=== PATIENT | male | born 1965 | race Caucasian/White ===

== ENCOUNTER 2023-01-10 14:03 | Outpatient (OUT) | payer OTHER, SELFPAY ==
[2023-01-10 15:38] LABS: Prostate Specific Antigen Dx <0.13 ng/mL (<=4.00)
[2023-01-11 04:07] LABS: Testosterone <3 ng/dL (264-916)
== END 2023-01-10 14:04 | disposition home or self-care (01) ==
LOC: LAB 14:11
PROVIDERS: PCP Family Medicine
DX: C61 Malignant neoplasm of prostate (principal)
CPT/HCPCS: 36415; 84153; 84403

== ENCOUNTER 2023-03-20 13:15 | Emergency (ER) | payer OTHER, SELFPAY ==
[2023-03-20 13:21] VITALS: BP 128/84; PULSE 87; RESP 16; TEMP 36.9; O2SAT 95; BMI 33.5
--- NOTE | 2023-03-20 13:31 | CT_ITS ---
[address] [address] Patient Name: ISAIAS LEMON MRN: [id number] date: 1965 Sex: M Assigned Patient Location: ER Current Patient Location: Accession/Order Number: [id number] Exam Date: 03/20/2023 14:10 Report Date: 03/20/2023 15:06 At the request of: MAURIZIO MALDONADO Procedure: CT soft tissue neck w con EXAM: CT soft tissue neck w con; [id number] REASON FOR EXAM: Difficulty swallowing TECHNIQUE: Helical CT images of the neck obtained after the administration of IV contrast. Coronal and sagittal reconstructions were generated at the scanner. Dose reduction technique used: Automated exposure control and/or adjustment of the mA and/or kV according to patient size and/or use of iterative reconstruction technique. COMPARISON: None. FINDINGS: Visualized intracranial contents: Within normal limits. Orbits: Within normal limits. Sinuses: Clear. Catal[employer] Manager space: Within normal limits. Buccal space: Within normal limits. Parotid space: No mass, stone, or acute inflammatory changes. Submandibular space: Within normal limits. Sublingual space: Within normal limits. Submental space: Within normal limits. Oral cavity: Within normal limits. Pharynx/Pharyngeal mucosal space: Distorted due to the left parapharyngeal fluid collection. There is mild mucosal thickening surrounding the parapharyngeal collection. Parapharyngeal space: Left-sided irregular peripherally enhancing fluid collection just cranial to the level of the vallecula measuring 1.5 x 1.3 x 2.4 cm for a volume of 2.4 mL (series 3 image 44 and series 6 image 34). There is adjacent mucosal thickening as well as thickening of the aryepiglottic fold. No evidence of extension into the adjacent carotid space. Retropharyngeal space: Trace retropharyngeal edema, likely reactive. Carotid space: Within normal limits. Perivertebral space: Within normal limits. Visceral space: -No thyroid nodules. Lymph nodes: Mild reactive adenopathy in the left neck. Superficial soft tissues of the neck: Within normal limits. Lung apices: Clear. Osseous: No acute osseous abnormality. No suspicious osseous lesion. CT/CT soft tissue neck w con IMPRESSION: 1. Left-sided parapharyngeal abscess with a volume of 2.4 mL. Mild adjacent pharyngeal mucosal thickening and mild edema within the adjacent retropharyngeal space, likely reactive. 2. Mild reactive adenopathy in the left neck. Electronically authenticated by: DILLON INIGUEZ Date: 03/20/2023 15:06
--- NOTE | 2023-03-20 13:34 | ED_ITS ---
HPI - General Adult General Chief complaint: Neck Pain/Injury Stated complaint: NECK PAIN Time Seen by Provider: 03/20/23 13:21 Source: patient Mode of arrival: walk-in Limitations: no limitations History of Present Illness HPI narrative: patient is a 58-year-old male who presents to the emergency department for a three day history of difficulty swallowing, throat pain and swollen lymph nodes. He denies any fevers, vomiting. He reports the sensation that his throat is swollen and it is difficult for him to breathe and swallow. He has had minimal nasal congestion, no significant upper respiratory symptoms or coughing. He denies any injury to the neck. No medications taken prior to arrival. He states he has had very little to eat and drink today because of the difficulty swallowing, but he has not had any food or fluids come back up after swallowing. Related Data Home Medications Medication Instructions Recorded Confirmed leuprolide acetate (6 month) 45 mg 45 mg IM 03/20/23 intramuscular syringe kit (Lupron Depot) lisinopril 10 mg tablet 10 mg PO DAILY 03/20/23 03/20/23 tamsulosin 0.4 mg capsule 0.4 mg PO Q24H 03/20/23 03/20/23 Allergies Allergy/AdvReac Type Severity Reaction Status Date / Time No Known Drug Allergies Allergy Verified 03/20/23 13:21 Review of Systems ROS Constitutional Denies: fever or chills Ears, nose, mouth, and throat Reports: throat pain, neck pain, throat swelling and difficulty swallowing Cardiovascular Denies: chest pain Respiratory Denies: shortness of breath or cough Gastrointestinal Denies: nausea or vomiting Musculoskeletal Reports: neck pain Integumentary/Breast Denies: rash Neurological Denies: headache Hematologic/Lymphatic Denies: easy bruising Exam Narrative Exam Narrative: Gen.: Awake, alert, in no distress, sitting comfortably Head: Normocephalic, atraumatic ENT: Moist mucous membranes, bilateral tympanic membranes clear. Clear speech with no trismus or drooling. Uvula is midline with pharyngeal erythema noted of the left pharynx, no tonsillar edema or exudate noted. Airway is widely open and patent. Patient is tolerating his secretions. poor dentition noted with multiple dental caries, gumline is swollen and the left mandible, no redness or swelling under the tongue. Palpable lymphadenopathy in the neck, submandibular Respiratory: No respiratory distress, lungs clear bilaterally; no wheezing or stridor Cardio: Regular rate and rhythm Extremities: Moves extremities equally, no injuries noted Psych: Normal mood and affect Neuro: No focal neuro deficit Skin: Warm, dry, intact Constitutional Vital Signs, click to edit/add: Last Vital Signs Temp 98.4 F 03/20/23 13:21 Pulse 76 03/20/23 18:12 Resp 16 03/20/23 18:12 BP 157/91 H 03/20/23 18:12 Pulse Ox 100 03/20/23 18:12 O2 Del Method Room Air 03/20/23 13:49 Course Vital Signs Vital signs: Vital Signs Temperature 98.4 F 03/20/23 13:21 Pulse Rate 87 03/20/23 13:21 Respiratory Rate 16 03/20/23 13:21 Blood Pressure 128/84 03/20/23 13:21 Pulse Oximetry 95 03/20/23 13:21 Oxygen Delivery Method Room Air 03/20/23 13:21 Temperature 98.4 F 03/20/23 13:21 Pulse Rate 76 03/20/23 18:12 Respiratory Rate 16 03/20/23 18:12 Blood Pressure 157/91 H 03/20/23 18:12 Pulse Oximetry 100 03/20/23 18:12 Oxygen Delivery Method Room Air 03/20/23 13:49 Medical Decision Making MDM Narrative Medical decision making narrative: patient was treated with IV fluids, Decadron, Toradol for comfort. He has no evidence of airway compromise and stable vital signs in the emergency department. Labs are unremarkable, monoscreen is negative and strep screen was obtained. CT of the soft tissue of the neck with contrast shows the patient has a 2.4 mL volume abscess in the left parapharyngeal space with associated edema in the retropharyngeal space which is thought to be reactive by radiologist. Discussed with Dr. Mclean ([id number]) who recommended tertiary care transfer due to location of the abscess. Patient started on Zosyn and vancomycin as he has a history of prostate cancer and receiving treatment with Lupron. Patient was given results by attending physician, patient is comfortable transferred to tertiary care facility. Accepted at [facility] by Dr. Tao ([id number]) for transfer. 1924: a bed assignment was received, transfer is pending at this time and dependent on transport come get the patient. He continues to have no compromise of his airway. Vital signs and oxygen saturation are normal at this time. Critical care time 35 minutes Medical Records Medical records reviewed: Yes I reviewed the patient's medical records Lab Data Lab results reviewed: Yes I reviewed the patient's lab results Labs: Lab Results 03/20/23 Range/Units 13:43 WBC 7.9 (4.0-11.0) 10^3/uL RBC 4.06 L (4.70-6.10) 10^6/uL Hgb 12.4 L (14.0-18.0) g/dL Hct 37.5 L (42.0-54.0) % MCV 92.4 (80.0-94.0) fL MCH 30.5 (25.9-34.0) pg MCHC 33.1 (29.9-35.2) g/dL RDW 12.5 (11.0-15.0) % Plt Count 159 (150-450) 10^3/uL MPV 10.4 (9.5-13.5) fL Neut % (Auto) 81.9 H (43.0-75.0) % Lymph % (Auto) 7.6 L (20.5-60.0) % [place] % (Auto) 9.2 (1.7-12.0) % Eos % (Auto) 0.3 L (0.9-7.0) % Baso % (Auto) 0.4 (0.2-2.0) % Neut # (Auto) 6.4 (1.4-6.5) 10^3/uL Lymph # (Auto) 0.6 L (1.2-3.8) 10^3/uL [place] # (Auto) 0.7 (0.3-0.8) 10^3/uL Eos # (Auto) 0.0 (0.0-0.7) 10^3/uL Baso # (Auto) 0.0 (0.0-0.1) 10^3/uL Abs Immat Gran (auto) 0.05 H (0.00-0.03) 10^3/uL Imm/Tot Granulo (auto) 0.6 H (0.0-0.5) % Sodium 138 (136-145) mmol/L Potassium 4.1 (3.5-5.1) mmol/L Chloride 104 (98-107) mmol/L Carbon Dioxide 23.7 (21.0-32.0) mmol/L Anion Gap 14.4 BUN 17.0 (7.0-18.0) mg/dL Creatinine 0.96 (0.70-1.30) mg/dL Est GFR ( Amer) >60 (>=60) Est GFR (Non-Af Amer) >60 (>=60) BUN/Creatinine Ratio 17.7 Glucose 146 H (74-106) mg/dL Calcium 9.3 (8.5-10.1) mg/dL Total Bilirubin 1.3 H (0.2-1.0) mg/dL AST 44 H (15-37) U/L ALT 82 H (16-63) U/L Alkaline Phosphatase 150 H (46-116) U/L Total Protein 8.2 (6.4-8.2) g/dL Albumin 3.7 (3.4-5.0) g/dL Globulin 4.5 g/dL Albumin/Globulin Ratio 0.8 Monoscreen Negative (NEGATIVE) Streptococcus Screen Negative Imaging Data CT neck: Attestation: I have reviewed the pertinent imaging results. Radiologist's impression: Procedure: CT soft tissue neck w con EXAM: CT soft tissue neck w con; [id number] REASON FOR EXAM: Difficulty swallowing TECHNIQUE: Helical CT images of the neck obtained after the administration of IV contrast. Coronal and sagittal reconstructions were generated at the scanner. Dose reduction technique used: Automated exposure control and/or adjustment of the mA and/or kV according to patient size and/or use of iterative reconstruction technique. COMPARISON: None. FINDINGS: Visualized intracranial contents: Within normal limits. Orbits: Within normal limits. Sinuses: Clear. Community Service Aide space: Within normal limits. Buccal space: Within normal limits. Parotid space: No mass, stone, or acute inflammatory changes. Submandibular space: Within normal limits. Sublingual space: Within normal limits. Submental space: Within normal limits. Oral cavity: Within normal limits. Pharynx/Pharyngeal mucosal space: Distorted due to the left parapharyngeal fluid collection. There is mild mucosal thickening surrounding the parapharyngeal collection. Parapharyngeal space: Left-sided irregular peripherally enhancing fluid collection just cranial to the level of the vallecula measuring 1.5 x 1.3 x 2.4 cm for a volume of 2.4 mL (series 3 image 44 and series 6 image 34). There is adjacent mucosal thickening as well as thickening of the aryepiglottic fold. No evidence of extension into the adjacent carotid space. Retropharyngeal space: Trace retropharyngeal edema, likely reactive. Carotid space: Within normal limits. Perivertebral space: Within normal limits. Visceral space: -No thyroid nodules. Lymph nodes: Mild reactive adenopathy in the left neck. Superficial soft tissues of the neck: Within normal limits. Lung apices: Clear. Osseous: No acute osseous abnormality. No suspicious osseous lesion. IMPRESSION: 1. Left-sided parapharyngeal abscess with a volume of 2.4 mL. Mild adjacent pharyngeal mucosal thickening and mild edema within the adjacent retropharyngeal space, likely reactive. 2. Mild reactive adenopathy in the left neck. Electronically authenticated by: DILLON INIGUEZ Date: 03/20/2023 15:06 Discharge Plan Discharge Chief Complaint: Neck Pain/Injury Clinical Impression: Parapharyngeal abscess, Dysphagia Patient Disposition: [facility] Time of Disposition Decision: 19:31 Discharge Location: [facility] Condition: Fair Mode of Transportation: EMS Prescriptions / Home Meds: No Action lisinopril 10 mg tablet 10 mg PO DAILY tamsulosin 0.4 mg capsule 0.4 mg PO Q24H Lupron Depot (6 Month) 45 mg syringe kit 45 mg IM Stand Alone Forms: Portal Instructions Referrals: JOHN GAYTAN [Primary Care Provider] - 1 week
[2023-03-20 13:49] VITALS: RESP 16; O2SAT 98
[2023-03-20] MEDS: DEXAMETHASONE SODIUM PHOSPHATE 10 MG/ML VIAL IV (13:53)
[2023-03-20] MEDS: KETOROLAC TROMETHAMINE 30 MG/ML VIAL IVP (13:53)
[2023-03-20 14:09] LABS: Alanine Aminotransferase 82 U/L (16-63); Albumin Globulin Ratio 0.8; Albumin Level 3.7 g/dL (3.4-5.0); Alkaline Phosphatase 150 U/L (46-116); Anion Gap 14.4; Aspartate Amino Transferase 44 U/L (15-37); BUN Creatinine Ratio 17.7; Bilirubin Total 1.3 mg/dL (0.2-1.0); Calcium 9.3 mg/dL (8.5-10.1); Carbon Dioxide 23.7 mmol/L (21.0-32.0); Chloride 104 mmol/L (98-107); Estimated GFR (African America >60 (>=60); Estimated GFR (Non-African Ame >60 (>=60); Globulin 4.5 g/dL; Glucose 146 mg/dL (74-106); Potassium 4.1 mmol/L (3.5-5.1); Sodium 138 mmol/L (136-145); Total Protein 8.2 g/dL (6.4-8.2)
[2023-03-20 14:11] LABS: Mono Screen NEGATIVE (NEGATIVE)
[2023-03-20] MEDS: 0.9 % SODIUM CHLORIDE 1,000 ML 1000 ML IV (14:30)
[2023-03-20 14:34] LABS: Basophils Percent Auto 0.4 % (0.2-2.0); Eosinophils Percent Auto 0.3 % (0.9-7.0); Hematocrit 37.5 % (42.0-54.0); Hemoglobin 12.4 g/dL (14.0-18.0); Immature Granulocytes Abs Auto 0.05 10^3/uL (0.00-0.03); Immature Granulocytes Pct Auto 0.6 % (0.0-0.5); Lymphocytes Absolute Auto 0.6 10^3/uL (1.2-3.8); Lymphocytes Percent Auto 7.6 % (20.5-60.0); Mean Corpuscular HGB Conc 33.1 g/dL (29.9-35.2); Mean Corpuscular Hemoglobin 30.5 pg (25.9-34.0); Mean Corpuscular Volume 92.4 fL (80.0-94.0); Mean Platelet Volume 10.4 fL (9.5-13.5); Monocytes Absolute Auto 0.7 10^3/uL (0.3-0.8); Monocytes Percent Auto 9.2 % (1.7-12.0); Neutrophils Absolute Auto 6.4 10^3/uL (1.4-6.5); Neutrophils Percent Auto 81.9 % (43.0-75.0); Platelet Count 159 10^3/uL (150-450); Red Blood Count 4.06 10^6/uL (4.70-6.10); Red Cell Distribution Width 12.5 % (11.0-15.0); White Blood Count 7.9 10^3/uL (4.0-11.0)
[2023-03-20] MEDS: PIPERACILLIN SODIUM/TAZOBACTAM 4.5 GM in 0.9 % SODIUM CHLORIDE 50 ML IV (15:26)
[2023-03-20 15:55] LABS: Internal Control Within Normal Limits; Strep A Antigen Screen Negative
[2023-03-20] MEDS: VANCOMYCIN HCL 1,000 MG in 0.9 % SODIUM CHLORIDE 250 ML 250 MG IV (15:58)
[2023-03-20 18:12] VITALS: BP 157/91; PULSE 76; RESP 16; O2SAT 100
[2023-03-20 20:27] VITALS: BP 154/86; PULSE 73; RESP 16; O2SAT 97
== END 2023-03-20 21:33 | disposition short-term general hospital (02) ==
PROVIDERS: Physician Assistant; Emergency Provider Emergency Medicine; PCP Family Medicine
DX: J39.0 Retropharyngeal and parapharyngeal abscess (principal); R13.10 Dysphagia, unspecified; Z79.899 Other long term (current) drug therapy
CPT/HCPCS: 36415; 70491; 80053; 85025; 86308; 87070; 87880; 96365; 96375; 99291; J1100; J3370; Q9967

== ENCOUNTER 2023-07-17 15:30 | Outpatient (OUT) | payer OTHER, SELFPAY ==
[2023-07-17 15:55] LABS: Basophils Percent Auto 0.5 % (0.2-2.0); Eosinophils Absolute Auto 0.1 10^3/uL (0.0-0.7); Hematocrit 38.1 % (42.0-54.0); Hemoglobin 12.4 g/dL (14.0-18.0); Immature Granulocytes Abs Auto 0.03 10^3/uL (0.00-0.03); Immature Granulocytes Pct Auto 0.5 % (0.0-0.5); Lymphocytes Percent Auto 18.2 % (20.5-60.0); Mean Corpuscular HGB Conc 32.5 g/dL (29.9-35.2); Mean Corpuscular Hemoglobin 29.5 pg (25.9-34.0); Mean Corpuscular Volume 90.5 fL (80.0-94.0); Monocytes Absolute Auto 0.3 10^3/uL (0.3-0.8); Monocytes Percent Auto 5.5 % (1.7-12.0); Neutrophils Percent Auto 73.3 % (43.0-75.0); Platelet Count 178 10^3/uL (150-450); Red Blood Count 4.21 10^6/uL (4.70-6.10); Red Cell Distribution Width 12.4 % (11.0-15.0); White Blood Count 5.5 10^3/uL (4.0-11.0)
[2023-07-17 16:04] LABS: Alanine Aminotransferase 84 U/L (16-63); Albumin Globulin Ratio 0.9; Albumin Level 3.8 g/dL (3.4-5.0); Alkaline Phosphatase 187 U/L (46-116); Anion Gap 11.3; Aspartate Amino Transferase 36 U/L (15-37); BUN Creatinine Ratio 12.2; Bilirubin Total 0.3 mg/dL (0.2-1.0); Calcium 9.1 mg/dL (8.5-10.1); Carbon Dioxide 27.8 mmol/L (21.0-32.0); Chloride 104 mmol/L (98-107); Estimated GFR (African America >60 (>=60); Estimated GFR (Non-African Ame >60 (>=60); Globulin 4.3 g/dL; Glucose 169 mg/dL (74-106); Potassium 4.1 mmol/L (3.5-5.1); Sodium 139 mmol/L (136-145); Total Protein 8.1 g/dL (6.4-8.2)
== END 2023-07-17 15:31 | disposition home or self-care (01) ==
LOC: LAB 15:32
PROVIDERS: PCP Family Medicine
DX: C61 Malignant neoplasm of prostate (principal)
CPT/HCPCS: 36415; 80053; 85025

== ENCOUNTER 2023-10-01 11:00 | Observation (INO) | payer OTHER, SELFPAY ==
[2023-10-01] VITALS (47 sets, daily range): BP systolic 84–173; BP diastolic 51–92; PULSE 60–89; RESP 10–27; TEMP 36.5–36.8; O2SAT 88–99; BMI 34.4; BMI 32.4
--- NOTE | 2023-10-01 11:38 | PC.NURSE ---
pt states for last 2 weeks he has been feeling like his equililbrium is off. denies any room spinning or lightheadedness. Pt was able to ambulate back to room. Per daughter, pt has somewhat of a R facial droop -- this RN does not see that at this time. Pt is not slurring his words and is not weak on one side or the other. States my body won't do what my mind wants it to . Pt is currently being treated for prostate CA with radioactive seeds. Called his Dr today and was told to come to ER for head CT.
--- NOTE | 2023-10-01 11:39 | ECG_ITS ---
The [facility] Test Date: 2023-10-01 Pat Name: ISAIAS LEMON Department: Room: - Gender: Male Lab Support Technician: : 1965 Requested By: [id number] Order Number: [id number] Reading MD: MILAD AL Measurements Intervals [place] Rate: 78 P: 34 MD: 162 QRS: 0 QRSD: 90 T: -14 QT: 368 QTc: 401 Interpretive Statements 1100 Sinus rhythm 3614 Cannot rule out inferior myocardial infarction, age undetermined ST/T wave changes, can't exclude inferior ischemia 5233 Voltage criteria for LVH 9150 abnormal ECG Electronically Signed On 10-01-2023 22:45:55 EDT by MILAD AL
--- NOTE | 2023-10-01 11:40 | ED.GENADUL1 ---
HPI - General Adult General Chief complaint: Extremity Problem, Nontraumatic Stated complaint: R LEG PAIN/NUMBNESS Time Seen by Provider: 10/01/23 11:21 Source: patient and family Mode of arrival: walk-in Limitations: no limitations History of Present Illness HPI narrative: 58-year-old male presents for weakness in his right leg. He has had this for 2 weeks and it seems to be getting worse. He is also had polyuria and polydipsia. He is not known to be diabetic. He has no symptoms in his arms or the left leg. He feels that the coordination in his right leg is not good and it is a bit weak. She has trouble controlling it. He has difficulty sitting down because sometimes he feels that he is in 1 place but is actually in another such as sitting down onto a chair. He has had no injury and does not complain of a headache. Related Data Home Medications ?Medication ?Instructions ?Recorded ?Confirmed leuprolide acetate (6 month) 45 mg 45 mg IM .q 6 months 03/20/23 10/01/23 intramuscular syringe kit (Lupron Depot) tamsulosin 0.4 mg capsule 0.4 mg PO Q24H 03/20/23 10/01/23 lisinopril 20 mg tablet 20 mg PO QDAY 10/01/23 10/01/23 venlafaxine 37.5 mg 75 mg PO DAILY 10/01/23 10/01/23 capsule,extended release 24 hr Allergies Allergy/AdvReac Type Severity Reaction Status Date / Time No Known Drug Allergies Allergy Verified 10/01/23 11:07 Review of Systems ROS Narrative A ten point review of systems is negative except as noted above. Exam Narrative Exam Narrative: Nurses note and vital signs reviewed and patient is not hypoxic. General: The patient appears well and in no apparent distress. Patient is resting comfortably on cart. Skin: Warm, dry, no pallor noted. There is no rash noted. Head: Normocephalic, atraumatic Eye: Normal conjunctiva, no drainage Ears, Nose, Mouth, and Throat: oral mucosa is moist. Nares patent. Cardiovascular: Regular Rate and Rhythm Respiratory: Patient is in no distress, no accessory muscle use, lungs are clear to auscultation, no wheezing, rales or rhonchi Back: non-tender GI: Soft and nontender Musculoskeletal: The patient has no evidence of calf tenderness, no pitting edema, symmetrical pulses noted bilaterally Neurological: A&O x4, normal speech; upper extremity strength is intact and symmetric in all muscle groups. Right leg is weak compared to the left and motor control is diminished as well. Cranial nerves II through XII intact Psychiatric: Cooperative Constitutional Vital Signs, click to edit/add: Last Vital Signs Temp 97.7 F 10/01/23 11:13 Pulse 62 10/01/23 16:00 Resp 14 10/01/23 16:00 BP 122/72 10/01/23 15:45 Pulse Ox 93 L 10/01/23 16:00 O2 Del Method Room Air 10/01/23 11:13 Course Vital Signs Vital signs: Vital Signs Temperature 97.7 F 10/01/23 11:13 Pulse Rate 89 10/01/23 11:13 Respiratory Rate 18 10/01/23 11:13 Blood Pressure 140/81 10/01/23 11:13 Pulse Oximetry 95 10/01/23 11:13 Oxygen Delivery Method Room Air 10/01/23 11:13 Temperature 97.7 F 10/01/23 11:13 Pulse Rate 62 10/01/23 16:00 Respiratory Rate 14 10/01/23 16:00 Blood Pressure 122/72 10/01/23 15:45 Pulse Oximetry 93 L 10/01/23 16:00 Oxygen Delivery Method Room Air 10/01/23 11:13 Medical Decision Making MDM Narrative Medical decision making narrative: CT brain, CTA head and neck are negative. I have spoken to neurology who does not feel the patient needs to be transferred. They recommend MRI. The patient also has new onset of diabetes. He was given IV insulin with good response in terms of his blood sugar. Repeat examination of his leg at 4:30 PM showed no ataxia. The patient reports that it has been coming and going like this for 2 or 3 weeks. The cause of the leg ataxia is uncertain. At this point there is no evidence of a stroke but he will need to have an MRI. It will be highly unlikely for hyperglycemia to be causing such as symptom. Findings are discussed thoroughly with the patient and his family and he is being admitted. Differential Diagnosis Differential Diagnosis: Metastasis, stroke, new onset diabetes, lumbar radiculopathy Lab Data Lab results reviewed: Yes I reviewed the patient's lab results Labs: Lab Results 0310/01/23 10/01/23 Range/Units 11:44 11:49 12:35 WBC 4.3 (4.0-11.0) 10^3/uL RBC 4.40 L (4.70-6.10) 10^6/uL Hgb 13.1 L (14.0-18.0) g/dL Hct 38.7 L (42.0-54.0) % MCV 88.0 (80.0-94.0) fL MCH 29.8 (25.9-34.0) pg MCHC 33.9 (29.9-35.2) g/dL RDW 12.0 (11.0-15.0) % Plt Count 154 (150-450) 10^3/uL MPV 12.1 (9.5-13.5) fL Neut % (Auto) 76.0 H (43.0-75.0) % Lymph % (Auto) 16.3 L (20.5-60.0) % [place] % (Auto) 5.8 (1.7-12.0) % Eos % (Auto) 0.9 (0.9-7.0) % Baso % (Auto) 0.5 (0.2-2.0) % Neut # (Auto) 3.3 (1.4-6.5) 10^3/uL Lymph # (Auto) 0.7 L (1.2-3.8) 10^3/uL [place] # (Auto) 0.3 (0.3-0.8) 10^3/uL Eos # (Auto) 0.0 (0.0-0.7) 10^3/uL Baso # (Auto) 0.0 (0.0-0.1) 10^3/uL Abs Immat Gran (auto) 0.02 (0.00-0.03) 10^3/uL Imm/Tot Granulo (auto) 0.5 (0.0-0.5) % VBG pH (7.330-7.430) VBG pCO2 (40.0-52.0) mmHg Sodium 130 L (136-145) mmol/L Potassium 5.0 (3.5-5.1) mmol/L Chloride 93 L (98-107) mmol/L Carbon Dioxide 23.9 (21.0-32.0) mmol/L Anion Gap 18.1 BUN 15.0 (7.0-18.0) mg/dL Creatinine 1.16 (0.70-1.30) mg/dL Est GFR ( Amer) >60 (>=60) Est GFR (Non-Af Amer) >60 (>=60) BUN/Creatinine Ratio 12.9 Glucose 501 H* (74-106) mg/dL Calcium 9.2 (8.5-10.1) mg/dL Urine Color Lt. yellow (YELLOW) Urine Clarity Clear (CLEAR) Urine pH 5.5 (5.0-9.0) Ur Specific [place] 1.010 (1.005-1.025) Urine Protein Negative (NEG/TRACE) mg/dL Urine Glucose (UA) >=1000 A (NEGATIVE) mg/dL Urine Ketones 15 A (NEGATIVE) mg/dL Urine Occult Blood Negative (NEGATIVE) Urine Nitrite Negative (NEGATIVE) Urine Bilirubin Negative (NEGATIVE) Urine Urobilinogen 0.2 (0.2-1.0) EU/dL Ur Leukocyte Esterase Negative (NEGATIVE) Urine RBC None seen (0-2) #/HPF Urine WBC None seen (NONE SEEN) #/HPF Ur Squamous Epith Cells Few A (NONE/RARE) #/LPF Urine Bacteria None seen (NONE SEEN) #/HPF Urine Mucus None seen (NONE SEEN) Acetone, Qual Negative (NEGATIVE) POC Glucose 511 H* (74-106) mg/dL 10/01/23 10/01/23 Range/Units 12:54 14:15 WBC (4.0-11.0) 10^3/uL RBC (4.70-6.10) 10^6/uL Hgb (14.0-18.0) g/dL Hct (42.0-54.0) % MCV (80.0-94.0) fL MCH (25.9-34.0) pg MCHC (29.9-35.2) g/dL RDW (11.0-15.0) % Plt Count (150-450) 10^3/uL MPV (9.5-13.5) fL Neut % (Auto) (43.0-75.0) % Lymph % (Auto) (20.5-60.0) % [place] % (Auto) (1.7-12.0) % Eos % (Auto) (0.9-7.0) % Baso % (Auto) (0.2-2.0) % Neut # (Auto) (1.4-6.5) 10^3/uL Lymph # (Auto) (1.2-3.8) 10^3/uL [place] # (Auto) (0.3-0.8) 10^3/uL Eos # (Auto) (0.0-0.7) 10^3/uL Baso # (Auto) (0.0-0.1) 10^3/uL Abs Immat Gran (auto) (0.00-0.03) 10^3/uL Imm/Tot Granulo (auto) (0.0-0.5) % VBG pH 7.401 (7.330-7.430) VBG pCO2 43.7 (40.0-52.0) mmHg Sodium (136-145) mmol/L Potassium (3.5-5.1) mmol/L Chloride (98-107) mmol/L Carbon Dioxide (21.0-32.0) mmol/L Anion Gap BUN (7.0-18.0) mg/dL Creatinine (0.70-1.30) mg/dL Est GFR ( Amer) (>=60) Est GFR (Non-Af Amer) (>=60) BUN/Creatinine Ratio Glucose (74-106) mg/dL Calcium (8.5-10.1) mg/dL Urine Color (YELLOW) Urine Clarity (CLEAR) Urine pH (5.0-9.0) Ur Specific [place] (1.005-1.025) Urine Protein (NEG/TRACE) mg/dL Urine Glucose (UA) (NEGATIVE) mg/dL Urine Ketones (NEGATIVE) mg/dL Urine Occult Blood (NEGATIVE) Urine Nitrite (NEGATIVE) Urine Bilirubin (NEGATIVE) Urine Urobilinogen (0.2-1.0) EU/dL Ur Leukocyte Esterase (NEGATIVE) Urine RBC (0-2) #/HPF Urine WBC (NONE SEEN) #/HPF Ur Squamous Epith Cells (NONE/RARE) #/LPF Urine Bacteria (NONE SEEN) #/HPF Urine Mucus (NONE SEEN) Acetone, Qual (NEGATIVE) POC Glucose 164 H (74-106) mg/dL Imaging Data CT scan - head: Radiologist's impression: ITS Impressions Chest X-Ray 10/01/23 12:07 IMPRESSION: No acute disease. Electronically authenticated by: ROCÍO PARKINSON Date: 10/01/2023 12:[address] 10/01/23 12:10 IMPRESSION: No acute intracranial process is noted. Electronically authenticated by: DASHA ELDRIDGE Date: 10/01/2023 12:33 Head CTA 10/01/23 14:12 IMPRESSION: No hemodynamically significant stenosis, large vessel occlusion or aneurysm involving the visualized neck or intracranial arterial vasculature. Please note the aortic arch and origins of the aortic arch branch vessels were not included in the [id number]. Electronically authenticated by: THOMAS BEST Date: 10/01/2023 14:44 Neck CTA 10/01/23 14:12 IMPRESSION: No hemodynamically significant stenosis, large vessel occlusion or aneurysm involving the visualized neck or intracranial arterial vasculature. Please note the aortic arch and origins of the aortic arch branch vessels were not included in the [id number]. Electronically authenticated by: THOMAS BEST Date: 10/01/2023 14:44 ECG Data Attestation: I personally reviewed and interpreted this ECG as follows: (EKG on my interpretation shows normal sinus rhythm without acute change and a rate of 78) Critical Care Time Critical Care Time Critical Care Time: Yes Total Critical Care Time: 35 Attestation: Due to the high probability of sudden and clinically significant deterioration in the patient's condition he/she required the highest level of my preparedness to intervene urgently I provided critical care time including documentation time, medication orders and management, reevaluation, vital sign assessment, ordering and reviewing of lab tests, ordering and reviewing of x-ray studies, and admission orders. Aggregate critical care time is 35 minutes including only time during which I was engaged in work directly related to his/her care and did not include time spent treating other patients simultaneously. Discharge Plan Discharge Chief Complaint: Extremity Problem, Nontraumatic Clinical Impression: Ataxia, Diabetes mellitus, new onset Patient Disposition: Admitted as Observation Time of Disposition Decision: 16:39 Condition: Good
[2023-10-01 11:50] LABS: Glucometer 511 mg/dL (74-106)
--- NOTE | 2023-10-01 12:07 | XR_ITS ---
The [address] [address] Patient Name: ISAIAS LEMON MRN: [id number] date: 1965 Sex: M Assigned Patient Location: ER Current Patient Location: ER Accession/Order Number: [id number] Exam Date: 10/01/2023 12:01 Report Date: 10/01/2023 12:45 At the request of: AUGUSTINA FONTENOT Procedure: XR chest 1V EXAMINATION: XR chest 1V HISTORY: weak COMPARISON: 02/28/2014 TECHNIQUE: AP portable erect FINDINGS: LUNGS: No significant pulmonary parenchymal abnormalities. VASCULATURE: No increased pulmonary vasculature. PLEURA: No pneumothorax, effusion, or pleural thickening. CARDIAC: No cardiomegaly or cardiac silhouette abnormality. MEDIASTINUM: No visible mass or adenopathy. BONES: No fracture or visible bone lesion. OTHER: Negative. XR/XR chest 1V IMPRESSION: No acute disease. Electronically authenticated by: ROCÍO PARKINSON Date: 10/01/2023 12:45
--- NOTE | 2023-10-01 12:10 | CT_ITS ---
The [address] [address] Patient Name: ISAIAS LEMON MRN: [id number] date: 1965 Sex: M Assigned Patient Location: ER Current Patient Location: ER Accession/Order Number: [id number] Exam Date: 10/01/2023 12:01 Report Date: 10/01/2023 12:33 At the request of: AUGUSTINA FONTENOT Procedure: CT head/brain wo con CT head/brain wo con, 10/01/2023 12:01 PM EDT INDICATION: Right leg weakness for 2 weeks COMPARISON: There is no appropriate prior study for comparison. TECHNIQUE: Axial CT images of the brain from skull base to vertex, including portions of the face and sinuses, were obtained without contrast . Multiplanar reformatted images were generated and reviewed as needed. Dose reduction techniques were achieved by using automated exposure control and/or adjustment of mA and/or kV according to patient size and/or use of iterative reconstruction technique. FINDINGS: The cerebral sulci as well as ventricular system are appropriate for age. There is no intracranial mass, mass effect, midline shift, intra or extra-axial fluid collection or hemorrhage. 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 The visualized portions of orbits, mastoid air cells as well as paranasal sinuses are unremarkable. There is no suspicious osteolytic or osteoblastic lesion. CT/CT head/brain wo con IMPRESSION: No acute intracranial process is noted. Electronically authenticated by: DASHA ELDRIDGE Date: 10/01/2023 12:33
[2023-10-01 12:22] LABS: Basophils Percent Auto 0.5 % (0.2-2.0); Eosinophils Percent Auto 0.9 % (0.9-7.0); Hematocrit 38.7 % (42.0-54.0); Hemoglobin 13.1 g/dL (14.0-18.0); Immature Granulocytes Abs Auto 0.02 10^3/uL (0.00-0.03); Immature Granulocytes Pct Auto 0.5 % (0.0-0.5); Lymphocytes Absolute Auto 0.7 10^3/uL (1.2-3.8); Lymphocytes Percent Auto 16.3 % (20.5-60.0); Mean Corpuscular HGB Conc 33.9 g/dL (29.9-35.2); Mean Corpuscular Hemoglobin 29.8 pg (25.9-34.0); Mean Platelet Volume 12.1 fL (9.5-13.5); Monocytes Absolute Auto 0.3 10^3/uL (0.3-0.8); Monocytes Percent Auto 5.8 % (1.7-12.0); Neutrophils Absolute Auto 3.3 10^3/uL (1.4-6.5); Platelet Count 154 10^3/uL (150-450); White Blood Count 4.3 10^3/uL (4.0-11.0)
[2023-10-01 12:42] LABS: Anion Gap 18.1; BUN Creatinine Ratio 12.9; Calcium 9.2 mg/dL (8.5-10.1); Carbon Dioxide 23.9 mmol/L (21.0-32.0); Chloride 93 mmol/L (98-107); Estimated GFR (African America >60 (>=60); Estimated GFR (Non-African Ame >60 (>=60); Sodium 130 mmol/L (136-145)
[2023-10-01 12:46] LABS: Bilirubin Urine NEGATIVE (NEGATIVE); Blood Urine NEGATIVE (NEGATIVE); Clarity Urine CLEAR (CLEAR); Color Urine LT. YELLOW (YELLOW); Glucose Urine UA >=1000 mg/dL (NEGATIVE); Ketones Urine 15 mg/dL (NEGATIVE); Leukocyte Esterase Urine NEGATIVE (NEGATIVE); Nitrite Urine NEGATIVE (NEGATIVE); Protein Urine NEGATIVE (NEG/TRACE); Urobilinogen Urine 0.2 EU/dL (0.2-1.0); pH Urine 5.5 (5.0-9.0)
[2023-10-01 12:47] LABS: Glucose 501 mg/dL (74-106)
[2023-10-01 12:56] LABS: Acetone NEGATIVE (NEGATIVE)
[2023-10-01 12:59] LABS: PCO2 VBG 43.7 mmHg (40.0-52.0); pH VBG 7.401 (7.330-7.430)
[2023-10-01 13:32] LABS: Bacteria Urine NONE SEEN #/HPF (NONE SEEN); Mucus Urine NONE SEEN (NONE SEEN); RBC Urine NONE SEEN #/HPF (0-2); Squamous Epithelial Cell Urine FEW #/LPF (NONE/RARE); WBC Urine NONE SEEN #/HPF (NONE SEEN)
[2023-10-01] MEDS: INSULIN REGULAR 300 UNITS/3 ML 6 UNIT IV (13:34)
--- NOTE | 2023-10-01 14:12 | CT_ITS ---
The [address] [address] Patient Name: ISAIAS LEMON MRN: [id number] date: 1965 Sex: M Assigned Patient Location: ER Current Patient Location: Accession/Order Number: [id number] Exam Date: 10/01/2023 13:58 Report Date: 10/01/2023 14:44 At the request of: AUGUSTINA FONTENOT Procedure: CT angio head EXAM: CT angio neck, CT angio head HISTORY: Right leg weakness COMPARISON: CT head performed earlier the same day and reported separately. TECHNIQUE: Postcontrast CTA imaging of the head and neck was performed with coronal and sagittal reformats. Maximum intensity projection and 3-D reformats were performed on a separate workstation. NASCET criteria was utilized. This CT exam was performed using one or more of the following dose reduction techniques: Automated exposure control, adjustment of the MA and/or kV according to patient size, or use of iterative reconstruction technique. FINDINGS: Aortic arch: Aortic arch and origins of the aortic arch branch vessels were not included in the [id number]. The left vertebral artery appears to originate from the aortic arch with the origin incompletely evaluated. Right carotid system: No evidence of significant (50% or greater) stenosis or occlusion. Left carotid system: No evidence of significant (50% or greater) stenosis or occlusion. Vertebral arteries: Codominant. No evidence of significant (50% or greater) stenosis or occlusion. Anterior circulation: No evidence of aneurysm, significant stenosis, or occlusion. Mildly hypoplastic right A1 anterior cerebral artery segment. Vertebrobasilar system: No evidence of aneurysm, significant stenosis, or occlusion. Venous sinuses: Grossly patent. Additional findings: CT/CT angio head IMPRESSION: No hemodynamically significant stenosis, large vessel occlusion or aneurysm involving the visualized neck or intracranial arterial vasculature. Please note the aortic arch and origins of the aortic arch branch vessels were not included in the [id number]-kc-[id number]. Electronically authenticated by: THOMAS BEST Date: 10/01/2023 14:44
--- NOTE | 2023-10-01 14:12 | CT_ITS ---
The [address] [address] Patient Name: ISAIAS LEMON MRN: [id number] date: 1965 Sex: M Assigned Patient Location: ER Current Patient Location: Accession/Order Number: [id number] Exam Date: 10/01/2023 13:58 Report Date: 10/01/2023 14:44 At the request of: AUGUSTINA FONTENOT Procedure: CT angio neck EXAM: CT angio neck, CT angio head HISTORY: Right leg weakness COMPARISON: CT head performed earlier the same day and reported separately. TECHNIQUE: Postcontrast CTA imaging of the head and neck was performed with coronal and sagittal reformats. Maximum intensity projection and 3-D reformats were performed on a separate workstation. NASCET criteria was utilized. This CT exam was performed using one or more of the following dose reduction techniques: Automated exposure control, adjustment of the MA and/or kV according to patient size, or use of iterative reconstruction technique. FINDINGS: Aortic arch: Aortic arch and origins of the aortic arch branch vessels were not included in the vpovo-py-nviz. The left vertebral artery appears to originate from the aortic arch with the origin incompletely evaluated. Right carotid system: No evidence of significant (50% or greater) stenosis or occlusion. Left carotid system: No evidence of significant (50% or greater) stenosis or occlusion. Vertebral arteries: Codominant. No evidence of significant (50% or greater) stenosis or occlusion. Anterior circulation: No evidence of aneurysm, significant stenosis, or occlusion. Mildly hypoplastic right A1 anterior cerebral artery segment. Vertebrobasilar system: No evidence of aneurysm, significant stenosis, or occlusion. Venous sinuses: Grossly patent. Additional findings: CT/CT angio neck IMPRESSION: No hemodynamically significant stenosis, large vessel occlusion or aneurysm involving the visualized neck or intracranial arterial vasculature. Please note the aortic arch and origins of the aortic arch branch vessels were not included in the [id number]-[id number]. Electronically authenticated by: THOMAS BEST Date: 10/01/2023 14:44
[2023-10-01 14:17] LABS: Glucometer 164 mg/dL (74-106)
--- NOTE | 2023-10-01 16:42 | MR_ITS ---
[address] [address] Patient Name: ISAIAS LEMON MRN: [id number] date: 1965 Sex: M Assigned Patient Location: MS Current Patient Location: MS Accession/Order Number: [id number] Exam Date: 10/01/2023 17:15 Report Date: 10/01/2023 18:32 At the request of: JAMEE VICKERS Procedure: MR head/brain wo con EXAM: MR head/brain wo con, MR lumbar spine wo con REASON FOR EXAM: right leg weakness, TIA? COMPARISON: CT scan from today FINDINGS: BRAIN: No intracranial masses. No abnormal restricted diffusion or evidence of evolving infarct. No evidence of intracranial hemorrhage. No hydrocephalus. Mild small vessel gliosis. Paranasal sinuses and mastoid air cells are clear. L-SPINE: No lumbar spine fractures, acute malalignment or acute abnormal marrow signal. No spinal canal mass, hematoma or fluid collection. Lumbar spine degenerative changes with a small L5-S1 posterior disc protrusion. Mild L4-5 posterior disc bulge. Relatively preserved intervertebral disc heights except at the L5-S1 level where there is moderate disc space narrowing. L2 on L3 small hemangiomas. Mild stenosis of the lateral recesses bilaterally at the L4-L5 and L5-S1 levels. Otherwise, no substantial spinal canal stenoses. Mild bilateral L4-5 neural foraminal stenoses. Moderate bilateral L5-S1 neural foraminal stenoses. No other substantial neural foraminal stenoses. Remainder unremarkable. MR/MR head/brain wo con IMPRESSION: 1. No acute intracranial abnormalities. 2. No acute lumbar spine abnormalities. 3. No moderate or high-grade spinal canal stenoses. 4. Moderate bilateral L5-S1 neural foraminal stenoses. Electronically authenticated by: ERIC FERRO Date: 10/01/2023 18:32
--- NOTE | 2023-10-01 16:47 | MR_ITS ---
The [address] [address] Patient Name: ISAIAS LEMON MRN: [id number] date: 1965 Sex: M Assigned Patient Location: MS Current Patient Location: MS Accession/Order Number: [id number] Exam Date: 10/01/2023 17:15 Report Date: 10/01/2023 18:32 At the request of: JAMEE VICKERS Procedure: MR lumbar spine wo con EXAM: MR head/brain wo con, MR lumbar spine wo con REASON FOR EXAM: right leg weakness, TIA? COMPARISON: CT scan from today FINDINGS: BRAIN: No intracranial masses. No abnormal restricted diffusion or evidence of evolving infarct. No evidence of intracranial hemorrhage. No hydrocephalus. Mild small vessel gliosis. Paranasal sinuses and mastoid air cells are clear. L-SPINE: No lumbar spine fractures, acute malalignment or acute abnormal marrow signal. No spinal canal mass, hematoma or fluid collection. Lumbar spine degenerative changes with a small L5-S1 posterior disc protrusion. Mild L4-5 posterior disc bulge. Relatively preserved intervertebral disc heights except at the L5-S1 level where there is moderate disc space narrowing. L2 on L3 small hemangiomas. Mild stenosis of the lateral recesses bilaterally at the L4-L5 and L5-S1 levels. Otherwise, no substantial spinal canal stenoses. Mild bilateral L4-5 neural foraminal stenoses. Moderate bilateral L5-S1 neural foraminal stenoses. No other substantial neural foraminal stenoses. Remainder unremarkable. MR/MR lumbar spine wo con IMPRESSION: 1. No acute intracranial abnormalities. 2. No acute lumbar spine abnormalities. 3. No moderate or high-grade spinal canal stenoses. 4. Moderate bilateral L5-S1 neural foraminal stenoses. Electronically authenticated by: ERIC FERRO Date: 10/01/2023 18:32
--- NOTE | 2023-10-01 16:54 | P.HP_ITS ---
HPI H&P: HPI History of Present Illness Chief complaint: R LEG PAIN/NUMBNESS aTAXIA NEW ONSET [place]AS Narrative: patient is a 58-year-old with past medical history of hypertension, depression, prostate cancer and colon cancer who presents to the Emergency Room today with increased urinary frequency and urgency. Also noted was some right lower extremity weakness to the point where he sometimes is getting a spasm in foot, calf and the leg draw and his neck goes to the right. He denies any trauma to his back or leg. This has been progressive over the last 2 weeks where it's occuring 5-10 times a day lasting seconds. He denies any history of strokes or heart attacks. He denies any family history of any muscle wasting disease. He feels that these symptoms come and go. He denies any bowel or bladder incontinence. He denies any recent illness or fevers chills. He is currently undergoing Lupron for prostate cancer. CTA of the head and neck from the emergency department were negative. All other lab work was within normal limits with exception of an elevated glucose level in the 500s with a urine present with ketones. Patient was given regular insulin six units which brought insulin levels down. He does not have a history of diabetes but does have a family history. Patient was admitted to hospital service for further plan of care. Opioid HPI Opioid Management Most Recent Opioid Data: Last Pain Assessment 10/02/23 11:42 Last ORT Total Score 0 10/01/23 18:48 Last ORT Risk Category Low Risk 10/01/23 18:48 Review of Systems ROS Narrative ROS: a complete review of systems were reviewed with patient and are positive as below or listed in History of Chief Complaint. General: no fever, chills, night sweats Head: no headache, trauma, visual changes, nausea or vomiting Skin: no reported rashes, itching or sores Eyes: no blurriness of vision Ears: no reported hearing loss, vertigo, earache, or tinnitus Throat: no sore throat, hoarseness, swelling of neck, or tongue pain Heart: no chest pain Lungs: no shortness of breath or cough GI: no diarrhea or vomiting/nausea Urinary: no urinary urgency, frequency or pain Neuro: numbness or tingling of the right leg HEM: no bleeding issues or bruising ENDO: no thyroid problems Psych: no anxiety or depression [facility] Medical History (Updated 10/01/23 @ 18:49 by Amber Gutierrez) Colon cancer ?C18.9 - Malignant neoplasm of colon, unspecified (ICD-10) Tonsillectomy planned Depression ?F32.A - Depression, unspecified (ICD-10) Primary hypertension ?I10 - Essential (primary) hypertension (ICD-10) Prostate cancer ?C61 - Malignant neoplasm of prostate (ICD-10) Meds Home Medications and Allergies Home Medications ?Medication ?Instructions ?Recorded ?Confirmed ?Type leuprolide acetate (6 month) 45 mg 45 mg IM .q 6 months 03/20/23 10/01/23 History intramuscular syringe kit (Lupron Depot) tamsulosin 0.4 mg capsule 0.4 mg PO Q24H 03/20/23 10/01/23 History lisinopril 20 mg tablet 20 mg PO .QD 10/01/23 10/01/23 History venlafaxine 75 mg capsule,extended 75 mg PO DAILY 10/02/23 10/02/23 History release 24 hr Allergies Allergy/AdvReac Type Severity Reaction Status Date / Time No Known Drug Allergies Allergy Verified 10/01/23 11:07 Exam Narrative Exam Narrative: General: Patient is alert, and oriented to person, place and time with normal affect, proper hygiene Skin: no visible rashes, or ulcers Head: atraumatic, acephalic Eyes: PERRLA, no nystagmus present, conjunctiva clear, no scleral icterus Ears: normal Tympanic Membrane, normal gross auditory acuity Nose: symmetric, no discharge, no maxillary or frontal sinus tenderness Mouth/Throat: no erythema, exudate, or tonsillar enlargement, normal dentition Neck: no masses palpated, normal thyroid, no JVD or audible carotid bruits Heart: Normal rate and rhythm, no murmurs/rubs/gallops Lungs: no audible wheezes, crackles and normal breath sounds all lung portillo Abdomen: Normal audible bowel sounds, no distension, No palpable masses, no organomegaly, no rebound/guarding/ or rigidity Musculoskeletal: no swelling bilateral lower extremities Vascular: Normal carotid, radial, femoral, posterior tibial, and dorsalis pedis pulses Lymph: no supraclavicular, axillary, or anterior/posterior cervical adenopathy Neuro: CN II-X grossly intact, normal sensation upper and lower extremities some weakness noted in right lower ext with pushing, patient had episode while i was in the room and right knee abducted and pulled back/ gastroc activated and head pulled to the right, right arm was unaffected, no LOC, no pain, lasted about 10 seconds and was able to relax again Constitutional Vital Signs, click to edit/add: Last Vital Signs Temp 97.7 F 10/01/23 11:13 Pulse 75 10/01/23 16:46 Resp 27 H 10/01/23 16:46 BP 143/92 H 10/01/23 16:46 Pulse Ox 96 10/01/23 16:46 O2 Del Method Room Air 10/01/23 11:13 Results Labs Labs: Short CBC 10/01/23 Range/Units 11:49 WBC 4.3 (4.0-11.0) 10^3/uL Hgb 13.1 L (14.0-18.0) g/dL Hct 38.7 L (42.0-54.0) % Plt Count 154 (150-450) 10^3/uL BMP 10/01/23 11:49 Sodium 130 L Potassium 5.0 Chloride 93 L Carbon Dioxide 23.9 BUN 15.0 Creatinine 1.16 Glucose 501 H* Calcium 9.2 Urine 10/01/23 Range/Units 12:35 Urine Color Lt. yellow (YELLOW) Urine Clarity Clear (CLEAR) Urine pH 5.5 (5.0-9.0) Ur Specific [place] 1.010 (1.005-1.025) Urine Protein Negative (NEG/TRACE) mg/dL Urine Glucose (UA) >=1000 A (NEGATIVE) mg/dL ABG ABG results: 10/01/23 12:54 VBG pH 7.401 VBG pCO2 43.7 Assessment and Plan Assessment and Plan (1) Diabetes mellitus, new onset: Assessment and Plan: monitor [id number] glucose is daily at bedtime and before every meal C, sliding scale insulin. We'll get telecommunications line installer tomorrow and most likely set up with a home glucometer and insulin with oral hyperglycemics.we'll check hemoglobin A1c in the morning, lipids and thyroid (2) Ataxia: Assessment and Plan: could be transient ischemic attack versus lumbar spine pathology, we'll check a MRI of the head and lumbar spine tomorrow. We'll also consult neurology. Will place on neuro checks every shift.will also check a vitamin B12 level, creatinine kinase level. (3) Prostate cancer: Assessment and Plan: continues Lupron and will continue Flomax. (4) Primary hypertension: Assessment and Plan: continue lisinopril (5) Depression: Assessment and Plan: continue venlafaxine Qualifiers: Depression Type: unspecified Qualified Code(s): F32.A - Depression, unspecified Plan patient is a full code lovenox for dvt prophylaxis patient is in observation status and is not expected to cross 2 midnights for medically necessary care.
--- OUTSIDE RECORDS SUMMARY | 2023-10-01 17:48 | XMS_ITS | CCD ---
Author Organization [facility] Care Team Providers Care Consultant Name Role Phone PHYSICIAN, DEFAULT Unavailable Unavailable PHYSICIAN, DEFAULT Unavailable Unavailable PHYSICIAN, DEFAULT Unavailable Unavailable PHYSICIAN, DEFAULT Unavailable Unavailable TERI RICE Primary Care Physician MD Teri Rice Primary Care Provider MD Eulalia Torres Attending Provider DR TERI RICE Primary Care Unavailable KIARA, DR MARTINA Dowd Attending Unavailabl e KIARA, DR MARTINA Dowd Admitting Unavailabl e MARIE MALDONADO Consulting Unavailable LUKAS, DR TERI Razo Attending Unavailable LUKAS, DR TERI Razo Consulting Unavailable LUKAS, DR TERI Razo Admitting Unavailable MD Teri Rice Primary Care Provider [phone] MD Eulalia Torres Attending Provider [phone] MD Myranda Jarquin Attending Provider DO Orestes Fox Referring Provider MD Teri Rice Primary Care Provider MD Eulalia Torres Attending Provider MD Myranda Jarquin Attending Provider [phone] DO Orestes Fox Referring Provider MD Margarette Lisa Attending Provider MD Myranda Jarquin Attending Provider [phone] DO Orestes Fox Referring Provider [phone] Rice, MD Teri A Primary Care Provider MD Margarette Lisa Attending Provider MD Myranda Jarquin Attending Provider [phone] DO Orestes Fox Referring Provider [phone] DO Martin Groves Attending Provider MD Myranda Jarquin Attending Provider [phone] DO Orestes Fox Referring Provider MD Teri Rice A Primary Care Provider MD Myranda Jarquin Attending Provider [phone] DO Orestes Fox Referring Provider [phone] KavitaeEulalia MDora Attending Unavailable Lue, Eulalia M. Referring Unavailable Lue, Eulalia M. Admitting Unavailable Lue, Eulalia M. Referring Unavailable Lue, Eulalia M. Admitting Unavailable Lue, Eulalia M. Attending Unavailable Lue, Eulalia MDora Attending Unavailable Lue, Eulalia M. Attending Unavailable RICE, TREI Referring Unavailable Lue, Eulalia MDora Attending Unavailable Lue, Eulalia MDora Attending Unavailable Lue Eulalia MDora Attending Unavailable Mini Camarillo Unavailable MD Myranda Jarquin Attending Provider DO Orestes Fox Referring Provider NON STAFF Primary Care Provider UnavailMD Myranda Augustine Attending Provider DO Orestes Fox Referring Provider [phone] NON STAFF Primary Care Provider UnavailMartin [place] Admitting Unavailable Martin Groves Attending Unavailable Teri Rice A Primary Care Unavailable Margarette Lisa Attending Unavailable Morales Riceher A Primary Care Unavailable Margarette Lisa R Admitting Unavailable NON STAFF Primary Care Unavailable Orestes Fox Referring Unavailable Myranda Jarquin Admitting Unavailable Myranda Jarquin Attending Unavailable Teri Rice A Primary Care Unavailable SloanDemileena R Admitting Unavailable Margarette Lisa R Attending Unavailable Allergies Allergy Classification Reported Allergen(s) Allergy Type Date of Onset Reaction(s) Facility (1 source) No Known Medication Allergies; Translations: [No Known Medication Allergies] Propensity to adverse reactions (disorder) [facility] Repository Medications Current Medications Medication Drug Class(es) Dates Sig (Normalized) Sig (Original) lisinopril 20 mg oral tablet (18 sources) Angiotensin Converting Enzyme Inhibitor Start: 07-19-2022 lisinopril 20 mg Tab Refills(s) 0 Start Date: 07/19/22 Status: Ordered Start: 06-21-2022 take 20 mg by mouth once daily in the morning Lisinopril Active 20 MG PO Every morning June 21, 2022 12:00am Start: 05-23-2022 take 1 tablet by nic th once daily lisinopril 10 mg Tab 10 mg = 1 tab(s), Oral, Daily, Refills(s) 0, High blood pressure Start Date: 05/23/22 Status: Ordered psyllium 520 mg oral capsule (1 source) Start: 08-02-2023 Psyllium Husk (Daily Fiber) 0.52 gram capsule Active 0.52 GM PO daily August 02, 2023 12:00am tamsulosin hydrochloride 0.4 mg oral capsule (10 sources) alpha-Adrenergic Pablito Start: 09-26-2022 take 0.4 mg by mouth once daily Tamsulosin Active 0.4 MG PO Daily September 25, 2022 11:00pm 24 hr venlafaxine 75 mg extended release oral capsule (4 sources) Serotonin and Norepinephrine Reuptake Inhibitor Start: 08-02-2023 take 75 mg by mouth once daily Venlafaxine Active 75 MG PO daily August 02, 2023 12:00am Start: 07-26-2023 Venlafaxine Ac tive 37.5 MG .Route .DAILY July 26, 2023 12:00am ONE DAILY Start: 07-18-2023 End: 07-26-2023 take 37.5 mg by mouth once daily Venlafaxine Discontinued 37.5 MG PO Daily July 19, 2023 11:32am July 26, 2023 10:19am Completed/Discontinued Medications Medication Drug Class(es) Dates Sig (Normalized) Sig (Original) bicalutamide 50 mg oral tablet (10 sources) Androgen Receptor Inhibitor Start: 07-20-2022 End: 08-14-2022 take 1 tablet by mouth once daily Bicalutamide Discontinued 50 MG PO Daily July 20, 2022 12:00am August 14, 2022 5:03pm Take one tablet daily for 21 days. capecitabine 500 mg oral tablet (20 sources) Nucleoside Metabolic Inhibitor Start: 06-05-2018 End: 11-29-2018 Capecitabine Discontinued 150 MG PO As Directed June 05, 2018 12:00am November 29, 2018 9:44am Start: 06-05-2018 End: 11-29-2018 Capecitabine Discontinued 20 00 MG PO As Directed June 05, 2018 12:00am November 29, 2018 9:44am Start: 05-23-2018 End: 06-05-2018 take 1 mg by mouth every twelve hours 30 minutes after mealtime Capecitabine Discontinued 1000 mg/m2 PO Q12H May 23, 2018 12:00am June 05, 2018 10:44am will dispense through specialty pharmacy (paper script) administer with water 30 minutes after a meal ciprofloxacin 500 mg oral tablet (12 sources) Quinolone Antimicrobial Start: 09-22-2022 End: 01-11-2023 take 500 mg by mouth twice daily Ciprofloxacin Hcl Discontinued 500 MG PO Twice daily September 25, 2022 11:00pm January 11, 2023 12:33pm hydrocortisone 25 mg/ml topical cream (7 sources) Corticosteroid Start: 08-21-2022 End: 01-11-2023 Hydrocortisone (Anusol-Hc) 2.5 % Cream With Perineal Applicator Discontinued 1 APPLIC NV 1 to 2 times per day August 21, 2022 12:00am January 11, 2023 12:33pm ibuprofen 200 mg oral tablet (9 sources) Nonsteroidal Anti-inflammatory Drug Start: 08-14-2022 End: 01-11-2023 take 800 mg by mouth once daily Ibuprofen Discontinued 800 MG PO Daily August 14, 2022 12:00am January 11, 2023 12:33pm ondansetron 8 mg oral tablet (20 sources) Serotonin-3 Receptor Antagonist Start: 08-27-2018 End: 11-29-2018 take 1 tablet by mouth three times daily Ondansetron Hcl (Zofran) 8 mg Tablet Discontinued 8 MG PO Three times daily August 27, 2018 3:52pm November 29, 2018 9:44am Start: 06-05-2018 End: 08-27-2018 take 1 tablet by mouth every eight hours Ondansetron (Zofran Odt) 8 mg Tablet,Disintegrating Discontinued 8 MG PO Q8H June 05, 2018 12:00am August 27, 2018 3:51pm pantoprazole 20 mg delayed release oral tablet (12 sources) Proton Pump Inhibitor Start: 05-22-2019 End: 06-21-2022 take 20 mg by mouth once daily Pantoprazole Discontinued 20 MG PO Daily May 22, 2019 12:00am June 21, 2022 1:51pm sertraline 50 mg oral tablet (4 sources) Serotonin Reuptake Inhibitor Start: 07-18-2023 End: 08-02-2023 take 50 mg by mouth once daily Sertraline Discontinued 50 MG PO Daily July 18, 2023 12:00am August 02, 2023 1:58pm Start: 05-14-2023 take 1 tablet by nic th every twenty-four hours Sertraline HCl 50 MG 1 tablet Orally Once a day for 30 days dose titration to 50 mg - pt is using his current supply; please fill in 2 weeks or thereabouts May, Active Start: 04-16-2023 take 1 tablet by nic th every twenty-four hours Sertraline HCl 25 MG 1 tablet Orally Once a day for 30 day(s) Apr, Active traMADol hydrochloride 50 mg oral tablet (12 sources) Opioid Agonist Start: 05-06-2018 End: 09-09-2018 take 0.5-1 tablets by mouth every six hours as needed for pain Tramadol (Ultram) 50 mg tablet Discontinued 50 MG PO Q6H 45 7 May 05, 2018 11:00pm September 09, 2018 10:30am 1/2 - 1 tab po q 6 hours prn pain Problems Problem Classification Problem Date Documented Date Episodic/Chronic Adjustment disorders (8 sources) Adjustment disorder with mixed anxiety and depressed mood; Translations: [Adjustment disorder with mixed anxiety and depressed mood] Chronic Cancer of colon (20 sources) Malignant tumor of colon; Translations: [Carcinoma of cecum] 04-26-2022 Chronic Cancer of colon (11 sources) History of malignant neoplasm of colon; Translations: [Personal history of other malignant neoplasm of large intestine] Onset: 04-26-2022 Episodic Cancer of prostate (20 sources) Malignant neoplasm of prostate; Translations: [Malignant tumor of prostate] Onset: 06-07-2022 Chronic Deficiency and other anemia (12 sources) Iron deficiency anemia due to blood loss; Translations: [Iron deficiency anemia secondary to blood loss (chronic)] 11-29-2018 Chronic Deficiency and other anemia (10 sources) Iron deficiency anemia secondary to blood loss (chronic); Translations: [Iron deficiency anemia secondary to blood loss (chronic)] 07-20-2022 Chronic Deficiency and other anemia (12 sources) Anemia; Translations: [Anemia, unspecified] 06-26-2019 Episodic Essential hypertension (4 sources) Essential (primary) hypertension; Translations: [ESSENTIAL PRIMARY HYPERTENSION] Onset: 05-18-2022 Chronic Maintenance chemotherapy; radiotherapy (20 sources) Patient encounter status; Translations: [Encounter for antineoplastic chemotherapy] 07-22-2018 Chronic Other aftercare (1 source) Other longterm (current) drug therapy; Translations: [OTH SENIOR CARE CURRENT DRUG THERAPY] Onset: 05-22-2022 Episodic Other aftercare (3 sources) Seen by palliative care physician; Translations: [Encounter for palliative care] Episodic Other aftercare (1 source) Encounter for palliative care Episodic Other aftercare (2 sources) Drug therapy finding; Translations: [prison (current) use of other agents affecting estrogen receptors and estrogen levels] 01-12-2023 Episodic Other aftercare (3 sources) intermediate designer (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) use of other agents affecting estrogen receptors and estrogen levels; Translations: [Use of other agents affecting estrogen receptors and estrogen levels] Onset: 08-02-2023 07-18-2023 Episodic Other hematologic conditions (12 sources) H/O: anemia - iron deficient; Translations: [Personal history of diseases of the blood and blood-forming organs and certain disorders involving the immune mechanism] 02-28-2019 Episodic Other hematologic conditions (10 sources) Personal history of diseases of the blood and blood-forming organs and certain disorders involving the immune mechanism; Translations: [Personal history of diseases of blood and blood-forming organs] 07-20-2022 Episodic Other nervous system disorders (7 sources) Peripheral nerve disease 04-26-2022 Chronic Other nervous system disorders (7 sources) Impairment of balance 04-26-2022 Episodic Other screening for suspected conditions (not mental disorders or infectious disease) (12 sources) Computed tomography result abnormal; Translations: [Abnormal findings on diagnostic imaging of other specified body structures] 06-26-2019 Chronic Other screening for suspected conditions (not mental disorders or infectious disease) (20 sources) Raised prostate specific antigen; Translations: [Elevated prostate specific antigen [PSA]] Onset: 03-27-2022 Episodic Residual codes; unclassified (20 sources) Mcadams syndrome; 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] 04-26-2022 Episodic Residual codes; unclassified (7 sources) Memory impairment 04-26-2022 Episodic Residual codes; unclassified (12 sources) Family history of cancer of colon; Translations: [Family history of malignant neoplasm of digestive organs] 06-26-2019 Episodic Residual codes; unclassified (10 sources) Genetic susceptibility to other malignant neoplasm; 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] 07-20-2022 Episodic Residual codes; unclassified (1 source) Flushing; Translations: [Flushing] 07-19-2023 Episodic Residual codes; unclassified (1 source) Flushing; Translations: [Flushing] 08-02-2023 Episodic Secondary malignancies (12 sources) Secondary malignant neoplasm of peritoneum; Translations: [Secondary malignant neoplasm of retroperitoneum and peritoneum] 02-28-2019 Chronic Secondary malignancies (10 sources) Secondary malignant neoplasm of retroperitoneum and peritoneum; Translations: [Secondary malignant neoplasm of retroperitoneum and peritoneum] 07-20-2022 Chronic Substance-related disorders (1 source) Nicotine dependence, cigarettes, uncomplicated; Translations: [NICOTINE DEPEND CIGARETTES UNCOMP] Onset: 05-22-2022 Chronic Unclassified (1 source) Genetic susceptibility to other malignant neoplasm; 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] Onset: 11-06-2022 Unclassified (1 source) Encounter for preprocedural laboratory examination; Translations: [Encounter for preprocedural laboratory examination] Onset: 08-14-2022 Results Test Name Value Interpretation Reference Range Facility Consultation Noteon 01-16-20 Consultation Note [id number]:12 7 [facility] Consultation Note [id number]:12 7 [facility] CT [facility] abdomen pelvis w [facility] [address] [place] [address] CT Scan Report Signed Patient: Isaias Gleason MR#: [id number] : 1965 Acct:[id number] Age/Sex: 57 / M ADM Date: 11/06/22 Loc: CT Room: [facility] Attending Dr: Matrin Groves DO Copies to: Martin Groves DO Ordering Provider: Martin Groves DO Date of Service: 11/06/22 CT/CT abdomen pelvis w con: Personal Hx of Mcadams syndrome;Mcadams syndrome ([id number]) CT/CT chest w con: Personal Hx of Mcadams syndrome;Mcadams syndrome CT CHEST, ABDOMEN AND PELVIS WITH INTRAVENOUS CONTRAST: CLINICAL HISTORY: Restage colon cancer. Newly diagnosed prostate cancer. COMPARISON: CT chest, abdomen and pelvis 11/08/2021 TECHNIQUE: TECHNIQUE: Spiral images were obtained through the chest, abdomen and pelvis following the administration of IV contrast. This CT exam was performed using one or more following dose reduction techniques: Automated exposure control, adjustment of the mA and/or kV according to patient size, or use of iterative reconstruction technique. FINDINGS: CT chest: Mediastinum:Thoracic aorta appears normal in caliber. Pulmonary trunk appears nondilated. No pericardial effusion. No lymphadenopathy. The esophagus is grossly unremarkable. Lungs:No consolidation, pneumothorax or pleural effusion. Minimal atelectasis/scarring. No suspicious pulmonary nodule. Soft tissues/Bones: Visualized soft tissues demonstrate no acute findings. Osseous structures demonstrate degenerative change. CT abdomen and pelvis: Organs:Hepatic steatosis. No enhancing liver lesion. Gallbladder is contracted. Spleen pancreas adrenal glands and aorta all appear unremarkable. No enhancing renal mass or hydronephrosis.[ GI: Stomach is grossly unremarkable. Small bowel appears nondilated. Right hemicolectomy changes. No acute colonic abnormality.[ Pelvis:[Urinary bladder is grossly unremarkable. Radiation seeds are seen within the prostate with gel spacer noted.] Peritoneum/Retroperitoneu m:No free air, free fluid or lymphadenopathy.[ Abd wall/Bones:Abdominal wall demonstrates no acute findings. Osseous structures demonstrate degenerative change.[ CT/CT chest w con IMPRESSION: No evidence of tumor recurrence or metastatic disease. Impression dictated by: Andrew Dickey Jr., D.O.11/07/2022 1:10 PM Dictation Location: [facility] Transcribed By: [facility] 11/07/22 1310 Dictated By: Andrew Dickey Jr, DO 11/07/22 1301 Signed By: 11/07/22 1310 Normal [facility] Blood Urea Nitrogenon 2022 Urea nitrogen [Mass/Vol] 14 mg/dL Normal 7-25 [facility] Comment on above: Performed By: #### B UN, CREAT #### [facility] [address] [place] [address] [place] Creatinineon 11-06-2022 Creatinine [Mass/Vol] 0.92 mg/dL Normal 0.70-1.30 [facility] Comment on above: Performed By: #### B UN, CREAT #### [facility] [address] [place] [address] [place] GFR/1.73 sq M.predicted MDRD (S/P/Bld) [Vol rate/Area] mL/min/{1.73_m2} [facility] Comment on above: Result Comment: PERF ORMED BY: [place] [address] PATHOLOGIST BEAUTY COUNSELOR KETAN EVANS M.D. Performed By: #### B UN, CREAT #### [facility] [address] [place] [address] Creatinine (Bld) [Mass/Vol]O rdered By: Martin Groves on 11-06-2022 Creatinine [Mass/Vol] 0.9 mg/dL 0.6-1.3 [facility] Comment on above: ER/ESD physician is notified/shown all ISTAT results.Critical values may be confirmed by laboratory testing ifdeemed necessary by ER attending doctor. Creatinine [Mass/volume] in Serum or PlasmaOrdered By: Martin Groves on 11-06-2022 Creatinine [Mass/Vol] 0.92 mg/dL 0.70-1.30 [facility] No Panel InformationOrdered By: Martin Groves on 11-06-2022 Estimated GFR (CKD-EPI) > 60.0 mL/Min [facility] Creatinine Clearance (Chem N/A [facility] Serum or plasma carcinoembry onic antigen measurement (mass/volume)Ordered By: Martin Groves on 11-06-2022 Carcinoembryonic Ag [Mass/Vol] 3.3 ng/mL 0.0-3.0 [facility] Urea nitrogen [Mass/volume] in Serum or PlasmaOrdered By: Martin Groves on 11-06-2022 Urea nitrogen [Mass/Vol] 14 mg/dL 01-30 [facility] Screenson 10-25-2022 Screens [id number]:[address] [facility] Screens [id number]#[id number]:12 7 [facility] Ambulatory Visit Summaryon 0 10-18-2022 Ambulatory Visit Summary ISAIAS GLEASON :1965 Visit Date:10/18/2022 Ambulatory Visit Instructions Your Diagnosis Prostate cancer Personal history of colon cancer Tests Performed Urnls Dip Stick Auto w/o Microscopy POC 14225 Your Care Team Attending Physician - Brian HERRMANN, Eulalia Cox Primary Care Physician - TERI RICE MD This Is Your Medications List Contact prescribing physician if questions or concerns lisinopril (lisinopril 20 mg Tab) tamsulosin (tamsulosin 0.4 mg Cap) [Image Removed: STOP]Stop taking these medications bicalutamide (bicalutamide 50 mg Tab) Procedures Performed MRI-US fusion guided transperineal biopsy of prostate (05/23/2022), Partial resection of colon (02/06/2019), Colonoscopy (04/09/2018). Discharge Vitals Heart Rate (Peripheral) 70 Blood Pressure 160/95 Height 180.34 cm Height 71 in Weight 109 kg Weight 239.8 lb BMI 33.52 What to do next Scheduled Follow-Up Appointments Sunday 8:00 AM EDT With: Brian HERRMANN, Eulalia Cox Where: [facility] Patient Educationon 10-19-19 23 Patient Education Oncology Prostate Cancer The prostate is a walnut-sized gland that is involved in the production of semen. It is located below a man's bladder, in front of the rectum. Prostate cancer is the abnormal growth of cells in the prostate gland. What are the causes? The exact cause of this condition is not known. What increases the risk? This condition is more likely to develop in men who: ? Are older than age 65. ? Are -[place]. ? Are obese. ? Have a family history of prostate cancer. ? Have a family history of breast cancer. What are the signs or symptoms? Symptoms of this condition include: ? A need to urinate often. ? Weak or interrupted flow of urine. ? Trouble starting or stopping urination. ? Inability to urinate. ? Pain or burning during urination. ? Painful ejaculation. ? Blood in urine or semen. ? Persistent pain or discomfort in the lower back, lower abdomen, hips, or upper thighs. ? Trouble getting an erection. ? Trouble emptying the bladder all the way. How is this diagnosed? This condition can be diagnosed with: ? A digital rectal exam. For this exam, a health care provider inserts a gloved finger into the rectum to feel the prostate gland. ? A blood test called a prostate-specific antigen (PSA) test. ? An imaging test called transrectal ultrasonography. ? A procedure in which a sample of tissue is taken from the prostate and examined under a microscope (prostate biopsy). Once the condition is diagnosed, tests will be done to determine how far the cancer has spread. This is called staging the cancer. Staging may involve imaging tests, such as: ? A bone scan. ? A CT scan. ? A PET scan. ? An MRI. The stages of prostate cancer are as follows: ? Stage I. At this stage, the cancer is found in the prostate only. The cancer is not visible on imaging tests and it is usually found by accident, such as during a prostate surgery. ? Stage II. At this stage, the cancer is more advanced than it is in stage I, but the cancer has not spread outside the prostate. ? Stage III. At this stage, the cancer has spread beyond the outer layer of the prostate to nearby tissues. The cancer may be found in the seminal vesicles, which are near the bladder and the prostate. ? Stage IV. At this stage, the cancer has spread other parts of the body, such as the lymph nodes, bones, bladder, rectum, liver, or lungs. How is this treated? Treatment for this condition depends on several factors, including the stage of the cancer, your age, personal preferences, and your overall health. Talk with your health care provider about treatment options that are recommended for you. Common treatments include: ? Observation for early stage prostate cancer (active surveillance). This involves having exams, blood tests, and in some cases, more biopsies. For some men, this is the only treatment needed. ? Surgery. Types of surgeries include: ? Open surgery. In this surgery, a larger incision is made to remove the prostate. ? A laparoscopic prostatectomy. This is a surgery to remove the prostate and lymph nodes through several, small incisions. It is often referred to as a minimally invasive surgery. ? A robotic prostatectomy. This is a surgery to remove the prostate and lymph nodes with the help of a robotic arm that is controlled by a computer. ? Orchiectomy. This is a surgery to remove the testicles. ? Cryosurgery. This is a surgery to freeze and destroy cancer cells. ? Radiation treatment. Types of radiation treatment include: ? External beam radiation. This type aims beams of radiation from outside the body at the prostate to destroy cancerous cells. ? Brachytherapy. This type uses radioactive needles, seeds, wires, or tubes that are implanted into the prostate gland. Like external beam radiation, brachytherapy destroys cancerous cells. An advantage is that this type of radiation limits the damage to surrounding tissue and has fewer side effects. ? High-intensity, focused ultrasonography. This treatment destroys cancer cells by delivering high-energy ultrasound waves to the cancerous cells. ? Chemotherapy medicines. This treatment kills cancer cells or stops them from multiplying. ? Hormone treatment. This treatment involves taking medicines that act on one of the male hormones (testosterone): ? By stopping your body from producing testosterone. ? By blocking testosterone from reaching cancer cells. Follow these instructions at home: ? Take [id number] and prescription medicines only as told by your health care provider. ? Maintain a healthy diet. ? Get plenty of sleep. ? Consider joining a support group for men who have prostate cancer. Meeting with a support group may help you learn to cope with the stress of having cancer. ? Keep all follow-up visits as told by your health care provider. This is important. ? If you have to go to the hospital, notify your cancer specialis (more content not included)... Normal [facility] Urology Office/Clinic Noteon 10-18-2022 Urology Office/Clinic Note Chief Complaint 3 month follow up HPI Staff 3m follow up to Prostate Cancer. Saw Dr Lisa 07/20/22. Plan at that time was to coordinate Radiation therapy with colonoscopy. Started on Bicalutamide 50mg QD x21 days. Planned on Lupron injection in 6 months. PSA done 07/20/22- 16.410 Testosterone done 07/20/22- 2.84 ( 1.75-7.81). IPSS score is 19. MIGUE is 2. PVR today is 0. Dysuria: denies pain or burning Incomplete bladder emptying: denies Hematuria: denies visible blood, UA shows SMALL Frequency: depends on fluid intake Urgency: mild intermittent Nocturia: 2x a night Stream: sometimes has hesitancy, weaker stream Leaking: denies Post void dripping: yes sometimes Wearing pads/ Depends: denies Urge incontinence: denies Stress incontinence: denies Incontinence without Sensory Awareness: denies Abdominal pain: denies Flank pain: denies Sexual complaints: denies History of Present Illness I have reviewed and verified the staff HPI to be accurate for this encounter. Reviewed external labs, records and notes from Dr. Lisa Review of Systems PHQ Score Initial Depression Screen Score: 0 ROS - Provider Constitutional: denies weight loss, denies hot flashes. Eyes: denies eye problems. Gastrointestinal: denies nausea, denies vomiting. Cardiovascular: denies chest pain or angina. Integumentary: no dryness Musculoskeletal: denies musculoskeletal symptoms. ENMT: denies otolaryngeal symptoms. Respiratory: no shortness of breath. Heme/Lymph: denies easy bleeding tendency, denies easy bruising tendency. Psychiatric: no confusion, no anxiety. Genitourinary: see HPI Physical Exam Vitals & Measurements HR: 70(Peripheral) BP: 160/95 HT: 71 in HT: 180.34 cm WT: 109 kg WT: 239.8 lb BMI: 33.52 General Appearance: alert, no distress, well nourished, well developed male. Genitourinary: Flank Pain: none. Bladder: nonpalpable. 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 MIGUE 25, IPSS 3.5 Denies hx of PA, stroke or DM. No prior hernia surgeries/mesh. Prior colonic resection open, midline. 1. 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 There is associated extracapsular extension with right seminal vesicle and neurovascular bundle involvement. MRI fusion transperineal prostate biopsy done 05/23/2022 for PIRADS 5 R PZ base, R NVB and SV involvement - 08/29 cores positive 44% of tissue involved Pierz score 7 (3+4), atypical small acinar glands in 4 areas bilaterally. Of note, 2nd positive core was in same area as EVELYN PSMA/PET scan done 06/19/2022 showed activity right PZ. No metastatic disease. Decipher testing - very high risk .98 Testosterone done 07/20/22- 2.84 (1.75-7.81). Started on Bicalutamide 50mg QD and Lurpon q6m x 2 years. Pt finished IMRT to prostate/SV (70 Gy in 28 fx) with Dr. Lisa 10/11/2022, no pelvic RT given Mcadams, prior surgery and risk of secondary malignancy. Not sexually active, low libido seconary to ADT. Declines further mgmt at this time. Tolerating ADT side effects, declined tx for sx Was started on Flomax 0.4mg to help with his sxs. Denies issues today. PVR 0 ml UA shows small blood IO today. Recent Micro UA neg. All UAs have been neg prior. Discussed with pt options because the blood can be from Radiation treatment. Pt would like to wait at this time before doing a hematuria work-up. - Repeat UA in 6 mths, discuss cysto/CTU at that time if indicated - F/u sooner if urinary sx or gross hematuria Ordered: Body Mass Index (BMI) documented 3008F Current tobacco non-user 1036F Depression Screening Negative 3352F Influenza immunization status assessed 1030F Measure Post Void residual urine and/or bladder capacity by US- non-imaging 47105 Most recent diastolic blood pressure >=90 mm Hg 3080F Most recent systolic blood pressure >= 140 mm Hg 3077F Urnls Dip Stick Auto w/o Microscopy POC 23677 2. Personal history of colon cancer (Z85.038: Personal history of other malignant neoplasm of large intestine) 2018 s/p chemo and resection (open) by Dr Groves. Annual colonoscopy, last one this past spring/summer. Negative Hx Mcadams syndrome on genetic testing in father and himself. 3 kids, 2 have been screened. Follows with Dr Groves and Dr Jarquin Follow-up With When Contact Information Brian HERRMANN, Eulalia Cox, URL, URO In 6 months 04/19/2023 EDT [address] [place] [address]- [phone] Additional Instructions: Patient Education Prostate Cancer I, Cat Tripathi , (more content not included)... [facility] Comment on above: Result Comment: Elec tronically Signed By: Eulalia Torres MD\.br\Date and Time Signed: 10/18/22 09:07 EDT\.br\Electronically Co-Signed By: Cat Tripathi MA\.br\Date and Time Co-Signed: 10/18/22 08:45 EDT Consultation Noteon 10-15-19 Consultation Note [id number]#1.00CD:[address] [facility] Lab Reportson 10-14-2022 Lab Reports [id number]#1.00CD:12 7 [facility] Lab Reports [id number]#1.00CD:12 7 [facility] Lab Reports [id number]#1.00CD:12 7 [facility] Automated erythrocytes count in urine sediment (number/area)Ordered By: Negra Reyes on 09-22-2022 RBC Auto (Urine sed) [#/Area] None seen [HPF] 0-4 [facility] Automated leukocytes count i n urine sediment (number/area)Ordered By: Negra Reyes on 09-22-2022 WBC Auto (Urine sed) [#/Area] None seen [HPF] 0-4 [facility] Bilirubin Test strip Ql (U)O rdered By: Negra Reyes on 09-22-2022 Bilirubin Ql (U) Negative Negative [facility] Color Auto (U)Ordered By: Ra aubree Reyes on 09-22-2022 Color (U) Yellow Yellow [facility] Dipstick and Microscopicon 0 09-22-2022 Appearance (U) Clear Normal Clear [facility] Comment on above: Order Comment: Name Collection Type:: Clean-Voided Midstream Performed By: #### A DDONUAPLUS #### [facility] [address] [place] [address] [place] Bacteria,Urine None Seen Normal None Seen [facility] Comment on above: Order Comment: Name Collection Type:: Clean-Voided Midstream Performed By: #### A DDONUAPLUS #### [facility] [address] [place] [address] [place] Bilirubin,Urine Negative Normal Negative [facility] Comment on above: Order Comment: Name Collection Type:: Clean-Voided Midstream Performed By: #### A DDONUAPLUS #### [facility] [address] [place] [id number] [place] Color (U) Yellow Normal Yellow [facility] Comment on above: Order Comment: Name Collection Type:: Clean-Voided Midstream Performed By: #### A DDONUAPLUS #### [facility] [address] [place] [id number] [place] Glucose Ql (U) Normal Normal Normal [facility] Comment on above: Order Comment: Name Collection Type:: Clean-Voided Midstream Performed By: #### A DDONUAPLUS #### [facility] [address] [place] [id number] [place] Hyaline Casts,Urine None Seen Normal 0-8 [facility] Comment on above: Order Comment: Name Collection Type:: Clean-Voided Midstream Result Comment: PERF ORMED BY: [place] [address] PATHOLOGIST BEAUTY COUNSELOR KETAN EVANS M.D. Performed By: #### A DDONUAPLUS #### [address] Ketones Ql (U) Negative Normal Negative [facility] Comment on above: Order Comment: Name Collection Type:: Clean-Voided Midstream Performed By: #### A DDONUAPLUS #### [address] Leukocyte esterase Test strip Ql (U) Negative Normal Negative [facility] Comment on above: Order Comment: Name Collection Type:: Clean-Voided Midstream Performed By: #### A DDONUAPLUS #### [place] [address] [place] Nitrite,Urine Negative Normal Negative [facility] Comment on above: Order Comment: Name Collection Type:: Clean-Voided Midstream Performed By: #### A DDONUAPLUS #### [address] Occult Blood,Urine Trace High Negative [facility] Comment on above: Order Comment: Name Collection Type:: Clean-Voided Midstream Result Comment: PERF ORMED BY: [place] [address] PATHOLOGIST BEAUTY COUNSELOR KETAN EVANS M.D. Performed By: #### A DDONUAPLUS #### [facility] [address] [place] [address] [place] pH (U) 6.0 [pH] Normal 5.0-9.0 [facility] Comment on above: Order Comment: Name Collection Type:: Clean-Voided Midstream Performed By: #### A DDONUAPLUS #### [place] [address] [place] Protein,Urine Negative Normal Negative [facility] Comment on above: Order Comment: Name Collection Type:: Clean-Voided Midstream Performed By: #### A DDONUAPLUS #### [facility] [address] [place] [address] RBC,Urine None Seen Normal 0-4 [facility] Comment on above: Order Comment: Name Collection Type:: Clean-Voided Midstream Performed By: #### A DDONUAPLUS #### [address] Specificy Brackney,Urine 1.002 Normal 1.001-1.030 [facility] Comment on above: Order Comment: Name Collection Type:: Clean-Voided Midstream Performed By: #### A DDONUAPLUS #### [address] Squamous Epithelial Cell,Urine None Seen Normal 0-2 [facility] Comment on above: Order Comment: Name Collection Type:: Clean-Voided Midstream Performed By: #### A DDONUAPLUS #### [address] Urobilinogen,Urine Normal Normal Normal [facility] Comment on above: Order Comment: Name Collection Type:: Clean-Voided Midstream Performed By: #### A DDONUAPLUS #### [address] WBC,Urine None Seen Normal 0-4 [facility] Comment on above: Order Comment: Name Collection Type:: Clean-Voided Midstream Performed By: #### A DDONUAPLUS #### [address] Ketones Auto test strip (U) [Mass/Vol]Ordered By: Negra Reyes on 09-22-2022 Ketones (U) [Mass/Vol] Negative Negative [facility] Laboratory - UrinalysisOrder ed By: Negra Reyes on 09-22-2022 Hyaline casts LM Ql (Urine sed) None seen [LPF] 0-8 [facility] Nitrite Test strip Ql (U)Ord ered By: Negra Reyes on 09-22-2022 Nitrite Ql (U) Negative Negative [facility] Protein Auto test strip (U) [Mass/Vol]Ordered By: Negra Reyes on 09-22-2022 Protein (U) [Mass/Vol] Negative [facility] Specific gravity Auto test s trip (U) [Rel density]Ordered By: Negra Reyes on 09-22-2022 Specific gravity (U) [Rel density] 1.002 1.001-1.030 [facility] Squamous epithelial cells de tection in urine sediment by light microscopyOrdered By: Negra Reyes on 09-22-2022 Epithelial cells.squamous LM Ql (Urine sed) None seen [HPF] 0-2 [facility] Urine bacteria detection by automated methodOrdered By: Negra Reyes on 09-22-2022 Bacteria Auto Ql (U) None seen None Seen [facility] Urine clarity by refractomet ry automatedOrdered By: Negra Reyes on 09-22-2022 Clarity Refractometry automated (U) Clear Clear [facility] Urine glucose measurement by automated test strip (mass/volume)Ordered By: Negra Reyes on 09-22-2022 Glucose Auto test strip (U) [Mass/Vol] Normal mg/dL Normal [facility] Urine hemoglobin detection b y automated test stripOrdered By: Negra Reyes on 09-22-2022 Hemoglobin Auto test strip Ql (U) Trace Negative [facility] Urine leukocyte esterase det ection by automated test stripOrdered By: Negra Reyes on 09-22-2022 Leukocyte esterase Auto test strip Ql (U) Negative Negative [facility] Urobilinogen Auto test strip (U) [Mass/Vol]Ordered By: Negra Reyes on 09-22-2022 Urobilinogen (U) [Mass/Vol] Normal mg/dL Normal [facility] pH Auto test strip (U)Ordere d By: Negra Reyes on 09-22-2022 pH (U) 6.0 [pH] 5.0-9.0 [facility] Automated basophil %Ordered By: Margarette Lisa on 08-14-2022 Basophils/100 WBC (Bld) 0.6 % Normal . [facility] Comment on above: Performed By: #### B MP, CBC #### [address] Automated basophil countOrde red By: Margarette Lisa on 08-14-2022 Basophils (Bld) [#/Vol] 0.0 10*3/uL Normal 0.0-0.2 [facility] Comment on above: Result Comment: PERF ORMED BY: [place] [address] PATHOLOGIST BEAUTY COUNSELOR KETAN EVANS M.D. Performed By: #### B MP, CBC #### [address] Automated blood monocyte cou ntOrdered By: Margarette Lisa on 08-14-2022 Monocytes (Bld) [#/Vol] 0.4 10*3/uL Normal 0.0-0.8 [facility] Comment on above: Performed By: #### B MP, CBC #### [address] Automated eosinophil %Ordere d By: Margarette Lisa on 08-14-2022 Eosinophils/100 WBC (Bld) 2.2 % Normal . [facility] Comment on above: Performed By: #### B MP, CBC #### [address] Automated eosinophil countOr dered By: Margarette Lisa on 08-14-2022 Eosinophils (Bld) [#/Vol] 0.1 10*3/uL Normal 0.0-0.45 [facility] Comment on above: Performed By: #### B MP, CBC #### [address] Automated monocyte %Ordered By: Margarette Lisa on 08-14-2022 Monocytes/100 WBC (Bld) 6.8 % Normal . [facility] Comment on above: Performed By: #### B MP, CBC #### [address] Automated neutrophil %Ordere d By: Margarette Lisa on 08-14-2022 Neutrophils/100 WBC (Bld) 67.3 % Normal . [facility] Comment on above: Performed By: #### B MP, CBC #### [facility] [address] [place] [address] Basic Metabolic Panelon Estimated GFR ( Mari > 60 Normal [facility] Comment on above: Result Comment: GFR estimated reference range: According to KDOQI guidelines, <60 ml/min/1.73m2 is sufficient to diagnose a patient with chronic kidney disease. Performed By: #### B MP, CBC #### [facility] [address] [place] [address] Estimated GFR (Non- Am > 60 Normal [facility] Comment on above: Performed By: #### B MP, CBC #### [address] Complete Blood Count Auto Di ffon 08-14-2022 Mean Corpuscular HGB Conc 33.3 g/dL Normal 32.5-35.6 [facility] Comment on above: Performed By: #### B MP, CBC #### [facility] [address] [place] [address] NRBC% 0.0 /100{WBC} Normal 0-0.5 [facility] Comment on above: Performed By: #### B MP, CBC #### [address] ECG 12 lead ECGon 08-14-2022 ECG 12 lead ECG [facility] [place] [address] [place] [address] Electrocardiograph Report Signed Patient: Isaias Gleason MR#: [id number] : 1965 Acct:[id number] Age/Sex: 57 / M ADM Date: 08/14/22 Loc: PS Room: Type: [employer] Attending Dr: Margarette Lisa MD Ordering Provider: Margarette Lisa MD Date of Service: 08/14/2212/30/1627 ECG/ECG 12 lead ECG: pst Copies to: Test Reason : Blood Pressure : / mmHG Vent. Rate : 069 BPM Atrial Rate : 069 BPM P-R Int : 174 ms QRS Dur : 088 ms QT Int : 388 ms P-R-T Axes : 031 003 006 degrees QTc Int : 415 ms Normal sinus rhythm Moderate voltage criteria for LVH, may be normal variant Borderline ECG No previous ECGs available Confirmed by ASHLEY HERRMANN [facility], ISAIAS ([id number]) on 08/15/2022 8:43:49 AM Referred By: SLOAN Electronically Signed By:ISAIAS BAXTER MD [facility] Transcribed By: GIRISH Signed By Adrian Baxter MD 08/15/22 0843 Normal [facility] Erythrocyte distribution wid th [Ratio] by Automated countOrdered By: Margarette Lisa on 08-14-2022 Erythrocyte distribution width (RBC) [Ratio] 13.2 % Normal 12.0-14.8 [facility] Comment on above: Performed By: #### B MEENA, CBC #### [facility] [address] [place] [address] Erythrocytes [#/volume] in B lood by Automated countOrdered By: Margarette Lisa on 08-14-2022 RBC (Bld) [#/Vol] 4.74 10*6/uL Normal 3.90-5.60 [facility] Comment on above: Performed By: #### B MEENA, CBC #### [facility] [address] [place] [address] Estimated glomerular filtrat ion rate (GFR) non- AmericanOrdered By: Margarette Lisa on 08-14-2022 GFR/1.73 sq M.predicted among non-blacks MDRD (S/P/Bld) [Vol rate/Area] > 60 mL/Min [facility] Hematocrit [Volume Fraction] of Blood by Automated countOrdered By: Margarette Lisa on 08-14-2022 Hematocrit (Bld) [Volume fraction] 42.1 % Normal 38.8-50.0 [facility] Comment on above: Performed By: #### B MP, CBC #### [facility] [address] [place] [address] Hemoglobin [Mass/volume] in BloodOrdered By: Margarette Lisa on 08-14-2022 Hemoglobin (Bld) [Mass/Vol] 14.0 g/dL Normal 13.0-17.0 [facility] Comment on above: Performed By: #### B MP, CBC #### [address] Leukocytes [#/volume] correc martín for nucleated erythrocytes in Blood by Automated counOrdered By: Margarette Lisa on 08-14-2022 WBC corrected for nucl RBC Auto (Bld) [#/Vol] 6.4 10*3/uL 4.1-10.5 [facility] Leukocytes [#/volume] in Blo od by Automated countOrdered By: Margarette Lisa on 08-14-2022 WBC (Bld) [#/Vol] 6.4 10*3/uL Normal 4.1-10.5 [facility] Comment on above: Performed By: #### B MP, CBC #### [address] Lymphocytes [#/volume] in Bl ood by Automated countOrdered By: Margarette Lisa on 08-14-2022 Lymphocytes (Bld) [#/Vol] 1.5 10*3/uL Normal 1.00-4.8 [facility] Comment on above: Performed By: #### B MP, CBC #### [place] [address] [place] Lymphocytes/100 leukocytes i n Blood by Automated countOrdered By: Margarette Lisa on 08-14-2022 Lymphocytes/100 WBC (Bld) 23.1 % Normal . [facility] Comment on above: Performed By: #### B MP, CBC #### [place] [address] [place] MCH [Entitic mass] by Automa martín countOrdered By: Margarette Lisa on 08-14-2022 MCH (RBC) [Entitic mass] 29.6 pg Normal 27.5-35.2 [facility] Comment on above: Performed By: #### B MP, CBC #### [facility] [address] MCHC Auto (RBC) [Mass/Vol]Or dered By: Margarette Lisa on 08-14-2022 MCHC (RBC) [Mass/Vol] 33.3 g/dL 32.5-35.6 [facility] MCV [Entitic volume] by Auto mated countOrdered By: Margarette Lisa on 08-14-2022 MCV (RBC) [Entitic vol] 88.9 fL Normal 83.5-101 [facility] Comment on above: Performed By: #### B MP, CBC #### [facility] [address] Neutrophils [#/volume] in Bl ood by Automated countOrdered By: Margarette Lisa on 08-14-2022 Neutrophils (Bld) [#/Vol] 4.3 10*3/uL Normal 1.8-7.7 [facility] Comment on above: Performed By: #### B MP, CBC #### [facility] [address] No Panel InformationOrdered By: Margarette Lisa on 08-14-2022 Estimated GFR () > 60 mL/Min [facility] Comment on above: GFR estimated refere nce range: According to KDOQI guidelines, <60 ml/min/1.73m2 is sufficient to diagnose a patient with chronic kidney disease. Pharmacy Creatinine Clearance (Chem N/A [facility] Nucleated erythrocytes [Pres ence] in Blood by Automated countOrdered By: Margarette Lisa on 08-14-2022 Nucleated RBC Auto Ql (Bld) 0.0 /100{WBC} 0-0.5 [facility] Platelet mean volume [Entiti c volume] in Blood by Automated countOrdered By: Margarette Lisa on 08-14-2022 Platelet mean volume (Bld) [Entitic vol] 9.0 fL Normal 6.6-10.1 [facility] Comment on above: Performed By: #### B MP, CBC #### [facility] [address] Platelets [#/volume] in Bloo d by Automated countOrdered By: Margarette Lisa on 08-14-2022 Platelets (Bld) [#/Vol] 164 10*3/uL Normal 150-450 [facility] Comment on above: Performed By: #### B MP, CBC #### [address] Serum or plasma anion gap de terminationOrdered By: Margarette Lisa on 08-14-2022 Anion gap [Moles/Vol] 10.4 mmol/L Normal 6.0-15.0 [facility] Comment on above: Performed By: #### B MP, CBC #### [address] Serum or plasma calcium musa urement (mass/volume)Ordered By: Margartete Lisa on 08-14-2022 Calcium [Mass/Vol] 9.3 mg/dL Normal 8.2-10.2 [facility] Comment on above: Result Comment: PERF ORMED BY: [place] [address] PATHOLOGIST BEAUTY COUNSELOR KETAN EVANS M.D. Performed By: #### B MP, CBC #### [address] Serum or plasma chloride senthil surement (moles/volume)Ordered By: Margarette Lisa on 08-14-2022 Chloride [Moles/Vol] 104 mmol/L Normal 95-114 [facility] Comment on above: Performed By: #### B MP, CBC #### [address] Serum or plasma creatinine m easurement with calculation of estimated glomerular filtrOrdered By: Margarette Lisa on 08-14-2022 Creatinine [Mass/Vol] 0.99 mg/dL Normal 0.64-1.27 [facility] Comment on above: Performed By: #### B MP, CBC #### [place] [id number] [place] Serum or plasma glucose musa urement (mass/volume)Ordered By: Margarette Lisa on 08-14-2022 Glucose [Mass/Vol] 100 mg/dL Normal 70-100 [facility] Comment on above: ADA recommended refe rence rangeRandom Glucose Reference Range is dependent on time and content of last meal. Glucose of more than 200 mg/dL in a nonstressed, ambulatory subject supports the diagnosis of Diabetes Mellitus. Result Comment: [place] om Glucose Reference Range is dependent on time and content of last meal. Glucose of more than 200 mg/dL in a nonstressed, ambulatory subject supports the diagnosis of Diabetes Mellitus. ADA recommended reference range Performed By: #### B MP, CBC #### [facility] [address] [place] [address] Serum or plasma potassium me asurement (moles/volume)Ordered By: Margarette Lisa on 08-14-2022 Potassium [Moles/Vol] 3.9 mmol/L Normal 3.5-5.1 [facility] Comment on above: Performed By: #### B MP, CBC #### [address] Serum or plasma sodium measu rement (moles/volume)Ordered By: Margarette Lisa on 08-14-2022 Sodium [Moles/Vol] 135 mmol/L Low 136-146 [facility] Comment on above: Performed By: #### B MP, CBC #### [facility] [address] [place] [address] Serum or plasma total carbon dioxide measurement (moles/volume)Ordered By: Margarette Lisa on 08-14-2022 CO2 [Moles/Vol] 24.5 mmol/L Normal 22.0-30.0 [facility] Comment on above: Performed By: #### B MP, CBC #### [address] Serum or plasma urea nitroge n measurement (mass/volume)Ordered By: Margarette Lisa on 08-14-2022 Urea nitrogen [Mass/Vol] 10 mg/dL Normal 9-23 [facility] Comment on above: Performed By: #### B MP, CBC #### [facility] [address] Lab Reportson 08-11-2022 Lab Reports [id number]#1.00CD:[address] [facility] Consultation Noteon 07-22-19 Consultation Note [id number]#1.00CD:[address] [facility] No Panel InformationOrdered By: Margarette Lisa on 07-20-2022 Prostate Specific Antigen Total 16.410 ng/mL 0.000-4.000 [facility] Screenson 07-20-2022 Screens [id number]#1.00CD:1 27 [facility] Screens [id number]#1.00CD:12 7 [facility] Serum or plasma carcinoembry onic antigen measurement (mass/volume)Ordered By: Margarette Lisa on 07-20-2022 Carcinoembryonic Ag [Mass/Vol] 3.4 ng/mL 0.0-3.0 [facility] Testosterone [Mass/volume] i n Serum or PlasmaOrdered By: Margarette Lisa on 07-20-2022 Testosterone [Mass/Vol] 2.84 ng/mL 1.75-7.81 [facility] Patient Educationon 07-19-19 Patient Education Oncology Prostate Cancer The prostate is a walnut-sized gland that is involved in the production of semen. It is located below a man's bladder, in front of the rectum. Prostate cancer is the abnormal growth of cells in the prostate gland. What are the causes? The exact cause of this condition is not known. What increases the risk? This condition is more likely to develop in men who: ? Are older than age 65. ? Are -[place]. ? Are obese. ? Have a family history of prostate cancer. ? Have a family history of breast cancer. What are the signs or symptoms? Symptoms of this condition include: ? A need to urinate often. ? Weak or interrupted flow of urine. ? Trouble starting or stopping urination. ? Inability to urinate. ? Pain or burning during urination. ? Painful ejaculation. ? Blood in urine or semen. ? Persistent pain or discomfort in the lower back, lower abdomen, hips, or upper thighs. ? Trouble getting an erection. ? Trouble emptying the bladder all the way. How is this diagnosed? This condition can be diagnosed with: ? A digital rectal exam. For this exam, a health care provider inserts a gloved finger into the rectum to feel the prostate gland. ? A blood test called a prostate-specific antigen (PSA) test. ? An imaging test called transrectal ultrasonography. ? A procedure in which a sample of tissue is taken from the prostate and examined under a microscope (prostate biopsy). Once the condition is diagnosed, tests will be done to determine how far the cancer has spread. This is called staging the cancer. Staging may involve imaging tests, such as: ? A bone scan. ? A CT scan. ? A PET scan. ? An MRI. The stages of prostate cancer are as follows: ? Stage I. At this stage, the cancer is found in the prostate only. The cancer is not visible on imaging tests and it is usually found by accident, such as during a prostate surgery. ? Stage II. At this stage, the cancer is more advanced than it is in stage I, but the cancer has not spread outside the prostate. ? Stage III. At this stage, the cancer has spread beyond the outer layer of the prostate to nearby tissues. The cancer may be found in the seminal vesicles, which are near the bladder and the prostate. ? Stage IV. At this stage, the cancer has spread other parts of the body, such as the lymph nodes, bones, bladder, rectum, liver, or lungs. How is this treated? Treatment for this condition depends on several factors, including the stage of the cancer, your age, personal preferences, and your overall health. Talk with your health care provider about treatment options that are recommended for you. Common treatments include: ? Observation for early stage prostate cancer (active surveillance). This involves having exams, blood tests, and in some cases, more biopsies. For some men, this is the only treatment needed. ? Surgery. Types of surgeries include: ? Open surgery. In this surgery, a larger incision is made to remove the prostate. ? A laparoscopic prostatectomy. This is a surgery to remove the prostate and lymph nodes through several, small incisions. It is often referred to as a minimally invasive surgery. ? A robotic prostatectomy. This is a surgery to remove the prostate and lymph nodes with the help of a robotic arm that is controlled by a computer. ? Orchiectomy. This is a surgery to remove the testicles. ? Cryosurgery. This is a surgery to freeze and destroy cancer cells. ? Radiation treatment. Types of radiation treatment include: ? External beam radiation. This type aims beams of radiation from outside the body at the prostate to destroy cancerous cells. ? Brachytherapy. This type uses radioactive needles, seeds, wires, or tubes that are implanted into the prostate gland. Like external beam radiation, brachytherapy destroys cancerous cells. An advantage is that this type of radiation limits the damage to surrounding tissue and has fewer side effects. ? High-intensity, focused ultrasonography. This treatment destroys cancer cells by delivering high-energy ultrasound waves to the cancerous cells. ? Chemotherapy medicines. This treatment kills cancer cells or stops them from multiplying. ? Hormone treatment. This treatment involves taking medicines that act on one of the male hormones (testosterone): ? By stopping your body from producing testosterone. ? By blocking testosterone from reaching cancer cells. Follow these instructions at home: ? Take oubb-sqe-fmusyhm and prescription medicines only as told by your health care provider. ? Maintain a healthy diet. ? Get plenty of sleep. ? Consider joining a support group for men who have prostate cancer. Meeting with a support group may help you learn to cope with the stress of having cancer. ? Keep all follow-up visits as told by your health care provider. This is important. ? If you have to go to the hospital, notify your cancer specialis (more content not included)... Normal [facility] Urology Office/Clinic Noteon 07-19-2022 Urology Office/Clinic Note Chief Complaint 6wk PET HPI Staff 6wk f/u to new Dx of Prostate Cancer. S/P MRI Fusion Bx done 05/26/22 PET scan done 06/19/22 Pt was referred to Dr Lisa for Radiation Oncology Consult. Does have another appt with her tomorrow to discuss decipher/genomic tests. Pt states at this time he is leaning towards radiation Tx. Based on his age and the cancer staging. Occasional dribbling at end of urination. No other urinary complaints at this time. History of Present Illness Tests reviewed: reviewed UA, PSMA/PET scan I have reviewed the previous health record information and history for this patient from Dr. Torres, Dr Lisa I have reviewed and verified the staff HPI to be accurate for this encounter. There have been no associated fever, chills, flank pain, or blood in the urine. Denies any urinary infections since last encounter. Review of Systems PHQ Score Initial Depression Screen Score: 0 ROS - Provider Constitutional: denies weight loss, denies hot flashes. Eyes: denies eye problems. Gastrointestinal: denies nausea, denies vomiting. Cardiovascular: denies chest pain or angina. Integumentary: no dryness Musculoskeletal: denies musculoskeletal symptoms. ENMT: denies otolaryngeal symptoms. Respiratory: no shortness of breath. Heme/Lymph: denies easy bleeding tendency, denies easy bruising tendency. Psychiatric: no confusion, no anxiety. Genitourinary: see HPI Physical Exam Vitals & Measurements HR: 78(Peripheral) RR: 16 BP: 140/86 HT: 71 in HT: 180.34 cm WT: 109 kg WT: 239.8 lb BMI: 33.52 General Appearance: alert, no distress, well nourished, well developed male. Genitourinary: Flank Pain: none. Bladder: nonpalpable. 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 Completed genetic testing which confirms mutation. MIGUE 25, IPSS 3.5 Denies hx of PA, stroke or DM. No prior hernia surgeries/mesh. Prior colonic resection open, midline. 1. Prostate cancer (C61: Malignant neoplasm of prostate) MRI fusion transperineal prostate biopsy done 05/23/2022 for PIRADS 5 R PZ base, R NVB and SV involvement - 08/29 cores positive 44% of tissue involved Jacky score 7 (3+4), atypical small acinar glands in 4 areas bilaterally. Of note, 2nd positive core was in same area as EVELYN PSMA/PET scan done 06/19/2022 showed activity right PZ. No metastatic disease. Decipher testing done by Dr. Meza was very high risk .98, per discussion with Dr. Lisa High risk based on PSA, imaging suggests cT3b disease (cT1c based on exam however limited due to body habitus, very well could be cT3b). At this time pt is leaning towards getting Radiation therapy rather than a RP. Educated pt that even if pt has a RP he will likely need some form of Radiation therapy because he is high risk based off his testing. However, there are no prospective trials comparing outcomes of each treatment in this setting. Discussed risks and benefits of Hormone therapy, likely 2 years given high risk Discussed options for future medications if recurs due to Mcadams syndrome. Elevated risk of periop complications if salvage prostatectomy. Offered referral to tertiary center for second opinion regarding protatectomy Pt has an appt with on 07/20/2022. If pt has any more concerns we will refer him to [facility]. 2. Elevated PSA (R97.20: Elevated prostate specific antigen [PSA]) MRI wo/con 05/08/22 at [facility] [place] [facility] showed prostate vol 56mL, PI-RADS 5. Focal area of T2 hypointensity is identified involving the posterior lateral aspect of the right peripheral zone at the level of the base measuring 22 x 14 mm with associated restricted diffusion and low ADC value. There is associated extracapsular extension with right seminal vesicle and neurovascular bundle involvement. Also abnormal enhancement on the postcontrast series. PSA 03/23/2022 23.01 03/28/2021 12.59 03/10/2021 11.5 3. Personal history of colon cancer (Z85.038: Personal history of other malignant neoplasm of large intestine) 2018 s/p chemo and resection (open) by Dr Groves. Annual colonoscopy, last one this past spring/summer. Negative Hx Mcadams syndrome father and himself. 3 kids, 2 have been screened. Never had radiation treatment Follow-up With When Contact Information Brian HERRMANN, Eulalia Cox, URL, URO In 3 months 10/17/2022 EDT [address] [place] [address] [phone] Additional Instructions: Patient Education Prostate Cancer ICat , personally scribed for Dr. Torres on 07/19/2022 09:50:23. . Documentation recorded by the scribe, Cat Tripathi, accurately reflects the services(s) I performed and decisions made by me. Authenticated by Dr. Torres on 07/19/2022 10:56:03. Problem List/Past Medical History Ongoing Balance problem Elevated PSA Mcadams syndrome Me (more content not included)... [facility] Comment on above: Result Comment: Elec tronically Signed By: Eulalia Torres MD\.br\Date and Time Signed: 07/19/22 10:57 EST\.br\Electronically Co-Signed By: Abbie Maldonado\.br\Date and Time Co-Signed: 07/19/22 09:51 EST Pathology Noteon 07-13-2022 Pathology Note [id number]:12 7 [facility] Pathology Reporton Pathology Report [id number]#1.00CD:127 [facility] Consultation Noteon 06-26-20 22 Consultation Note [id number]:12 7 [facility] RAD - Pet Scan Reporton 06-08 RAD - Pet Scan Report [id number]#1.00CD:12 7 [facility] Lab Reportson 06-16-2022 Lab Reports [id number]#1.00CD:12 7 [facility] Ambulatory Visit Summaryon 08-07-2021 Ambulatory Visit Summary ISAIAS GLEASON Afsaneh :1965 Visit Date:06/07/2022 Ambulatory Visit Instructions Your Diagnosis Prostate cancer Elevated PSA Personal history of colon cancer Your Care Team Attending Physician - Brian HERRMANN, Elualia Cox Primary Care Physician - TERI RICE MD This Is Your Medications List Contact prescribing physician if questions or concerns lisinopril (lisinopril 10 mg Tab) Procedures Performed MRI-US fusion guided transperineal biopsy of prostate (05/23/2022), Partial resection of colon (02/06/2019), Colonoscopy (04/09/2018). Discharge Vitals Height 180.34 cm Height 71 in Weight 110.0 kg Weight 242 lb BMI 33.82 What to do next Scheduled Follow-Up Appointments Sunday 8:30 AM EST With: Eulalia Torres MD Where: [facility] Patient Educationon 06-07-20 Patient Education Oncology Brachytherapy for Prostate Cancer Brachytherapy for prostate cancer is radiation treatment that is placed inside of the prostate (prostate gland). There are several types of brachytherapy: ? Low-dose rate (LDR) therapy. This may involve temporary implants or permanent radioactive seed or pellet implants. The radiation does not travel far from the prostate, which means that healthy, noncancerous tissues around the prostate receive only a small dose of radiation. This helps to protect those tissues from injury. This type of treatment may be followed by a course of external beam radiation. ? Temporary low-dose implants are left in the prostate for 1?7 days. The implants are needles, applicators, or thin, plastic tubes (catheters) that contain radioactive material. You will need to stay in the hospital while the implant is in place. ? Permanent low-dose implants (seeds or pellets) are injected into the prostate, and they work for up to one year after they are inserted. They are left in place and are not removed. ? High-dose rate (HDR) therapy. This is given through needles, applicators, or catheters that contain radioactive material. The tubes are removed after treatment, and no radiation is left in the prostate. This type of treatment may be followed by a course of external beam radiation. Tell a health care provider about: ? Any allergies you have. ? All medicines you are taking, including vitamins, herbs, eye drops, creams, and oemu-ike-wzqxjbk medicines. ? Any problems you or family members have had with anesthetic medicines. ? Any surgeries you have had. ? Any blood disorders you have. ? Any medical conditions you have. What are the risks? Generally, this is a safe procedure. However, problems may occur, including: ? Inflammation of the rectum. ? Problems getting or keeping an erection (erectile dysfunction). ? Trouble urinating. ? Diarrhea. ? Bleeding. ? Loss of bowel control. What happens before the procedure? Staying hydrated Follow instructions from your health care provider about hydration, which may include: ? Up to 2 hours before the procedure ? you may continue to drink clear liquids, such as water, clear fruit juice, black coffee, and plain tea. Eating and drinking Follow instructions from your health care provider about eating and drinking, which may include: ? 8 hours before the procedure ? stop eating heavy meals or foods such as meat, fried foods, or fatty foods. ? 6 hours before the procedure ? stop eating light meals or foods, such as toast or cereal. ? 6 hours before the procedure ? stop drinking milk or drinks that contain milk. ? 2 hours before the procedure ? stop drinking clear liquids. Medicines ? Ask your health care provider about: ? Changing or stopping your regular medicines. This is especially important if you are taking diabetes medicines or blood thinners. ? Taking medicines such as aspirin and ibuprofen. These medicines can thin your blood. Do not take these medicines before your procedure if your health care provider instructs you not to. ? You may be given antibiotic medicine to help prevent infection. General instructions ? Plan to have someone take you home from the hospital or clinic. ? If you will be going home right after the procedure, plan to have someone with you for 24 hours. ? You may have imaging tests done, including an ultrasound, CT scan, or MRI. ? You may have blood tests done. ? You may have a test to check the electrical signals in your heart (electrocardiogram). ? You may need to take medicine to clean out your bowel (bowel prep). What happens during the procedure? ? To lower your risk of infection: ? Your health care team will wash or sanitize their hands. ? Your skin will be washed with soap. ? Hair may be removed from the surgical area. ? An IV will be inserted into one of your veins. ? You will be given one or more of the following: ? A medicine to help you relax (sedative). ? A medicine to numb the area (local anesthetic). ? A medicine to make you fall asleep (general anesthetic). ? You may have a thin, plastic tube (catheter) inserted to drain your bladder. ? If you are receiving brachytherapy with implants: ? A needle, applicator, or catheter will be inserted into the prostate. It will be inserted through a body cavity, such as the rectum, or through the tissue between the testicles and the anus (perineum). ? An X-ray, ultrasound, MRI, or CT scan will be used to guide the catheter or applicator toward the prostate. ? Radioactive seeds, wires, or ribbons will be fed through the catheter or applicator. ? If the high-dose method is used: ? The radioactive wires or ribbons will be left in for a few minutes and then removed. ? Once the treatment is finished, the catheter or applicator will be removed. ? If the low-dose method is used, the implant will stay in place for 1?7 days. ? You w (more content not included)... Normal [facility] Urology Office/Clinic Noteon 06-07-2022 Urology Office/Clinic Note Chief Complaint FU to bx HPI Staff Follow up to mri fusion transperineal prostate biopsy done 05/23/2022 Previous Dx :Elevated psa, Personal hx of colon cancer Dysuria: no Incomplete bladder emptying: no Hematuria: no Frequency: no Urgency: no Nocturia: no Stream: good stream Leaking: no Post void dripping: no Wearing pads/ Depends: no Urge incontinence: no Stress incontinence: no Incontinence without Sensory Awareness: no Abdominal pain: no Flank pain: no Sexual complaints: no History of Present Illness I have reviewed and verified the staff HPI to be accurate for this encounter. I have reviewed the previous health record information and history for this patient from Dr. Torres There have been no associated fever, chills, flank pain, or blood in the urine. Denies any urinary infections since last encounter. Review of Systems ROS - Provider Constitutional: denies weight loss, denies hot flashes. Eyes: denies eye problems. Gastrointestinal: denies nausea, denies vomiting. Cardiovascular: denies chest pain or angina. Integumentary: no dryness Musculoskeletal: denies musculoskeletal symptoms. ENMT: denies otolaryngeal symptoms. Respiratory: no shortness of breath. Heme/Lymph: denies easy bleeding tendency, denies easy bruising tendency. Psychiatric: no confusion, no anxiety. Genitourinary: see HPI Physical Exam Vitals & Measurements HT: 71 in HT: 180.34 cm WT: 110.0 kg WT: 242 lb BMI: 33.82 General Appearance: alert, no distress, well nourished, well developed male. Genitourinary: Flank Pain: none. Bladder: nonpalpable. 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 No prior hernia surgeries/mesh. Prior colonic resection open, midline. 1. Prostate cancer (C61: Malignant neoplasm of prostate) MRI fusion transperineal prostate biopsy done 05/23/2022 for PIRADS 5 R PZ base, R NVB and SV involvement - 08/29 cores positive 44% of tissue involved Jacky score 7 (3+4), atypical small acinar glands in 4 areas bilaterally. Of note, 2nd positive core was in same area as EVELYN He had a PSA of 23 and normal digital rectal exam consistent with clinical stage T1c disease. I explained the D'Sampson criteria for risk stratification of prostate cancer which indicates that he has high risk disease based on PSA. I educated him on the national comprehensive cancer network guidelines on the treatment of prostate cancer which indicates his options include: active surveillance, surgery, and radiation therapy. I discussed the advantages of each of his options at length. I discussed radical prostatectomy including robot-assisted laparoscopic and open approaches. I showed him the [facility] nomogram which estimate his risk of organ confined disease to be 53 %, extraprostatic extension 42%, seminal vesical invasion 2% (however, noted on MRI), and lymph node metastasis 4%. He understood the risks of the procedure include but are not be limited to bleeding, need for transfusion, pain, infection, injury to the bladder, ureter, urethra, urinary sphincter, surrounding tissues, injury to the bowels including the rectum, small intestines, permanent erectile dysfunction, incontinence, urinary leakage, bladder neck contracture or anastomotic stricture, bowel obstruction or fistula, hernia formation, deep venous thrombosis, pulmonary embolism, positive surgical margin, need for further treatments, urinary fistula, open conversion, lymphocele and need for further surgeries. We discussed different forms of radiation for prostate cancer including external beam radiation therapy. He understood the risks of radiation therapy include but are not limited to bleeding including delayed bleeding (radiation cystitis or radiation proctitis), need for transfusion, pain, infection, injury to the bladder, ureter, urethra, urinary sphincter, surrounding tissues, injury to the bowels, permanent erectile dysfunction, urethral stricture, urinary retention, secondary malignancies (bladder and rectum), need for further treatments and need for further surgeries. - Will order PSMA PET for staging, high risk due to his most recent PSA being over 20. - Will refer to Dr. Lisa Radiation Oncology for radiation options. He is also is aware that if he chooses to proceed with prostatectomy he will likelybe referred to a tertiary center due to high risk and prior surgical history - Discussed decipher testing in full detail, pt will decide later if he will like to proceed with this testing -will f/u in 1 month to discuss PSMA results and treatment decision. - All questions and concerns were answered, pt acknowledge he understands, and agrees with the plan of getting PSMA scan and being referred to Radiation Oncology. 2. Elevated PSA (R97.20: Elevated prostate specific antigen [PSA]) M (more content not included)... Normal [facility] Comment on above: Result Comment: Elec tronically Signed By: Eulalia Torres MD\.br\Date and Time Signed: 06/07/22 10:37 EST\.br\Electronically Co-Signed By: Mary Ruano\.br\Date and Time Co-Signed: 06/07/22 09:03 EST [employer] Documentson 1 07-29-2021 [employer] Documents [id number]:[address] [facility] Coding Summary.on 05-26-2022 Coding Summary. [id number] Gh0bW w+PGhlYWQ+TI1OWOHvG87laYX mrI5QG7fUMI4JFDLBHOPRXF9E CJ5zeQL0JGekW7LoxpRt KqzioGZhWI97DOh4EUI8gMotL UznaP9dgKPdM5f9DoTrCO63rC 64XGtlIORqBnM5JxLjfjrsdUL y H7edNjYqiXXtQqa+PHRhYmxlI HdpZHRoPScxMDAlJyBzdHlsZT 8iSb3hITNfDCZfcHpuzCMjBsZ j j8plHYOqTWymVL3fuVphU1Dfm EA3ZXMmd2c9Cd63wHA+PHRkIH E1qAecHUpfq085NjXko8xmTNX 3 sCHbYWdxHXJ3Z87yu8R4BGAbG MMoCIT0jQG9xU5ysDnmcxubJ8 XvoAIpOgS6BXI1cNRswM2dxUo n pikneC7gMna+J58IDK6MEGOIX Z6WJss8J0EyAhvbtLQ+PC90YW XaDI05eNCvmQSyl0rhpYm5XuA w QAIhGGM3vBwoPRlbh9GcRAEaH 83nsXVnm6I3AUPxuLhbsUYkYj HefBI7nM7lAVwxzvpun5etlcl n Qgjmx0bgij02vA73E78zLDypU OBsIVO7PNLoIKXuuNnorp4beM 9wIi8+RPsyg5mkh5jhgWm5DkI w BQDfniJzaDzaXSK3b7WnYp85M 2NbkVrlk3YhUqb1ct73sQKei8 V0nTO2KOgcFBJvcC2rPDnjQsZ 6 RDBtJgQhdK81iUWpEWahPe1om OvydGriFP5qMLKcnvwxBTUjwD 4yFQDohEBmmRujOP9nKLIpych m m523BqZuBHE5FUAcnLRjA3Nhu R3dZwQlTLEdJTWbS1FeaYLnBJ ljE839GAjwZoV4NWZrigScT6G s YCMdsLdoQtV3j3A8As0Wx9Tin kldSYV4YZrzCLNeCtM1HgWmBr B2X9ZeBhr6HRVriRsfVU8lZ7T h YQQxzloenynuxDC6BHXkTZOgg L78eJWfDWgcZj2wy0H4m973VE OtPPXuvI40Fx7qfKqyPCJbaVF U wV8ujbyof0agveveYkKmUOPdE Jm5WJg0NTGehFxfYaOeTXS4Yz O5CED0nCDmiG4fkVuoltqobI3 w Oyc+J84hmE8hCLH7AKP9lkfdA DTddrViYT91IA31V8TtWkellJ FibGU+IRClasYdbNjqZP9cPlX j r1fnu4PfWTsvX9PlNRLcYKvqI xr8MPEvBWF3yIC3sM1hFXOaVI sas1K6lIE8V4OgdgAeab2wp6t s HETeONqpC66gpFOew0S3EWRew JW0SJMxlWybIiOowP19Eoy+PG KtyFdgb8PcZmnqd9txk7cevBp 9 WkCjFCBvssNpxLnjUSL3i4UdY o07Y84uTFcvQCMwOIQgOHTrRO LetMupoa7umY0dWn1+PGNvbCB 3 yKE4gD7tBQFpXwI9ESsoM961O pAnnGVpTxlyl3rmh9qhnZz4Gm EyRMGtmpCfvLdcXDR7s6JcNs6 8 H31oSMbwFLIpPKHhCTOoRNHkw Kmsjf7gcQ8mPl8+OO8yj4ndji 07rO04rXE+VJEtUUM1pDumQUh w FYDczD8lILrzDvU0CPSgJwTvo I11fSCrTAmrZu9opEhunItdHZ 0eTWZviyrey507TkVxy3tmZHN w dAIkDZqtYZS0R69ku2O0MBTvY GDpBPI2iQV9gB4etQwpdhbtcK EpyJyyedAxbFqxCMuzIJgsP43 6 IHRvcDsnPlBhdGllbnQgTmFtZ Hx3X0AeRvr4EPDwoRhvFA3ypL MrQVcoYj6szHegiLurKF3yJCG p yuxdr369GfDja2ieKXOuaKKmL ZnuKNG6Z21ac1Y0SJWlRGClJO Q3gCO6qJ2xyXxwbbtndANawJh g lwZltLfpRMehTKfoS733COZav AdhByMwobDgKQFwqPY4XR55LC 41sKQdx0P2pMF9V0NwTIXftuo t ooydlKY0QYNcOPOckZ99Ri8no UfdPb5qBQYnZRG0OQFveHHoI5 ZtyF8yIePsRPQfETRmN9MhsRS t DYpyG894LHsbXmB0PVIumdTnP 5WqBFWadJngGuV2s6T6Yi1QE4 H0CL45OH75kTTur0X0hYD7O7M h FQVzeqcppgeeaYR9VJBmRYTlq L58La6qiAoeLv4jRXTyJMU7ML BcnCIuD3PwsP0kZmEvTFKdQOX w T5GqfHZoYHncC275UQykWlO1G PIizsRbC8DoHEQmqGheNdG3h6 Q3Lb0ZZHf4YJ77XA02iFNem7A 5 eCE2Z5TgWCZieottnyyobGM4J SPhDCPidL80Xd0btOwkMx1pDA RyZJS1BGBhqRUpM1FphC6lHhW j ZNImKBGxM6ZtkKTbSRqpN821H AtgLtA1LUJhbhCsS9GdYDBqmW kgTsD9v7Z9It6UZSNoCA94VVG 5 uDV6YK10EO03D9SuPapqgHTmp +PHRhYmxlIHdpZHRoPScxMD YsSiLhvBujJZ8pOs6nSWUbHWW v gZzayJLcPuGcu9ytZJNjGKdeS H2wtChlW8AleST3RQQaf5z0Hl 55Z95lR0RwdLC+AVAdfES6pMZ 0 rX2vPzTbYqY5QMurB407ArYlu FPvSctun8pgm4ajzBk6IdA4UM RfnqFqjSopNKZ0h7ZoNz71M63 s IHdpZHRoPSIxNSUiIHZhbGlnb q1rzT2xWy6+CSPjcGS2qFA9qG 6uRkPlYiO8PVfmN260NsQtlQV v Slwhf7lmc4asbPb4XcQnRPLcx oAetNskDPY6a8SbTc45K6SiwX klk7BxYgv9kw55tTAzi5Z1hTR 9 O0LlIYXjrbkccYSqmPzsGF7gT TFnyxjfTHLdiO1oGDFiS7d0Ry FaRkQ6BEgpI9KznqM0HMQtmCN g GPooMHH1U24pi6M0PHTrJLEhZ VC5dRW5kL8wvHsdqguzbLMwyF txnnYdhGnjJEryCCgrJ524NIU v gVdgXGMgmA7lASGenTOreWcmN A9mUQSrmrfxQgBZBSyqLONHVm dWHtHNZK00AD37iCXme6D6tLS 9 B9HmZVFuqzyqbtcmvKK9DHChL FKpjW32vQDhHDisZr1rz9K3c3 43BFBqQXGwwG74Uc5zcMjoASX w xOELfN6nlngfl0lciihqStOtV ULuHHc6DRz9DDNycNdaUeLuAI A1OtL1TUZ9gKVpsG3iwMvmsqq g bD5gErl+QNaoRWSkGIx7XItnc GQ+LVNwMEJ3bYkfNZfbPKAtfH 0vZZJtV2q8UcFdAmO2VDebG1R h CJPknttsRq70mF1oMhNrJvQ8J ZpfV3YuwuE6FXAqgWYyWNdrQN I1W98hb3O0BEUzRTQqHKN0vSV 4 mB5sgMutnjsctGStpRzafsBij NimDCzlXPynF129JSDcvFrsIg Z6FDkrFHSeIR20PE52vOHqk1Z 5 zXV3P3JnLBWvddebxfxldSS4O OBrVJJqgS10rOOsFUdkAf5wz4 D2e424ZOKdGXFrdG73Zk9gyJc g YHXykUXAjO1wyvuea1blxxcsK eLiMAYhGOh8RHe4CQSmgPbbYy XyDHC8IkN8LDE1dDKdpG5jvZj n ffczyA8qYda+TWFsZTwvdGQ+P LCuWED2tMerMGkfDHVzrU1tNR KwL4t1CvOtOyQ1PUphT8NfLOR p avyqEw03eV6hYcCaQdS3XXwqQ 9NyxsY0KCGkrPZzGRgwTCO9R6 6ko2W8WVDyQVQqBLN4gFV8fX0 h bGlnbjogbGVmdDsgdmVydGljY QaaCRlnN180QMKowOshXtSkPd WrOAYafmleL6GzIBJLSJfoX3O y O2PykIissDU+UY59hg47Z3DuB quqBhb4SGCxNQB0bMY3mO0cIS HjDFsow8J2uKP0R7IyufXuxc5 j y5zxVGJpZOerO92ngHKss9J4N LGcyAN3UINvkGvnSxIorU34Si c+CBYapMfxj6KiWbdkr6ozh9j k sZi9UiXuSGIhorNnxVpaMAQ3l 0WuNq48P55cKBakESMbOPUdTW VmIQKqjOfngd0gzO6oHe2+PGN v lPI5nVT8fG1hYpYqKnV4SGfxO 408MhZalECsIvyyg1wjq0yfzY o9BgHsOATsazTnsNbzDYN3u1V i Xq13V4TyyZixf6FjNyu4uz00k SQku4P0iFZ7N6UkTRJalxyggS DwjZexFQ6aFONcuonqIVRjlD8 n OKAnZ5g0QcGzGmJ9OHnsC0Odn eC8XUCriMMmWLUahBAQiG4jds rdo7rsglruPqXpEMNjOOt1SBs 0 UDIibMjfRcKnATJ6QiD0EOC2c NTfnM2meUvmyvqngA3dRrf+UG b9n3gcgMFjXD3gdHY3HY54DG2 8 qYAkc1R8ePF0L3GfYBVjaquzd iifdRV5YMQpJOXumN37Hi1mqU xiFh9vFUIqQTM8BFGsuQZbP4M v oA2dDsAkHURiCJNnL7RiqHYeN TcqZ187WGnhFkZ0NHZlekYlG4 BlSHRqsDkyVkY5g0W1Lk1CLB9 6 DY80WC27uESfr2T5pRW4E4OoK DEkacrynwhqrYX4DNWaORGyuY 28Tv9prRwfNq3pWWUpUJK0KWX p kWHyI5QytU6aLpYdDQCmUQDrA 1RrzBVbUEgfC426ISbtFgG2SD NgpxNrA1RcRVOitYaiSyD2v2Q 7 Ly9JFr85CJ59RN21xETap7B7p DT9H7CwHGCbjwudojhbqJD3VV OjVUOdqX56Dj5mrNlpFj8kHSR x YIV2UVThqXPhZ4BiwT2yKlAsZ KJpGCKwJ8MubCCdLMeoL281QG nwHhV1JXRklqZbH7CgFZVmwLv u LcW2z6F8Yh5NZHfutyi9F5MwW jwvdHI+NA34OHZmNK47cIAsjH Ggp2eljHy1OcKdHTYoYCO3jOp l PSdi (more content not included)... Normal [facility] Main OR Intraoperative Recor don 05-26-2022 Main OR Intraoperative Record IntraOp Document Type FT Summary Primary Physician: Brian HERRMANN, Eulalia Cox Finalized Date/Time: 05/26/22 12:54:41 Pt. Name: ISAIAS GLEASON /Sex: 1965 Male Med Rec #: [id number] Physician: Eulalia Torres MD Financial #: [id number] Pt. Type: A Room/Bed: [place] [address] Admit/Disch: 05/23/22 09:18:18 - 05/23/22 14:55:00 Institution: Case Times FT Entry 1 Patient Times In Room 05/23/22 12:34:00 Out Room 05/23/22 13:21:00 Procedure Times Start 05/23/22 12:41:00 Stop 05/23/22 13:14:00 Anesthesia Times Start 05/23/22 12:34:00 Stop 05/23/22 13:21:00 Last Modified By: Kai Fields 05/23/22 13:25:44 General Comments: 05/26/22 Chart opened to review and send charges LRoth CSFA Case Attendance FT Entry 1 Entry 2 Entry 3 Case Attendee Benja Gutierrez DO, Kwabena Torres MD, Kai Jha Role Performed Anesthesiologist of Surgeon - Primary Durability Technician - Primary Record Time In 05/23/22 12:34:00 05/23/22 12:34:00 05/23/22 12:34:00 Time Out 05/23/22 13:21:00 05/23/22 13:21:00 05/23/22 13:21:00 Procedure PROSTATE TRANSPERINEAL PROSTATE TRANSPERINEAL PROSTATE TRANSPERINEAL BIOPSY WITH ULTRA(.) BIOPSY WITH ULTRA(.) BIOPSY WITH ULTRA(.) Comments IN ORIENTATION Last Modified By: Kai Fields Terry T Sweene, Terry T 05/23/22 13:25:47 05/23/22 13:25:47 05/23/22 13:25:47 Entry 4 Entry 5 Case Attendee Millicent RN, Iqra Espitia SENIOR DEVOPS ENGINEER, Lianne Razo Role Performed Durability Technician - Primary Scrub - Primary Time In 05/23/22 12:34:00 05/23/22 12:34:00 Time Out 05/23/22 13:21:00 05/23/22 13:21:00 Procedure PROSTATE TRANSPERINEAL PROSTATE TRANSPERINEAL BIOPSY WITH ULTRA(.) BIOPSY WITH ULTRA(.) Comments PRECEPTOR Last Modified By: Kai Fields Terry T 05/23/22 13:25:47 05/23/22 13:25:47 General Comments: EMILY SHARP - ADRIANA - MRI/US REP. SUBHASH RESTREPO - - PERINEOLOGIC REP. 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 Protocols FT Pre-Care Text: Implements protective measures prior to operative or invasive procedure, confirms identity before the operative or invasive procedure, verifies operative procedure, surgical site, and laterality Entry 1 Procedure(s) PROSTATE TRANSPERINEAL Patient Identity Birthday, ID Band BIOPSY WITH ULTRA(.) Verified (select at Check, Patient least 2): Participation Consents / H and P Anesthesia Consent, Operative Site N/A Verified HandP, Surgery/Procedure Marking Verified Consent Surgical Site Yes Laterality Verified Yes Verified Procedure Verified Yes Correct Patient Yes Position Verified Availability Equipment, Medication Prep Dry n/a Verified (If Applicable) PreOp Antibiotic Yes Time Out Benja Gutierrez DO, Brian Hooper MD, Eulalia Cox, Kai Fields Barbee RN, Omkar Solano CST, Lianne Razo Time Out Complete 05/23/22 12:47:00 Outcomes Met? Yes Last Modified By: Kai Fields 05/23/22 12:50:17 Post-Care Text: The patient is free from signs and symptoms of injury caused by extraneous objects Allergy Information FT Pre-Care Text: Verifies allergies Entry 1 Allergies Reviewed? Yes Allergies Reviewed Self/Patient With Outcomes Met? Yes Last Modified By: Kai Fields 05/23/22 12:54:40 Post-Care Text: The patient received appropriate medication(s) safely administered during the perioperative period Surgical Procedures FT Entry 1 Procedure Description Procedure PROSTATE TRANSPERINEAL Modifiers . BIOPSY WITH ULTRASOUND Surgeon Description MRI FUSION TRANSPERINEAL PROSTATE BIOPSY Primary Procedure Yes Primary Surgeon Brian HERRMANN, Eulalia Cox Start 05/23/22 12:41:00 Stop 05/23/22 13:14:00 Anesthesia Type [facility] Surgical Service Urology Wound Class 2 - Clean-Contaminated Last Modified By: Kai Fields 05/23/22 13:14:59 General Case Data FT Pre-Care Text: Classifies surgical wound, implements aseptic technique, initiates traffic control Entry 1 Case Information OR OR 5 FT Case Level Level 2 Wound Class 2 - Clean-Contaminated Specialty Urology ASA Class 3 Preop Diagnosis ELEVATED PSA Postop Same As Preop Yes Postop Diagnosis ELEVATED PSA Outcomes Met? Yes Last Modified By: Mariana Broussard CST 05/26/22 12:54:37 Post-Care Text: The patient is free from signs and symptoms of infection Skin Assessment (Pre Procedure) FT Pre-Care Text: Implements protective measures to prevent skin/ tissue injury due to thermal or mechanical sources Evaluates for signs and symptoms of physical injury to skin and tissue Entry 1 Skin Integrity Intact, [place], Warm, and Skin Abnormality Yes Dry Outcomes Met? Yes Last Modified By: Kai Fields 05/23/22 12:56:46 Post-Care Text: The patient is free from signs and symptoms of injury caused by extraneous objects Patient Positioning FT Pre-Care Text: Identifies physical alterations that require additional precautions for procedure-specific positioning, verifies presence of prosthetics or corrective d (more content not included)... Normal [facility] Lab Reportson 05-25-2022 Lab Reports [id number]#1.00CD:[address] [facility] Postoperative Documentson Postoperative Documents [id number]#1.00CD:[address] [facility] Coding Summary.on 05-24-2022 Coding Summary. CD:[id number] Gh0bW w+PGhlYWQ+YH6RYXVaM96doSE wzM3HD0zEAG3KAREFHTELVR9W BL2qhDR5OBucC0TzydUk EkgbiCHwNU89HJu8GVT1iIioB RuthI8ezSWfM5i7BpAhMK01wK 32GQhnIRLkKqT1FiJdqdpsxVZ y R4lsUoKlhMSrHch+PHRhYmxlI HdpZHRoPScxMDAlJyBzdHlsZT 8nRz9hOFTwMYDpaWtxtMCwYcK j k6shZFPpUWowQA1dvTcjO7Viy KC9WAKov3p9Zd53gWV+PHRkIH D2rCtfVHetg993WzSin4krQBL 3 uTExYOnwWCK3A48cy1W3MBAlE HBpPKU4cDY5mY2zlXsfsfuxF4 AfcGUtIcB0LWI2bIMeaL5toXt n fkkjcI2vPfr+Q51EZE8JJAHMO R4TMyt7T7JpHsawuIM+PC90YW GyKB01qVIxkSGzi0bhwDv6HpV w CROkVVA6gScqCLohx0XnBUXmI 55daYSwo6H5XWFgyJhaaJSyYa PysBQ0fB3cSScsjnxym5alqnr n Kcvgs1mxrf18vL77B68uNCvxR KKxNSI4IEAmWNEztTtgve2bvM 9wIi8+FBqmr0cbk1lkjZz3TpN w LVFsstTybBjaZWH7l1CjDc70Y 1IuvHlms3YzZpt9cp17jEDsj6 U6lHA4VJtfZQXvoR4hGYnoRmV 6 FTRkNnEtxK82kYBiYGjpHi8sn UgqsJfxYA7hUPPikoitXLTfuF 9lVYMfqPNhgMorAQ2fSUWfmph m h519PnDzYTP9JXInnXEjT0Hri T7rLoKoDJNiAWQhA0WrxSBoCV paO739WFauNzE2XNJdgtVvE4L s QUWyqQxvNzT8x4Z6Jp2Bn4Wrv jbfUKU4SQpzLPHsWuL2BdEkKa U4U0NlLpu9UKGbvQgtLQ3cH9X h FAMrbuzvniepzUC8FQRjMCRhm A44dJSwVQvvEo7is4X5n261NZ DpKPOkdM58Jz6eoZdpEPXyjKG U aN7ihafsa2qinyhsEuVzEQIyR My7EMb5LMGloTuzIfXrZUS6Br P9HOY3qHQqrY4wuBovzqyhyO4 w Oyc+C29syG3fOQO4DZF3zpeaM PIpgiWiJF30QY45J7NmSdpkkD FibGU+YHOpntEpxThuUY3yZyS j b4osm8TaZClqC5JjESMiZFweS bd5UHHoDFO7fAD1eN6uGHAsVE aes3Q4nMZ0P3AdmfBzjw8zs9x s KUOoHXiaU17xaSOwd5R7ZMJtp SP5DADboDsoRaRnmI45Lca+PG KcnCuoc8ZcExjug8xqd8gkcFh 9 GoReFVUfaiDfnJxyQQC8a5LpW e81H48jIUlqJERlUPSkUHZiDL TnkLphew1ddI4jDw7+PGNvbCB 3 wJA2cZ1dHTMgMlK0HLjuJ878U qZzcTMzAnscm6fkg4yzwWb8Zi OfGNHonuQitApjPFA3f6XeIv8 8 N73wIGmmYNMqKAKzBYGqVPLjg Orncl6oxX5aDf1+DO7lz5fftn 77jQ61gRC+LNBvNFB8uGdoTHx w JKBchR6xSReqYnN2HXYsDpWya G71vUDrYNzsHc2wdIubrKktXR 6iDKBcfozck289VcTcv9sbRYL w kOKqAWtgOEJ1O09mv8G7APFiB AIvCJB6mXL7bD7ypUvskmncfO JugOoupoAudArzJSsaSItxD51 6 IHRvcDsnPlBhdGllbnQgTmFtZ Om5K6GbClk4AHEoePqtWC4rnD ObQKdiDz2atWskmVmfHM3jEMG p cpkmh312TzTzf9gyZXTbrZRvC BurYEM1F15ig8W2XZHiNWFqRT W2pNE6nX8zaCivccebfGAriAp g rbNxyLeeRMibMEqdV614ZNAsr KkhMyPtbeXnANIuxHP4DX49LT 67jNVrt0T1vRO4U5IxOWEmslz t gzmqpXT4OSGpQXOruS41Xo2gc PrtJp9rVTWqBOT6QRHtfKHxR0 TysU8dZcLoQBZaNCHoM3PafVX t RNhaU885WKrsYiK1JFEolrBxV 2JbCLXexCuzAiR3g6S4Nb0HO8 P2SK18OV05aOLhe8H4pQT6Z1V h NOWyonuyjyrcuGU9OBCqVBBlc H37Sa8jfDgsGe2lTLPrBYN0KY TthTUrE9YaoY0eGlDvQNCdKHZ w N1SlmBYnDJrtO396IEmtSlI8Y UFnqsByT3IcZQSrhVrnLkX4t2 E5Uk2BJFc2ZQ38NA40bFAln3F 5 eMW1L2NwKRTeijazutiliCT7C PWnQVQimN81Nq8ibHtkQt8nQX HcMXN4TMGbkPLnP9GtgS7hLzZ j GMIsDOJuI5UagPIgTLcfN809T SpzVfE7ORBifnQtJ5ZxLXSakF zaOmH9h7O6Yt2VXXXrUR90OKU 5 mUR4WX34OD26G0FcSujhsVLzh +PHRhYmxlIHdpZHRoPScxMD NaCkTomVwbVA9qMd8mQVAyEKM v tSmjhWJcRsGky7ryYOSrOYanI B3qlOekV8PpiRQ5VRHep6c5Yc 40P30hV6SjdQK+LDImjQS2wYV 0 dF4tFvQcMaZ1SYcyK706IqUhq EBeTxokp0nuu3htxRm9CqZ0AM LnopWvtDteZLO1t4WeZg26F70 s IHdpZHRoPSIxNSUiIHZhbGlnb g0yyF6nRp3+OYXkxPX7lGX7zG 3fJuCmZfY8ZLrfE041RcRqwWN v Ulhkh2iwr1gxkFs6TfOwSNCtf zKefQhaWZX1p4ErVr11L7YiuS edh9QhSrc0ia84jSLwx9M7lHV 9 S6VgMMUyvpyyvXAyoOzsOQ8kK ZHjebijUAJihO7vNDSyB5i5Aa FcKeZ9THptW3DixhI0IRLxqNR g CKidOYP5U76mv2S8EJTaMSHeH HO6lFT7lW3usDdbeawhaICrcT rdnxVwdFmpMQciAEnuX433QMP v zSyaHUZwnT3uQBVmwNExgCxbW W5mMANjwqrvVeUEBWkiPUYZAb oBFwWGMQ40TI12uSXfc1T1cIO 9 T9QsSJWjmfgmikltnAN0OLBvA XOkuP63cRSlHYvrPr8xf2E6b2 16IKFeEQLlmK60Tb1yhUjiZKJ w lLTXbC7dwejiu5gbfstoNmXeB RMhJOd9IKa6YCStkItoFsWeVP T8YkM4GYO3iBGigZ5eqYmfafa g zT0bUgr+CYwaUXPbCPs6ZXpha GQ+DFHvHUO8zSbcVNzoHVWbeZ 0nSFDcC1o9AkAbDdW4HOlnB0K h PNHklgssJq48gI0uXvYfVlA5E HdaV8BuxhC8SPLqhOHyRNteQO E8S69vp0L2FZXrTCLmSLE5nQM 4 mB7qqCodggaavQMurIgjawFkd DtdGKccCNmlW648VYJwmZxjFt P0KAtiLFZxOR07BZ72kGZbf7B 5 rAQ2R8YyVHGkngtmaqvzkQM1T RBiSUWxzT94rRDtEJflUy8th5 S7k396SMZcGZPanB67Dk1zxVx g CAGmmPESvP5wihmya3gpnzauP uNsAGSmRQu7KJc3AZShrYuwPd WaION6WnI3TMC5dBHirT8wzRx n lkapgC8fDla+TWFsZTwvdGQ+P BXyFRO4fBpqLXnzLLChlN8zJP ZqY5u5KkOaRqD0ESjpB0EdALF p qrhxHk47vE3vXiCzXkF8QVkiD 6YnawG5PPOcuPIyGRtgUSR3X2 7xy2B9VRKjUWItQFW9gDG2sO1 h bGlnbjogbGVmdDsgdmVydGljY BczUWflK859RQDkkQrsEf29hX QuwHarezY2G4GbKioclQJ+PC9 0 TKDcPG47zNVuyBNza4qsaWp9F fFaTOGkZUL8cXajFSyoi2GpHR VkY70emZHmk9J9GXWnaGfqdAN l MxBbuLW6uV8aPTbxmzjwy9cmj zehPkinq9oxto00iM05Q87aDQ dpZHRoPSIzMCUiIHZhbGlnbj0 i dL1zFb5+CJCjlGI8nRZ0hG2xO bCcSwB5WYeuJ259UmKasHZvVt onb8zqk2zzrDc8QxKyKNUavhH s eRfxXQH4b0WkRe99V69hXOnwW JBgYPEmTNNhROVqhBhjii2pgB 9wIi8+WD5kt5wmgv76bG47kLD + WNLaENH2yNkdXYisYNMusT2dK EmpYpL6ZRBpEoUnqN21eIQpJG grLq1aaQdngQjtHI0nUEQztzb m l106VeUci3xwSHJltRRgMHbjY IX6U51mf0B0TEAzDONjHPM5tM Q4wQ2nmNbnjmmvlWZqnVhijfZ y bJtuFQswTLsyP245JXVwlDgmM mFlySUgD7vfkrBGAM9qPmpqbG Q+OEZtYIL6zXbiSTlkUKFagR7 n LUPjB2v9UsZbSuR2UDfwY2Uxd qX4NJNkaZZwYSUfeBNKcX6fvk wyd3sntvnaOySoWLOvEEt5ZKg 0 CSJbiEtkGsAuZZV6OzE2SBG1j KZypF1dsMevxidiuP8uYgt+Rk lOOjwvdGQ+MCDxXQE2vPfiYRh w SOMhpR2jXSJdV9e0YjAkIuY0U OefH0XrvjA6KMNifPWmOOJkeU SXwF5voclek7ylijjeBnCzGOK w QKz9HRm5AMOhcOolLoMhBMQ3M pO4RBB2tZMspO3ozJclmhnltG 9wOyc+TVJOOjwvdGQ+PHRkIHN 0 pOtcOQjgMKRhaY5zXZScU7t4O kOqJfD3QUezW9ZkqlW5TOCluR SyKLLkiFNVgX6utiaek6cjopg g YfReFTTxTZd0PXc3MFSomMmyQ aUiCKI3HxM3GPK6nZUgrS6wjK yvyvgdsU0hCyo+LAM0IEZ9UG6 0 OZ42S6EhMpfftGNgcBL+PHRhY mxlIHdpZHRoPScxMDAlJyBzdH goMV5dGc1jEXGoVYXhoOtwtTY l OiBj (more content not included)... Normal [facility] Consent for Anesthesiaon Consent for Anesthesia [id number]#1.00CD:[address] [facility] Consent for Procedure/Surger yon 05-24-2022 Consent for Procedure/Surgery [id number]#1.00CD:1 27 [facility] Discharge Instructionson Discharge Instructions [id number]#1.00CD:1 27 [facility] IntraOperative Documentson 07-24-2021 IntraOperative Documents [id number]#1.00CD:[address] [facility] IntraOperative Documents [id number]#1.00CD:1 27 [facility] IntraOperative Documents [id number]#1.00CD:1 27 [facility] Preoperative Documentson Preoperative Documents [id number]#1.00CD:1 27 [facility] Preoperative Documents [id number]#1.00CD:1 27 [facility] Consent for Treatmenton 05-09 Consent for Treatment [id number]#1.00CD:12 7 [facility] H&P Updateon 05-23-2022 H&P Update [id number]#1.00CD:12 7 [facility] Inpatient Patient Summaryon 05-23-2022 Inpatient Patient Summary [address] [address] [facility] Clinical Discharge Instructions PERSON INFORMATION Name: ISAIAS GLEASON [facility]IANS Admitting Physician: Eulalia Torres MD Attending Physician: Eulalia Torres MD PCP: LUKAS HERRMANN, TERI Discharge Diagnosis: Elevated PSA Comment: PATIENT EDUCATION INFORMATION Instructions: Post Op Patient Instructions - FT (CUSTOM); EU - Transrectal Ultrasound of the Prostate with US guided biopsy Discharge Instructions (Custom) Medication Leaflets: Follow up: With: Address: When: Eulalia Brian [address], [place] [address] [phone] Business (1) [address], [address], [address] [place] [address] [place] [address] [phone] Business (1) Comments: Office to call for followup appointment in 2 weeks for pathology review Type Location Start Finish State [place] [facility] [place] 06/07/2022 7:45 AM 06/07/2022 8:00 AM Confirmed MEDICATION LIST Medications to Continue with No Changes Other Medications lisinopril (lisinopril 10 mg Tab) 1 Tablets By Mouth every day. Comment: Twin [facility] Main OR PACU I Recordon 05-09 Main OR PACU I Record PACU Phase I Docum ent Type FT Summary Primary Physician: Eulalia Torres MD Finalized Date/Time: 05/23/22 15:19:45 Pt. Name: ISAIAS GLEASON./Sex: 1965 Male Med Rec #: [id number] Physician: Eulalia Torres MD Financial #: [id number] Pt. Type: A Room/Bed: [place] [address] Admit/Disch: 05/23/22 09:18:18 - 05/23/22 14:55:00 Institution: Case Times PACU I FT Pre-Care Text: Identifies barriers to communication and implements measures to provide psychological support Develops individualized plan of care, and ensures continuity of care Maintains patient's dignity and privacy, and maintains patient confidentiality Identifies and reports philosophical, cultural, and spiritual beliefs and values Identifies individual values and wishes concerning care Implements aseptic technique, and administers prescribed antibiotic therapy and immunizing agents as ordered Evaluates postoperative tissue perfusion Implements thermoregulation measures, and monitors body temperature Evaluates postoperative respiratory status Evaluates postoperative cardiac status Evaluates postoperative neurological status Assesses pain control, collaborated in initiating patient-controlled analgesia and implements alternative methods of pain control Verifies allergies, administers prescribed medications and solutions, evaluates response to medications Entry 1 In PACU I 05/23/22 13:23:00 Discharge from PACU 05/23/22 13:53:00 I Outcomes Met? Yes Last Modified By: Sade Ocasio RN 05/23/22 15:19:29 Post-Care Text: The patient demonstrates knowledge of the expected response to the operative or invasive procedure The patient's care is consistent with the individualized perioperative plan of care The patient's right to privacy is maintained The patient's value system, lifestyle, ethnicity, and culture are considered, respected, and incorporated into the perioperative plan of care The patient participates in decisions affecting his or her perioperative plan of care The patient is free from signs and symptoms of infection The patient has wound/tissue perfusion consistent with or improved from baseline levels established preoperatively The patient is at or returning to normothermia at the conclusion of the immediate postoperative period The patient's respiratory function is consistent with or improved from baseline levels established preoperatively The patient's cardiovascular status is consistent with or improved from baseline levels established preoperatively The patient's cardiovascular status is consistent with or improved from baseline levels established preoperatively The patient demonstrates and/or reports adequate pain control throughout the perioperative period The patient received appropriate medication(s), safely administered during the perioperative period Acuity Level PACU I FT Entry 1 Start Time 05/23/22 13:23:00 Stop Time 05/23/22 13:53:00 Acuity Level Acuity Level I Last Modified By: Sade Ocasio RN 05/23/22 15:19:41 Finalized By: Sade Ocasio RN Document Signatures Signed By: Sade Ocasio RN 05/23/22 15:[address] [facility] Main OR Preoperative Recordo n 05-23-2022 Main OR Preoperative Record PreOp Document Type FT Summary Primary Physician: Eulalia Torres MD Finalized Date/Time: 05/23/22 13:04:57 Pt. Name: ISAIAS GLEASON./Sex: 1965 Male Med Rec #: [id number] Physician: Eulalia Torres MD Financial #: [id number] Pt. Type: A Room/Bed: [place] [address] Admit/Disch: 05/23/22 09:18:18 - Institution: Case Times PreOp FT Pre-Care Text: Verifies consent for planned procedure, identifies individual values and wishes concerning care, includes family members in perioperative teaching Entry 1 Patient Times. In Pre Surgery 05/23/22 09:40:00 Out Pre Surgery 05/23/22 12:32:00 Outcomes Met? Yes Last Modified By: Kai Fields 05/23/22 13:04:49 Post-Care Text: The patient participates in decisions affecting his or her perioperative plan of care Finalized By: Kai Fields Document Signatures Signed By: Kai Fields 05/23/22 13:[address] [facility] Monitor Recordon 05-23-2022 Monitor Record [id number]:1 [address] [facility] Operative Reporton 2 Operative Report Patient: ABELARDO GLEASON Age: 57 years Sex: Male : 1965 Associated Diagnoses: None Author: Eulalia Torres MD Procedure Procedure Date: 05/23/2022. Confirmed: patient, procedure, site, safety procedures followed. Performed by: Eulalia Torres MD. Type of procedure: Procedure: 1. Transrectal ultrasound of the prostate and seminal vesicles 2. Ultrasound for needle biopsy 3. Nerve Block of Prostate 4. UroNav MRI fusion prostate biopsy, transperineal approach . Physical Exam: no relative contraindications found, vital signs Vital Signs 05/23/2022 13:25 EST Heart Rate Monitored 58 bpm LOW Respiratory Rate Monitored 10 br/min Systolic Blood Pressure 107 mmHg Diastolic Blood Pressure 84 mmHg Blood Pressure Location Left arm SpO2 99 % . Informed consent: signed by patient. 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 MRI prostate on 05/08/22 showed PIRADS 5 lesion in the right peripheral zone base 22x14 mm with suspected extracapsular extension with right seminal vesicle and neurovascular bundle involvement. Volume 56 mL. Patient presents today for the above procedure. Risks of the procedure were discussed to include but not be limited to bleeding, pain, infection, difficulties with urination, injury to the urethra, prostate or bladder or surrounding tissues, injury from positioning on the table, swelling and bruising of the skin, and need for further procedures. . Procedure tolerated: well. Specimen: sent to pathology, SPECIMENS SUBMITTED: 1. Right posterior medial 2. Right posterior lateral 3. Right base 4. Right anterior medial 5. Right anterior lateral 6. Left posterior medial 7. Left posterior lateral 8. Left base 9. Left anterior medial 10. Left anterior lateral 11. EVELYN - right peripheral zone base . Complications: none. Anesthesia: MAC, periprostatic nerve block Findings: Calcifications: scattered in transition zone Cysts: left transition zone Hypoechogenic areas: right lateral base Volume: 44.6cc, including width 5.15 cm, height 2.6 cm, and length 6.4 cm. The seminal vesicles were visualized bilaterally and normal in size, shape and echotexture. Complications: None DESCRIPTION OF PROCEDURE: After informed consent was obtained, the patient was taken to the operating room. After successful induction of MAC anesthesia, a preoperative dose of IV antibiotics was given (2g ancef). The patient was placed in the dorsal lithotomy position on the operating table, taking care to pad all possible pressure points. A MAYI was performed noting mildly enlarged, left apex mildly higher and firmer than right., unable to palpate mid-base. The scrotum was elevated and held out of the way using tape/towel to expose the perineum. Excessive hair was shaved off the perineum. The perineum is prepped with Betadine solution. The UroNav fusion biopsy system was set up on the patient's right pelvis for transperineal approach of prostate biopsy. A well-lubricated transrectal ultrasound probe was inserted into the rectum and the prostate was aligned. The gland was visualized fully in axial and sagittal views to allow for the identification of anatomy and location of the urethra, and volume measurements as noted in findings. A sweep was done to render ultrasound images with UroNav MRI images. The skin followed by periprostatic local anesthetic was delivered. After rendering of real-time images with the preoperative MRI prostate, the UroNav fusion biopsy system was used to target the region of interest. 4 Core needle biopsies were obtained from the region of interest via transperineal approach. Thereafter, 2 biopsies were obtained from the posterior medial, posterior lateral, base, anterior lateral, and anterior medial of the left and right sides. The ultrasound probe was removed. The perineum was dressed with antibiotic ointment, fluffs and scrotal support. The patient was awaken from anesthesia and tolerated the procedure well without complications. CULTURES TAKEN: None. PATIENT CONDITION: Stable. PLAN: Void prior to dc home. The patient knows to call or go immediately to the emergency room should he develop fevers, chills, inability to urinate, bleeding or any other concerns. Follow-up in 1-2 weeks for pathology review. . Impression and Plan Diagnosis Elevated PSA ([id number] R97.20, Discharge, Medical). Diagnosis Elevated PSA ([id number] R97.20, Discharge, Medical). Normal [facility] Comment on above: Result Comment: Elec tronically Signed By: Eulalia Torres MD\.br\Date and Time Signed: 05/23/22 13:38 EST Outpatient Surgery Discharge Instructionon 05-23-2022 Outpatient Surgery Discharge Instruction [place] [address] Patient Discharge Instructions PERSON INFORMATION Name: ISAIAS GLEASON Date of : 1965 Current Date: 05/23/2022 13:47:32 PHYSICIANS Admitting Physician: Eulalia Torres MD Discharge Diagnosis: Elevated PSA ISAIAS GLEASON has been given the following list of follow-up instructions, prescriptions, and patient education materials: PATIENT FOLLOW-UP INFORMATION Diet: Regular Discharge Activity: Ambulate as tolerated Discharge Restrictions: No driving for 24 hrs Call Your Doctor For: Persistent or heavy bleeding, Temperature above 101.5 degrees, Redness, swelling, or pus at operative site, Severe pain at the operative site, Persistent vomiting IF UNABLE TO CONTACT YOUR PHYSICIAN AND YOU FEEL IT IS AN EMERGENCY, GO TO THE NEAREST EMERGENCY ROOM OR CALL 911 I, ISAIAS GLEASON, have received the attached patient education materials/instructions and have verbalized understanding: May we do a follow up call? Yes No I was present when discharge instructions were given Patient Signature ___ Date Clinican/Nurse Signature Date Follow up: With: Address: When: Eulalia Torres [address], [place] [address] [phone] Business (1) [address], [place] [address], [facility] [address] [place] [address] [phone] Business (1) Comments: Office to call for followup appointment in 2 weeks for pathology review Type Location Start Finish [facility] Office [place] [facility] [place] 06/07/2022 7:45 AM 06/07/2022 8:00 AM Confirmed Pharmacy Information: You may receive a survey from [employer] asking you to rate your care experience. Your feedback is important and will help us understand what we do well and how we can improve the quality of care we provide to you, your loved ones and our community. It?s an honor to serve you. Thank you for choosing [facility] HERE ARE THE MEDICATION CHANGES THAT OCCURRED DURING YOUR HOSPITAL STAY Medications to Continue with No Changes Other Medications lisinopril (lisinopril 10 mg Tab) 1 Tablets By Mouth every day. PATIENT EDUCATION INFORMATION Instructions: Transperineal?Biopsy of the Prostate Discharge Instructions : After your procedure You may see blood in your urine for 4 to 5 weeks. When your urine turns red, limit your activities and drink plenty of fluids. This is normal and expected. If you go home with a Cabral catheter in place, you will have it removed at your follow-up clinic appointment or by your own doctor (urologist). Your may be allowed to remove your Cabral catheter at home. If so, our nursing staff will teach you how to remove the catheter. You may have discoloration (black/blue), pain, and swelling to the?perineal?area (between your thighs) for up to 3 weeks. Ice, elevation, and supportive underwear can help ease these symptoms. Medications: Ok to begin taking aspirin or other blood thinners. Antibiotics may be prescribed by your doctor. If they are, take them until they are gone. Tylenol alternated with ibuprofen as needed for pain Activity: You may begin driving 24 hours after surgery if you are not taking prescription pain medication. No heavy lifting for 2?days (nothing greater than 10 pounds). ? Diet: Drink plenty of fluids. Continue your normal diet. When to call the doctor: If you experience a temperature of 101.5? F or greater If you experience chills with or without fever If you experience pain that gets worse If you have difficulty urinating or catheter-related problems ? Please call the office to arrange for your post-operative appointment in 1-2 weeks [phone] or [phone] Medication Leaflets: [facility] Patient Education - Texton 1 07-23-2021 Patient Education - Text Transperineal?Biopsy of the Prostate Discharge Instructions : After your procedure You may see blood in your urine for 4 to 5 weeks. When your urine turns red, limit your activities and drink plenty of fluids. This is normal and expected. If you go home with a Cabral catheter in place, you will have it removed at your follow-up clinic appointment or by your own doctor (urologist). Your may be allowed to remove your Cabral catheter at home. If so, our nursing staff will teach you how to remove the catheter. You may have discoloration (black/blue), pain, and swelling to the?perineal?area (between your thighs) for up to 3 weeks. Ice, elevation, and supportive underwear can help ease these symptoms. Medications: Ok to begin taking aspirin or other blood thinners. Antibiotics may be prescribed by your doctor. If they are, take them until they are gone. Tylenol alternated with ibuprofen as needed for pain Activity: You may begin driving 24 hours after surgery if you are not taking prescription pain medication. No heavy lifting for 2?days (nothing greater than 10 pounds). ? Diet: Drink plenty of fluids. Continue your normal diet. When to call the doctor: If you experience a temperature of 101.5? F or greater If you experience chills with or without fever If you experience pain that gets worse If you have difficulty urinating or catheter-related problems ? Please call the office to arrange for your post-operative appointment in 1-2 weeks [phone] or [phone] [facility] Progress Note-Physicianon Progress Note-Physician Patient: ISAIAS GLEASON Age: 57 years Sex: Male : 1965 Associated Diagnoses: None Author: Kwabena Yousif Jr., DO Postoperative Information Post Operative Note: Post Anesthesia Care Unit. Anesthetic utilized: Monitored anesthesia care. 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 Memory problem / SNOMED CT 5164038021 / Confirmed Peripheral neuropathy / SNOMED CT 640735166 / Confirmed Personal history of colon cancer / SNOMED CT 5899136081 / Confirmed Resolved: Colon cancer / SNOMED CT 477487420 Physical Examination Vital Signs 05/23/2022 14:52 EST Heart Rate Monitored 54 bpm LOW Respiratory Rate 18 br/min Systolic Blood Pressure 154 mmHg HI Diastolic Blood Pressure 87 mmHg Blood Pressure Location Right arm Mean Arterial Pressure, Monitered 109 mmHg SpO2 100 % 05/23/2022 13:58 EST Heart Rate Monitored 54 bpm LOW Respiratory Rate 18 br/min Systolic Blood Pressure 174 mmHg HI Diastolic Blood Pressure 107 mmHg HI Blood Pressure Location Right arm Mean Arterial Pressure, Monitered 129 mmHg SpO2 100 % 05/23/2022 13:50 EST Temperature Temporal Artery 36.2 DegC LOW Heart Rate Monitored 54 bpm LOW Respiratory Rate Monitored 22 br/min Systolic Blood Pressure 141 mmHg HI Diastolic Blood Pressure 98 mmHg HI Blood Pressure Location Left arm SpO2 100 % 05/23/2022 13:35 EST Heart Rate Monitored 52 bpm LOW Respiratory Rate Monitored 10 br/min Systolic Blood Pressure 139 mmHg Diastolic Blood Pressure 98 mmHg HI Blood Pressure Location Left arm SpO2 100 % 05/23/2022 13:30 EST Heart Rate Monitored 55 bpm LOW Respiratory Rate Monitored 12 br/min Systolic Blood Pressure 122 mmHg Diastolic Blood Pressure 78 mmHg Blood Pressure Location Left arm SpO2 100 % 05/23/2022 13:25 EST Heart Rate Monitored 58 bpm LOW Respiratory Rate Monitored 10 br/min Systolic Blood Pressure 107 mmHg Diastolic Blood Pressure 84 mmHg Blood Pressure Location Left arm SpO2 99 % 05/23/2022 13:23 EST Temperature Temporal Artery 36.5 DegC Heart Rate Monitored 56 bpm LOW Respiratory Rate Monitored 11 br/min Systolic Blood Pressure 116 mmHg Diastolic Blood Pressure 90 mmHg Blood Pressure Location Left arm SpO2 99 % Pain assessment: Pain Assessment 05/23/2022 14:52 EST Preliminary Pain Scale 0 05/23/2022 13:58 EST Preliminary Pain Scale 0 05/23/2022 13:50 EST Pain Symptoms Self Report No, able to self report Numeric Pain Scale 0 = No pain Numeric Pain Score 0 . General: Alert and oriented, No acute distress, No nausea. Hydration adequate.. Respiratory: Adequate air exchange.. Neurologic: Normal sensory. Review / Management Condition: Stable. Assessment Anesthetic outcome No anesthetic complications noted. Plan Transfer/ Discharge: Condition stable. Normal [facility] Comment on above: Result Comment: Elec tronically Signed By: Kwabena Yousif Jr., DO\.br\Date and Time Signed: 05/23/22 16:40 EST Progress Note-Physician Patient: ISAIAS GLEASON Age: 57 years Sex: Male : 1965 Associated Diagnoses: None Author: Kwabena Yousif Jr., DO Preoperative Information Time patient last ate or drank:=== (NPO since midnight) Anesthesia history: Patient History: No prior problems with anesthesia.. Re-eval prior to induction: Inital eval reviewed: No significant interval change, Surgical H&P documented and on chart. Surgical consent signed and on chart.. Anesthesia results Review of Systems Cardiovascular: Negative except as documented in history of present illness. Respiratory: Negative. Neurologic: Negative. Health Status Allergies: Allergic Reactions (Selected) No Known Medication Allergies, Allergies (1) Active Reaction No Known Medication Allergies None Documented Current medications: (Selected) Inpatient Medications Ordered HYDROmorphone 1 mg/mL injectable solution: 0.4 mg = 0.4 mL, Injection, IV Push, q4min PRN Pain for 5 dose(s), Stop date Limited # of times, Routine, Start date 05/23/22 10:08:00 EST, 05/23/22 10:08:00 EST Lactated Ringers IV Yelena 1000 mL 1,000 mL: 1,000 mL, IV, 100 mL/hr, Routine, Start date 05/23/22 10:08:00 EST, 10 hour(s), Total volume (mL): 1,000, 108.8 kg, 2.33, m2 Lactated Ringers IV Yelena 1000 mL 1,000 mL: 1,000 mL, IV, 150 mL/hr, Routine, Start date 05/23/22 9:30:00 EST, 6.7 hour(s), Total volume (mL): 1,000, 108.8 kg, 2.33, m2 Phenergan 25 mg/mL Injection: 12.5 mg = 0.5 mL, Injection, IV Push, q2min PRN Other (see comment) for 2 dose(s), Stop date Limited # of times, Routine, Start date 05/23/22 10:08:00 EST, 05/23/22 10:08:00 EST cefazolin additive + Sodium Chloride 0.9% intravenous solution 50 mL: 2 gram = 1 EA, Powder-Inj, IV Piggyback, Once, Stop date 05/23/22 10:00:00 EST, Routine, Start date 05/23/22 10:00:00 EST, 100 mL/hr, Infuse over 30 minute(s) Documented Medications Documented lisinopril 10 mg Tab: 10 mg = 1 tab(s), Oral, Daily, Refills(s) 0, High blood pressure Histories Past Medical History: Resolved Colon cancer ([id number]): Resolved. Family History: Mcadams syndrome Father Procedure history: Partial resection of colon x2 ([id number]) on 02/06/2019 at 53 Years. Colonoscopy ([id number]) on 04/09/2018 at 53 Years. Social History Social & Psychosocial Habits Alcohol 05/17/2022 Use: Current Type: Beer Frequency: 1-2 times per month Substance Abuse 05/17/2022 Risk Assessment: Denies Substance Abuse Tobacco 04/26/2022 Tobacco Use: Never (less than 100 in l Smokeless tobacco use: Smokeless tobacco user wi Type: Oral 05/17/2022 Risk Assessment: Low Risk . Physical Examination Airway: Mallampati classification: II (soft palate, fauces, uvula visible). Respiratory: Lungs are clear to auscultation. Cardiovascular: Regular rhythm. Review / Management Results review: Lab results 05/17/2022 9:09 EST WBC 4.6 E9/L RBC 4.8 E12/L HGB 14.5 gm/dL Hct 42.1 % MCV 88.4 fL MCH 30.4 pg MCHC 34.4 gm/dL RDW 12.8 % Platelet 184.0 E9/L MPV 9.2 fL Neutro Auto 70.4 % Lymph Auto 20.4 % Marion Auto 5.8 % Eos Auto 2.7 % Basophil Auto 0.7 % Neutro Absolute 3.2 E9/L Lymph Absolute 0.9 E9/L LOW Marion Absolute 0.3 E9/L Eos Absolute 0.1 E9/L Basophil Absolute 0.0 E9/L PT 10.5 second(s) INR 1.0 NA PTT 23.3 second(s) LOW Glucose Lvl 122 mg/dL BUN 17 mg/dL Creatinine 1.1 mg/dL eGFR >60 mL/min/1.73 m2 eGFR AA >60 mL/min/1.73 m2 BUN/Creat Ratio 16 Sodium Lvl 138 mmol/L Potassium Lvl 4.1 mmol/L Chloride 101 mmol/L CO2 26 mmol/L AGAP 15 mEq/L Calcium Lvl 9.5 mg/dL UA Spec Desc Clean Catch UA Color Yellow UA Clarity Clear UA Spec Grav 1.025 UA pH 6.5 UA Protein Negative UA Glucose Negative UA Ketones Negative UA Bili Negative UA Blood Negative UA Nitrite Negative UA Urobilinogen 0.2 EU/dL UA Leuk Est Negative UA RBC 0-3 /HPF UA Squam Epithelial 0-2 /HPF UA WBC 0-5 /HPF UA Bacteria Trace /HPF . Chest x-ray results * Final Report * Reason For Exam PRE OP POWERSCRIBE REPORT IMPRESSION: NO EVIDENCE OF ACTIVE CHEST DISEASE. CLINICAL HISTORY: PRE OP. COMMENT: The heart is normal in size. The mediastinum is unremarkable. The lungs appear clear. No infiltration nor pleural effusion is evident. Signature Line FINAL REPORT Dictated: 05/17/2022 10:43 am Adrian Quintero M.D. Signed (Electronic Signature): 05/17/2022 10:43 am Signed by: Adrian Quintero M.D. Transcribed by: MANUELA Technologist: [facility] REPORT This document has an image Result type: XR Chest 2 Views Result date: May 17, 2022 9:53 EST Result status: Auth (Verified) Result title: XR Chest 2 Views Performed by: Adrian Quintero M.D. on May 17, 2022 10:43 EST Verified by: Adrian Quintero M.D. on May 17, 2022 10:43 EST Encounter info: [id number][facility]patient, 05/17/2022 - 05/17/2022 ECG interpretation: Normal sinus rhythm. Plan Susie (more content not included)... Normal [facility] Comment on above: Result Comment: Elec tronically Signed By: Kwabena Yousif Jr., DO\.br\Date and Time Signed: 05/23/22 10:32 EST Auto Diffon 05-17-2022 Basophils/100 WBC (Bld) 0.7 % Normal 0.0-2.[address] [facility] Comment on above: Order Comment: Order Added by Discern Expert. Performed By: #### 2 988578, [id number], 6337963, 22052731, 8177982 ####[facility] [address] [place] [address] Basophils/Leukocytes Auto (Bld) [Pure # fraction] 0.0 E9/L Normal 0.0-0.[address] [facility] Comment on above: Order Comment: Order Added by Discern Expert. Performed By: #### 2 644594, 73160863, 9675269, 87554916, 3642114 ####[facility] [address] [place] [address] Eosinophils/100 WBC (Bld) 2.7 % Normal 0.0-8.[address] [facility] Comment on above: Order Comment: Order Added by Discern Expert. Performed By: #### 2 065687, 28872120, 5298781, 79946285, 0046799 ####[address] [address] Eosinophils/Leukocytes Auto (Bld) [Pure # fraction] 0.1 E9/L Normal 0.0-0.[address] [facility] Comment on above: Order Comment: Order Added by Discern Expert. Performed By: #### 2 458971, 67282206, 4982341, 61604448, 3941003 ####[address] [address] Lymphocytes/100 WBC (Bld) 20.4 % Normal 14.0-50.[address] [facility] Comment on above: Order Comment: Order Added by Discern Expert. Performed By: #### 2 966071, 36328957, 2879154, 45292168, 5263268 ####[address] [address] Lymphocytes/Leukocytes Auto (Bld) [Pure # fraction] 0.9 E9/L Low 1.0-4.[address] [facility] Comment on above: Order Comment: Order Added by Discern Expert. Performed By: #### 2 213521, 43040648, 5000024, 91109873, 8386651 ####[address] [address] Monocytes/100 WBC (Bld) 5.8 % Normal 4.0-14.[address] [facility] Comment on above: Order Comment: Order Added by Discern Expert. Performed By: #### 2 087794, 97684405, 9056746, 85139203, 8704307 ####[address] [address] Monocytes/Leukocytes Auto (Bld) [Pure # fraction] 0.3 E9/L Normal 0.2-1.[address] [facility] Comment on above: Order Comment: Order Added by Discern Expert. Performed By: #### 2 702706, 24294241, 0696478, 13907342, 8184915 ####[address] [place] [address] Neutrophils/100 WBC (Bld) 70.4 % Normal 36.0-75.[address] [facility] Comment on above: Order Comment: Order Added by Discern Expert. Performed By: #### 2 925445, 59138611, 1286567, 68624733, 1107999 ####[place] [address] [place] [address] Neutrophils/Leukocytes Auto (Bld) [Pure # fraction] 3.2 E9/L Normal 2.0-7.[address] [facility] Comment on above: Order Comment: Order Added by Discern Expert. Performed By: #### 2 700167, 49367387, 8477014, 78937039, 2971152 ####[facility] [address] [place] [address] BMPon 05-17-2022 Anion gap [Moles/Vol] 15 mmol/L Normal 6-16 [facility] Comment on above: Performed By: #### 2 491855, 28781155, 8985070, 49376455, 9823614 ####[place] [address] [place] [address] Calcium [Mass/Vol] 9.5 mg/dL Normal 8.9-11.[address] [facility] Comment on above: Performed By: #### 2 260947, 13186349, 7177385, 34281589, 9288984 ####[place] [address] [place] [address] Chloride [Moles/Vol] 101 mmol/L Normal 101-111 [facility] Comment on above: Performed By: #### 2 223773, 47065326, 2470073, 98451869, 4498423 ####[place] [address] [place] [address] CO2 [Moles/Vol] 26 mmol/L Normal 21-[address] [facility] Comment on above: Performed By: #### 2 430363, 04160926, 4643770, 69011474, 9758383 ####[facility] [address] [place] [address] Creatinine [Mass/Vol] 1.1 mg/dL Normal 0.5-1.3 [facility] Comment on above: Performed By: #### 2 517537, 16480348, 6275953, 79002761, 5238363 ####[facility] [address] [place] [address] Glucose [Mass/Vol] 122 mg/dL Normal 55-[address] [facility] Comment on above: Result Comment: If t his glucose result represents a fasting glucose, interpretation should refer to the following reference range: 55-99 mg/dL Performed By: #### 2 717241, 84416888, 9310521, 05501504, 5199884 ####[facility] [address] [place] [address] Potassium [Moles/Vol] 4.1 mmol/L Normal 3.5-5.3 [facility] Comment on above: Performed By: #### 2 476902, 29374723, 1214823, 99582339, 9438581 ####[facility] [address] [place] [address] Sodium [Moles/Vol] 138 mmol/L Normal 135-[address] [facility] Comment on above: Performed By: #### 2 487788, 14087264, 6867465, 31032462, 0146183 ####[facility] [address] [place] [address] Urea nitrogen [Mass/Vol] 17 mg/dL Normal 5-[address] [facility] Comment on above: Performed By: #### 2 370732, 02994237, 1162069, 57095017, 6661119 ####[facility] [address] [place] [address] Urea nitrogen/Creatinine [Mass ratio] 16 No Units Normal 10-[address] [facility] Comment on above: Performed By: #### 2 403069, 91397787, 4349642, 95789579, 0605126 ####[place] [address] [place] [address] CBC w/ Auto Diffon Erythrocyte distribution width (RBC) [Ratio] 12.8 % Normal 10.9-14.[address] [facility] Comment on above: Performed By: #### 2 380451, 50998474, 8630673, 98890945, 2768681 ####[address] [address] Hematocrit (Bld) [Volume fraction] 42.1 % Normal 37.7-49.[address] [facility] Comment on above: Performed By: #### 2 409248, 48453230, 4185867, 29648576, 8664781 ####[address] [address] Hemoglobin (Bld) [Mass/Vol] 14.5 g/dL Normal 13.5-17.[address] [facility] Comment on above: Performed By: #### 2 382063, 45294836, 5671164, 78740828, 3432042 ####[address] [address] MCH (RBC) [Entitic mass] 30.4 pg Normal 27.0-34.[address] [facility] Comment on above: Performed By: #### 2 879810, 10363479, 3488456, 80890964, 5667620 ####[address] [address] MCHC (RBC) [Mass/Vol] 34.4 g/dL Normal 31.4-36.0 [facility] Comment on above: Performed By: #### 2 618998, 48390317, 4781547, 05246472, 3251222 ####[address] [address] MCV (RBC) [Entitic vol] 88.4 fL Normal 80.0-100.[address] [facility] Comment on above: Performed By: #### 2 113449, 45528243, 8245038, 63450780, 1063686 ####[facility] [address] [place] [address] Platelet mean volume (Bld) [Entitic vol] 9.2 fL Normal 6.4-10.[address] [facility] Comment on above: Performed By: #### 2 992944, 73454024, 7485283, 84491420, 6836680 ####[place] [address] [place] [address] Platelets (Bld) [#/Vol] 184.0 E9/L Normal 150.0-500.[address] [facility] Comment on above: Performed By: #### 2 337871, 74866131, 5538912, 49324745, 1680374 ####[place] [address] [place] [address] RBC (Bld) [#/Vol] 4.8 E12/L Normal 4.3-5.[address] [facility] Comment on above: Performed By: #### 2 210077, 57559270, 4097149, 21748549, 5691836 ####[address] [address] WBC corrected for nucl RBC Auto (Bld) [#/Vol] 4.6 E9/L Normal 4.0-11.[address] [facility] Comment on above: Performed By: #### 2 480357, 07093985, 0706073, 43227864, 2619937 ####[address] [address] CHEMISTRYOrdered By: SYSTEM SYSTEM on 05-17-2022 Anion gap [Moles/Vol] 15 mmol/L Normal 6 - 16 mEq/L [facility] Remisol Calcium [Mass/Vol] 9.5 mg/dL Normal 8.9 - 11. 1 mg/dL [facility] Chloride [Moles/Vol] 101 mmol/L Normal 101 - 1 11 mmol/L [facility] CO2 [Moles/Vol] 26 mmol/L Normal 21 - 31 mmol/L [facility] Rem[facility] Creatinine [Mass/Vol] 1.1 mg/dL Normal 0.5 - 1.3 mg/dL [facility] GFR/1.73 sq M.predicted among blacks MDRD (S/P/Bld) [Vol rate/Area] mL/min/1.73 m2 Normal >=59mL/min/ 1.73 m2 [facility] Chem S GFR/1.73 sq M.predicted among non-blacks MDRD (S/P/Bld) [Vol rate/Area] mL/min/1.73 m2 Normal >=59mL/min/ 1.73 m2 [facility] Chem S Glucose [Mass/Vol] 122 mg/dL Normal 55 - 199 mg/dL [facility] Potassium [Moles/Vol] 4.1 mmol/L Normal 3.5 - 5.3 mmol/L [facility] Remisol Sodium [Moles/Vol] 138 mmol/L Normal 135 - 145 mmol/L [facility] Remisol Urea nitrogen [Mass/Vol] 17 mg/dL Normal 5 - 21 mg/dL [facility] Remisol Urea nitrogen/Creatinine [Mass ratio] 16 mg/mg Normal 10 - 20 [facility] Remisol COAGULATIONOrdered By: Mora Campbell on 05-17-2022 aPTT Coag (PPP) [Time] 23.3 s Low 25.1 - 36.5 second(s) [facility] Auto Coag INR Coag (PPP) [Relative time] 1.0 {INR} Invalid Interpretation Code [facility] Auto Coag PT Coag (PPP) [Time] 10.5 s Normal 9.4 - 1 2.5 second(s) [facility] Auto Coag HEMATOLOGYOrdered By: SYSTEM SYSTEM on 05-17-2022 Basophils/100 WBC (Bld) 0.7 % Normal 0.0 - 2.0 % [facility] HemeAutoSS Basophils/Leukocytes Auto (Bld) [Pure # fraction] 0.0 E9/L Normal 0.0 - 0.2 E9/L [facility] HemeAutoSS Eosinophils/100 WBC (Bld) 2.7 % Normal 0.0 - 8.0 % [facility] HemeAutoSS Eosinophils/Leukocytes Auto (Bld) [Pure # fraction] 0.1 E9/L Normal 0.0 - 0.5 E9/L [facility] HemeAutoSS Lymphocytes/100 WBC (Bld) 20.4 % Normal 14.0 - 50.0 % [facility] HemeAutoSS Lymphocytes/Leukocytes Auto (Bld) [Pure # fraction] 0.9 E9/L Low 1.0 - 4.0 E9/L [facility] HemeAutoSS Monocytes/100 WBC (Bld) 5.8 % Normal 4.0 - 14.0 % [facility] HemeAutoSS Monocytes/Leukocytes Auto (Bld) [Pure # fraction] 0.3 E9/L Normal 0.2 - 1.0 E9/L [facility] HemeAutoSS Neutrophils/100 WBC (Bld) 70.4 % Normal 36.0 - 75.0 % [facility] HemeAutoSS Neutrophils/Leukocytes Auto (Bld) [Pure # fraction] 3.2 E9/L Normal 2.0 - 7.5 E9/L [facility] HemeAutoSS HEMATOLOGYOrdered By: Emma Singer on 05-17-2022 Erythrocyte distribution width (RBC) [Ratio] 12.8 % Normal 10.9 - 14.2 % [facility] HemeAutoSS Hematocrit (Bld) [Volume fraction] 42.1 % Normal 37.7 - 49.0 % [facility] HemeAutoSS Hemoglobin (Bld) [Mass/Vol] 14.5 g/dL Normal 13.5 - 17.5 gm/dL [facility] HemeAutoSS MCH (RBC) [Entitic mass] 30.4 pg Normal 27.0 - 34.0 pg [facility] HemeAutoSS MCHC (RBC) [Mass/Vol] 34.4 g/dL Normal 31.4 - 36.0 gm/dL [facility] HemeAutoSS MCV (RBC) [Entitic vol] 88.4 fL Normal 80.0 - 100.0 fL [facility] HemeAutoSS Platelet mean volume (Bld) [Entitic vol] 9.2 fL Normal 6.4 - 10.8 fL [facility] HemeAutoSS Platelets (Bld) [#/Vol] 184.0 E9/L Normal 150.0 - 500.0 E9/L [facility] HemeAutoSS RBC (Bld) [#/Vol] 4.8 E12/L Normal 4.3 - 5.9 E12/L [facility] HemeAutoSS WBC corrected for nucl RBC Auto (Bld) [#/Vol] 4.6 E9/L Normal 4.0 - 11.0 E9/L [facility]eAutoSS PT & PTTon 05-17-2022 aPTT Coag (PPP) [Time] 23.3 second(s) Low 25.1-36.[address] [facility] Comment on above: Result Comment: Para meter 15 days - 4 weeks 1 - 5 months 6 - 11 months 1 - 5 years 6 - 10 years 11 - 17 years PTT Mean: 35.4 (27.6-45.6) Mean: 33.5 (24.8-40.7) Mean: 32.4 (25.1-40.7) Mean: 31.6 (24.0-39.2) Mean: 31.6 (26.9-38.7) Mean: 31.0 (24.6-38.4) Pediatric Reference ranges were obtained from a study by Chino Butcher et al. prepared from 1437 samples obtained at 7 different centers using the same coagulation reagent and instrumentation as [facility] Currently there are no coagulation studies available worldwide for children to 14 days, and no normal ranges. Heparin therapeutic range (represented by Anti-Factor Xa activity of 0.2 - 0.4 U/mL) corresponds to PTT of 56.6 - 109.0 sec. Performed By: #### 2 [id number], [id number], [id number], [id number], [id number] ####[facility] [address] [place] [address] INR Coag (PPP) [Relative time] 1.0 {INR} Invalid Interpretation Code [facility] Comment on above: Result Comment: INR results are specifically intended to assess patients stabilized on long-term Anticoagulation therapy suggested INR?s ?Less Intensive Anticoagulation? 2.0 ? 3.0 Conventional Range 3.0 ? 4.5 Performed By: #### 2 [id number], [id number], [id number], [id number], [id number] ####[facility] [address] [facility] [place] [address] PT Coag (PPP) [Time] 10.5 second(s) Normal 9.4-12.[address] [facility] Comment on above: Result Comment: 15 d ays - 4 weeks 1 - 5 months 6 -11 months 1 ? 5 years 6 ? 10 years 11 -17 years Mean: 11.2 (9.5 ? 12.6) Mean: 11.0 (9.7 ? 12.8) Mean: 11.0 (9.8 ? 13.0) Mean: 11.3 (9.9 ? 13.4) Mean: 11.7 (10.0 ? 14.6) Mean: 11.8 (10.0 - 14.1) Pediatric Reference ranges were obtained from a study by Chino Butcher et al. prepared from 1437 samples obtained at 7 different centers using the same coagulation reagent and instrumentation as [facility]. Currently there are no coagulation studies available worldwide for children to 14 days, and no normal ranges. Performed By: #### 2 [id number], [id number], [id number], [id number], [id number] ####[facility] [address] [place] [address] UA With Cult Reflexon 2021 Bacteria LM Ql (Urine sed) TRACE Normal Trace [facility] Comment on above: Performed By: #### 1 [id number] #### [facility] [address] [place] [address] Bilirubin Ql (U) Negative Normal Negative [facility] Comment on above: Performed By: #### 1 [id number] #### [facility] [address] [place] [address] Clarity (U) CLEAR Normal Clear [facility] Comment on above: Performed By: #### 1 [id number] #### [facility] [address] [place] [address] Color (U) YELLOW Normal Yellow [facility] Comment on above: Performed By: #### 1 [id number] #### [facility] [address] [place] [address] Epithelial cells.squamous LM.HPF (Urine sed) [#/Area] 0-2 Normal 0-[address] [facility] Comment on above: Performed By: #### 1 [id number] #### [facility] [address] [place] [address] Glucose Test strip (U) [Mass/Vol] Negative Normal Negative [facility] Comment on above: Performed By: #### 1 [id number] #### [facility] [address] [place] [address] Hemoglobin Ql (U) Negative Normal Negative [facility] Comment on above: Performed By: #### 1 [id number] #### [facility] [address] [place] [address] Ketones (U) [Mass/Vol] Negative Normal Negative [facility] Comment on above: Performed By: #### 1 [id number] #### [facility] [address] [place] [address] [place].plasma/[place] .RBC (Bld) [Mass ratio] 0-3 Normal 0-[address] [facility] Comment on above: Performed By: #### 1 [id number] #### [facility] [address] [place] [address] Nitrite Ql (U) Negative Normal Negative [facility] Comment on above: Performed By: #### 1 [id number] #### [facility] [address] [place] [address] pH (U) 6.5 [pH] Invalid Interpretation Code 5.0-9.[address] [facility] Comment on above: Performed By: #### 1 [id number] #### [facility] [address] [place] [address] Protein (U) [Mass/Vol] Negative Normal Negative [facility] Comment on above: Performed By: #### 1 [id number] #### [facility] [address] [place] [address] Specific gravity (U) [Rel density] 1.025 Invalid Interpretation Code 1.005-1.[address] [facility] Comment on above: Performed By: #### 1 [id number] #### [facility] [address] [place] [address] Type of Urine collection method Clean Catch Normal [facility] Comment on above: Performed By: #### 1 [id number] #### [facility] [address] [place] [address] Urobilinogen Qn (U) 0.2 {Chana'U}/dL Normal 0.0-1.[address] [facility] Comment on above: Performed By: #### 1 [id number] #### [facility] [address] [place] [address] WBC Auto Ql (U) Negative Normal Negative [facility] Comment on above: Performed By: #### 1 [id number] #### [facility] [address] [place] [address] WBC LM.HPF (Urine sed) [#/Area] 0-5 Normal 0-[address] [facility] Comment on above: Performed By: #### 1 [id number] #### [facility] [address] [place] [address] URINALYSISOrdered By: Mora monroy on 05-17-2022 Bacteria LM Ql (Urine sed) Trace /HPF Normal Trace/HPF [facility] UA Auto SS Bilirubin Ql (U) Negative (05/17/22 9:09 AM) Normal Negative [facility] UA Auto SS Clarity (U) Clear (05/17/22 9:09 AM) Normal Clear [facility] UA Auto SS Color (U) Yellow (05/17/22 9:09 AM) Normal Yellow [facility] UA Auto SS Epithelial cells.squamous LM.HPF (Urine sed) [#/Area] 0-2 /HPF Normal 0-2/HPF [facility] UA Auto SS Glucose Test strip (U) [Mass/Vol] Negative (05/17/22 9:09 AM) Normal Negative [facility] UA Auto SS Hemoglobin Ql (U) Negative (05/17/22 9:09 AM) Normal Negative [facility] UA Auto SS Ketones (U) [Mass/Vol] Negative (05/17/22 9:09 AM) Normal Negative [facility] UA Auto SS [place].plasma/[place] .RBC (Bld) [Mass ratio] 0-3 /HPF Normal 0-3/HPF [facility] UA Auto SS Nitrite Ql (U) Negative (05/17/22 9:09 AM) Normal Negative [facility]A Auto SS pH (U) 6.5 *NA* (05/17/22 9:09 AM) Invalid Interpretation Code 5.0 - 9.0 [facility] UA Auto SS Protein (U) [Mass/Vol] Negative (05/17/22 9:09 AM) Normal Negative [facility] UA Auto SS Specific gravity (U) [Rel density] 1.025 *NA* (05/17/22 9:09 AM) Invalid Interpretation Code 1.005 - 1.030 [facility] UA Auto SS UA Spec Desc Clean Catch (05/17/22 9:09 AM) Normal [facility] UA Auto SS Urobilinogen Qn (U) 0.6631251 {Chana'U}/dL Normal 0.0 - 1.0 EU/dL [facility] UA Auto SS WBC Auto Ql (U) Negative (05/17/22 9:09 AM) Normal Negative [facility] UA Auto SS WBC LM.HPF (Urine sed) [#/Area] 0-5 /HPF Normal 0-5/HPF [facility] UA Auto SS XR Chest 2 Viewson XR Chest 2 Views Exam Date/Time: 05/17/2022 09:53 EST Reason for Exam: PRE OP Report IMPRESSION: NO EVIDENCE OF ACTIVE CHEST DISEASE. CLINICAL HISTORY: PRE OP. COMMENT: The heart is normal in size. The mediastinum is unremarkable. The lungs appear clear. No infiltration nor pleural effusion is evident. FINAL REPORT Dictated: 05/17/2022 10:43 am Adrian Quintero M.D. Signed (Electronic Signature): 05/17/2022 10:43 am Signed by: Adrian Quintero M.D. Transcribed by: MANUELA Technologist: HUDSON Murcia [facility] eGFRon 05-17-2022 GFR/1.73 sq M.predicted among blacks MDRD (S/P/Bld) [Vol rate/Area] mL/min/{1.73_m2} Normal >=[address] [facility] Comment on above: Order Comment: Order added by Discern Expert. Result Comment: eGFR is race adjusted. AA=. Performed By: #### 2 [id number], [id number], [id number], [id number], [id number] ####[facility] [address] [place] [address] GFR/1.73 sq M.predicted among non-blacks MDRD (S/P/Bld) [Vol rate/Area] mL/min/{1.73_m2} Normal >=[address] [facility] Comment on above: Order Comment: Order added by Discern Expert. Result Comment: Car Shakeout Operator ade kidney disease could be indicated at eGFR's of less than 60 mL/min/1.73m2. Kidney failure is indicated at less than 15 mL/min/1.73m2. Performed By: #### 2 [id number], [id number], [id number], [id number], [id number] ####[facility] [address] [place] [address] RAD - MRI Reporton RAD - MRI Report [id number]#[id number]:[address] [facility] Outside Recordson 05-12-2022 Outside Records [id number]:[address] [facility] Screenson 04-27-2022 Screens [id number]#[id number]:[address] [facility] Ambulatory Visit Summaryon 1 Ambulatory Visit Summary ISAIAS GLEASON :1965 Visit Date:04/26/2022 Ambulatory Visit Instructions Your Diagnosis Elevated PSA Personal history of colon cancer Tests Performed Urnls Dip Stick Auto w/o Microscopy POC 12915 MRI Pelvis (Soft Tissue) w/ + w/o contrast -- Results Pending -- Please visit your patient portal for your results or contact your primary care physician. Your Care Team Attending Physician - Brian HERRMANN, Eulalia Cox Primary Care Physician - TERI RICE MD Referring Physician - TERI RICE MD Procedures Performed Partial resection of colon (02/06/2019), Colonoscopy (04/09/2018). Discharge Vitals Respiratory Rate 16 Blood Pressure 140/82 Height 180.34 cm Height 71 in Weight 110.0 kg Weight 242 lb BMI 33.82 What to do next You Need to Schedule the Following Appointments Follow Up with Brian HERRMANN, Eulalia Cox, URL, URO When: Where: [address] [place] [phone] Test Results Urnls Dip Stick Auto w/o Microscopy POC 78269 (04/26/2022) Bilirubin Urine Dipstick - Negative Blood Urine Dipstick - Trace-intact Glucose Urine Dipstick - Negative Ketones Urine Dipstick - Negative Leukocytes Urine Dipstick - Negative Nitrite Urine Dipstick - Negative Protein Urine Dipstick - Negative Specific [place] Urine Dipstick - 1.020 Urine Appearance Urine Dipstick - Clear Urine Color Urine Dipstick - Yellow Urobilinogen Urine Dipstick - Normal 0.2-1 EU/dl pH Urine Dipstick - 6 Allergies No Known Medication Allergies Problems Ongoing - Any problem that you are currently receiving treatment for. Balance problem Colon cancer Elevated PSA Mcadams syndrome Memory problem Peripheral neuropathy Personal history of colon cancer Education Materials Prostate Cancer Screening The prostate is a walnut-sized gland that is located below the bladder and in front of the rectum in males. The function of the prostate (prostate gland) is to add fluid to semen during ejaculation. Prostate cancer is the second most common type of cancer in men. A screening test for cancer is a test that is done before cancer symptoms start. Screening can help to identify cancer at an early stage, when the cancer can be treated more easily. The recommended prostate cancer screening test is a blood test called the prostate-specific antigen (PSA) test. PSA is a protein that is made in the prostate. As you age, your prostate naturally produces more PSA. Abnormally high PSA levels may be caused by: ? Prostate cancer. ? An enlarged prostate that is not caused by cancer (benign prostatic hyperplasia, BPH). This condition is very common in older men. ? A prostate gland infection (prostatitis). ? Medicines to assist with hair growth, such as finasteride. Depending on the PSA results, you may need more tests, such as: ? A physical exam to check the size of your prostate gland. ? Blood and imaging tests. ? A procedure to remove tissue samples from your prostate gland for testing (biopsy). Who should have screening? Screening recommendations vary based on age. ? If you are younger than age 40, screening is not recommended. ? If you are age 40?54 and you have no risk factors, screening is not recommended. ? If you are younger than age 55, ask your health care provider if you need screening if you have one of these risk factors: ? Being of -[place] descent. ? Having a family history of prostate cancer. ? If you are age 55?69, talk with your health care provider about your need for screening and how often screening should be done. ? If you are older than age 70, screening is not recommended. This is because the risks that screening can cause are greater than the benefits that it may provide (risks outweigh the benefits). If you are at high risk for prostate cancer, your health care provider may recommend that you have screenings more often or start screening at a younger age. You may be at high risk if you: ? Are older than age 55. ? Are -[place]ian. ? Have a father, brother, or uncle who has been diagnosed with prostate cancer. The risk may be higher if your family member's cancer occurred at an early age. What are the benefits of screening? There is a small chance that screening may lower your risk of dying from prostate cancer. The chance is small because prostate cancer is typically a slow-growing cancer, and most men with prostate cancer from a different cause. What are the risks of screening? The main risk of prostate cancer screening is diagnosing and treating prostate cancer that would never have caused any symptoms or problems (overdiagnosis and overtreatment). PSA screening cannot tell you if your PSA is high due to cancer or a different cause. A prostate biopsy is the only procedure to diagnose prostate cancer. Even the results of a biopsy may not tell you if your cancer (more content not included)... Normal [facility] Auth for Release of Medical Recordson 04-26-2022 Auth for Release of Medical Records [id number]:[address] [facility] Lab Reportson 04-26-2022 Lab Reports [id number]:[address] [facility] Patient Educationon 04-26-20 22 Patient Education Oncology Prostate Cancer Screening The prostate is a walnut-sized gland that is located below the bladder and in front of the rectum in males. The function of the prostate (prostate gland) is to add fluid to semen during ejaculation. Prostate cancer is the second most common type of cancer in men. A screening test for cancer is a test that is done before cancer symptoms start. Screening can help to identify cancer at an early stage, when the cancer can be treated more easily. The recommended prostate cancer screening test is a blood test called the prostate-specific antigen (PSA) test. PSA is a protein that is made in the prostate. As you age, your prostate naturally produces more PSA. Abnormally high PSA levels may be caused by: ? Prostate cancer. ? An enlarged prostate that is not caused by cancer (benign prostatic hyperplasia, BPH). This condition is very common in older men. ? A prostate gland infection (prostatitis). ? Medicines to assist with hair growth, such as finasteride. Depending on the PSA results, you may need more tests, such as: ? A physical exam to check the size of your prostate gland. ? Blood and imaging tests. ? A procedure to remove tissue samples from your prostate gland for testing (biopsy). Who should have screening? Screening recommendations vary based on age. ? If you are younger than age 40, screening is not recommended. ? If you are age 40?54 and you have no risk factors, screening is not recommended. ? If you are younger than age 55, ask your health care provider if you need screening if you have one of these risk factors: ? Being of -[place] descent. ? Having a family history of prostate cancer. ? If you are age 55?69, talk with your health care provider about your need for screening and how often screening should be done. ? If you are older than age 70, screening is not recommended. This is because the risks that screening can cause are greater than the benefits that it may provide (risks outweigh the benefits). If you are at high risk for prostate cancer, your health care provider may recommend that you have screenings more often or start screening at a younger age. You may be at high risk if you: ? Are older than age 55. ? Are -[place]. ? Have a father, brother, or uncle who has been diagnosed with prostate cancer. The risk may be higher if your family member's cancer occurred at an early age. What are the benefits of screening? There is a small chance that screening may lower your risk of dying from prostate cancer. The chance is small because prostate cancer is typically a slow-growing cancer, and most men with prostate cancer from a different cause. What are the risks of screening? The main risk of prostate cancer screening is diagnosing and treating prostate cancer that would never have caused any symptoms or problems (overdiagnosis and overtreatment). PSA screening cannot tell you if your PSA is high due to cancer or a different cause. A prostate biopsy is the only procedure to diagnose prostate cancer. Even the results of a biopsy may not tell you if your cancer needs to be treated. Slow-growing prostate cancer may not need any treatment other than monitoring, so diagnosing and treating it may cause unnecessary stress or other side effects. A prostate biopsy may also cause: ? Infection or fever. ? A false negative. This is a result that shows that you do not have prostate cancer when you actually do have prostate cancer. Questions to ask your health care provider ? When should I start prostate cancer screening? ? What is my risk for prostate cancer? ? How often do I need screening? ? What type of screening tests do I need? ? How do I get my test results? ? What do my results mean? ? Do I need treatment? Contact a health care provider if: ? You have difficulty urinating. ? You have pain when you urinate or ejaculate. ? You have blood in your urine or semen. ? You have pain in your back or in the area of your prostate. ? You have trouble getting or maintaining an erection (erectile dysfunction, ED). Summary ? Prostate cancer is a common type of cancer in men. The prostate (prostate gland) is located below the bladder and in front of the rectum. This gland adds fluid to semen during ejaculation. ? Prostate cancer screening may identify cancer at an early stage, when the cancer can be treated more easily. ? The prostate-specific antigen (PSA) test is the recommended screening test for prostate cancer. ? Discuss the risks and benefits of prostate cancer screening with your health care provider. If you are age 70 or older, screening is likely to lead to more risks than benefits (risks outweigh the benefits). This information is not intended to replace advice given to you by your health care provider. Make sure you discuss any questions you have with your health care provider. Document Released: 04/05/2018 Document R (more content not included)... Normal [facility] CBC AUTO DIFFon 03-23-2022 BASO # 0.0 103/ul Normal 0.0-0.1 [facility] Comment on above: Performed By: #### C BC #### [facility] [address] [address] [address] Delia Posey Basophils/100 WBC (Bld) 0.6 % Normal 0.2-2.0 [facility] Comment on above: Performed By: #### C BC #### [facility] [address] [place] [address] Dr. Delia Posey EO # 0.2 103/ul Normal 0.0-0.7 [facility] Comment on above: Performed By: #### C BC #### [facility] [address] [place] [address] Dr. Delia Posey Eosinophils/100 WBC (Bld) 3.2 % Normal 0.9-7.0 [facility] Comment on above: Performed By: #### C BC #### [facility] [address] [place] [address] Dr. Delia Posey Erythrocyte distribution width (RBC) [Ratio] 12.5 % Normal 11.0-15.0 [facility] Comment on above: Performed By: #### C BC #### [facility] [address] [place] [address] Dr. Delia Posey Hematocrit (Bld) [Volume fraction] 44.1 % Normal 42.0-54.0 [facility] Comment on above: Performed By: #### C BC #### [facility] [address] [place] [address] Dr. Delia Posey Hemoglobin (Bld) [Mass/Vol] 14.8 g/dL Normal 14.0-18.0 [facility] Comment on above: Performed By: #### C BC #### [facility] [address] [place] [address] Dr. Delia Posey IG # 0.04 10e3/ul Critically high 0.00-0.03 [facility] Comment on above: Performed By: #### C BC #### [facility] [address] [place] [address] Dr. Delia Posey IG % 0.6 % Critically high 0.0-0.5 [facility] Comment on above: Performed By: #### C BC #### [facility] [address] [place] [address] Dr. Delia Posey LYMPH # 1.7 103/ul Normal 1.2-3.8 [facility] Comment on above: Performed By: #### C BC #### [facility] [address] [place] [address] Dr. Delia Posey Lymphocytes/100 WBC (Bld) 25.4 % Normal 20.5-60.0 [facility] Comment on above: Performed By: #### C BC #### [facility] [address] [place] [address] Dr. Delia Posey MANUAL DIFF REQ NO Normal [facility] Comment on above: Performed By: #### C BC #### [facility] [address] [place] [address] Dr. Delia Posey MCH (RBC) [Entitic mass] 30.8 pg Normal 25.9-34.0 [facility] Comment on above: Performed By: #### C BC #### [facility] [address] [place] [address] Dr. Delia Posey MCHC (RBC) [Mass/Vol] 33.6 g/dL Normal 29.9-35.2 [facility] Comment on above: Performed By: #### C BC #### [facility] [address] [place] [address] Dr. Delia Posey MCV (RBC) [Entitic vol] 91.9 fL Normal 80.0-94.0 [facility] Comment on above: Performed By: #### C BC #### [facility] [address] [place] [address] Dr. Delia Posey MONO # 0.4 103/ul Normal 0.3-0.8 [facility] Comment on above: Performed By: #### C BC #### [facility] [address] [place] [address] Dr. Delia Posey Monocytes/100 WBC (Bld) 6.5 % Normal 1.7-12.0 [facility] Comment on above: Performed By: #### C BC #### [facility] [address] [place] [address] Dr. Delia Posey NEUT # 4.1 103/ul Normal 1.4-6.5 [facility] Comment on above: Performed By: #### C BC #### [facility] [address] [place] [address] Dr. Delia Posey Neutrophils/100 WBC (Bld) 63.7 % Normal 43.0-75.0 [facility] Comment on above: Performed By: #### C BC #### [facility] [address] [place] [address] Dr. Delia Posey Platelet mean volume (Bld) [Entitic vol] 10.7 fL Normal 9.5-13.5 [facility] Comment on above: Performed By: #### C BC #### [facility] [address] [place] [address] Dr. Delia Posey PLT 178 103/ul Normal 150-450 [facility] Comment on above: Performed By: #### C BC #### [facility] [address] [place] [address] Dr. Delia Posey RBC 4.80 106/ul Normal 4.70-6.10 [facility] Comment on above: Performed By: #### C BC #### [facility] [address] [place] [address] Dr. Delia Posey WBC 6.5 103/ul Normal 4.0-11.0 [facility] Comment on above: Performed By: #### C BC #### [facility] [address] [place] [address] Dr. Delia Posey LIPID PROFILEon 03-23-2022 CHOL-HDL RATIO NORM SEE BELOW Normal [facility] Comment on above: Result Comment: 3.3 - 4.4 LOW RISK 4.4 - 7.1 AVERAGE RISK 7.1 - 11.0 MODERATE RISK >11.0 HIGH RISK Performed By: #### L IPID, CMP #### [facility] [address] [place] [address] Dr. Delia Posey Cholesterol [Mass/Vol] 174 mg/dL Normal <=200 [facility] Comment on above: Performed By: #### L IPID, CMP #### [facility] [address] [place] [address] Dr. Delia Posey Cholesterol in HDL [Mass/Vol] 45 mg/dL Normal 40-60 [facility] Comment on above: Performed By: #### L IPID, CMP #### [facility] [address] [address] [address] Delia Posey Cholesterol in LDL [Mass/Vol] 94.4 mg/dL Normal [facility] Comment on above: Performed By: #### L IPID, CMP #### [facility] [address] [place] [address] Dr. Delia Posey Cholesterol.total/Chol esterol in HDL [Mass ratio] 3.9 {ratio} Normal [facility] Comment on above: Performed By: #### L IPID, CMP #### [facility] [address] [place] [address] Dr. Delia Posey HDL NORMAL > or = 60 mg/dl - LO W CARDIOVASCULAR RISK <40 mg/dl - HIGH CARDIOVASCULAR RISK Normal [facility] Comment on above: Performed By: #### L IPID, CMP #### [facility] [address] [place] [address] Dr. Delia Posey LDL CALC NORMAL SEE BELOW Normal [facility] Comment on above: Result Comment: <100 mg/dl OPTIMAL 100 - 129 mg/dl NEAR OR ABOVE OPTIMAL 130 - 159 mg/dl BORDERLINE HIGH 160 - 189 mg/dl HIGH >190 mg/dl VERY HIGH Performed By: #### L IPID, CMP #### [facility] [address] [place] [address] Dr. Delia Posey Triglyceride [Mass/Vol] 173 mg/dL Critically high <=150 [facility] Comment on above: Performed By: #### L IPID, CMP #### [facility] [address] [place] [address] Dr. Delia Posey VLDL CALC 34.6 mg/dL Normal [facility] Comment on above: Performed By: #### L IPID, CMP #### [facility] [address] [place] [address] Dr. Delia Posey PROF 14(COMP METB)on 022 Albumin [Mass/Vol] 4.4 g/dL Normal 3.4-5.0 [facility] Comment on above: Performed By: #### L IPID, CMP #### [facility] [address] [address] [address] Delia Posey Albumin/Globulin [Mass ratio] 1.2 {ratio} Normal [facility] Comment on above: Performed By: #### L IPID, CMP #### [facility] [address] [address] [address] Delia Posey ALP [Catalytic activity/Vol] 90 U/L Normal 46-116 [facility] Comment on above: Performed By: #### L IPID, CMP #### [facility] [address] [address] [address] Delia Posey ALT [Catalytic activity/Vol] 41 U/L Normal 16-63 [facility] Comment on above: Performed By: #### L IPID, CMP #### [facility] [address] [address] [address] Delia Posey Anion gap [Moles/Vol] 10.4 mmol/L Normal [facility] Comment on above: Performed By: #### L IPID, CMP #### [facility] [address] [address] [address] Delia Posey AST [Catalytic activity/Vol] 25 U/L Normal 15-37 [facility] Comment on above: Performed By: #### L IPID, CMP #### [facility] [address] [address] [address] Delia Posey Bilirubin [Mass/Vol] 0.9 mg/dL Normal 0.2-1.0 [facility] Comment on above: Performed By: #### L IPID, CMP #### [facility] [address] [address] [address] Delia Posey Calcium [Mass/Vol] 9.7 mg/dL Normal 8.5-10.1 [facility] Comment on above: Performed By: #### L IPID, CMP #### [facility] [address] [address] [address] Delia Posey Chloride [Moles/Vol] 100 mmol/L Normal 98-107 [facility] Comment on above: Performed By: #### L IPID, CMP #### [facility] [address] [address] [address] Delia Posey CO2 [Moles/Vol] 28.8 mmol/L Normal 21.0-32.0 [facility] Comment on above: Performed By: #### L IPID, CMP #### [facility] [address] [address] [address] Delia Posey Creatinine [Mass/Vol] 1.06 mg/dL Normal 0.70-1.30 [facility] Comment on above: Performed By: #### L IPID, CMP #### [facility] [address] [address] [address] Delia Posey EGFR-AF ARGENTINE >60 Normal >=60 [facility] Comment on above: Performed By: #### L IPID, CMP #### [facility] [address] [place] [address] Dr. Delia Posey EGFR-NON AF ARGENTINE >60 Normal >=60 [facility] Comment on above: Performed By: #### L IPID, CMP #### [facility] [address] [address] [address] Delia Posey Globulin (S) [Mass/Vol] 3.7 g/dL Normal [facility] Comment on above: Performed By: #### L IPID, CMP #### [facility] [address] [address] [address] Delia Posey Glucose [Mass/Vol] 101 mg/dL Normal 74-106 [facility] Comment on above: Performed By: #### L IPID, CMP #### [facility] [address] [address] [address] Delia Posey Potassium [Moles/Vol] 4.2 mmol/L Normal 3.5-5.1 [facility] Comment on above: Performed By: #### L IPID, CMP #### [facility] [address] [address] [address] Delia Posey Protein [Mass/Vol] 8.1 g/dL Normal 6.4-8.2 [facility] Comment on above: Performed By: #### L IPID, CMP #### [facility] [address] [address] [address] Delia Posey Sodium [Moles/Vol] 135 mmol/L Critically low 136-145 [facility] Comment on above: Performed By: #### L IPID, CMP #### [facility] [address] [address] [address] Delia Posey Urea nitrogen [Mass/Vol] 11.0 mg/dL Normal 7.0-18.0 [facility] Comment on above: Performed By: #### L IPID, CMP #### [facility] [address] [address] [address] Delia Posey Urea nitrogen/Creatinine [Mass ratio] 10.4 mg/mg Normal [facility] Comment on above: Performed By: #### L IPID, CMP #### [facility] [address] [address] [address] Delia Posey Hemoglobin [Mass/volume] in BloodOrdered By: Myranda Jarquin on 06-07-2021 Hemoglobin (Bld) [Mass/Vol] 14.7 g/dL 13.0-17.0 [facility] Serum or plasma carcinoembry onic antigen measurement (mass/volume)Ordered By: Myranda Jarquin on 06-07-2021 Carcinoembryonic Ag [Mass/Vol] 3.2 ng/mL 0.0-3.0 [facility] Creatinine and Glomerular fi ltration rate.predicted panel (S/P/Bld)on 06-19-2019 Creatinine [Mass/Vol] 1.03 mg/dL 0.64-1.27 [facility] Estimated glomerular filtrat ion rate (GFR) non- Americanon 06-19-2019 GFR/1.73 sq M.predicted among non-blacks MDRD (S/P/Bld) [Vol rate/Area] mL/min/{1.73_m2} [facility] - Chemistry and C hemistry - challengeon 06-19-2019 GFR/1.73 sq M.predicted MDRD (S/P/Bld) [Vol rate/Area] mL/min/{1.73_m2} [facility] Comment on above: GFR estimated refere nce range: According to KDOQI guidelines, <60 ml/min/1.73m2 is sufficient to diagnose a patient with chronic kidney disease. No Panel Informationon 06-19 Pharmacy Creatinine Clearance (Chem [id number] [facility] Serum or plasma urea nitroge n measurement (mass/volume)on 06-19-2019 Urea nitrogen [Mass/Vol] 8 mg/dL 923 [facility] Basophils Auto (Bld) [#/Vol] on 05-21-2019 Basophils (Bld) [#/Vol] 0.0 10*3/uL 0.0-0.2 [facility] Basophils/100 WBC Auto (Bld) on 05-21-2019 Basophils/100 WBC (Bld) 0.5 % . [facility] Body fluid albumin measureme nt (mass/volume)on 05-21-2019 Albumin (Body fld) [Mass/Vol] 4.4 g/dL 3.2-5.5 [facility] Eosinophils Auto (Bld) [#/Vo l]on 05-21-2019 Eosinophils (Bld) [#/Vol] 0.1 10*3/uL 0.0-0.45 [facility] Eosinophils/100 WBC Auto (Bl d)on 05-21-2019 Eosinophils/100 WBC (Bld) 1.3 % . [facility] Erythrocyte distribution wid th Auto (RBC) [Ratio]on 05-21-2019 Erythrocyte distribution width (RBC) [Ratio] 13.6 % 12.0-14.8 [facility] Globulin Calc (S) [Mass/Vol] on 05-21-2019 Globulin (S) [Mass/Vol] 3.4 g/dL [facility] Hematocrit Auto (Bld) [Volum e fraction]on 05-21-2019 Hematocrit (Bld) [Volume fraction] 43.7 % 38.8-50.0 [facility] - Hematology and Cell countson 05-21-2019 Nucleated RBC/100 WBC (Bld) [Ratio] 0.0 % 0-0.5 [facility] Leukocytes [#/volume] in Blo od by Automated counton 05-21-2019 WBC (Bld) [#/Vol] 5.5 10*3/uL 4.5-11.0 [facility] Lymphocytes Auto (Bld) [#/Vo l]on 05-21-2019 Lymphocytes (Bld) [#/Vol] 1.0 10*3/uL 1.00-4.8 [facility] Lymphocytes/100 WBC Auto (Bl d)on 05-21-2019 Lymphocytes/100 WBC (Bld) 18.8 % . [facility] MCH Auto (RBC) [Entitic mass ]on 05-21-2019 MCH (RBC) [Entitic mass] 31.3 pg 27.5-35.2 [facility] MCHC Auto (RBC) [Mass/Vol]on 05-21-2019 MCHC (RBC) [Mass/Vol] 34.2 g/dL 32.5-35.6 [facility] MCV Auto (RBC) [Entitic vol] on 05-21-2019 MCV (RBC) [Entitic vol] 91.7 fL 83.5-101 [facility] Monocytes Auto (Bld) [#/Vol] on 05-21-2019 Monocytes (Bld) [#/Vol] 0.3 10*3/uL 0.0-0.8 [facility] Monocytes/100 WBC Auto (Bld) on 05-21-2019 Monocytes/100 WBC (Bld) 5.0 % . [facility] Neutrophils Auto (Bld) [#/Vo l]on 05-21-2019 Neutrophils (Bld) [#/Vol] 4.1 10*3/uL 1.8-7.7 [facility] Neutrophils/100 WBC Auto (Bl d)on 05-21-2019 Neutrophils/100 WBC (Bld) 74.4 % . [facility] Platelet mean volume Auto (B ld) [Entitic vol]on 05-21-2019 Platelet mean volume (Bld) [Entitic vol] 9.0 fL 6.6-10.1 [facility] Platelets Auto (Bld) [#/Vol] on 05-21-2019 Platelets (Bld) [#/Vol] 133 10*3/uL 150-450 [facility] Protein [Mass/volume] in Ser um or Plasmaon 05-21-2019 Protein [Mass/Vol] 7.8 g/dL 6.1-7.9 [facility] RBC Auto (Bld) [#/Vol]on RBC (Bld) [#/Vol] 4.76 10*6/uL 3.90-5.60 [facility] Serum or plasma alanine duval otransferase measurement without P-5'-P (enzymatic activion 05-21-2019 ALT No additional P-5'-P [Catalytic activity/Vol] 36 U/L 10-60 [facility] Serum or plasma albumin/glob ulin mass ratioon 05-21-2019 Albumin/Globulin [Mass ratio] 1.3 {ratio} [facility] Serum or plasma alkaline benny sphatase measurement (enzymatic activity/volume)on 05-21-2019 ALP [Catalytic activity/Vol] 146 U/L 32-92 [facility] Serum or plasma aspartate am inotransferase measurement (enzymatic activity/volume)on 05-21-2019 AST [Catalytic activity/Vol] 40 U/L 10-42 [facility] Serum or plasma calcium msua urement (mass/volume)on 05-21-2019 Calcium [Mass/Vol] 9.9 mg/dL 8.2-10.2 [facility] Serum or plasma chloride senthil surement (moles/volume)on 05-21-2019 Chloride [Moles/Vol] 103 mmol/L 95-114 [facility] Serum or plasma glucose musa urement (mass/volume)on 05-21-2019 Glucose [Mass/Vol] 99 mg/dL 70-100 [facility] Comment on above: ADA recommended refe rence rangeRandom Glucose Reference Range is dependent on time and content of last meal. Glucose of more than 200 mg/dL in a nonstressed, ambulatory subject supports the diagnosis of Diabetes Mellitus. Serum or plasma potassium me asurement (moles/volume)on 05-21-2019 Potassium [Moles/Vol] 4.1 mmol/L 3.5-5.1 [facility] Serum or plasma sodium measu rement (moles/volume)on 05-21-2019 Sodium [Moles/Vol] 140 mmol/L 136-146 [facility] Serum or plasma total biliru bin measurement (mass/volume)on 05-21-2019 Bilirubin [Mass/Vol] 1.4 mg/dL 0.3-1.2 [facility] Comment on above: Samples from patient s who have taken Naproxen have shown spurious elevation in Total Bilirubin levels. A metabolite of Naproxen, O-desmethylnaproxen, has been shown to interfere with the Jendrassik-Grof method for measuring Total Bilirubin. Serum or plasma total carbon dioxide measurement (moles/volume)on 05-21-2019 CO2 [Moles/Vol] 27.7 mmol/L 22.0-30.0 [facility] Tumor Board Note-GI/Esophagu son 03-06-2019 Tumor Board Note-GI/Esophagus Note: Tumor Board Note ISAIAS GLEASON was presented at GI/Esophagus Tumor Board Conference on 05-Mar-2019 by (Dr. Myranda Jarquin). Presented from [facility]. Impression: Presented with Surgery completed 02.18.19; discuss need for further adjuvant therapy. pT4a N0 Mx Stage IIB Recommendations: 1) Surveillance and treat with immunotherapy if progression; 2) Colonoscopy scheduled next month (March); 3) Obtain EGD at same time as colonoscopy Pathology Results: Surgical Pathology [Feb 24 2019 4:06PM] ([id number]) Specimens: RIGHT ABDOMINAL WALL MASS /Received fresh for intraoperative consultation for gross margins, labeled Name ISAIAS GLEASON Pathologist: ZAINAB MARK MD Date of Procedure: 02/18/2019 Date Received: 02/18/2019 Date Reported 02/24/2019 Submitting Physician: ROWENA COON MD Location: [facility]Other External # FINAL DIAGNOSIS RIGHT ABDOMINAL WALL MASS, EXCISION: --ADENOCARCINOMA, CONSISTENT WITH COLORECTAL ORIGIN, INVOLVING FIBROADIPOSE TISSUE; SEE NOTE. Note: The surgical margin, which consists of skeletal muscle and fibrous tissue, is uninvolved by tumor. Electronically Signed Out By ZAINAB MARK MD/Otto By the signature on this report, the individual or group listed as making the Final Interpretation/Diagnosis certifies that they have reviewed this case. Intraoperative Consultation: A: RIGHT ABDOMINAL WALL MASS Frozen Section 1: Date Ordered: 02/18/2019 09:46 Date Received: 02/18/2019 09:46 Date Called: 02/18/2019 10:00 Intraoperative Diagnosis: Gross: Tumor 0.6 cm from muscle margin, present at fat (per surgeon, peritoneal surface). Intraoperative Consult Pathologist(s): KAY CHA MD (P) rl02/18/2019 Clinical History: Colon cancer/abdominal wall mass Specimens Submitted As: A: RIGHT ABDOMINAL WALL MASS Gross Description: A: Received fresh for intraoperative consultation for gross margins, labeled with the patient's name and hospital number and right lower abdominal wall mass is an unoriented mass with attached fibrofatty tissue measuring 7.0 x 6.3 x 5.4 cm. There is attached abdominal muscle and peritoneal surface on the specimen. The specimen is inked black and serially sectioned. Cut surface reveals a moy-white lesion measuring 6.4 x 5.9 x 4.9 cm with areas of necrosis. The tumor is at the peritoneal surface and 0.6 cm from the nearest muscle margin. [employer] Technical Writer sections are submitted in 7 cassettes. RL/SXR Summary of Cassettes: Specimen Label Site A 1-2 account retention representative sections of tumor with nearest muscule margin 3 account retention representative section of tumor with nearest peritoneal surface 4-7 account retention representative sections of tumor with inked margin rl/02/18/2019 Disclaimer [facility] tumor board recommendations represent the consensus opinion of physicians present at a weekly patient care conference. The treating [facility] physician is not always present, and many of the physicians formulating the recommendation have not personally seen or examined the patient under discussion. It is understood that the treating [facility] physician considers the expertise of the Tumor Board Recommendation in formulating his/her plan for the patient. However, in many situations, based on individualized patient considerations, a different plan is determined by the treating physician to be the optimal medical management. Electronic Signatures: Kailey Kulkarni (COOR) (Signed 06-Mar-2019 11:10) Authored: Tumor Board, Disclaimer Last Updated: 06-Mar-2019 11:10 by Kailey Kulkarni (COHINA) Normal [facility] Post Op (General Surgery)on 03-03-2019 Post Op (General Surgery) Diagnoses/Problems Right lower quadrant abdominal mass (789.33) (R19.03) Patient Discussion/Summary 53 year old male s/p excision of isolated recurrent colon cancer on right abdominal wall. Doing well from surgery. No complications. No evidence of intraperitoneal disease. Will discuss his case in tumor board to obtain recommendations on need for more adjuvant therapy vs. surveillance. He is scheduled for one year screening colonoscopy next month. Continue cancer surveillance with heme / onc Dr. Jarquin. Follow up surgery PRN Chief Complaint POST OP 02/18- Lap abdominal wall mass resection. Pt denies pain, N/V, fever/chills. BM normal, appetite normal. History of Present Illness Doing well from surgery. A little bruising from the right lateral abdominal wall. Minimal pain. 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) Malignant neoplasm of ascending colon (153.6) (C18.2) Right lower quadrant abdominal mass (789.33) (R19.03) Surgical History History of Colonoscopy History of Right hemicolectomy open Family History Family history of Alcohol abuse Family history of malignant neoplasm of colon (V16.0) (Z80.0) father age 47 (father was adopted) Social History Caffeine use (V49.89) (Z78.9) Non-smoker (V49.89) (Z78.9) Occasional alcohol use Tobacco user (305.1) (Z72.0) tip tobacco Allergies No Known Allergies Recorded By: Rowena Coon; 12/30/2018 6:38:54 PM Current Meds Medication NameInstruction No Reported Medications Vitals Vital Signs Recorded: [id number] 11:25AM Nhttziorwie43.3 F Heart Rate66 Vxqyrlaitsi41 Gfpiuwor179 Yytxlrzib491 Height5 ft 11 in Deyvnp267 lb 6 oz BMI Aoggphgevt10.92 BSA Calculated2.14 Physical Exam ABD: soft, NT, ND, +BS, incisions well healed. no hernias. Results/Data I personally reviewed the pathology report with the patient and daughter. Surgical [id number] 12:00AMRowena Coon Test NameResultFlagReference Case Surgical Pathology(Report) Name ISAIAS GLEASON Pathologist: ZAINAB MARK MD Date of Procedure: 02/18/2019 Date Received: 02/18/2019 Date Reported 02/24/2019 Submitting Physician: ROWENA COON MD Location: [facility] Other External # FINAL DIAGNOSIS RIGHT ABDOMINAL WALL MASS, EXCISION: --ADENOCARCINOMA, CONSISTENT WITH COLORECTAL ORIGIN, INVOLVING FIBROADIPOSE TISSUE; SEE NOTE. Note: The surgical margin, which consists of skeletal muscle and fibrous tissue, is uninvolved by tumor. Electronically Signed Out By ZAINAB MARK MD/JULITA By the signature on this report, the individual or group listed as making the Final Interpretation/Diagnosis certifies that they have reviewed this case. Intraoperative Consultation: A: RIGHT ABDOMINAL WALL MASS Frozen Section 1: Date Ordered: 02/18/2019 09:46 Date Received: 02/18/2019 09:46 Date Called: 02/18/2019 10:00 Intraoperative Diagnosis: Gross: Tumor 0.6 cm from muscle margin, present at fat (per surgeon, peritoneal surface). Intraoperative Consult Pathologist(s): KAY CHA MD (P) rl02/18/2019 Clinical History: Colon cancer/abdominal wall mass Specimens Submitted As: A: RIGHT ABDOMINAL WALL MASS Gross Description: A: Received fresh for intraoperative consultation for gross margins, labeled with the patient's name and hospital number and right lower abdominal wall mass is an unoriented mass with attached fibrofatty tissue measuring 7.0 x 6.3 x 5.4 cm. There is attached abdominal muscle and peritoneal surface on the specimen. The specimen is inked black and serially sectioned. Cut surface reveals a moy-white lesion measuring 6.4 x 5.9 x 4.9 cm with areas of necrosis. The tumor is at the peritoneal surface and 0.6 cm from the nearest muscle margin. Contract Technical Writer sections are submitted in 7 cassettes. RL/SXR Summary of Cassettes: Specimen Label Site A 1-2 account retention representative sections of tumor with nearest muscule margin 3 account retention representative section of tumor with nearest peritoneal surface 4-7 account retention representative sections of tumor with inked margin /02/18/2019 Signatures Electronically signed by : Rowena Coon MD,; Mar 03 2019 2:33PM EST (Author) Normal [facility] PATH REVIEW-IMMUNOHEMATOLOGY on 02-20-2019 PATH REV-IMMUNOHEMOTOL CRISTIAN Normal [facility] Comment on above: Result Comment: By h er/his signature above, the Pathologist listed as making the final interpretation certifies that she/he has personally reviewed this case. ANTIBODY DETECTION SCREEN IS POSITIVE. ANTIBODY IDENTIFICATION PANEL WAS PERFORMED. THE AUTOCONTROL IS NEGATIVE. ANTI-E (BIG E) IS IDENTIFIED. THE PATIENT'S RBC PHENOTYPE IS E-ANTIGEN NEGATIVE. THESE FINDINGS ARE CONSISTENT WITH A NEWLY IDENTIFIED ALLOANTIBODY ANTI-E. ALL OTHER COMMON CLINICALLY SIGNIFICANT ALLOANTIBODIES HAVE BEEN RULED OUT. FULL CROSSMATCHED E-ANTIGEN NEGATIVE DONOR RBC UNITS SHOULD BE SELECTED FOR TRANSFUSION FOR THIS PATIENT. Performed By: #### P R30 ####[id number] [place] [address] ANTIBODY IDENT.on 02-19-2019 ANTIBODY IDENT. Anti-E Normal [facility] Comment on above: Performed By: #### A BID ####[id number] [place] [address] Discharge [id number] Discharge Profile2 Discharge Orders: Anticipated Discharge Date: Anticipated Discharge [id number] Problem List: Medical History: Abdominal wall mass: Catalog Name: Localized swelling, mass and lump, trunk Colon cancer: Catalog Name: Malignant neoplasm of colon, unspecified Significant Events: Surgical Procedure: Clinical Events This Visit, 18-Feb-2019, 1. Hand-assisted laparoscopic abdominal wall mass resection Hospital Providers: Provider RoleProvider Name RituRowena Coon Activity: activity as tolerated. May shower. May return to school/work Instructions: May not drive while taking narcotics. No pushing, pulling, or lifting objects greater than 10 pounds for 8 week(s). Weight-bearing Instructions: weight-bearing as tolerated. Diet: Dietresume normal diet Call Provider If (Homegoing Patients): Breathing faster than normal. Breathing harder than normal or having retractions. Fever of 100.4 F (38 C) or higher. Temperature is greater than 102 degrees. Chills. Drinking less than normal. Not being able to go 4-6 hours between albuterol treatments. Urinating less than normal, over 1 day. Urinating less than 4 times per day. Acting very sleepy and difficult to awaken. Vomiting (throwing up) and not able to eat or drink for 12 hours. 3 or more loose, watery bowel movements in 24 hours (diarrhea). Any new concerning symptoms. Hospital Course (Home Care/Gold Form): Hospital Course: Hospital Course: include significant abnormal lab values 53 year old male who presented on 02/18 for hand-assisted laparoscopic abdominal wall mass resection. Tolerated the procedure well and was transferred to the floor post-operatively. Tolerated regular diet without nausea or vomiting, voided spontaneously, and ambulated appropriately. Discharged home in stable condition on POD1. Provider FINAL REVIEW of Orders: Final Review: Final Review of Medication Reconciliation and Orders Completedby Physician Reviewing ProviderBeto Loco MD (Resident) at 19-Feb-2019 10:07:48 Electronic Signatures: Beto Loco ( (Resident)) (Signed 19-Feb-2019 10:07) Authored: Discharge Orders, Hospital Course (Home Care/Gold Form), Provider FINAL REVIEW of Orders, Gold Form - Risk Compliance Analyst Summary Last Updated: 19-Feb-2019 10:07 by Beto Loco ( (Resident)) Normal [facility] ABO/RH GROUP TESTon 02-19-20 19 ABO TYPE B Normal [facility] Comment on above: Performed By: #### V ERAB #### [facility] [address] [place] [address] RH TYPE Positive Normal [facility] Comment on above: Performed By: #### V ERAB #### [facility] [address] [place] [address] Admission Risk Screen - Adul ton 02-18-2019 Admission Risk Screen - Adult Allergies: Allergies: No Known Allergies: Patient Verification: New W ID Band Applied in my Departmentyes Patient Identity Verified Bypatient ID Band FULL Name, include Middle, spelling matches patient's ID used for verificationyes ID Band Matches Patient ID used for Verficationyes ID Band MRN Matches EMR MRNyes Advance Directive: Advance Directive/DNRyes (1) Advance Directive typeLiving Will, Durable Power of Physical Therapy Teacher for Healthcare(1) Living Will AvailabilityLiving Will not available now Living Will [id number] Durable Power of Physical Therapy Teacher AvailabilityDPOA not available now Durable Power of Physical Therapy Teacher [id number] Durable Power of Physical Therapy Teacher contact (name and number)faviola tang - daughter(1) Falls Screen: Type of Assessmentadmission Moderate Risk Factorspatient care equipment (scds, ivs, chest tubes, cabral, etc) High Risk Factorsgait instability Risk for Injury Associated with Fallrisk of surgical complications post surgery (recent abdominal, thoracic surgery, lower limb amputation) Fall Risk Conclusionhigh falls risk with risk for associated injury [place] Safety InterventionsWDL *orient to call system *instruct to call for assistance before getting out of bed *non-slip footwear when patient is out of bed *call blood in reach *personal items and telephone in reach *physically safe environment (no spills or clutter) *bed in lowest position with wheels locked *appropriate side rails in place *room/bathroom lighting operational, light cord in reach *appropriate signage on door Family Violence Screen: Are you or have you been threatened or abused physically, emotionally, or sexually by anyoneno Do you feel UNSAFE going back to the place where you are livingno Do you feel anyone has exploited or taken advantage of you financially or of your personal propertyno Clinical assessment: Are there any apparent signs of injuries/behaviors that could be related to abuse/neglectno Social Service Consult for abuse/neglect needed this visitno Functional screen: Functional Screen: In the recent/past 2-4 weeks, patient or family have noticedno issues that require a rehabilitation consult at this time Learning Assessment (Patient): Patient is Able to be Assessed for Learningyes Factors Influencing Readiness to Learnpain Factors that Impact Ability to Learnnone Devices/Methods Used to Communicatenone Learning Preferencesaudio Cultural Considerationsnone Developmental Considerationsnone Baptism Considerationsnone Learning Assessment (Other Learner): Other learner availableno Suicide/Depression Screen: During the past month, have you often been bothered by feeling down, depressed or hopelessno (1) During the past month, have you often had little interest or pleasure in doing thingsno (1) Have you had any thoughts of harming yourselfno (1) Have you had any thoughts of harming anyone elseno (1) Adult Nutrition Screen: Have you recently lost weight without tryingno Have you been eating poorly because of a decreased appetiteno Malnutrition Screening Tool Score0 Malnutrition Screening Tool RiskMST = 0 or 1 Not at risk. Eating well with little or no weight loss Nutrition Consult needed this visitno Can Patient Participate in Room Serviceyes Patient requires Paper Dishes/Plastic Utensilsno Pain Screen: Pain Scalenumerical 0-10 (1) Pain Scale Educationteaching provided (1) Current Pain Level0 = None Acceptable Pain Level5 = Moderate Expression of Pain (nonverbal)verbalization Chronic Painno (1) Spiritual Screen: Are there any cultural, spiritual, religion practices/values/needs that are important for us to knowno CAGE: Is this an injured patient at a Trauma Center ([facility]/[place]/ [place]): no Vaccinations: Vaccination - Influenza Vaccination Screen: Is it flu season (between and November 05)No Vaccination - Pneumonia Vaccination Screen: Patient has received a previous pneumonia vaccine:yes Silvano: Skin - Silvano Scale: Silvano: Sensory Perception (response to environment)(4) no impairment Silvano: Moisture (degree skin exposed to moisture)(4) rarely moist Silvano: Activity (ability to walk)(3) walks occasionally Silvano: Mobility (amount/control of body movement)(3) slightly limited Silvano: Nutrition (quality of food intake)(3) adequate Silvano: Friction and Shear(3) no apparent problem Silvano: Score20 Significant Indicatiors: Significant Indicators: Complete Pressure Injury: Pressure Injury Present on Admissionno Electronic Signatures: Aury Hopkins (SUBHASH) (Signed 18-Feb-2019 17:11) Authored: Admission Risk Screens, Vaccinations, Silvano, Pressure Injury Last Updated: 18-Feb-2019 17:11 by Aury Hopkins) References: 1. Data Referenced From Patient Profile - Preop v2 18-Feb-2019 06:28 Normal [facility] Clinical Event Tulp-Ierg-st checkon 02-18-2019 Clinical Event Luiz-Licl-kx check Event: Topic: Post-op check Details: Time of service: 18'00hr 02/18/2019 53 yo M POD0 s/p hand-assisted laparoscopic abdominal wall mass resection. Pt lying in bed, no complaints. Denies burping, hiccups, nausea, vomiting, chest pain, shortness of breath. Gen: Lying supine in bed, no acute distress, eating CLD Pulm: Nonlabored respirations on RA; frontal portillo clear to auscultation bilaterally CV: RRR Abd: Nondistended, soft and appropriately tender. Three laparoscopy sites covered with dermabond. Midline incision closed with subcutaneous sutures and dermabond. No swelling, erythema, bleeding, drainage. Ext: No edema Neuro: no focal deficits Assessment: 53 yo M POD 0 s/p hand-assisted laparoscopic abdominal wall mass resection. Recuperating well. Radu Tucker MD MS PGY-1 Surgery Resident [place] pager: [phone] Provider / Team Contact Information: Provider/Team Contact Info-Pager Number: [phone] Electronic Signatures: Radu Tucker ( (Resident)) (Signed 18-Feb-2019 18:29) Authored: Event, Provider / Team Contact Information Last Updated: 18-Feb-2019 18:29 by Radu Tucker ( (Resident)) [facility] Discharge Planning Noteon Discharge Planning Note Discharge Needs Assessment: Discharge Planning Assessment [id number] Patient Learning: Factors that Impact Ability to Learnnone(1) Other Factors: Functional Screen: In the recent/past 2-4 weeks, patient or family have noticedno issues that require a rehabilitation consult at this time(2) Discharge Planning: Discharge Plannin02/18/19 4515 ADMISSION: D: Patient admitted to [facility] from OR s/p laparoscopic abdominal wall mass resection . Hx: colon mass. Patient A&Ox3, VSS, see EMR. Prior to admission pt ambulates and completes ADLs independently without assistance. Lives at home with significant other and feels safe. Plan to return home with no home going needs. Continue assess home going needs. Patient spelled first and last name and date of , compared to EMR and wristband. E: discharge planning initiated P: continue assess home going needs. Aury Hopkins RN Nursing Note: Discharge Planning Discharge Date/Time: 02/19/19 1028 Reviewed with patient DC instructions, diet, activity, s/s to report to , FU appt with MD, prescriptions/new medications, PI Sheets verbalized understanding. Prescriptions given for colace, zofran and oxycodone Pt will call MD with any questions or concerns. See EMR for complete DC instructions. (E) DC home via personal vehicle. (P) DC Planning complete. RN Signature: Jewels Jolley RN Electronic Signatures: Jewels Jolley (JUDITH) (Signed 19-Feb-2019 10:30) Authored: Discharge Planning Note Aury Hopkins (RN) (Signed 18-Feb-2019 17:16) Authored: Discharge Planning Note Last Updated: 19-Feb-2019 10:30 by Jewels Jolley (JUDITH) References: 1. Data Referenced From 5. Education 18-Feb-2019 17:09 2. Data Referenced From Admission Risk Screen - Adult 18-Feb-2019 17:09 Normal [facility] History and Physical - Surgi dakota Update < 30 dayson 02-18-2019 History and Physical - Surgical Update < 30 days History & Physical Reviewed: I have reviewed the History and Physical dated: 28-Jan-2019 History and Physical reviewed and relevant findings noted. Patient examined to review pertinent physical findings.: No significant changes Home Medications Reviewed: no changes noted Allergies Reviewed: no changes noted This patient has been seen and discussed with the attending physician responsible for performing the procedure: yes Signatures/Attestation/Ce rtification: Note Completion: Attending AttestationI saw and evaluated the patient. I personally obtained the agustin and critical portions of the history and physical exam or was physically present for agustin and critical portions performed by the resident/fellow. I reviewed the resident/fellows documentation and discussed the patient with the resident/fellow. I agree with the resident/fellows medical decision making as documented in the note. I personally evaluated the patient [id number] Attending Provider Inpatient Certification StatementI certify this patients need for inpatient care based on the above documentation including; the order to admit as inpatient, the anticipated length of stay, diagnosis, problem list and plan of care, and discharge plan. Electronic Signatures: Radu Tucker (Resident)) (Signed 18-Feb-2019 06:32) Authored: History & Physical Reviewed, Signatures/Attestation/Ce rtification Rowena Coon) (Signed 18-Feb-2019 08:13) Authored: Signatures/Attestation/Ce rtification Co-Signer: History & Physical Reviewed, Signatures/Attestation/Ce rtification Last Updated: 18-Feb-2019 08:13 by Rowena Coon) Normal [facility] Patient Profile - Adult v2on 02-18-2019 Patient Profile - Adult v2 Profile: Initial Info: How to be Addressedpat(1) Spoken Language PreferredEnglish (1) Are you currently using the Personal Electronic Health Record or MYUHCAREno (1) Stated Reason for Admissionsurgery Arrived FromOR Patient Belongingsremains with patient Patient Belongings Remaining with Patientclothing; cell phone/electronics Medications Brought to Hospitalno General Health: Weight in kg93.7 kilogram(s) Weight in psi095.5 pound(s) Height in cm180.3 centimeter(s) BMI (kg/m2)28.823 square meter Weight Methodactual (measured) Scale Typestanding Height Methodstated Blood Avoidance/Restrictionsnon e(1) Previous Transfusion Reactionno(1) RSP Based Care: How would you like to participate in your carebe informed What is the number one concern for you during this hospitalizationpain What is the most important thing we can do to support you during this hospitalizationkeep patient informed Is there anything we need to know to best care for red/a Substance: Current or Former Substance Use never: e-Cigarette/Vaping(1), Street Drugs(1) YES: Cigarette/Tobacco(1), Alcohol(1) Tobacco Cessation Education (provide if tobacco use within the last 12 mos) patient declined Alcohol Use Statuscurrent alcohol (1) Health Mgmt: Symptoms/Conditions Managed at Homecancer Cancer Symptoms/Conditionscolore ctal Cancer Managementmanaged Relationship/Environ: Primary Source of Support/Comfortchild(tanya) Lives Withspouse Living Arrangementshouse Resource/Environmental Concernsnone [facility]ticipated [facility] Anticipated at Transitionnone Significant IndicatorsComplete Information Review: Allergies, Home Meds and Significant Events have been Reviewed and Verified with Patient/Familyyes ALLERGY, INTOLERANCE, ADVERSE EVENT: Allergies: No Known Allergies: Active Electronic Signatures: Aury Hopkins (SUBHASH) (Signed 18-Feb-2019 17:14) Authored: Profile, Additional Information Last Updated: 18-Feb-2019 17:14 by Aury Hopkins (SUBHASH) References: 1. Data Referenced From Patient Profile - Preop v2 18-Feb-2019 06:28 Normal [facility] Patient Profile - Preop v2on 02-18-2019 Patient Profile - Preop v2 Profile: Initial Info: How to be Addressedpat Spoken Language PreferredEnglish Source of Informationpatient Are you currently using the Personal Electronic Health Record or MYUHCAREno Are you interested in learning more about MYUHCARE for the management of your healthnot at this time Stated Reason for Admissionremoving a tumor from my abdominal wall Primary Contact Name and Numberbrenda - significant other Patient Belongingsremains with patient Patient Belongings Remaining with Patientcell phone/electronics Medications Brought to Hospitalno General Health: Weight in kg93.7 kilogram(s) Weight in fni180.5 pound(s) Weight Methodactual (measured) Scale Typestanding Height in cm180.3 centimeter(s) Height in feet5 feet Height in [id number] inch(es) Height Methodstated BMI (kg/m2)28.823 square meter Patient or Family Member Reaction to Anesthesiano previous reaction Blood Avoidance/Restrictionsnon e Previous Transfusion Reactionno Health Mgmt: Symptoms/Conditions Managed at Homecancer Barriers to Managing Healthnone Relationship/Environ: Resource/Environmental Concernsnone Services Anticipated at Transitionnone Lives Withsignificant other Living Arrangementshouse Anticipated [facility] Substance: Current or Former Substance Use never: e-Cigarette/Vaping, Street Drugs YES: Cigarette/Tobacco, Alcohol Tobacco Cessation Education (provide if tobacco use within the last 12 mos) patient declined Other Tobacco Use Comments chew only Alcohol Use Statuscurrent alcohol Alcohol Use Additional Commentssocial Risk Screens: Advance Directive/DNRyes Advance Directive typeLiving Will, Durable Power of Physical Therapy Teacher for Healthcare Durable Power of Physical Therapy Teacher contact (name and number)faviola tang - daughter During the past month, have you often been bothered by feeling down, depressed or hopelessno During the past month, have you often had little interest or pleasure in doing thingsno Have you had any thoughts of harming yourselfno Have you had any thoughts of harming anyone elseno Are you or have you been threatened or abused physically,emotionally or sexually abused by anyoneno Do you feel UNSAFE going back to the place you are livingno Patient is Able to be Assessed for Learningyes Factors Influencing Readiness to Learnacuteness of illness; anxiety Factors that Impact Ability to Learnnone Devices/Methods Used to Communicatenone Learning Preferencesverbal instruction Cultural Considerationsnone Developmental Considerationsnone Baptism Considerationsnone Other learner availableno Falls RiskPatient location auto qualifies him/her for HIGH RISK. Are there any cultural, spiritual, religion practices/values/needs that are important for us to knowno Pain Scalenumerical 0-10 Pain Scale Educationteaching provided Current Pain Level0 = None Acceptable Pain Level5 = Moderate Chronic Painno Information Review: Allergies, Home Meds and Significant Events have been Reviewed and Verified with Patient/Familyyes Allergy, Intolerance, Adverse Event: Allergies: No Known Allergies: Active Electronic Signatures: Clari Archer) (Signed 18-Feb-2019 06:30) Authored: Profile, Additional Information Last Updated: 18-Feb-2019 06:30 by Clari Archer) Normal [facility] Preop Checkliston 02-18-2019 Preop Checklist Preop Checklist: Preop Checklist: Arrival [id number] Arrival Time06:12 Procedure Typedx lap, resection of abdominal wall tumor NPO [id number] 06:27 ID Band Onyes Allergy Bandno known allergies Consent Signedyes H&P Completepending Anesthesia Assessment Completedpending EKG Performednot ordered Chest X-Ray Performednot ordered HCG Urine TestN/A Chlorhexadine Bath Givennot applicable Nasal Antiseptic Appliednot applicable Hair Washedno Soap and water bath with hair shampoo the night before surgeryno SCD's Appliedsent to OR Denturesplaced in locker Prostheticsnot applicable Hearing Aidsnot applicable Valuables Securedplaced in locker Glasses / Contactsplaced in locker Bowel Prepno Cardiovascular Assessment: Apicalregular Radial Pulsespalpable Pedal Pulsespalpable Extremitieswarm Respiratory Assessment: Respirationsunlabored regular Air Exchangegood, equal Breath Soundsclear Neurological Assessment: Level of Consciousnessalert, oriented Mobilitymoves all extremities Able to Express Selfyes Age Appropriateyes Emotional Statuscalm Preop Education: Surgical Site Infection Preventionyes Pain Scales and Managementyes Language / Communication: Language / CommunicationEnglish Electronic Signatures: Clari Archer) (Signed 18-Feb-2019 06:28) Authored: Preop Checklist Last Updated: 18-Feb-2019 06:28 by Clari Archer) Normal [facility] TYPE + SCREENon 02-18-2019 ABO TYPE B Normal [facility] Comment on above: Performed By: #### T +S #### [facility] [address] [place] [address] RH TYPE Positive Normal [facility] Comment on above: Performed By: #### T +S #### [facility] [address] [place] [address] [facility] Surgical Pathology Depar madhavinton 02-18-2019 [facility] Surgical Pathology Department Name ISAIAS GLEASON Pathologist: ZAINAB MARK MD Date of Procedure: 02/18/2019 Date Received: 02/18/2019 Date Reported 02/24/2019 Submitting Physician: ROWENA COON MD Location: [facility] Other External # FINAL DIAGNOSIS RIGHT ABDOMINAL WALL MASS, EXCISION: --ADENOCARCINOMA, CONSISTENT WITH COLORECTAL ORIGIN, INVOLVING FIBROADIPOSE TISSUE; SEE NOTE. Note: The surgical margin, which consists of skeletal muscle and fibrous tissue, is uninvolved by tumor. Electronically Signed Out By ZAINAB MARK MD/JULITA By the signature on this report, the individual or group listed as making the Final Interpretation/Diagnosis certifies that they have reviewed this case. Intraoperative Consultation: A: RIGHT ABDOMINAL WALL MASS Frozen Section 1: Date Ordered: 02/18/2019 09:46 Date Received: 02/18/2019 09:46 Date Called: 02/18/2019 10:00 Intraoperative Diagnosis: Gross: Tumor 0.6 cm from muscle margin, present at fat (per surgeon, peritoneal surface). Intraoperative Consult Pathologist(s): KAY CHA MD (P) rl/02/18/2019 Clinical History: Colon cancer/abdominal wall mass Specimens Submitted As: A: RIGHT ABDOMINAL WALL MASS Gross Description: A: Received fresh for intraoperative consultation for gross margins, labeled with the patient's name and hospital number and right lower abdominal wall mass is an unoriented mass with attached fibrofatty tissue measuring 7.0 x 6.3 x 5.4 cm. There is attached abdominal muscle and peritoneal surface on the specimen. The specimen is inked black and serially sectioned. Cut surface reveals a moy-white lesion measuring 6.4 x 5.9 x 4.9 cm with areas of necrosis. The tumor is at the peritoneal surface and 0.6 cm from the nearest muscle margin. Contract Technical Writer sections are submitted in 7 cassettes. RL/SXR Summary of Cassettes: Specimen Label Site A 1-2 account retention representative sections of tumor with nearest muscule margin 3 account retention representative section of tumor with nearest peritoneal surface 4-7 account retention representative sections of tumor with inked margin rl/02/18/2019 Normal [facility] Comment on above: Performed By: #### [facility] ####[facility] Surgical Pathology [id number] [facility] [address] Clinic Note - Intakeon 01-28 Clinic Note - Intake Patient Visit Information: Visit TypeNew Visit Patient StatesIORT Source of Informationpatient Vital Signs: Temp (degrees C)37.1 degrees C Temperaturecore Heart Rate (beats/min)75 beats per minute Respiration (breaths/min)16 breath per minute BP Systolic (mm Hg)Image has been removed. 152 mmHg BP Diastolic (mm Hg)Image has been removed. 92 mmHg BP Mean (mm Hg)Image has been removed. 112 mmHg Height in cm180 centimeter(s) Weight in kg94.8 kilogram(s) Weight Methodstanding scale BMI (kg/m2)29.2 BSA (m2)2.17 SpO2 (%)100 % SpO2 Patient Onroom air Pain Screening: Patient States Painno (0) Allergies: No Known Allergies: Active Outpatient Medication Profile: * Outpatient Medication Status not yet specified Notification: NotificationsAll annual screens currently due. Falls: Have you fallen in the last 6 monthsno Do you have a fear of fallingno Do you feel you need assistanceno Is the patient using an assistive deviceno Not a falls riskimplement environmental risk factors interventions Spiritual/Procedural: Spiritual/cultural/religi ous practices important for us to knowno Oncology Nutrition: Height in cm180 centimeter(s) Weight in kg94.8 kilogram(s) During the past 2 weeks, weight has(0) not changed Intake past month, compared to normal intake(0) unchanged Problems keeping me from eating past 2 weeks (0) no problem eating In the past month, my activity/functioning rating is(0) normal with no limitations Score 6 or > notify clinician0 Clinician notifiedno Adv Dir: Living [facility] POAyes Living Will Formsdid not bring Healthcare POA Formsdid not bring Violence: Do you feel UNSAFE going back to the place you are livingno Are you or have you been threatened or abused physically,emotionally or sexually abused by anyoneno Depression: 1) During the past 2 wks, have you felt down, depressed or hopelessno 4) Have you had thoughts of harming anyone elseno 2) During the past 2 wks, have you felt little interest/pleasure doing things no 3) Have you had thoughts of harming yourselfno Substance: How many times in the past year have you hd 5 or more drinks within 24 hours0 How many times in past year have you used recreational or prescription drugs for non-medical reasons0 Patient Declined to Answerno Nutrition/Learning: In the past month, was there any day when you or anyone in your family went hungry because you didn't have enough foodno Primary LanguageEnglish Do you, or others today, need extra help due to problems with hearing,speaking, seeing, moving around or learningno Other Agustin Learneryes First and Last NameChristi Kat Relationshipfamily Primary LanguageEnglish Electronic Signatures: Lisa Barajas (JUDITH) (Signed 28-Jan-2019 11:49) Authored: Patient Visit Information, Vital Signs, Allergies, Outpatient Medication Profile, Adult Admission Risk Screen Last Updated: 28-Jan-2019 11:49 by Lisa Barajas (JUDITH) Normal [facility] Clinic Note - Rad Onc-Outpat ient Consulton 01-28-2019 Clinic Note - Rad Onc-Outpatient Consult Visit Information: Visit TypeOutpatient Consult Disease GroupAdult Oncology History of Present Illness: Chief Complaint: Recurrent colon cancer Interval History: Diagnosis: Recurrent cecal cancer at the anterior abdominal wall Physician requesting consultation: Dr. 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 He underwent surgery in 04/2008@[facility]. Subsequently, he completed chemotherapy in November/2018. New surveillance scan in December/2018 shows a sizable right anterior peritoneal mass and left internal iliac lymph node that are PET avid. I was unable to find the right paracolic gutter PET avid they mentioned on report. I read the films with our radiologist here. The anterior peritoneal mass looks like a intra-abdominal met which is possible according to his history of a T4 lesion. However the left pelvic / internal iliac node is puzzling. It does not look like a drop met but a right sided colon cancer should not spread to that location. I am concerned it may be a new left sided cancer. He also does not have a previous scan for us to compare what the peritoneal mass is doing. We reviewed his case at our tumor board on 01/16/2019 and recommendation was for him to proceed with resection of his new intra-abdominal lesions, possibly with intraoperative radiation if there is concern for a closer positive margin. Currently, the patient is doing very well. He has improvement in his energy levels. He has started to work again. He does not have diarrhea, constipation, nausea, or vomiting. Past medical history Noncontributory Family history Noncontributory. Father has a history of Mcadams syndrome. 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 Review of Systems: Review of systems is positive for constipation, but all other systems are negative. Allergies and Intolerances: Allergies: No Known Allergies: Active Outpatient Medication Profile: * Outpatient Medication Status not yet specified Problem List: Family History: Family History: No Family History items are recorded in the problem list. Smoking Status: current every day smoker Tobacco Use: daily Alcohol Use: occasionally Drug Use: denies Additional History: The patient uses chewing tobacco daily for 40 years. Performance Status: Vitals and Measurements: Vitals: Temp: 37.1 HR: 75 RR: 16 BP: 152/92 SPO2%: 100 Measurements: HT(cm): 180 WT(kg): 94.8 BSA: 2.17 BMI: 29.2 Physical Exam: Constitutional: Well developed, awake/alert/oriented x3, no distress, alert and cooperative Eyes: PERRL, EOMI, clear sclera ENMT: mucous membranes moist, no apparent injury, no lesions seen Head/Neck: Neck supple, no apparent injury, thyroid without mass or tenderness, No JVD, trachea midline, no bruits Respiratory/Thorax: Patent airways, CTAB, normal breath sounds with good chest expansion, thorax symmetric Cardiovascular: Regular, rate and rhythm, no murmurs, 2+ equal pulses of the extremities, normal S 1and S 2 Gastrointestinal: Nondistended, soft, non-tender, no rebound tenderness or guarding, no masses palpable, no organomegaly, +BS, no bruits Musculoskeletal: ROM intact, no joint swelling, normal strength Extremities: normal extremities, no cyanosis edema, contusions or wounds, no clubbing Lymphatic: No significant lymphadenopathy Skin: Warm and dry, no lesions, no rashes Assessment and Plan: Assessment and Plan: I discussed with the patient that radiation has the potential to decrease risk of local recurrence from colon cancer by approximately 50%. If there are concerns for a close or positive margin at the time of surgery, I recommended to him that he undergo intraoperative radiation followed by adjuvant chemotherapy and radiation. We discussed that intraoperative radiation is associated with longer operative times, which could increase the risk of an infection or anesthesia complication. There is also a risk that radiation could interfere with healing of the closure of the rectus/abdominal wall muscles and there could be a low risk of requiring reoperation if these muscles do not heal appropriately. The patient consented to intraoperative radiation at the time of surgery, should it be felt to be warranted. Note Recipients: Teri Rice MD - [phone] Rowena Coon MD Electronic Signatures: Merna Oliver) (Signed 28-Jan-2019 12:56) Authored: Information and History, History of Present Illness, Review of Systems, Allergies and Outpatient Medication Profile, Problem List, Social History, Performance Assessments, Vitals and Measurements, Physical Exam, Assessment and Plan, To Send Document via Auto Fax Last Updated: 28-Jan-2019 12:56 by Merna Oliver) Normal [facility] Follow Up (General Surgery)o n 01-20-2019 Follow Up (General Surgery) Diagnoses/Problems Malignant neoplasm of ascending colon (153.6) (C18.2) Mcadams syndrome (V84.09) (Z15.09) Right lower quadrant abdominal mass (789.33) (R19.03) Patient Discussion/Summary 53 year old male with abdominal wall recurrence of Stage II (T4a N0M0) cecal adenocarcinoma. I relayed the tumor board recommendations. Will have him see radiation oncology for possible intra-operate radiation consult. On the CT there seems to be a layer of preperitoneal fat between the tumor and the muscle layers. If we do not have positive margins he will not need intraoperative radiation. He was very interested to know if this could be done laparoscopically. I told him we can try. If the mass is hanging off the peritoneum, it can be done laparoscopically. However, if it is stuck on the abdominal wall or involves the wall, then an open approach would be needed. I would plan a recovery time of at least 4-6 months. The patient has some work constrains and will work on that. Scheduled for radiation oncology consult with Dr. Oliver January 28. Will schedule surgery at [facility] for possible intraoperative radiation after that (early February is best for the patient). laparoscopic possible open excision of abdominal wall mass. Chief Complaint FOLLOW UP Pt here to discuss plan of care History of Present Illness 53 year old male with Mcadams syndrome and Stage II ([id number]) poorly differentiated cecal adenocarcinoma treated with open right hemicolectomy and 8 cycles of oxaliplatin and xeloda seen 12/30/18. His case was discussed in tumor board and the imaging studies shows an isolated recurrence on his right abdominal wall. The left pelvic update was the left ureter. He is here to discuss next step in treatment. 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 (V84.09) (Z15.09) Malignant neoplasm of ascending colon (153.6) (C18.2) Right lower quadrant abdominal mass (789.33) (R19.03) Surgical History History of Colonoscopy History of Right hemicolectomy open Family History Family history of Alcohol abuse Family history of malignant neoplasm of colon (V16.0) (Z80.0) father age 47 (father was adopted) Social History Caffeine use (V49.89) (Z78.9) Non-smoker (V49.89) (Z78.9) Occasional alcohol use Tobacco user (305.1) (Z72.0) tip tobacco Allergies No Known Allergies Recorded By: Rowena Coon; 12/30/2018 6:38:54 PM Current Meds Medication NameInstruction No Reported Medications Vitals Vital Signs Recorded: [id number] 01:56PM Qibxfmyguao56.9 F Heart Rate85 Hrcpvkvtnwn05 Lxlkzagc383 Aleldtbvs90 Height5 ft 11 in Cohkyp407 lb 8 oz BMI Kncndvgpsi13.08 BSA Calculated2.15 Physical Exam ABD: soft, NT, ND, no palpable mass Time Time Stamp_UH: Time Spent With Patient: 45 minutes minutes of which greater than 50 percent was spent counseling and or coordinating care. Signatures Electronically signed by : Rowena Coon MD,; Jan 20 2019 3:36PM EST (Author) Normal [facility] Tumor Board Note-GI/Esophagu son 01-16-2019 Tumor Board Note-GI/Esophagus Note: Tumor Board Note ISAIAS ROSIBEL was presented at GI/Esophagus Tumor Board Conference on 08-Jan-2019 by (Dr. Tete Coon). Referring provider was (Self-referred). Presented from [facility]. Impression: Presented with Hx of cecal cancer s/p resection, adjuvant chemotherapy, now with new intra-abdominal lesions. Outside films PET loaded into the system. Stage II; pT4a N0 M0 Recommendations: 1) Surgery/ excision; 2) Consider IORT Disclaimer [facility] tumor board recommendations represent the consensus opinion of physicians present at a weekly patient care conference. The treating [facility] physician is not always present, and many of the physicians formulating the recommendation have not personally seen or examined the patient under discussion. It is understood that the treating [facility] physician considers the expertise of the Tumor Board Recommendation in formulating his/her plan for the patient. However, in many situations, based on individualized patient considerations, a different plan is determined by the treating physician to be the optimal medical management. 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 new PET positive left internal iliac node.; Due:30Mar2019;Ordered; For:Right lower quadrant abdominal mass; Ordered By:Rowena Coon; Patient competent to provide consent? : Yes-pt mentally competent to provide consent CT Biopsy Abdominal/Retroperitoneal Perc; Status:Hold For - Scheduling; Requested for:30Dec2018; Perform:[facility]; Due:30Mar2019;Ordered; For:Right lower quadrant abdominal mass; Ordered By:Rowena Coon; Patient taking Metformin or Derivatives? : No Radiologist to Determine Optimal Study : Y What are the patient's signs and symptoms? 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 New surveillance scan shows a sizable right anterior peritoneal mass and left internal iliac lymph node that are PET avid. I was unable to find the right paracolic gutter PET avid they mentioned on report. I read the films with our radiologist here. The anterior peritoneal mass looks like a intra-abdominal met which is possible according to his history of a T4 lesion. However the left pelvic / internal iliac node is puzzling. It does not look like a drop met but a right sided colon cancer should not spread to that location. I am concerned it may be a new left sided cancer. He also does not have a previous scan for us to compare what the peritoneal mass is doing. Ordered colonoscopy to look for other potential (left sided) cancer. assess the anastomosis on the right side. Ordered biopsy of the anterior peritoneal mass to prove metastasis. Eventual plan: diagnostic laparoscopy to evaluate the extent of disease if the anterior mass comes back positive of metastasis. if no miliary disease, then proceed with resection of the mass. Follow up after biopsy and colonoscopy. Chief Complaint NEW PATIENT Referred by Dr. Jarquin for cecal cancer. Here to talk about possible surgical intervention. Pt denies N/V, no abdominal pain. No issues moving his bowels, no issues with appetite. 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 Groves. He then received 8 cycles of XELOX regimen (oxaliplatin and oral xeloda). His last treatment was November 13, 2018. He underwent a follow up CT in November [address] PET December 2018 and found a right peritoneal mass and left internal iliac lymph node that were PET positive. The patient denies palpating any masses, weight lost, abnormal stools, blood in his stools, change in appetite, or abdominal pain. He believes this is the first CT after surgery. He has not had a colonoscopy since his initial diagnosis. He is scheduled for a colonoscopy in 04/2019. Review of Systems Constitutional: Negative for Fevers, Chills, Recent Weight Gain or Loss, Sleep Disorder Eyes: Negative for Eye Problems, Discharge, Acute Change in Vision, Double Vision, Glaucoma, Cataracts ENT: Negative for Ear Pain, Hearing Changes, Sinus Problems, Hoarseness, Sore Throat, Change in Voice Cardiovascular: Negative for Chest Pain, Irregular Heart Rate, Palpitations, Lower Extremity Edema Respiratory: Negative for Shortness of Breath, Asthma, Wheezing, Frequent Cough, Hemoptysis Gastrointestinal: Negative for Abdominal Pain, Nausea/Vomiting, Indigestion/Heartburn, Constipation/Diarrhea, Bloody stools, Dysphagia Genitourinary: Negative for Urinary Incontinence, Urinary Frequency, Painful/Burning on Urination Musculoskeletal: Negative for Muscle Weakness, Muscle Cramps, Bone Pain, Muscle Pain, Joint Pain Integumentary: Negative for Rash, Skin lesions, Wounds Neurological: Negative for Tremors, Seizures, Syncope/Fainting, Dizziness, Numbing/Tingling Psychiatric: Negative for Depression, Anxiety, Suicidal Ideations, Change in Personalities Endocrine: Negative for Heat/Cold Intolerance, Excessive urination, Increased Thirst, Irregular Periods, Bleeding after Menopause, Heavy Bleeding Hematologic/Lymphatic: Negative for Swollen Glands, Clotting Problems, Easy Bruising/Bleeding All other systems have been reviewed and are negative for complaint. 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.09) Surgical History History of Colonoscopy History of Right hemicolectomy open Family History Family history of Alcohol abuse Family history of malignant neoplasm of colon (V16.0) (Z80.0) father age 47 (father was adopted) Social History Caffeine use (V49.89) (Z78.9) Non-smoker (V49.89) (Z78.9) Occasional alcohol use Tobacco user (305.1) (Z72.0) tip tobacco Allergies No Known Allergies Recorded By: Rowena Coon; 12/30/2018 6:20:51 PM Current Meds Medication NameInstruction No Reported Medications Vitals Vital Signs Recorded: 30Dec2018 12:57PM Wvanxplvipc70.2 F Heart Rate70 Dhtcfddhubc20 Aosfldjo761 Dypnflhei02 Height5 ft 11 in Hmrcab898 lb 4 oz BMI Mlxbjjflwj15.05 BSA Calculated2.15 Physical Exam Constitutional: Well Developed, Well Nourished, Weight WNL, Adequately Hydrated Eyes: PERRLA, Sclera no icterus ENT: Neck supple, No Swelling, Tenderness, Asymmetry, JVP, Tracheal Deviation Cardiovascular: RRR Respiratory: CTA bilaterally Abdomen: Soft, NT, ND, Bowel Sounds Normal, No Masses, No Palpable Organomegaly, No hernias, midline incision well healed. Integumentary: No Rashes, Abnormal Color, Normal Turgor Musculoskeletal: Free Range of Movement, No Muscular Weakness Lymphatics: No Palpable Lymph Nodes Neurological: Grossly Intact, No change in sensation Psychiatric: Orientated x 3, Appropriate Mood Results/Data I personally reviewed the labs, CT and PET images and report Outside labs 11/26/18 WBC 4 H/H 14.2/40.8 Plt 111 NA 139 Cl 109 K 3.9 CO2 25.5 BUN 7 Cr 0.83 Glucose 122 T. Bili 1.2 AST 61, ALT 47, AP 215 T. Protein 8.2 Alb 3.[address] 11/26/18 ([facility]) 1. Cecal/pericecal postoperative changes. 2.7 cm thick-walled fluid likely collection in the anterior right lower quadrant / pelvic region and below the cecum. May be seroma or necrotic node. CT / PET 12/13/18 [facility] Pathologic FDG avid and centrally necrotic lymph node in the right paracolic gutter adjacent to the prior partial colectomy site. There is a FDG avid lymph node in the left level 2A with a maximum SUV of 3.8. This has a short axis of approximately 8 mm. This could represent distant metastatic disease. Signatures Electronically signed by : Rowena Coon MD,; Dec 30 2018 6:38PM EST (Author) Normal [facility] Glucose Glucometer (BldC) [M ass/Vol]on 12-13-2018 Glucose [Mass/Vol] 100 mg/dL [facility] Comment on above: Random Glucose Refer ence Range is dependent on time and content of last meal. Glucose of more than 200 mg/dL in a nonstressed, ambulatory subject supports the diagnosis of Diabetes Mellitus. Blood anisocytosis detection on 07-01-2018 Anisocytosis Ql (Bld) Moderate [facility] No Panel Informationon 07-01 Platelet Estimate Normal Normal [facility] Platelet Morphology Comment Normal Normal [facility] Poikilocytosis Slight [facility] Ovalocyte detectionon 2017 Ovalocytes LM Ql (Bld) Slight [facility] RBC morphologyon 07-01-2018 RBC morphology finding Nom (Bld) N/A [facility] No Panel Informationon 06-17 Large Platelets Slight [facility] Ferritin [Mass/volume] in Se rum or Plasmaon 05-22-2018 Ferritin [Mass/Vol] 164.0 ng/mL 23.9-336.2 [facility] Hypochromia detectionon 05-09 Hypochromia Ql (Bld) Slight [facility] Iron [Mass/volume] in Serum or Plasmaon 05-22-2018 Iron [Mass/Vol] 74 ug/dL 40-160 [facility] Iron binding capacity [Mass/ volume] in Serum or Plasmaon 05-22-2018 Iron binding capacity [Mass/Vol] 367 ug/dL 255-450 [facility] Iron saturation [Mass Fracti on] in Serum or Plasmaon 05-22-2018 Iron saturation [Mass fraction] 20.0 % 20-50 [facility] Serum or plasma transferrin measurement (mass/volume)on 05-22-2018 Transferrin [Mass/Vol] 262 mg/dL 180-380 [facility] No Panel Informationon 04-23 Microcytosis Moderate [facility] Schistocytes Slight [facility] Red blood cell stomatocyte d etectionon 04-23-2018 Stomatocytes LM Ql (Bld) Slight [facility] Vital Signs Date Time Vital Sign Value Performing Clinician Facility 08-02-2023 13:56-0500 Body height 180.34 cm DO Orestes Fox Work Phone: [facility] 08-02-2023 13:56-0500 Body mass index (BMI) [Ratio] 33.6 kg/m2 DO Orestes Fox Work Phone: [facility] 08-02-2023 13:56-0500 Body temperature 97.2 [degF] DO Orestes Hykes Work Phone: [facility] 08-02-2023 13:56-0500 Body weight 109.31 kg DO Orestes Hykes Work Phone: [facility] 08-02-2023 13:56-0500 Diastolic blood pressure 99 mm[Hg] DO Orestes Hykes Work Phone: [facility] 08-02-2023 13:56-0500 Heart rate 88 /min DO Orestes Hykes Work Phone: [facility] 08-02-2023 13:56-0500 Respiratory rate 16 /min DO Orestes Hykes Work Phone: [facility] 08-02-2023 13:56-0500 SaO2% (BldA) [Mass fraction] 98 % DO Orestes Hykes Work Phone: [facility] 08-02-2023 13:56-0500 Systolic blood pressure 170 mm[Hg] DO Orestes Hykes Work Phone: [facility] 07-18-2023 13:20-0500 Body weight 108.4 kg DO Orestes Hykes Work Phone: [facility] 07-18-2023 13:20-0500 Diastolic blood pressure 89 mm[Hg] DO Orestes Hykes Work Phone: [facility] 07-18-2023 13:20-0500 Heart rate 69 /min DO Orestes Hykes Work Phone: [facility] 07-18-2023 13:20-0500 Respiratory rate 16 /min DO Orestes Hykes Work Phone: [facility] 07-18-2023 13:20-0500 SaO2% (BldA) [Mass fraction] 100 % DO Orestes Hykes Work Phone: [facility] 07-18-2023 13:20-0500 Systolic blood pressure 160 mm[Hg] DO Orestes Hykes Work Phone: [facility] 04-16-2023 16:00-0400 Body height 180.34 cm Mini Camarillo Other [employer] Other 04-16-2023 16:00-0400 Body mass index (BMI) [Ratio] 32.77 kg/m2 Mini Cam[facility] Other [employer] Other 04-16-2023 16:00-0400 Body temperature 97.3 [degF] Mini Camarillo Other [employer] Other 04-16-2023 16:00-0400 Body weight 106.6 kg Mini Camarillo Other [employer] Other 04-16-2023 16:00-0400 Diastolic blood pressure 83 mm[Hg] Mini Camarillo Other [employer] Other 04-16-2023 16:00-0400 Systolic blood pressure 122 mm[Hg] Mini Camarillo Other [employer] Other 01-11-2023 13:35-0400 Body temperature 97.8 [degF] MD Teri Rice Work Phone: [facility] 01-11-2023 13:35-0400 Body weight 112.03 kg MD Teri Rice Work Phone: [facility] 01-11-2023 13:35-0400 Diastolic blood pressure 84 mm[Hg] MD Teri Rice Work Phone: [facility] 01-11-2023 13:35-0400 Heart rate 91 /min MD Teri Rice Work Phone: [facility] 01-11-2023 13:35-0400 Respiratory rate 16 /min MD Teri Rice Work Phone: [facility] 01-11-2023 13:35-0400 SaO2% (BldA) [Mass fraction] 98 % MD Teri Rice Work Phone: [facility] 01-11-2023 13:35-0400 Systolic blood pressure 167 mm[Hg] MD Teri Rice Work Phone: [facility] 10-18-2022 11:42-0400 Body temperature 97.8 [degF] MD Teri Rice Work Phone: [facility] 10-18-2022 11:42-0400 Diastolic blood pressure 118 mm[Hg] MD Teri Rice Work Phone: [facility] 10-18-2022 11:42-0400 Heart rate 75 /min MD Teri Rice Work Phone: [facility] 10-18-2022 11:42-0400 Respiratory rate 16 /min MD Teri Rice Work Phone: [facility] 10-18-2022 11:42-0400 SaO2% (BldA) [Mass fraction] 98 % MD Teri Rice Work Phone: [facility] 10-18-2022 11:42-0400 Systolic blood pressure 204 mm[Hg] MD Teri Rice Work Phone: [facility] 10-18-2022 07:55-0400 Blood Pressure Location Eulalia Lue [facility] 10-18-2022 07:55-0400 Diastolic blood pressure 95 mm[Hg] Eulalia Lue [facility] 10-18-2022 07:55-0400 Heart rate 70 /min Eulalia Lue [facility] 10-18-2022 07:55-0400 Systolic blood pressure 160 mm[Hg] Eulalia Torres [facility] 08-21-2022 09:10-0500 Diastolic blood pressure 87 mm[Hg] MD Teri Rice Work Phone: [facility] 08-21-2022 09:10-0500 Heart rate 59 /min MD Teri Rice Work Phone: [facility] 08-21-2022 09:10-0500 Respiratory rate 14 /min MD Teri Rice Work Phone: [facility] 08-21-2022 09:10-0500 SaO2% (BldA) [Mass fraction] 97 % MD Teri Rice Work Phone: [facility] 08-21-2022 09:10-0500 Systolic blood pressure 140 mm[Hg] MD Teri Rice Work Phone: [facility] 08-21-2022 08:18-0500 Inhaled oxygen flow rate 6 L/min MD Teri Rice Work Phone: [facility] 08-21-2022 07:00-0500 Body height 180.34 cm MD Teri Rice Work Phone: [facility] 08-21-2022 07:00-0500 Body mass index (BMI) [Ratio] 33.5 kg/m2 MD Teri Rice Work Phone: [facility] 08-21-2022 07:00-0500 Body weight 109 kg MD Teri Rice Work Phone: [facility] 08-21-2022 06:12-0500 Body temperature 98.3 [degF] MD Teri Rice Work Phone: [facility] 07-20-2022 15:00-0500 Body temperature 98 [degF] MD Teri Rice Work Phone: [facility] 07-20-2022 15:00-0500 Body weight 111.13 kg MD Teri Rice Work Phone: [facility] 07-20-2022 15:00-0500 Diastolic blood pressure 98 mm[Hg] MD Teri Rice Work Phone: [facility] 07-20-2022 15:00-0500 Heart rate 78 /min MD Teri Rice Work Phone: [facility] 07-20-2022 15:00-0500 Respiratory rate 16 /min MD Teri Rice Work Phone: [facility] 07-20-2022 15:00-0500 SaO2% (BldA) [Mass fraction] 98 % MD Teri Rice Work Phone: [facility] 07-20-2022 15:00-0500 Systolic blood pressure 188 mm[Hg] MD Teri Rice Work Phone: [facility] 07-19-2022 08:42-0500 Blood Pressure Location Eulalia Lue [facility] 07-19-2022 08:42-0500 Diastolic blood pressure 86 mm[Hg] Eulalia Lue [facility] 07-19-2022 08:42-0500 Heart rate 78 /min [facility] [facility] 07-19-2022 08:42-0500 Respiratory rate 16 /min Eulalia Lue [facility] 07-19-2022 08:42-0500 Systolic blood pressure 140 mm[Hg] Eulalia Lue [facility] 06-21-2022 13:42-0500 Body height 180.34 cm MD Teri Rice Work Phone: [facility] 06-21-2022 13:42-0500 Body temperature 98 [degF] MD Teri Rice Work Phone: [facility] 06-21-2022 13:42-0500 Body weight 110 kg MD Teri Rice Work Phone: [facility] 06-21-2022 13:42-0500 Diastolic blood pressure 76 mm[Hg] MD Teri Rice Work Phone: [facility] 06-21-2022 13:42-0500 Heart rate 79 /min MD Teri Rice Work Phone: [facility] 06-21-2022 13:42-0500 Respiratory rate 18 /min MD Teri Rice Work Phone: [facility] 06-21-2022 13:42-0500 SaO2% (BldA) [Mass fraction] 98 % MD Teri Rice Work Phone: [facility] 06-21-2022 13:42-0500 Systolic blood pressure 158 mm[Hg] MD Teri Rice Work Phone: [facility] 05-23-2022 14:52-0500 Blood Pressure Location Eulalia Lue [facility] 05-23-2022 14:52-0500 Diastolic blood pressure 87 mm[Hg] Eulalia Lue [facility] 05-23-2022 14:52-0500 Heart rate 54 /min Eulalia Lue [facility] 05-23-2022 14:52-0500 Mean blood pressure 109 mm[Hg] Eulalia Lue [facility] 05-23-2022 14:52-0500 Respiratory rate 18 /min Eulalia Lue [facility] 05-23-2022 14:52-0500 SaO2% (BldA) [Mass fraction] 100 % Eulalia Lue [facility] 05-23-2022 14:52-0500 Systolic blood pressure 154 mm[Hg] Eulalia Lue [facility] 05-23-2022 13:58-0500 Blood Pressure Location Eulalia Lue [facility] 05-23-2022 13:58-0500 Diastolic blood pressure 107 mm[Hg] Eulalia Lue [facility] 05-23-2022 13:58-0500 Heart rate 54 /min Eulalia Lue [facility] 05-23-2022 13:58-0500 Mean blood pressure 129 mm[Hg] Eulalia Lue [facility] 05-23-2022 13:58-0500 Respiratory rate 18 /min Eulalia Lue [facility] 05-23-2022 13:58-0500 SaO2% (BldA) [Mass fraction] 100 % Eulalia Lue [facility] 05-23-2022 13:58-0500 Systolic blood pressure 174 mm[Hg] Eulalia Lue [facility] 05-23-2022 13:50-0500 Blood Pressure Location Eulalia Lue [facility] 05-23-2022 13:50-0500 Body temperature 97.16 [degF] Eulalia Lue [facility] 05-23-2022 13:50-0500 Diastolic blood pressure 98 mm[Hg] Eulalia Lue [facility] 05-23-2022 13:50-0500 Heart rate 54 /min Eulalia Lue [facility] 05-23-2022 13:50-0500 Respiratory rate 22 /min Eulalia Lue [facility] 05-23-2022 13:50-0500 SaO2% (BldA) [Mass fraction] 100 % Eulalia Lue [facility] 05-23-2022 13:50-0500 Systolic blood pressure 141 mm[Hg] Eulalia Lue [facility] 05-23-2022 13:35-0500 Respiratory rate 10 /min Eulalia Lue [facility] 05-23-2022 13:30-0500 Respiratory rate 12 /min Eulalia Lue [facility] 05-23-2022 13:23-0500 Body temperature 97.7 [degF] Eulalia Lue [facility] 05-23-2022 10:21-0500 Mean blood pressure 113 mm[Hg] Eulalia Lue [facility] 05-23-2022 09:55-0500 Body temperature 97.34 [degF] Eulalia Lue [facility] 05-23-2022 09:55-0500 Respiratory rate 16 /min Eulalia Lue [facility] 05-23-2022 09:55-0500 Heart rate 72 /min Eulalia Lue [facility] 05-17-2022 09:14-0500 Diastolic blood pressure 97 mm[Hg] Eulalia Lue [facility] 05-17-2022 09:14-0500 Heart rate 67 /min Eulalia Lue [facility] 05-17-2022 09:14-0500 Mean blood pressure 124 mm[Hg] Eulalia Lue [facility] 05-17-2022 09:14-0500 Systolic blood pressure 176 mm[Hg] Eulalia Lue [facility] 05-17-2022 09:14-0500 Blood Pressure Location Eulalia Lue [facility] 05-17-2022 09:12-0500 Blood Pressure Location Eulalia Lue [facility] 05-17-2022 09:12-0500 BP/Pulse Patient Position Eulalia Lue [facility] 05-17-2022 09:12-0500 Diastolic blood pressure 103 mm[Hg] Eulalia Lue [facility] 05-17-2022 09:12-0500 Heart rate 67 /min Eulalia Lue [facility] 05-17-2022 09:12-0500 Mean blood pressure 122 mm[Hg] Eulalia Lue [facility] 05-17-2022 09:12-0500 Systolic blood pressure 161 mm[Hg] Eulalia Lue [facility] 05-17-2022 08:38-0500 Blood Pressure Location Eulalia Lue [facility] 05-17-2022 08:38-0500 BP/Pulse Patient Position Eulalia Lue [facility] 05-17-2022 08:38-0500 Diastolic blood pressure 100 mm[Hg] Eulalia Lue [facility] 05-17-2022 08:38-0500 Heart rate 76 /min Eulalia Lue [facility] 05-17-2022 08:38-0500 Mean blood pressure 123 mm[Hg] Eulalia Lue [facility] 05-17-2022 08:38-0500 Respiratory rate 16 /min Eulalia Lue [facility] 05-17-2022 08:38-0500 SaO2% (BldA) [Mass fraction] 97 % Eulalia Lue [facility] 05-17-2022 08:38-0500 Systolic blood pressure 169 mm[Hg] Eulalia Lue [facility] 05-17-2022 08:37-0500 BP/Pulse Patient Position Eulalia Lue [facility] 05-17-2022 08:37-0500 Respiratory rate 18 /min Eulalia Lue [facility] 05-17-2022 08:37-0500 SaO2% (BldA) [Mass fraction] 97 % Eulalia Lue [facility] 05-17-2022 08:37-0500 Body temperature 97.88 [degF] Eulalia Lue [facility] 04-26-2022 08:55-0400 Blood Pressure Location Eulaila Lue [facility] 04-26-2022 08:55-0400 Diastolic blood pressure 82 mm[Hg] Eulalia Lue [facility] 04-26-2022 08:55-0400 Respiratory rate 16 /min Eulalia Torres [facility] 04-26-2022 08:55-0400 Systolic blood pressure 140 mm[Hg] Eulalia Torres [facility] Encounters Encounter Date Encounter Type Care Provider Facility Start: 08-02-2023 ambulatory NON STAFF Facility:[facility] Start: 08-02-2023 Registered Recurring DO Orestes Fox Work Phone: [facility] Work Phone: Start: 08-02-2023 End: 08-02-2023 ambulatory DO Orestes Fox Work Phone: [facility] Work Phone: Start: 08-02-2023 End: 08-02-2023 Patient encounter procedure DO Orestes Fox Work Phone: [facility] Amb[facility] Work Phone: Start: 07-18-2023 End: 07-18-2023 ambulatory DO Orestes Fox Work Phone: [facility] Work Phone: Start: 07-18-2023 End: 07-18-2023 Registered Recurring DO [facility]restes [facility] Start: 05-14-2023 End: 05-14-2023 ambulatory Mini Rabia Other [employer] Other Start: 05-14-2023 Telephone encounter Minilevi Camarillo [facility] Start: 04-30-2023 End: 04-30-2023 ambulatory Mnii Rabia Other [employer] Other Start: 04-30-2023 Telephone encounter Minilevi Camarillo [facility] Start: 04-25-2023 ambulatory Eulalia Torres Facility:[facility] [place] Start: 04-16-2023 End: 04-16-2023 ambulatory Mini Camarillo Other [facility] [employer] Other Start: 04-16-2023 Office outpatient vi sit 15 minutes Mini Camarillo [facility] Start: 01-11-2023 End: 01-11-2023 ambulatory MD Teri Rice Work Phone: [facility] Work Phone: Start: 01-11-2023 End: 01-11-2023 Registered Recurring MD Teri Rice Work Phone: [facility] Work Phone: Start: 11-08-2022 End: 11-08-2022 ambulatory MD Teri Rice Work Phone: [facility] Work Phone: Start: 11-08-2022 End: 11-08-2022 Registered Recurring MD Teri Rice Work Phone: [facility] Work Phone: Start: 11-06-2022 End: 11-06-2022 ambulatory MD Teri Rice Work Phone: [facility] Work Phone: Start: 11-06-2022 End: 11-06-2022 Patient encounter procedure MD Teri Rice Work Phone: [facility] [place] Work Phone: Start: 10-18-2022 Registered Recurring MD Fermin Rice Work Phone: [facility] Work Phone: Start: 10-18-2022 End: 10-19-2022 ambulatory Eulalia Torres Facility:[facility] Start: 10-18-2022 End: 10-18-2022 Patient encounter procedure Eulalia Torres [facility] Start: 08-24-2022 End: 08-24-2022 ambulatory MD Teri Rice Work Phone: [facility] Work Phone: Start: 08-24-2022 End: 08-24-2022 Registered Recurring MD Teri Rice Work Phone: [facility] Work Phone: Start: 08-21-2022 End: 08-21-2022 ambulatory Teri Rice Facility:[facility] Start: 08-21-2022 End: 08-21-2022 Admission to same day surgery center MD Teri Rice Work Phone: [facility] [place] Start: 08-21-2022 End: 08-21-2022 ambulatory MD Teri Rice Work Phone: [facility] Work Phone: Start: 08-14-2022 End: 08-14-2022 ambulatory Margarette Lisa Facility:[facility] Start: 08-14-2022 End: 08-14-2022 ambulatory MD Teri Rice Work Phone: [facility] Work Phone: Start: 08-14-2022 End: 08-14-2022 Patient encounter procedure MD Teri Rice Work Phone: [facility] Work Phone: Start: 08-14-2022 Registered Recurring MD Fermin Rice Work Phone: [facility] Work Phone: Start: 07-20-2022 End: 07-20-2022 ambulatory MD Teri Rice Work Phone: [facility] Work Phone: Start: 07-20-2022 End: 07-20-2022 Registered Recurring MD Teri Rice Work Phone: [facility] Work Phone: Start: 07-19-2022 End: 07-20-2022 ambulatory Eulalia Torres Facility:[facility] Start: 07-19-2022 End: 07-19-2022 Patient encounter procedure Eulalia Torres [facility] [place] Start: 06-19-2022 End: 06-19-2022 ambulatory MD Teri Rice Work Phone: [facility] Work Phone: Start: 06-19-2022 End: 06-19-2022 Patient encounter procedure MD Teri Rice Work Phone: [facility] Start: 06-07-2022 End: 06-08-2022 ambulatory Eulalia Torres Facility:[facility] [place] Start: 06-07-2022 End: 06-07-2022 Patient encounter procedure Eulalia Torres [facility] Start: 05-23-2022 End: 05-23-2022 ambulatory Eulalia Torres [facility] Start: 05-23-2022 End: 05-23-2022 Admission to same day surgery center Eulalia Torres [facility] Start: 05-18-2022 End: 05-18-[address] TERI RICE Facility: Start: 05-17-2022 End: 05-18-2022 ambulatory Eulalia SusieDora Torres [facility] Start: 05-17-2022 End: 05-17-2022 Patient encounter procedure Eulalia Torres [facility] Start: 05-08-2022 End: 05-08-2022 ambulatory MD Teri Rice Work Phone: [facility] Work Phone: Start: 05-08-2022 End: 05-08-2022 Patient encounter procedure MD Teri Rice Work Phone: [facility] [place] Start: 04-26-2022 End: 04-27-2022 ambulatory Eulalia Torres Facility:[facility] Start: 04-26-2022 End: 04-26-2022 Patient encounter procedure Eulalia Torres [facility] Start: 04-03-2022 ambulatory Eulalia Brian Facility:[facility] [place] Start: 03-27-2022 Encounter for genera l adult medical examination without abnormal findings DR TERI RICE [facility] Start: 03-23-2022 End: 03-24-[address] TERI RICE Facility:[facility] Start: 03-23-2022 End: 03-24-2022 Encounter for general adult medical examination without abnormal findings DR TERI RICE Facility: Start: 04-01-2018 End: 04-02-2018 Patient encounter DEFAULT PHYSICIAN Facility:[facility] Start: 03-25-2018 End: 03-26-2018 Patient encounter DEFAULT PHYSICIAN Facility:[facility] Procedures Date Procedure Procedure Detail Performing Clinician Start: 07-31-2023 Dual energy X-ray absorptiometry DO Orestes Fox Work Phone: Start: 11-06-2022 Carcinoembryonic antigen cea Martin Groves Comment on above: Order Comment: Reaso n for Exam Mcadams syndrome Result Comment: PERF ORMED BY: [facility] [address] [place] [address] PATHOLOGIST BEAUTY COUNSELOR KETAN EVANS M.D. Performed By: #### C EA #### [address] Start: 11-06-2022 Computed tomography of abdomen and pelvis with contrast MD Teri Rice Work Phone: Start: 11-06-2022 CT of thorax with contrast MD Teri Rice Work Phone: Start: 08-24-2022 MR prostate wo/w con MD Teri Rice Work Phone: Start: 08-21-2022 Injection of substance MD Teri Rice Work Phone: Start: 06-19-2022 Positron emission tomography MD Teri Rice Work Phone: Start: 05-23-2022 Biopsy of prostate Basilia y Lue Start: 05-23-2022 MRI-US fusion guided transperineal biopsy of prostate Eulalia Lue Start: 05-08-2022 MR prostate wo/w con MD Teri Rice Work Phone: Start: 03-23-[address] FERMIN RICE Comment on above: Performed By: #### P [facility] #### [facility] [address] [place] [address] Dr. Delia Posey Start: 06-19-2019 Computed tomography of abdomen and pelvis with contrast MD Teri Rice Work Phone: Start: 02-18-2019 Antibody screen Comment on above: Performed By: #### T +S #### [facility] [address] [place] [address] Start: 02-06-2019 Partial resection of colon Eulalia Lue Start: 12-13-2018 Positron emission to mography with computed tomography MD Teri Rice Work Phone: Start: 11-26-2018 Computed tomography of abdomen and pelvis with contrast MD Teri Rice Work Phone: Start: 04-09-2018 Colonoscopy Eulalia Torres Plan of Treatment Date Care Activity Detail Author Start: 02-09-2023 [facility] Start: 01-11-2023 [facility] Start: 11-06-2022 Computed tomography of abdomen and pelvis with contrast CT abdomen pelvis w con [facility] Start: 11-06-2022 CT of thorax with contrast CT chest w con [facility] Start: 08-24-2022 MR Prostate WO and W contrast IV [facility] Start: 08-24-2022 MR prostate wo/w con MR prostate wo/w con [facility] Start: 08-21-2022 End: 08-21-2022 [facility] Start: 07-20-2022 Carcinoembryonic Ag [Mass/volume] in Serum or Plasma [facility] Start: 07-20-2022 Testosterone [Mass/volume] in Serum or Plasma [facility] Start: 07-20-2022 [facility] Start: 05-08-2022 MR Prostate WO and W contrast IV [facility] Start: 05-08-2022 MR prostate wo/w con MR prostate wo/w con [facility] Start: 10-21-2018 [facility] Start: 10-21-2018 [facility] Start: 06-10-2018 [facility] Start: 04-30-2018 [facility] Start: 04-23-2018 [facility] Comprehensive metabo lic 2000 panel - Serum or Plasma [facility] Computed tomography for radiotherapy planning [facility] MR Prostate WO and W contrast IV [facility] Patient referral [facility] Work Phone: [facility] Immunizations Immunization Date Immunization Notes Care Provider Fa cility 10-01-2020 SARS-CoV-2 (COVID-19 ) mRNA-3553 vaccine Eulalia Brian [facility] Comment on above: Result Comment: 2021: TPV23 09-01-2020 SARS-CoV-2 (COVID-19 ) mRNA-2553 vaccine Eulalia Torres [facility] Comment on above: Result Comment: 2021: TPV23 Payers Date Payer Category Payer Self-pay [id number] 2021 Unknown [id number] 1965 Unknown [id number] 1965 Unknown [id number] 1965 Unknown [id number] 1965 Unknown [id number] 1964 Unknown [id number] 1964 Unknown [id number] 1964 Unknown [id number] [id number] 1964 Unknown [id number] [id number] 1965 Unknown [id number] 1959 Unknown [id number] Private Health Insurance [employer] [id number] Unknown Unknown [id number] Unknown [id number] Unknown [id number] Unknown [id number] Social History Date Type Detail Facility Start: 04-26-2022 End: 08-02-2023 Tobacco smoking status Never smoked tobacco (finding) [facility] Tobacco smoking status Smokeless tobacco user within last 30 days [facility] Sex Assigned At Male [facility] Start: 1965 Sex Assigned At Male F [facility] Medical Equipment Procedure Code Equipment Code Equipment Origin al Text Equipment Identifier Dates Injection, hydrogel spacer Radiotherapy protection spacer [id number] FDA Start: 08-21-2022 Injection, hydrogel spacer Imaging lesion localization marker, implantable [id number] FDA Start: 08-21-2022 Goals Date Patient Goal Desired Activity /State Functional Status Date Assessment Result Facility 10-18-2022 Functional Status N/A [facility] 07-19-2022 Functional Status N/A [facility] 06-07-2022 Functional Status N/A [facility] 05-17-2022 Functional Status No [facility] 04-26-2022 Functional Status N/A [facility] Clinical Notes 04-23-2018 to 07-18-2023 Note Date & Type Note Facility 07-18-2023 Progress note Note Date/Time July 18, 2023 10:11am [facility] at [address] [address] Rad Onc Follow Up Note - OP Signed Patient: Alt,Isaias MR#: [id number] 321 : 1965 Acct:[id number] Age/Sex: 58 / M Type: REG RCR Copies to: NON STAFF Orestes Fox Jr, DO Martin Groves DO~ Date of Service Service Date: 07/18/23 Assessment & Plan (1) Prostate cancer Plan: Return to clinic as needed Assessment: 58-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 Oncologic history: 1. 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 2. [id number] of adenocarcinoma the prostate, [id number] M0 Pierz 3+4 equal 7. iPSA 23 ng/mL. High risk. Pathology shows 2 areas of Jacky 3+4 disease on the right gland. mpMRI notable for right-sided seminal vesicle invasion and extracapsular extension. PSMA PET negative. Decipher 0.98 consistent with very high risk disease. Patient initiated on Lupron August 2022. October 11, 2021 patient completed IMRT to a dose of 70 Warner in 28 fractions to theprostate and seminal vesicles with concurrent ADT (45mg Lupron 08/14/22). Regional lymph node radiation was deferred secondary to the Mcadams syndrome and need to minimize risk of secondary malignancy as well as his prior bowel surgery. He was initiated on tamsulosin 0.4 mg. Posttreatment PSA January 2023 PSA < 0.13 Last Lupron injection 45 mg in February 2023 patient is due for an injection this month. From a radiation standpoint he is urinating back to his baseline. Stable nocturia 1-2 times per night we will continue on the tamsulosin. He is frustrated with the side effects of ADT and with his other medical conditions itis not unreasonable to consider stopping after the third dose for approximately 1.5 years. Patient communicates his understanding. He will continue under the care of medical oncology for ongoing ADT and labs. Consequently we will discharge him in their care. We are happy to see him back at any time if there is a need for additional radiation or radiation related concerns. 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 Oncologic history: 1. Cecal adenocarcinoma status post hemicolectomy followed by chemotherapy in 2017. Last colonoscopy January 2023 2. [id number] of adenocarcinoma the prostate, Pierz 3+4 equal 7. iPSA 23 ng/mL. High risk. Pathology shows 2 areas of Pierz 3+4 disease on the right gland. mpMRI notable for right-sided seminal vesicle invasion and extracapsular extension. Most recent PSMA PET is negative for lymphadenopathy or kimi metastatic disease. (3) Mcadams syndrome Plan: Patient was unable to obtain an colonoscopy for financial reasons as his insurance is refusing to cover stating colonoscopy would only be covered every 10 years. Patient is aware of his diagnosis of Mcadams syndrome and is very frustrated and depressed. We reviewed the NCCN guidelines which clearly show the need for preventative colonoscopy every 1 to 2 years. 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 We will discuss the need for colonoscopy with [facility] to see if financial support is available. We will also reach out to the surgeons office to discuss how this is being coded. Follow Up Note - Narrative 58-year-old male past medical history notable for Mcadams syndrome with a history of cecal carcinoma, status post right hemicolectomy performed 05/06/2018. Invasive moderately differentiated to poorly differentiated colon adenocarcinomainvading full transmural extension past subserosa into pericolic soft tissue. Directly penetrating the serosa. He received systemic therapy under the care ofmedical oncology. In 2019 he had resection of right lower quadrant peritoneal/abdominal wall PET avid mass with biopsy consistent with recurrent adenocarcinoma. He underwent complete resection with negative margins 02/18/2019. June 2019 CEA 4.6. May 2021 CEA 3.2. PSA history: March 2021 11.5 Repeat PSA 2020 12.March PSA 31 July 2022 PSA 16.4 testosterone 2.84 May 08, 2022 multi parametric MRI showed a 56 mL gland. There is a focal area of T2 hypointensity involving the posterior lateral aspect of the right peripheral zone at the level of the base measuring 2.2 cm with associated restricted diffusion and low ADC. There is extracapsular extension with right seminal vesicle and neurovascular bundle involvement also abnormal enhancement on the postcontrast series. May 23, 2022 MRI fusion transperineal biopsy was done showing 2 of 21 corespositive Jacky 3+4 equal 7. September 2021 for colonoscopy which was negative. At consult AUA 4 with stable nocturia 1 time per night. Quality of life = delighted. Migue 25. Decipher 0.98 consistent with high risk disease. August 2022 initiated on 45 mg of Lupron October 11, 2021 patient completed IMRT to a dose of 70 Warner in 28 fractions to theprostate and seminal vesicles. Regional lymph node radiation was deferred secondary to the Mcadams syndrome and need to minimize risk of secondary malignancy as well as his prior bowel surgery. He was initiated on tamsulosin 0.4 mg with an excellent response and reduction in his urinary frequency and urgency. He also was given a 14-day course of ciprofloxacin despite the negative UA which also seem to help. He did experience ongoing hot flashes and night sweats from the ADT. Posttreatment PSA January 2023 PSA < 0.13 Last Lupron in February 2023 45 mg. He is scheduled for injection this month. Today AUA is 7 with nocturia 2 times a night. Continues on the Flomax once daily. Quality of life is pleased. MIGUE is 21. Patient continues to report occasional loose stools however that is his baseline due to the prior colon cancer. He is complaining the side effects of the ongoing ADT with weight gain fatigue muscle weakness. He also endorses depression. He did not get a colonoscopy last year for financial reasons. He states his insurance is refusing to cover it annually despite the Mcadams syndrome. Physical Exam KPS 90 General: alert and oriented male in no acute distress HEENT: normocephalic, extra ocular movements intact Lungs: normal work of breathing on room air Abdomen: non acute MSK: extremities within normal limits Neuro: grossly intact Dictated By: Margarette Lisa MD DD/ [id number] Signed By: <Electronically signed by Margarette Lisa MD> 07/18/23 [address] [facility] Work Phone: 1(165) 280-952311-06-2023 Evaluation note* Encounter Date Diagnosis Assessment Notes Treatment Notes Treatment Clinical Notes May, Adjustment disorder with mixed anxiety and depressed mood (ICD-10 - F43.23) Pat reports some improvement in mood/anxiety with recent dose titration to 50 mg daily. Will continue current dose and recheck in the office in 6 weeks. [employer] Other 10-23-2023 Evaluation note* Encounter Date Diagnosis Assessment Notes Treatment Notes Treatment Clinical Notes Apr, Adjustment disorder with mixed anxiety and depressed mood (ICD-10 - F43.23) Tolerating sertraline well, not noticing any/much improvement in anxiety/mood Increase dose to 50 mg daily Recheck by phone in 3 weeks [employer] Other 10-09-2023 Evaluation note* Encounter Date Diagnosis Assessment Notes Treatment Notes Treatment Clinical Notes Apr, Encounter for palliative care (ICD-10 - Z51.5) Initiated palliative care to assist with symptom management, goals of care/ advanced care planning and provide additonal support Apr, Adjustment disorder with mixed anxiety and depressed mood (ICD-10 - F43.23) Isaias reports ongoing disruption of his quality of life with feelings of anxiety and depression and is interested in treating his symptoms. ANNA-7 score 19 (severe anxiety) PHQ-9 score 10 (moderate depression Agrees to trial of SSRI with sertraline 25 mg daily, titrating dose if well tolerated Headspace mindfulness meditation iman recommended to patient as he is not currently interested in individual counseling and concerned about additional financial strain Apr, Malignant neoplasm of prostate (ICD-10 - C61) Adenocarcinoma of the prostate, Pierz score 3+4=7 s/p IMRT 70 cGy/28 Fx with concurrent ADT Apr, Malignant neoplasm of cecum (ICD-10 - C18.0) Invasive poorly differentiated adenocarcioma s/p right hemicolectomy 05/01/2018 Systemic therapy with XELOX completed November 2018 Solitary right lower quadrant peritoneal recurrence with resection February 2019 [employer] Other 07-07-2023 Progress note Author Myranda Jarquin [facility] January 12, 2023 4:32pm Note Date/Time January 11, 2023 2:05p m [facility] [place] [address] Hem/Onc Follow Up Note - OP Signed Patient: Isaias Gleason MR#: [id number] : 1965 Acct:[id number] Age/Sex: 57 / M Type: REG RCR Copies to: Orestes Fox Jr, MD Eulalia Hyman MD Norleena Poynter, MD Paul C Laffay, DO~ Subjective Date/Time of Service: Date of Service: 01/11/2023 Time of Service: 13:30 Chief Complaint: Patient is here today for his prostate cancer HPI: 01/11/2023: I have not evaluated the patient in clinic over the past 3-1/2 years with original referral for cecal carcinoma with resection of prior peritoneal metastasis. Since his last evaluation with me in 2019, he was referred to Dr. Lisa of radiation oncology for [id number] of adenocarcinoma the prostate, cT3bN0 M0 Pierz 3+4 equal 7. iPSA 23 ng/mL. High risk. Pathology shows 2 areas of Pierz 3+4 disease on the right gland. mpMRI notable for right-sidedseminal vesicle invasion and extracapsular extension. PSMA PET negative. Decipher 0.98 consistent with very high risk disease. -- He was started on Lupron 45 mg IM 6-month dosing on 08/14/2022. He completed IMRT to a dose of 70 Warner in 28 fractions to the prostate and seminal vesicles with last dose 10/11/2022. She decided against regional lymph node radiation because of Mcadams syndrome to minimize risk of secondary malignancy. She referred him back to genetic testing where they found no other new mutations other than his Mcadams syndrome risk. -- He continues to note side effects of ADT including hot flashes, night sweats,decreased libido, and erectile dysfunction as well as some tightness over his chest consistent with mild gynecomastia without palpable mass. We discussed therisks and benefits of ongoing androgen deprivation therapy. DEXA scan was ordered to determine bone density. He was noted to have significant decline of his PSA from baseline 23 in March 2022, 16.410 in July 2022, to most recently <0.13 with testosterone <3 drawn 01/10/2023 at [place] lab. He agrees to continue planned 2 years of ADT with next dose of Lupron scheduled late January 2023. I will continue to follow him every 3 months with labs for PSA and total testosterone, sooner if new symptoms arise. Next follow-up visit with me in 6 months with the same laboratories and he will continue follow-up with Dr. Torres ofurology. We will contact him to review DEXA scan and appropriate calcium/vitamin D, possible bisphosphonate based on result. He is due for follow-up colonoscopy for Mcadams syndrome and cecal carcinoma we will schedule this with Dr. Groves. --High complexity 45-minute visit for resuming care for both his cecal carcinomaas well as recent diagnosis of high risk prostate cancer. PREVIOUS MEDICAL ONCOLOGY VISIT 06/26/2019: Isaias presented to the clinic today for his scheduled follow-up appointment toreview exam, CEA, and restaging CT Abdomen/Pelvis. The patient completed his annual EGD/Colonoscopy by Dr. 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 Noted to have erosive esophagitis, but denies reflux symptoms or dysphagia. He has 2-3 loose stools daily following his right colectomy. The patient denies abdominal pain, melena, hematochezia. The patient voices peripheral neuropathy in fingertips/toes no change. --CEA has risen to 4.6, but no new changes on exam and no evidence of recurrenceon CT Abdomen/Pelvis. He does not smoke cigarettes, but does use smokeless dip tobacco and we discussed that this may be associated with false positive CEA. He also discussed CBD oil which may also have effects on CEA. I recommended continued surveillance with exam/labs every 3 months and imaging in 6 months if continued elevation of CEA, sooner if new symptoms. DIAGNOSES: 1. Cecal carcinoma, originally presented to [facility] with iron deficiency anemia of occult source. Known family history of colon cancer in father who at age 48. --Right hemicolectomy performed 05/06/2018. 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 Directly penetrating the serosa. Clinical history of a contained perforation against the lateral peritoneum was noted. Terminal ileum and ileocecal valve involvement by colonic adenocarcinomaidentified. Negative mesenteric, true peritoneum, and colon proximal and distalmargins of resection. 36 out of 36 pericolic lymph nodes are negative for metastatic colon adenocarcinoma. Fibrous obliteration of appendix lumen. 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 MSH2 and MSH6 show intact nuclear expression. --Medical genetics eval 06/19/2018. 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 They discussed screening recommendations for family members and frequency of colonoscopy for surveillance. 2. Iron deficiency anemia, originally presented with hemoglobin 4.5 on 03/30/2018. 6 units blood transfused -- Injectafer iron therapy 750 mg IV on 04/23 and 05/01/2018 prior to surgery. 3. Resection of right lower quadrant peritoneal/abdominal wall PET avid mass with biopsy consistent with recurrent adenocarcinoma. He underwent complete resection with negative margins 02/18/2019 as noted above by Dr. Mia Coon at [facility] surgical oncology. He did not require intraoperative radiation therapy and we are re-presenting his case at GI tumor board to discusswhether pseudo-adjuvant therapy versus observation is recommended. 4. New diagnosis of [id number] adenocarcinoma of prostate, Pierz 3+4 equal 7, iPSA 23 ng/m pathology showed 2 areas of Pierz 3+4 disease of the right gland.mpMRI notable for right-sided seminal vesicle invasion and extracapsular invasion. --PSMA PET CT negative for distant metastatic disease. Decipher testing 0.98 consistent with very high risk disease. -- Dr. Lisa treated with IMRT to dose of 70 Warner in 28 fractions to the prostate and seminal vesicles with concurrent ADT (Lupron 45 mg IM 08/14/2022). Regional lymph node radiation deferred due to Mcadams syndrome to minimize risk ofsecondary malignancy. Continues tamsulosin 0.4 mg. PREVIOUS HISTORY: This is a now 57-year-old male who does not seek regular medical care who presented to the emergency department with weakness and presyncopal sensation. He noticed a gradual feeling of increased fatigability and shortness of breath with exertion with heaviness in the thighs legs and arms. He did not have any visible bright red blood per rectum but had guaiac positive stool. His hemoglobin was 4.5. He underwent transfusion of a total of 6 units of blood andhad not had any visible gastrointestinal bleeding during the hospital stay. An abdominal CT showed a mass within the cecum suspicious for malignancy. He was offered colonoscopy by Dr. Maria but deferred this. After discharge from the hospital he self referred to Dr. Fox and underwent colonoscopy 04/09/2018 with cecal biopsy showing invasive to poorly differentiated adenocarcinoma, fragments of tubular adenoma with high- grade dysplasia. He underwent right hemicolectomy surgery 05/01/2018. Outside laboratories including peripheral smear noted marked poikilocytosis withreport of 2+ schistocytes and 2+ teardrops. He also had a remarkable low mean corpuscular volume in the low 70s with elevated RDW to 30s. This remained low despite his multiple transfusions. Pre-operatively given Injectafer 750mg IV x 2. His father was diagnosed with colon cancer at age 47 and at age 48 as he was metastatic at diagnosis. Patient does not know of any other family members with malignancy, but he has never had genetic testing. MLH1 mutation discoveredand Dr. Fox of medical genetics recommended family screening recommendations. - Summary of Therapies Summary of Therapies: 1.) Right hemicolectomy per Dr. Groves - 05/06/2018; Pathologic stage pT4a, pN0,pMX (stage IIb) 2.) Adjuvant XELOX every 3 weeks, Cycle 1, Day 1: 06/10/2018- 8 cycles planned--last cycle early November 2018. 3.) Solitary right lower quadrant peritoneal recurrence with resection by surgical oncology Dr. Coon 02/18/2019 with negative margins. Pending tumor board discussion. Did not require intraoperative radiation. 4.) 09/04-10/11/2022: IMRT to dose of 70 Warner in 28 fractions over 37 elapsed daysto the prostate and seminal vesicles with concurrent ADT (Lupron 45 mg IM 08/14/2022)--plan to continue ADT every 6 months for 2 years ROS Details: All systems reviewed & no additional complaints except as documented Subjective/ROS - Narrative: Constitutional: Negative: No chills, fatigue, fever, weakness, pain HEENT: Negative: epistaxis, rhinorrhea, sore throat Cardiovascular: Negative: Chest pain, edema, palpitations Respiratory: Negative: Cough, shortness of breath, hemoptysis Gastrointestinal: Negative: pain, bloating, constipation, diarrhea, nausea, vomiting. Positive: per hpi loose stools 2-3 times daily s/p right colectomy Genitourinary: Negative: Frequency, dysuria, flank pain, hematuria Genitalia: Negative: masses, hernia Musculoskeletal: Negative: Joint/bone pain Neurologic: Negative: Dizziness, headache, positive: numbness/tingling fingertips/toes bilateral unchanged Psychiatric: Negative: Anxiety, depression, sleep changes Hematologic/lymphatic: Negative: Bleeding, bruising, enlarged lymph nodes Endocrine: Positive: Excessive sweating, flushing, intolerance to heat, chest tightness without palpable mass since starting endocrine therapy. Negative for intolerance to cold, weight gain/loss Allergic/immunology: Negative: Pruritus, rash PMFSH - History Attestation statement: The following information was validated with the patient. Source: Old Records Reviewed - Medical History Medical History: Medical History (Last Reviewed 01/12/23 @ 16:15 by Myranda Jarquin MD) Colon cancer w/chemo Family history of Mcadams syndrome Hypertension Iron (Fe) deficiency anemia Neuropathy Prostate cancer currently - Surgical History Surgical History: Surgical History (Last Reviewed 01/12/23 @ 16:15 by Myranda Jarquin MD) H/O arthroscopic knee surgery 1989 H/O knee surgery History of colon resection History of esophagogastroduodenoscopy (EGD) and colonoscopy yearly History of eye surgery x2 as child S/P right colectomy concerted to open -05/01/18, excision of local peritoneal reoccurrence Dr. 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 Medications & Allergies Allergies No Known Allergies Allergy (Verified 01/11/23 13:32) Home Medications lisinopril 10 mg tablet 20 mg PO QAM 06/21/22 [History Confirmed 01/11/23] tamsulosin 0.4 mg capsule 0.4 mg PO DAILY #30 caps 09/26/22 [Rx Confirmed 01/11/23] Objective - Height/Weight Height/Weight: Height 5 ft 11 in Weight 112.037 kg BSA for Today's Weight 2.18 - Vital Signs Vital Signs: 01/11/23 13:35 Temperature 97.8 F Pulse Rate [Right Brachial] 91 H Respiratory Rate 16 Blood Pressure [Left Arm] 167/84 H 02 Sat by Pulse Oximetry 98 Oxygen Delivery Method Room Air - Pain Right Abdomen Pain Intensity: 0 - Distress Screening Distress Screen Results: RN Distress Screening Start: 04/23/18 07:56 Freq: Status: Complete Protocol: Document 04/23/18 08:22 AA (Rec: 04/23/18 08:24 AA [id number]) Distress Screening Distress Score: 4 Comments Worried about upcoming surgery on May 01 Distress Screening Total 4 RN Distress Screening Start: 04/23/18 08:27 Freq: Q30D Status: Active Protocol: Document 09/09/18 15:03 LM (Rec: 09/09/18 15:03 LM [id number]) Distress Screening Distress Score: 2 Physical Concerns Feeling tired or a lack of energy Distress Screening Total 2 Physical Exam Narrative: Constitutional: No acute distress, well-nourished, alert/oriented x3, cooperative HEENT: Head: Normocephalic, atrophic Eyes: EOMI, PERRL, clear conjunctiva ENT: Moist mucous membrane, oropharynx clear, nares patent Neck: Supple, trachea midline, full range of motion, no lymphadenopathy, no tenderness Chest exam: No tenderness--no palpable mass or gynecomastia, no lymphadenopathy Respiratory: No accessory muscle use, anterior and posterior chest clear, no rales, no respiratory distress, no rhonchi, no wheeze, room air Cardiovascular: S1-S2, no murmur, no rubs, no gallop, trace bilateral peripheraledema Gastrointestinal: Normal active bowel sounds, soft no tenderness, surgical incision site well-healed, no bruising, no distention, no mass, no organomegaly,no bleeding. Well healed laparoscopy incisions. : No CVA tenderness. Groin: No inguinal lymphadenopathy Back/spine/pelvis exam: Full range of motion, no vertebral tenderness Skin: Intact, dry, warm, normal turgor, no rash Neurologic: Alert, oriented x3, cranial nerves II-XII intact, reflexes, moving all extremities, vision grossly intact, hearing grossly intact, normal speech, normal gait, no tremors Psychiatric: Normal affect, normal thought process, cooperative - ECOG Performance Status ECOG Score: 1 Results - Labs Labs: Diagram of Most Recent CBC and CMP 06/07/21 16:30 06/19/19 17:16 Outside Labs: PSA history:PSA history: March 2021 11.5 Repeat PSA 2020 12.March PSA 31 July 2022 PSA 16.4 testosterone 2.January PSA <0.13 testosterone <3 - Impressions May 08, 2022 multi parametric MRI showed a 56 mL gland. There is a focal area of T2 hypointensity involving the posterior lateral aspect of the right peripheral zone at the level of the base measuring 2.2 cm with associated restricted diffusion and low ADC. There is extracapsular extension with right seminal vesicle and neurovascular bundle involvement also abnormal enhancement on the postcontrast series. May 23, 2022 MRI fusion transperineal biopsy was done showing 2 of 21 corespositive Pierz 3+4 equal 7. September 2021 for colonoscopy which was negative. CT CHEST, ABDOMEN AND PELVIS WITH INTRAVENOUS CONTRAST: CLINICAL HISTORY: Restage colon cancer. Newly diagnosed prostate cancer. COMPARISON: CT chest, abdomen and pelvis 11/08/2021 TECHNIQUE: TECHNIQUE: Spiral images were obtained through the chest, abdomen and pelvis following the administration of IV contrast. This CT exam was performed using one or more following dose reduction techniques: Automated exposure control, adjustment of the mA and/or kV according to patient size, or use of iterative reconstruction technique. FINDINGS: CT chest: Mediastinum:Thoracic aorta appears normal in caliber. Pulmonary trunk appears nondilated. No pericardial effusion. No lymphadenopathy. The esophagus is grossly unremarkable. Lungs:No consolidation, pneumothorax or pleural effusion. Minimal atelectasis/scarring. No suspicious pulmonary nodule. Soft tissues/Bones: Visualized soft tissues demonstrate no acute findings. Osseous structures demonstrate degenerative change. CT abdomen and pelvis: Organs:Hepatic steatosis. No enhancing liver lesion. Gallbladder is contracted. Spleen pancreas adrenal glands and aorta all appear unremarkable. No enhancing renal mass or hydronephrosis. GI: Stomach is grossly unremarkable. Small bowel appears nondilated. Right hemicolectomy changes. No acute colonic abnormality. Pelvis:[Urinary bladder is grossly unremarkable. Radiation seeds are seen within the prostate with gel spacer noted. Peritoneum/Retroperitoneum:No free air, free fluid or lymphadenopathy. Abd wall/Bones:Abdominal wall demonstrates no acute findings. Osseous structures demonstrate degenerative change. CT/CT chest w con IMPRESSION: No evidence of tumor recurrence or metastatic disease. Impression dictated by: Andrew Dickey Jr., D.ODora11/07/2022 1:10 PM Assessment and Plan - TNM Staging Stagin. 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 Right lower quadrant peritoneal/abdominal wall PET avid mass with biopsy consistent with recurrent adenocarcinoma 02/18/2019 with negative margins. No further therapy. 3. Adenocarcinoma prostate, clinical stage T3 N0 M0 (seminal vesicle involvement on the MRI) , Jacky's score 3+4 =7, initial PSA of 16.4 in July 2022. Completed IMRT with concurrent ADT, planned 2 years (1) Prostate cancer This is a patient I previously followed for cecal carcinoma, initially stage IIc treated with adjuvant chemotherapy after complete resection in 2017, but recurred with right lower quadrant peritoneal radial/abdominal wall metastasis that was completely resected to negative margin 02/18/2019. He has been lost to follow-up in medical oncology since June 2019 with relatively stable CEA. He continues ongoing surveillance with general surgery Dr. Groves. -- He presented in March 2022 with PSA 23 and was found to have clinical stage T3 N0 M0 adenocarcinoma the prostate with seminal vesicle involvement on MRI. Pierz score 3+4 equal 7 with decipher testing placing him at high risk disease 0.98. -- His case was discussed at oncology tumor board at [facility] with plan for concurrent androgen deprivation therapy with Lupron 45 mg (first dose given 08/14/2022) concurrently with prostate and seminal vesicle radiation 09/04-10/12/2019 23/28 fractions, total dose 7000 cGy. He does have persistent hot flashes, decreased libido, erectile dysfunction, and night sweats along with some tightness over the chest wall although no palpable gynecomastia noted. At this time we will continue surveillance of his hormonal symptoms and order baseline DEXA scan for planned 2 years of androgen deprivation therapy--he will be contacted with this result. No significant toxicities from his radiation therapy. 3-month follow-up PSA from end of radiation therapy now undetectable (<0.13) with completely suppressed testosterone. I will order his PSA and testosterone levels in 3 months, and he is to continue follow-up with Dr. Torres of urology as previously scheduled. Follow-up with me in person in 6 months with CBC, CMP, CEA, PSA, total testosterone, sooner if new issues arise. This is a high complexity visit over 45 minutes to resume follow- up care for 2 malignancies, prostate cancer and prior recurrent cecal cancer now [place] with known Mcadams syndrome. (2) Carcinoma of cecum This is a now 57-year-old male without significant past medical history but significant family history of colon carcinoma in his father age 47. He was diagnosed with a cecal carcinoma by colonoscopy on 04/09/2018 and underwent 05/01 revealing stage IIb (pT4a pN0 M0) moderate to poorly differentiated adenocarcinoma. He had a contained perforation of the cecum, but all surgical margins are negative with no residual disease. 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 Consented for adjuvant therapy with Oxaliplatin 130 mg/m? IV every 3 weeks with oral Xeloda 1000 mg/m? twice daily for 2 weeks on 1 week off; x 8 cycles. Xeloda 2150mg PO BID. Start date: Cycle 1, Day 1: Sunday06/10/2018--last cycle 11/07/2018. -Seen for survivorship visit and completed plan for surveillance visits and CEA (currently 2.6); No unanticipated adverse effects related to chemotherapy--no residual neuropathy, conjunctivitis, and only mild fatigue. -Laboratories are reviewed; overall very stable. Anemia is significantly improved. Mild cytopenias improved. Reviewed restaging CT scan after cycle 8 where he was noted to have a density in the right lower quadrant near the abdominal wall --Sent for PET/CT due to thick walled fluid collection which was FDG avid and no other sites of metastases noted. Dr. Groves reevaluated the patient and sent to Dr. Mia Coon for resection by surgical oncology. -- GI tumor board recommended consideration of intraoperative radiation therapy, however at the time of resection 02/18/2019 at the patient was not felt to warrant intraoperative radiation therapy and the lesion was resected with negative margins. In review of the operative report no other sites of metastatic disease were seen in the peritoneum and the patient will be followed. --I presented his case again to GI tumor board--no further recommendations for chemotherapy maintenance given his local recurrence. Continue close surveillance with CEA and exam as well as EGD/colonoscopy for Mcadams syndrome. 04/2019: EGD with erosive gastritis, Colonoscopy negative for recurrence. Continue annual f/u. 06/26/2019: Isaias presented for review of restaging CT Abd/Pelvis without recurrence but rising CEA noted--currently 4.6 (prior 2.6-->3.5). 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 Baseline loose stools 2-3 following right colectomy. -- 01/11/2023: Patient was lost to follow-up in medical oncology but was followed regularly with CEA and surveillance colonoscopy with Dr. Groves. No new symptoms to suggest recurrence of his cecal carcinoma with most recent CEA unchanged at 3.[address] abdomen and pelvis showing no recurrence in November 2022. We will continue to follow with his prostate cancer. He will be scheduling next surveillance colonoscopy with Dr. Groves in the next few months. 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 He has tolerated surgery well and does not require further f/u with Dr. Coon of surgical oncology. He was released to full duty at work. Presented his case in GI tumor board--no further adjuvant therapy is recommended. Radiation is not recommended as he had complete resection with negative margins. The patient is well-healed and continues to work full-time. CEA relatively stable, and no recurrence on CT abd/pelvis in November 2022. (4) Mcadams syndrome The patient has a family history of colon cancer in his father diagnosed at age 47. Mismatch repair genes are deficient on his specimen and is consistent with Mcadams syndrome. He has had initial evaluation with medical genetics on 05/22/18; MLH1 germline mutation discovered. Recommendations reviewed with medical genetics on 08/21/2018, and further genetic testing of the patient's family members for Mcadams syndrome has been arranged. We will continue surveillance for Mcadams associated malignancies. In April 2019 the patient completed his annual EGD/Colonoscopy with annual f/u as recommended. He continues to have mild increase in CEA but stable from prior visits. We discussed possible effect of smokeless tobacco use on CEA. Referred back to genetic testing after new diagnosis of prostate cancer. Expanded genetic testing did not detect an additional explanation for prostate cancer and found the same MLH1 mutation found previously. (5) History of iron deficiency anemia The patient was admitted to [facility] for severe anemia with hemoglobin down to 4.5 and no clear bleeding source. Despite 6 units of transfusion, he had microcytic indices with anemia and iron saturation 8%. To improve surgical morbidity, he was treated with parenteral iron infusion with Injectafer 750 mg x 2 weekly infusions prior to his scheduled surgery. Most recent hemoglobin from 08/14/2022 was 14, denies fatigue, sob, and gross bleeding. We will continue to follow hemoglobin about every 6 months with f/u visits, but likely source of bleeding was his colon adenocarcinoma which has been resected. (6) Encounter for monitoring androgen deprivation therapy Started Lupron concurrently with radiation therapy August 2022. We discussed baseline DEXA scan which was ordered today and he will be contacted with results. We reviewed his androgen deprivation toxicities such as decreased libido, hot flashes, erectile dysfunction and he will continue follow-up with urology. No other interventions initiated today. - Chemo Plan Chemo Plan (Dose, Rate, Freq): Androgen deprivation therapy with Lupron 45 mg IM to continue every 6 months for 2 years. Initiation of therapy August 2022 with concurrent radiation IMRT. Goal of Treatment: Curative - Time with Patient Time Spent with Patient (Follow Up Visit): 45 minutes or more - First oncology follow-up for prostate cancer of cecal carcinoma and Mcadams syndrome. Review of interventions from radiation oncology. Coordination of Care & Counseling Time: Greater than 50% of time spent with patient was for coordination of care (as documented) and zpem-kf-gayw counseling of patient and/or family. Dictated By: Myranda Jarquin MD DD/ [id number] Signed By: <Electronically signed by MD Myranda Jarquin> 01/12/23 [address] [facility] Work Phone: 1([phone]) 947-505607-06-2023 Progress note Author Negra Reyes [facility] January 11, 2023 4:19pm Note Date/Time January 11, 2023 2:00p m [facility] at [address] [address] Rad Onc Follow Up Note - OP Signed Patient: Isaias Gleason MR#: [id number] 321 : 1965 Acct:[id number] Age/Sex: 57 / M Type: REG RCR Copies to: MD Orestes Zarate Jr, MD Eulalia Hyman MD~ Subjective - Service Date/Time Date: 01/11/23 Time: 14:00 - Diagnosis Patient with Mcadams syndrome and prior history of cecal carcinoma in 2007 status post surgery and chemotherapy and recent diagnosis of adenocarcinoma prostate, clinical stage T3 N0 M0 (seminal vesicle involvement on the MRI) , Pierz's score 3+4 =7, initial PSA of 16.4 in July 2022. - Chief Complaint Hot flashes and intermittent diarrhea - History of Present Illness 57-year-old male past medical history notable for Mcadams syndrome with a historyof cecal carcinoma, status post right hemicolectomy performed 05/06/2018. Invasive moderately differentiated to poorly differentiated colon adenocarcinoma invading full transmural extension past subserosa into pericolic soft tissue. Directly penetrating the serosa. He received systemic therapy under the care ofmedical oncology. In 2018 he had resection of right lower quadrant peritoneal/abdominal wall PET avid mass with biopsy consistent with recurrent adenocarcinoma. He underwent complete resection with negative margins 02/18/2019. He saw medical oncology in June 2019 with recommendations for surveillance CEA every 3 months. At that time CEA was 4.6. CEA May 2021 which was 3.2. PSA history:PSA history: March 2021 11.5 Repeat PSA 2020 12.March PSA 31 July 2022 PSA 16.4 testosterone 2.84 May 08, 2022 multi parametric MRI showed a 56 mL gland. There is a focal area of T2 hypointensity involving the posterior lateral aspect of the right peripheral zone at the level of the base measuring 2.2 cm with associated restricted diffusion and low ADC. There is extracapsular extension with right seminal vesicle and neurovascPSA history: March 2021 11.5 Repeat PSA 2020 12.March PSA 31 July 2022 PSA 16.4 testosterone 2.84 May 08, 2022 multi parametric MRI showed a 56 mL gland. There is a focal area of T2 hypointensity involving the posterior lateral aspect of the right peripheral zone at the level of the base measuring 2.2 cm with associated restricted diffusion and low ADC. There is extracapsular extension with right seminal vesicle and neurovascular bundle involvement also abnormal enhancement on the postcontrast series. May 23, 2022 MRI fusion transperineal biopsy was done showing 2 of 21 corespositive Pierz 3+4 equal 7. September 2021 for colonoscopy which was negative. At consult AUA 4 with stable nocturia 1 time per night. Quality of life = delighted. Migue 25. Decipher returned 0.98 consistent with high risk disease. He proceeded with definitive radiation and ADT per urology tumor board recommendations and completed local radiation to the prostate for 4 weeks (no pelvic renata radiation secondary to his prior history of bowel cancer). His treatment was completed 3 months ago and his next shot of Lupron is scheduled inAugust this year. He returned today for his scheduled radiation oncology follow-up without any major new complaints. He has good control of urination and has mild hesitancy but no dysuria, hematuria, nausea or pain. His I-PPS score is 8. He has occasional diarrhea which is controlled with mkwd-dxd-dwgaolnbnjrnazzchi. Patient is also being seen by Dr. Jarquin for follow-up of his bowelcancer. I've closely reviewed the patient's oncologic, medical, surgical, social, and family history. Changes noted above. I also reviewed the patient's medicationsvia reconciliation, as per the nursing record. - Review of Systems ROS: As per HPI. Objective Height 5 ft 11 in Weight 112.037 kg Temp 97.8 F 01/11/23 13:35 Pulse 91 H 01/11/23 13:35 Resp 16 01/11/23 13:35 BP 167/84 H 01/11/23 13:35 Pulse Ox 98 01/11/23 13:35 O2 Del Method Room Air 01/11/23 13:35 Pain: 0/10 Distress Screen Results: RN Distress Screening Start: 04/23/18 07:56 Freq: Status: Complete Protocol: Document 04/23/18 08:22 AA (Rec: 04/23/18 08:24 AA [id number]) Distress Screening Distress Score: 4 Comments Worried about upcoming surgery on May 01 Distress Screening Total 4 RN Distress Screening Start: 04/23/18 08:27 Freq: Q30D Status: Active Protocol: Document 09/09/18 15:03 LM (Rec: 09/09/18 15:03 LM [id number]) Distress Screening Distress Score: 2 Physical Concerns Feeling tired or a lack of energy Distress Screening Total 2 Karnofsky Performance Scale: 90%: Can perform normal activity, minor signs of disease Physical Exam: Physical examination today shows an alert, oriented pleasant gentlemanwho is in no acute distress. HEENT examination did not reveal any cranial neuropathy. He has no palpable neck nodes. Lungs are clear to auscultation. Cardiac examinations unremarkable. No spinal or paraspinal tenderness is elicited. The abdomen is soft nontender and there is no palpable mass or organomegaly. Local examination of the lower pelvic area did not reveal any significant radiation related skin changes. There is no palpable inguinal lymphadenopathy. Olivia-anal examination is unremarkable and rectal examination was deferred today. He has no leg edema. On neurological examination, there is no gross motor, sensory or cerebellar deficit Results CBC & Chem 7: 06/07/21 16:30 06/19/19 17:16 Carcinoembryonic Ag 3.4 ng/mL (0.0-3.0) H 07/20/22 15:41 Total PSA 16.410 ng/mL (0.000-4.000) H 07/20/22 15:41 Impression: Patient has Mcadams syndrome and prior history of cecal carcinoma in 2007 status post surgery and chemotherapy and recent diagnosis of adenocarcinoma prostate, clinical stage T3 N0 M0, Jacky score 3+4 equal 7, initial PSA of 16.4 in July 2022. Assessment & Plan (3) Prostate cancer Plan: 57-year-old gentleman with Mcadams syndrome and prior history of cecal carcinoma had recent diagnosis of prostate carcinoma and received local radiation therapy treatments to the prostate for 4 weeks. His treatment was completed 3 months ago and he is on ADT. He is doing fairly well clinically andhas symptoms of hot flashes as expected. He also has occasional diarrhea which is controlled with drzl-nca-abiqise medication. I reassured him and told him that he is urinary and bowel symptoms will gradually improve over the next few months. Patient is also seeing Dr. Jarquin today for follow-up of his cecal cancer. His next Lupron shot is scheduled for February this year and he will alsocontinue follow-up with Dr. Torres, his urologist. His PSA level on 01/08/2023 was reported to be 0.13 and we shall plan to see him back in radiation oncology clinic for his next scheduled follow-up in 6 months. Dictated By: Negra Reyes MD DD/ 1400 Signed By: <Electronically signed by Negra Reyes MD> 01/11/23 [address] [facility] Work Phone: 1([phone]) 922-901506-14-2023 Progress note Author Luz Fox [facility] December 20, 2022 2:46pm Note Date/Time December 20, 2022 2:43 pm [facility] [place] [address] Genetics Follow Up Note Signed Patient: Isaias Gleason MR#: [id number] 321 : 1965 Acct:[id number] Age/Sex: 57 / M Type: REG RCR Copies to: Orestes Fox Jr, MD Margarette Hyman MD~ Genetics Follow Up Note Narrative: Mr. Isaias Gleason is a 57 year old man with Mcadams syndrome due to a germline mutation in the mismatch repair gene, MHL1 c.1858delG. In May of 2022, he was found to have high risk prostate cancer on routine screening (Pierz score of 7). He is undergoing radiation treatment. His radiation oncologist, Dr. Lisa, referred him back to genetics for consideration of further genetic testing. He was seen in 10-18-22 with his daughter to discuss options for expanded genetictesting to include genes associated with increased risk for prostate cancer vs. a larger cancer gene panel. Genetic testing for 14 genes associated with prostate cancer was elected and he returned for results on 12-20-22 Results: 11-16-22 [facility] BRCA1/2 analysis with Prostate[employer]+ [employer] MLH1 pathogenic mutation c.1858delG Previous Genetic testin08-01-18 [facility] TumorNext Mcadams with [employer] Paired germline and tumor testing MLH1 Pathogenic mutation c.1858delG Germline Genes Analyzed: APC, BMPR1A, CDH1, CHEK2, MLH1, MSH2, MSH6, MUTYH, PMS2, PTEN, SMAD4, STK11, TP53, POLD1, POLE (sequencing and deletion/duplication); EPCAM, GREM1 (deletion/duplication only). SOMATIC ORIGIN PMS2 c.1239delA Pathogenic Mutation COMMENT: This assay is unable to determine if c.1239delA is present in the actual PMS2 gene or the PMS2CL pseudogene. Somatic Genes Analyzed: MLH1, MSH2, MSH6, PMS2 (sequencing and deletion/duplication); EPCAM (deletion/duplication only). Discussion: We discussed possible explanations for the prostate cancer. It could be due to his known MLH1 mutation, due to another gene, or sporadic. However, the expanded genetic testing did not find another explanation for the prostate cancer. Prostate cancer is seen in individuals with MLH1 mutations with a reported rate of 4-13% which is only slightly above the general population rate of 12%. The average age of onset is not younger than general population (63y). PLAN: 1. Expanded genetic testing did not find another explanation for the prostate cancer and only found the same MLH1 mutation found previously. 2. Recommend following recommendations for Mcadams syndrome screening 3. We remain available to Mr. Gleason or his family members at [phone] if any questions arise regarding information discussed at today's visit. Luz Fox MD, [facility] Senior Attending Physician, Clinical [employer] [facility] Total counseling time 15m Dictated By: Luz Fox MD DD/ 41 Signed By: <Electronically signed by Luz Fox MD> 12/20/22 14[address] [facility] Work Phone: 1(228) 569-534005-03-2023 Progress note Author Margarette Lisa [facility] November 08, 2022 1:55pm Note Date/Time November 08, 2022 8:34am [facility] [place] [address] Rad Onc Follow Up Note - OP Signed Patient: Isaias Gleason MR#: [id number] 321 : 1965 Acct:[id number] Age/Sex: 57 / M Type: REG RCR Copies to: Orestes Fox Jr, MD Martin Hyman DO~ Date of Service Service Date: 11/08/22 Assessment & Plan (1) Prostate cancer Plan: We will ensure follow-up with medical oncology at the end of December 2022 to discuss ADT options -due for next Lupron dose01/11/23 pending these discussions. Same-day follow-up with me patient to continue tamsulosin daily Assessment: 57-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 Oncologic history: 1. 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 2. tP3wC6O0 of adenocarcinoma the prostate, cT3bN0 M0 Jacky 3+4 equal 7. iPSA 23 ng/mL. High risk. Pathology shows 2 areas of Pierz 3+4 disease on the right gland. mpMRI notable for right-sided seminal vesicle invasion and extracapsular extension. PSMA PET negative. Decipher 0.98 consistent with very high risk disease. October 11, 2021 patient completed IMRT to a dose of 70 Warner in 28 fractions to theprostate and seminal vesicles with concurrent ADT (45mg Lupron 08/14/22). Regional lymph node radiation was deferred secondary to the Mcadams syndrome and need to minimize risk of secondary malignancy as well as his prior bowel surgery. He was initiated on tamsulosin 0.4 mg. Virtual follow-up today as patient is 1 month out from his radiation. Continuesto report nocturia 2-4 times at night and he was counseled to decrease fluid intake after 6 PM. He is using the tamsulosin but not consistently and we discussed resuming daily use. He also reports occasional loose stools though states these are not significantly changed from his baseline due to the prior bowel surgery. I recommended a fiber supplement. Patient's biggest issue today are hot flashes night sweats and other side effects of ADT including lack of libido, erectile dysfunction, smaller testiclesand penis. Patient also reports weight gain. He is very frustrated by the sideeffects. We discussed that based on his high risk prostate cancer especially with the decipher 0.98 recommendations are going to be for 2 years of androgen deprivation therapy. We will ensure he follows up with medical oncology to discuss other options. I offered to send a prescription for Orgovyx however patient would like to wait and meet with medical oncology. Patient understands that Med Onc will check PSA and testosterone prior to his next ADT dose. As he sees Med Onc here at [facility] I will plan on seeing him back the same day. 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 Oncologic history: 1. 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 Last colonoscopy September 2021 negative. 2. mQ3zW4P3 of adenocarcinoma the prostate, Pierz 3+4 equal 7. iPSA 23 ng/mL. High risk. Pathology shows 2 areas of Pierz 3+4 disease on the right gland. mpMRI notable for right-sided seminal vesicle invasion and extracapsular extension. Most recent PSMA PET is negative for lymphadenopathy or kimi metastatic disease. Patient recently saw surgery and underwent a CT of the chest abdomen and pelvis on November 06, 2022 for surveillance. I reviewed these images with him today in the ER negative for any signs of metastatic disease. His next colonoscopy is planned for late January 2023. Recent CEA returned 3.3 (3) Mcadams syndrome Plan: Since completion of his radiation patient did meet with genetics and is going toundergo genetic testing via panel that analyzes 14 genes associated with hereditary prostate cancer. He follows with medical oncology and surgery regarding his small bowel cancer. Follow Up Note - Narrative 57-year-old male past medical history notable for Mcadams syndrome with a history of cecal carcinoma, status post right hemicolectomy performed 05/06/2018. Invasive moderately differentiated to poorly differentiated colon adenocarcinomainvading full transmural extension past subserosa into pericolic soft tissue. Directly penetrating the serosa. He received systemic therapy under the care ofmedical oncology. In 2019 he had resection of right lower quadrant peritoneal/abdominal wall PET avid mass with biopsy consistent with recurrent adenocarcinoma. He underwent complete resection with negative margins 02/18/2019. saw medical oncology in June 2019 with recommendations for surveillance CEA every 3 months. At that time CEA was 4.6. CEA May 2021 which was 3.2. PSA history: March 2021 11.5 Repeat PSA 2020 12.March PSA 31 July 2022 PSA 16.4 testosterone 2.84 May 08, 2022 multi parametric MRI showed a 56 mL gland. There is a focal area of T2 hypointensity involving the posterior lateral aspect of the right peripheral zone at the level of the base measuring 2.2 cm with associated restricted diffusion and low ADC. There is extracapsular extension with right seminal vesicle and neurovascular bundle involvement also abnormal enhancement on the postcontrast series. May 23, 2022 MRI fusion transperineal biopsy was done showing 2 of 21 corespositive Pierz 3+4 equal 7. September 2021 for colonoscopy which was negative. At consult AUA 4 with stable nocturia 1 time per night. Quality of life = delighted. Migue 25. Decipher returned 0.98 consistent with high risk disease. He proceeded with definitive radiation and ADT per urology tumor board recommendations. October 11, 2021 patient completed IMRT to a dose of 70 Warner in 28 fractions to theprostate and seminal vesicles. Regional lymph node radiation was deferred secondary to the Mcadams syndrome and need to minimize risk of secondary malignancy as well as his prior bowel surgery. He was initiated on tamsulosin 0.4 mg with an excellent response and reduction in his urinary frequency and urgency. He also was given a 14-day course of ciprofloxacin despite the negative UA which also seem to help. He did experience ongoing hot flashes and night sweats from the ADT. Since completion patient did meet with genetics and is going to undergo genetic testing via panel that analyzes 14 genes associated with hereditary prostate cancer. Virtual follow-up today as patient is 1 month out from his radiation. Continuesto report nocturia 2-4 times at night and he was counseled to decrease fluid intake after 6 PM. He is using the tamsulosin but not consistently and we discussed resuming daily use. He also reports occasional loose stools though states these are not significantly changed from his baseline due to the prior bowel surgery. I recommended a fiber supplement. Patient's biggest issue today are hot flashes night sweats and other side effects of ADT including lack of libido, erectile dysfunction, smaller testiclesand penis. Patient also reports weight gain. He is very frustrated by the sideeffects. Physical Exam KPS 90 General: alert and oriented male in no acute distress HEENT: normocephalic, extra ocular movements intact Dictated By: Margarette Lisa MD DD/ 0833 Signed By: <Electronically signed by Margarette Lisa MD> 11/08/22 1989 [facility] Work Phone: 1(930) 329-697505-03-2023 Progress note Author Margarette Lisa [facility] November 08, 2022 1:55pm Note Date/Time November 08, 2022 8:34am [facility] at [address] [address] Rad Onc Follow Up Note - OP Signed Patient: Isaias Gleason MR#: [id number] 321 : 1965 Acct:[id number] Age/Sex: 57 / M Type: REG RCR Copies to: Orestes Fox Jr, MD Martin Hyman DO~ Date of Service Service Date: 11/08/22 Assessment & Plan (1) Prostate cancer Plan: We will ensure follow-up with medical oncology at the end of December 2022 to discuss ADT options -due for next Lupron dose01/11/23 pending these discussions. 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 Oncologic history: 1. 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 2. wG8wV1W8 of adenocarcinoma the prostate, cT3bN0 M0 Pierz 3+4 equal 7. iPSA 23 ng/mL. High risk. Pathology shows 2 areas of Jacky 3+4 disease on the right gland. mpMRI notable for right-sided seminal vesicle invasion and extracapsular extension. PSMA PET negative. Decipher 0.98 consistent with very high risk disease. October 11, 2021 patient completed IMRT to a dose of 70 Warner in 28 fractions to theprostate and seminal vesicles with concurrent ADT (45mg Lupron 08/14/22). Regional lymph node radiation was deferred secondary to the Mcadams syndrome and need to minimize risk of secondary malignancy as well as his prior bowel surgery. He was initiated on tamsulosin 0.4 mg. Virtual follow-up today as patient is 1 month out from his radiation. Continuesto report nocturia 2-4 times at night and he was counseled to decrease fluid intake after 6 PM. He is using the tamsulosin but not consistently and we discussed resuming daily use. He also reports occasional loose stools though states these are not significantly changed from his baseline due to the prior bowel surgery. I recommended a fiber supplement. Patient's biggest issue today are hot flashes night sweats and other side effects of ADT including lack of libido, erectile dysfunction, smaller testiclesand penis. Patient also reports weight gain. He is very frustrated by the sideeffects. We discussed that based on his high risk prostate cancer especially with the decipher 0.98 recommendations are going to be for 2 years of androgen deprivation therapy. We will ensure he follows up with medical oncology to discuss other options. I offered to send a prescription for Orgovyx however patient would like to wait and meet with medical oncology. Patient understands that Med Onc will check PSA and testosterone prior to his next ADT dose. As he sees Med Onc here at [facility] I will plan on seeing him back the same day. 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 Oncologic history: 1. 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 Last colonoscopy September 2021 negative. 2. [id number] of adenocarcinoma the prostate, Jacky 3+4 equal 7. iPSA 23 ng/mL. High risk. Pathology shows 2 areas of Pierz 3+4 disease on the right gland. mpMRI notable for right-sided seminal vesicle invasion and extracapsular extension. Most recent PSMA PET is negative for lymphadenopathy or kimi metastatic disease. Patient recently saw surgery and underwent a CT of the chest abdomen and pelvis on November 06, 2022 for surveillance. I reviewed these images with him today in the ER negative for any signs of metastatic disease. His next colonoscopy is planned for late January 2023. Recent CEA returned 3.3 (3) Mcadams syndrome Plan: Since completion of his radiation patient did meet with genetics and is going toundergo genetic testing via panel that analyzes 14 genes associated with hereditary prostate cancer. He follows with medical oncology and surgery regarding his small bowel cancer. Follow Up Note - Narrative 57-year-old male past medical history notable for Mcadams syndrome with a history of cecal carcinoma, status post right hemicolectomy performed 05/06/2018. Invasive moderately differentiated to poorly differentiated colon adenocarcinomainvading full transmural extension past subserosa into pericolic soft tissue. Directly penetrating the serosa. He received systemic therapy under the care ofmedical oncology. In 2018 he had resection of right lower quadrant peritoneal/abdominal wall PET avid mass with biopsy consistent with recurrent adenocarcinoma. He underwent complete resection with negative margins 02/18/2019. saw medical oncology in June 2019 with recommendations for surveillance CEA every 3 months. At that time CEA was 4.6. CEA May 2021 which was 3.2. PSA history: March 2021 11.5 Repeat PSA 2020 12.March PSA 31 July 2022 PSA 16.4 testosterone 2.84 May 08, 2022 multi parametric MRI showed a 56 mL gland. There is a focal area of T2 hypointensity involving the posterior lateral aspect of the right peripheral zone at the level of the base measuring 2.2 cm with associated restricted diffusion and low ADC. There is extracapsular extension with right seminal vesicle and neurovascular bundle involvement also abnormal enhancement on the postcontrast series. May 23, 2022 MRI fusion transperineal biopsy was done showing 2 of 21 corespositive Jacky 3+4 equal 7. September 2021 for colonoscopy which was negative. At consult AUA 4 with stable nocturia 1 time per night. Quality of life = delighted. Migue 25. Decipher returned 0.98 consistent with high risk disease. He proceeded with definitive radiation and ADT per urology tumor board recommendations. October 11, 2021 patient completed IMRT to a dose of 70 Warner in 28 fractions to theprostate and seminal vesicles. Regional lymph node radiation was deferred secondary to the Mcadams syndrome and need to minimize risk of secondary malignancy as well as his prior bowel surgery. He was initiated on tamsulosin 0.4 mg with an excellent response and reduction in his urinary frequency and urgency. He also was given a 14-day course of ciprofloxacin despite the negative UA which also seem to help. He did experience ongoing hot flashes and night sweats from the ADT. Since completion patient did meet with genetics and is going to undergo genetic testing via panel that analyzes 14 genes associated with hereditary prostate cancer. Virtual follow-up today as patient is 1 month out from his radiation. Continuesto report nocturia 2-4 times at night and he was counseled to decrease fluid intake after 6 PM. He is using the tamsulosin but not consistently and we discussed resuming daily use. He also reports occasional loose stools though states these are not significantly changed from his baseline due to the prior bowel surgery. I recommended a fiber supplement. Patient's biggest issue today are hot flashes night sweats and other side effects of ADT including lack of libido, erectile dysfunction, smaller testiclesand penis. Patient also reports weight gain. He is very frustrated by the sideeffects. Physical Exam KPS 90 General: alert and oriented male in no acute distress HEENT: normocephalic, extra ocular movements intact Dictated By: Margarette Lisa MD DD/ [id number] Signed By: <Electronically signed by Margarette Lisa MD> 11/08/22 [address] [facility] Work Phone: [phone] 148-199304-16-2023 Consult note Author Luz Fox [facility] October 22, 2022 3:48pm Note Date/Time October 18, 2022 12: 26pm [facility] [place] [id number] Genetics Consult Note Signed Patient: Isaias Gleason MR#: [id number] 321 : 1965 Acct:[id number] Age/Sex: 57 / M Type: REG RCR Copies to: Orestes Fox Jr, DO MD Margarette Foster MD~ Genetics Consultation Note - Consult Note Narrative: Mr. 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 [facility] of the MLH1 mutation. In May of 2022, he was found to have high risk prostate cancer on routine screening (Pierz score of 7). He is undergoing radiation treatment. His radiation oncologist, Dr. Lisa, referred him back to genetics for consideration of further genetic testing. He was seen on 10-18-22 with his daughter. Previous Genetic testing: [facility] Germline Genes Analyzed: APC, BMPR1A, CDH1, CHEK2, MLH1, MSH2, MSH6, MUTYH, PMS2, PTEN, SMAD4, STK11, TP53, POLD1, POLE (sequencing and deletion/duplication); EPCAM, GREM1 (deletion/duplication only). SOMATIC ORIGIN PMS2 c.1239delA Pathogenic Mutation COMMENT: This assay is unable to determine if c.1239delA is present in the actual PMS2 gene or the PMS2CL pseudogene. Somatic Genes Analyzed: MLH1, MSH2, MSH6, PMS2 (sequencing and deletion/duplication); EPCAM (deletion/duplication only). FAMILY HISTORY UPDATES: Daughter, 36, MLH1 positive, has had normal colonoscopies and plans for TAHBO surgery later this year. Son, 29, MHLH1 negative Daughter 32, not tested Sister, 52, MLH1 positive and her two children are negative. Discussion: Mr. 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 We discussed possible explanations for the prostate cancer, which could be due to his known MLH1 mutation, due to a mutation in a another gene that was not previously tested, or sporadic. We reviewed genes and chromosomes, and we explained the relationship between genes and cancer. We discussed that most cancers are not due to an inherited genetic susceptibility. However, in about 5-10% of cases, there is an inherited genetic mutation that can make a person more susceptible to developing certain types of cancer. Within families with a genetic predisposition to cancer, we often see certain patterns, such as multiple family members with cancer and cancers occurring in multiple generations. In addition, earlier onset and/or bilateral cancers are suggestive of an inherited predisposition. There also tends to be a clustering of certain types of cancer in these families, such as breast cancer and prostate cancer. Errors in MLH1, as with other mismatch repair gene mutation, are associated witha high risk for colon, and non-colonic cancers. The major risks for individuals with MLH1 mutations include colon cancer (52-82% risk to age 70) or a non-colonic cancer such endometrial (up to 60% to age 70), ovarian (up to 12% to age70) and other cancers, including urinary tract/renal pelvis cancer (7%), pancreatic (6%), and gastric cancer (13%). Individuals with MLH1 gene mutationsalso have an increased risk for small bowel cancer (6%), brain cancer (3%), and sebaceous neoplasms (9%). Prostate cancer is seen in individuals with MLH1 mutations with a reported rate of 4-13% which is only slightly above the general population rate of 12%. The average age of onset is not younger than general population (63y). Approximately 12% of metastatic prostate cancer is due to an inherited mutation.For example, Hereditary Breast and Ovarian Cancer (HBOC), which is due to mutations in the BRCA1 and BRCA2 genes, presents with early-onset breast cancer and ovarian cancer, as well as an increased risk for prostate cancer, male breast cancer, and pancreatic cancer. Specifically, having a BRCA2 mutation is associated with a 20-30% lifetime risk for prostate cancer, compared with approximately 12.5% lifetime risk for men in the general population. Additionally, studies have shown that for carriers of a BRCA1 or BRCA2 mutation,prostate cancer tends to occur earlier and have a more aggressive presentation, in comparison to patients without a mutation. Gene mutations in BRCA1 and BRCA2 are inherited in an autosomal dominant fashion. This means that if an individual has a mutation in either of these genes, their siblings and children have a 50% chance of also having the same gene mutation and a 50% chance of not having the gene mutation. In addition to BRCA1 and BRCA2, several other genes have been associated with increased prostate cancer risk, including JADA, CHEK2, the Mcadams syndrome genes, PALB2, and HOXB13. Some genes, like the BRCA1 and BRCA2 genes, are considered highly penetrant cancer predisposition genes, meaning a mutation in one of thesegenes confers a high risk of certain types of cancer. Other genes, such as HOXB13, are considered ?moderate risk? genes. While these genes have been associated with increased cancer risks compared to the general population, cancer risk may not be increased to the same extent as more highly penetrant genes. For some of the moderate risk genes, there may be limited information regarding the degree to which a mutation in the gene affects risk of different types of cancers. Additionally, for some moderate risk genes, the appropriate management for individuals with a mutation is not always clear. Our knowledge about the cancer risks associated with mutations in moderate risk genes is always growing, and we will likely be able to provide more comprehensive information in the future. Mr. Gleason was counseled about hereditary cancer susceptibility including cancer risks, options for increased screening and/or risk reduction, genetic testing, and the implications for other family members. We discussed that, in some cases,genetic testing may impact future treatment options. We discussed performing genetic testing in the context of a multi-gene panel test that looks at the BRCA1 and BRCA2 adn 5 other genes not tested previously (prostate cancer related genes), a larger panel looking at other genes associated with hereditary cancer. Mr. Gleason is interested in pancreatic cancer gene focused approach. Testing was ordered today for Mr. Gleason today via the Prostate Next panel + RNA through [facility]. Results are typically available within 3-4 weeks, and Mr. Gleason will be scheduledfor a follow up consult with the Cancer Genetics Clinic to discuss his testing results. At that time, we will make recommendations for both Mr. Gleason and his family members in terms of cancer screening and/or cancer risk reduction options. PLAN: 1. Mr. Gleason elected to undergo genetic testing via a panel test that analyzes 14 genes associated with hereditary prostate cancer. Verbal consent for testing wasobtained. His blood was not drawn at the time of today?s visit, but he plans to return to [facility] to have his blood drawn for testing. The sample will then besent out to [facility] for analysis. Results are typically available in 3-4 weeks. 2. Mr. Gleason will return to the Cancer Genetics Clinic in 3-4 weeks to discuss histest results. 3. We remain available to Mr. Gleason or his family members at [phone] if any questions arise regarding information discussed at today's visit. Luz Fox MD Clinical Balance [employer] Polisher Total counseling time 40 min Dictated By: Luz Fox MD DD/ [id number] Signed By: <Electronically signed by Luz Fox MD> 10/22/22 15[address] [facility] Work Phone: 1(312) 682-283804-12-2023 Hospital Discharge instructions Patient Education 10/18/2022 08:36:34 Prostate Cancer Prostate Cancer The prostate is a walnut-sized gland that is involved in the production of semen. It is located below a man's bladder, in front of the rectum. Prostate cancer is the abnormal growth of cells in the prostate gland. What are the causes? The exact cause of this condition is not known. What increases the risk? This condition is more likely to develop in men who: Are older than age 65. Are -Guamanian. Are obese. Have a family history of prostate cancer. Have a family history of breast cancer. What are the signs or symptoms? Symptoms of this condition include: A need to urinate often. Weak or interrupted flow of urine. Trouble starting or stopping urination. Inability to urinate. Pain or burning during urination. Painful ejaculation. Blood in urine or semen. Persistent pain or discomfort in the lower back, lower abdomen, hips, or upper thighs. Trouble getting an erection. Trouble emptying the bladder all the way. How is this diagnosed? This condition can be diagnosed with: A digital rectal exam. For this exam, a health care provider inserts a gloved finger into the rectum to feel the prostate gland. A blood test called a prostate-specific antigen (PSA) test. An imaging test called transrectal ultrasonography. A procedure in which a sample of tissue is taken from the prostate and examined under a microscope (prostate biopsy). Once the condition is diagnosed, tests will be done to determine how far the cancer has spread. This is called staging the cancer. Staging may involve imaging tests, such as: A bone scan. A CT scan. A PET scan. An MRI. The stages of prostate cancer are as follows: Stage I. At this stage, the cancer is found in the prostate only. The cancer is not visible on imaging tests and it is usually found by accident, such as during a prostate surgery. Stage II. At this stage, the cancer is more advanced than it is in stage I, but the cancer has not spread outside the prostate. Stage III. At this stage, the cancer has spread beyond the outer layer of the prostate to nearby tissues. The cancer may be found in the seminal vesicles, which are near the bladder and the prostate. Stage IV. At this stage, the cancer has spread other parts of the body, such as the lymph nodes, bones, bladder, rectum, liver, or lungs. How is this treated? Treatment for this condition depends on several factors, including the stage of the cancer, your age, personal preferences, and your overall health. Talk with your health care provider about treatment options that are recommended for you. Common treatments include: Observation for early stage prostate cancer (active surveillance). This involves having exams, blood tests, and in some cases, more biopsies. For some men, this is the only treatment needed. Surgery. Types of surgeries include: ?Open surgery. In this surgery, a larger incision is made to remove the prostate. ?A laparoscopic prostatectomy. This is a surgery to remove the prostate and lymph nodes through several, small incisions. It is often referred to as a minimally invasive surgery. ?A robotic prostatectomy. This is a surgery to remove the prostate and lymph nodes with the help ofa robotic arm that is controlled by a computer. ?Orchiectomy. This is a surgery to remove the testicles. ?Cryosurgery. This is a surgery to freeze and destroy cancer cells. Radiation treatment. Types of radiation treatment include: ?External beam radiation. This type aims beams of radiation from outside the body at the prostate to destroy cancerous cells. ?Brachytherapy. This type uses radioactive needles, seeds, wires, or tubes that are implanted into the prostate gland. Like external beam radiation, brachytherapy destroys cancerous cells. An advantage is that this type of radiation limits the damage to surrounding tissue and has fewer side effects. High-intensity, focused ultrasonography. This treatment destroys cancer cells by delivering high-energy ultrasound waves to the cancerous cells. Chemotherapy medicines. This treatment kills cancer cells or stops them from multiplying. Hormone treatment. This treatment involves taking medicines that act on one of the male hormones (testosterone): ?By stopping your body from producing testosterone. ?By blocking testosterone from reaching cancer cells. Follow these instructions at home: Take fxli-xqv-ooslnxy and prescription medicines only as told by your health care provider. Maintain a healthy diet. Get plenty of sleep. Consider joining a support group for men who have prostate cancer. Meeting with a support group mayhelp you learn to cope with the stress of having cancer. Keep all follow-up visits as told by your health care provider. This is important. If you have to go to the hospital, notify your cancer specialist (oncologist). Treatment for prostate cancer may affect sexual function. Continue to have intimate moments with your partner. This may include touching, holding, hugging, and caressing. Contact a health care provider if: You have trouble urinating. You have blood in your urine. You have pain in your hips, back, or chest. Get help right away if: You have weakness or numbness in your legs. You cannot control urination or your bowel movements (incontinence). You have trouble breathing. You have sudden chest pain. You have chills or a fever. Summary The prostate is a walnut-sized gland that is involved in the production of semen. It is located below a man's bladder, in front of the rectum. Prostate cancer is the abnormal growth of cells in the prostate gland. Treatment for this condition depends on several factors, including the stage of the cancer, your age, personal preferences, and your overall health. Talk with your health care provider about treatment options that are recommended for you. Consider joining a support group for men who have prostate cancer. Meeting with a support group mayhelp you learn to cope with the stress of having cancer. This information is not intended to replace advice given to you by your health care provider. Make sure you discuss any questions you have with your health care provider. Document Released: 06/25/2006 Document Revised: 06/07/2018 Document Reviewed: 03/05/2017 [employer] Patient Education 2020 [employer]. Follow Up Care 07/19/2022 09:52:17 With:Brian HERRMANN, Eulalia Cox, URL, URO Address: [address] [phone] When:04/19/2023 [facility] Janna 01-12-2023 Progress note Author Margarette Lisa [facility] July 20, 2022 3:38pm Note Date/Time July 20, 2022 1 2:59pm [facility] at [address] [address] Rad Onc Follow Up Note - OP Signed Patient: Isaias Gleason MR#: [id number] 321 : 1965 Acct:[id number] Age/Sex: 57 / M Type: REG RCR Copies to: MD Orestes Zarate Jr, MD Eulalia Hyman MD Paul C Laffay,~ Date of Service Service Date: 07/20/22 Assessment & Plan (1) Prostate cancer Plan: 1. Check CEA - needs FU with Med Onc and for discussion of longterm ADT and consideration of second agent. 2. Updated PSA today (last value 23 in Mar 2022) and T - baseline 3. Schedule OR for fiducials and hydrogel placement. Needs colonoscopy wtih prior. This will be followed by CT simulation and treatment planning MRIseveral days later 4. Plan for delivery of IMRT with daily IGRT to a dose of 70 Warner in 28 fractions to the prostate and seminal vesicle. 5. Start bicalutamide 50 mg daily x21 days followed by first Lupron injection for 6 months. 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 Oncologic history: 1. 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 2. [id number] of adenocarcinoma the prostate, Pierz 3+4 equal 7. iPSA 23 ng/mL. High risk. Pathology shows 2 areas of Pierz 3+4 disease on the right gland. mpMRI notable for right-sided seminal vesicle invasion and extracapsular extension. PSMA PET is negative for lymphadenopathy or kimi metastatic disease. Decipher returned 0.98 consistent with very high risk disease. Previously we discussed the option of definitive IMRT to a dose of 70 Warner in 28fractions to the prostate and involved seminal vesicles. Patient has met with surgery and declined. Consequently we again reviewed fiducial and hydrogel placement as his extracapsular extension is anterior and lateralized. Patient will be due for colonoscopy for his cecal cancer in September consequently we will attempt to coordinate with Dr. Groves to do same day. We discussed the need for immobilization and CT simulation several days after fiducial and hydrogel placement. Short and long-term side effects were reviewedin detail and his questions were answered. While I typically would consider pelvic lymph node radiation will defer, due to prior colon surgery, Mcadams syndrome, and plan for long-term ADT. I provided a general overview of radiation treatment planning and delivery. We discussed the need for immobilization and CT simulation. Short and long-term side effects were reviewed in detail and his questions were answered. He was consented to receive care Finally we again discussed Mcadams syndrome. There are no data to my knowledge showing that there is an increased risk of a secondary malignancy with Mcadams syndrome. 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 Patient understands I do not have data to support this and that we are in a war[place] area. He was counseled on the importance of a cancer prevention lifestyle. Currently (2) Carcinoma of cecum Plan: 1. Check CEA - needs FU with Med Onc and for discussion of longterm ADT. 2. We will contact surgery to coordinate annual colonoscopy at time of fiducialand hydrogel placement. 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 Oncologic history: 1. 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 He states he last saw surgery in September 2021 for colonoscopy which was negative. 2. [id number] of adenocarcinoma the prostate, Pierz 3+4 equal 7. iPSA 23 ng/mL. High risk. Pathology shows 2 areas of Jacky 3+4 disease on the right gland. mpMRI notable for right-sided seminal vesicle invasion and extracapsular extension. Most recent PSMA PET is negative for lymphadenopathy or kimi metastatic disease. Patient is planned for definitive radiation and long-term ADT for his high risk prostate cancer. As colonoscopy would be due in September 2022 We will contact surgery to coordinate annual colonoscopy at time of fiducial and hydrogel placement. (3) Mcadams syndrome Plan: Will place genetics referral to see if additional genetic testing is needed in light of the high risk prostate cancer. Follow Up Note - Narrative 57-year-old male past medical history notable for Mcadams syndrome with a history of cecal carcinoma, status post right hemicolectomy performed 05/06/2018. Invasive moderately differentiated to poorly differentiated colon adenocarcinomainvading full transmural extension past subserosa into pericolic soft tissue. Directly penetrating the serosa. He received systemic therapy under the care ofmedical oncology. In 2018 he had resection of right lower quadrant peritoneal/abdominal wall PET avid mass with biopsy consistent with recurrent adenocarcinoma. He underwent complete resection with negative margins 02/18/2019. It appears he saw medical oncology in June 2019 with recommendations for surveillance CEA every 3 months. At that time CEA was 4.6. Last CEA in our system is May 2021 which was 3.2. PSA history: March 2021 11.5 Repeat PSA 2020 12.March PSA 23 normal MAYI consistent with stage T1c disease. May 08, 2022 multi parametric MRI showed a 56 mL gland. There is a focal area of T2 hypointensity involving the posterior lateral aspect of the right peripheral zone at the level of the base measuring 2.2 cm with associated restricted diffusion and low ADC. There is extracapsular extension with right seminal vesicle and neurovascular bundle involvement also abnormal enhancement on the postcontrast series. May 23, 2022 MRI fusion transperineal biopsy was done showing 2 of 21 corespositive Pierz 3+4 equal 7. He states he last saw surgery in September 2021 for colonoscopy which was negative. He has not gone back to see Dr. Jarquin and get a CEA. AUA today is 4 with stable nocturia 1 time per night. Quality of life is delighted. Migue is 25. He has no pelvic complaints. Dictated By: Margarette Lisa MD DD/ [id number] Signed By: <Electronically signed by Margarette Lisa MD> 07/20/22 1532 [facility] Work Phone: 1(121) 198-467001-12-2023 Progress note Author Margarette Lisa [facility] July 20, 2022 3:38pm Note Date/Time July 20, 2022 1 2:59pm [facility] at [address] [address] Rad Onc Follow Up Note - OP Signed Patient: Isaias Gleason MR#: [id number] 321 : 1965 Acct:[id number] Age/Sex: 57 / M Type: REG RCR Copies to: MD Orestes Zarate Jr, MD Eulalia Hyman MD Paul C Laffay,~ Date of Service Service Date: 07/20/22 Assessment & Plan (1) Prostate cancer Plan: 1. Check CEA - needs FU with Med Onc and for discussion of longterm ADT and consideration of second agent. 2. Updated PSA today (last value 23 in Mar 2022) and T - baseline 3. Schedule OR for fiducials and hydrogel placement. Needs colonoscopy wtih prior. This will be followed by CT simulation and treatment planning MRIseveral days later 4. Plan for delivery of IMRT with daily IGRT to a dose of 70 Warner in 28 fractions to the prostate and seminal vesicle. 5. Start bicalutamide 50 mg daily x21 days followed by first Lupron injection for 6 months. 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 Oncologic history: 1. 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 2. [id number] of adenocarcinoma the prostate, Ajcky 3+4 equal 7. iPSA 23 ng/mL. High risk. Pathology shows 2 areas of Pierz 3+4 disease on the right gland. mpMRI notable for right-sided seminal vesicle invasion and extracapsular extension. PSMA PET is negative for lymphadenopathy or kimi metastatic disease. Decipher returned 0.98 consistent with very high risk disease. Previously we discussed the option of definitive IMRT to a dose of 70 Warner in 28fractions to the prostate and involved seminal vesicles. Patient has met with surgery and declined. Consequently we again reviewed fiducial and hydrogel placement as his extracapsular extension is anterior and lateralized. Patient will be due for colonoscopy for his cecal cancer in September consequently we will attempt to coordinate with Dr. Groves to do same day. We discussed the need for immobilization and CT simulation several days after fiducial and hydrogel placement. Short and long-term side effects were reviewedin detail and his questions were answered. While I typically would consider pelvic lymph node radiation will defer, due to prior colon surgery, Mcadams syndrome, and plan for long-term ADT. I provided a general overview of radiation treatment planning and delivery. We discussed the need for immobilization and CT simulation. Short and long-term side effects were reviewed in detail and his questions were answered. He was consented to receive care Finally we again discussed Mcadams syndrome. There are no data to my knowledge showing that there is an increased risk of a secondary malignancy with Mcadams syndrome. 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 Patient understands I do not have data to support this and [place] He was counseled on the importance of a cancer prevention lifestyle. Currently (2) Carcinoma of cecum Plan: 1. Check CEA - needs FU with Med Onc and for discussion of longterm ADT. 2. We will contact surgery to coordinate annual colonoscopy at time of fiducialand hydrogel placement. 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 Oncologic history: 1. Cecal adenocarcinoma status post hemicolectomy followed by chemotherapy in 2017. He states he last saw surgery in September 2021 for colonoscopy which was negative. 2. [id number] of adenocarcinoma the prostate, Pierz 3+4 equal 7. iPSA 23 ng/mL. High risk. Pathology shows 2 areas of Jacky 3+4 disease on the right gland. mpMRI notable for right-sided seminal vesicle invasion and extracapsular extension. Most recent PSMA PET is negative for lymphadenopathy or kimi metastatic disease. Patient is planned for definitive radiation and long-term ADT for his high risk prostate cancer. As colonoscopy would be due in September 2022 We will contact surgery to coordinate annual colonoscopy at time of fiducial and hydrogel placement. (3) Mcadams syndrome Plan: Will place genetics referral to see if additional genetic testing is needed in light of the high risk prostate cancer. Follow Up Note - Narrative 57-year-old male past medical history notable for Mcadams syndrome with a history of cecal carcinoma, status post right hemicolectomy performed 05/06/2018. Invasive moderately differentiated to poorly differentiated colon adenocarcinomainvading full transmural extension past subserosa into pericolic soft tissue. Directly penetrating the serosa. He received systemic therapy under the care ofmedical oncology. In 2018 he had resection of right lower quadrant peritoneal/abdominal wall PET avid mass with biopsy consistent with recurrent adenocarcinoma. He underwent complete resection with negative margins 02/18/2019. It appears he saw medical oncology in June 2019 with recommendations for surveillance CEA every 3 months. At that time CEA was 4.6. Last CEA in our system is May 2021 which was 3.2. PSA history: March 2021 11.5 Repeat PSA 2020 12.March PSA 23 normal MAYI consistent with stage T1c disease. May 08, 2022 multi parametric MRI showed a 56 mL gland. There is a focal area of T2 hypointensity involving the posterior lateral aspect of the right peripheral zone at the level of the base measuring 2.2 cm with associated restricted diffusion and low ADC. There is extracapsular extension with right seminal vesicle and neurovascular bundle involvement also abnormal enhancement on the postcontrast series. May 23, 2022 MRI fusion transperineal biopsy was done showing 2 of 21 corespositive Pierz 3+4 equal 7. He states he last saw surgery in September 2021 for colonoscopy which was negative. He has not gone back to see Dr. Jarquin and get a CEA. AUA today is 4 with stable nocturia 1 time per night. Quality of life is delighted. Migue is 25. He has no pelvic complaints. Dictated By: Margarette Lisa MD DD/ [id number] Signed By: <Electronically signed by Margarette Lisa MD> 07/20/22 1536 [facility] Work Phone: 1(292) 475-555301-12-2023 Progress note Author Margarette Lisa [facility] July 20, 2022 3:38pm Note Date/Time July 20, 2022 1 2:59pm [facility] at [place] [id number] Rad Onc Follow Up Note - OP Signed Patient: Isaias Gleason MR#: [id number] 321 : 1965 Acct:[id number] Age/Sex: 57 / M Type: REG RCR Copies to: MD Orestes Zarate Jr, MD Eulalia Hyman MD Paul C Laffay, DO~ Date of Service Service Date: 07/20/22 Assessment & Plan (1) Prostate cancer Plan: 1. Check CEA - needs FU with Med Onc and for discussion of longterm ADT and consideration of second agent. 2. Updated PSA today (last value 23 in Mar 2022) and T - baseline 3. Schedule OR for fiducials and hydrogel placement. Needs colonoscopy wtih prior. This will be followed by CT simulation and treatment planning MRIseveral days later 4. Plan for delivery of IMRT with daily IGRT to a dose of 70 Warner in 28 fractions to the prostate and seminal vesicle. 5. Start bicalutamide 50 mg daily x21 days followed by first Lupron injection for 6 months. 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 Oncologic history: 1. 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 2. [id number] of adenocarcinoma the prostate, Jacky 3+4 equal 7. iPSA 23 ng/mL. High risk. Pathology shows 2 areas of Jacky 3+4 disease on the right gland. mpMRI notable for right-sided seminal vesicle invasion and extracapsular extension. PSMA PET is negative for lymphadenopathy or kimi metastatic disease. Decipher returned 0.98 consistent with very high risk disease. Previously we discussed the option of definitive IMRT to a dose of 70 Warner in 28fractions to the prostate and involved seminal vesicles. Patient has met with surgery and declined. Consequently we again reviewed fiducial and hydrogel placement as his extracapsular extension is anterior and lateralized. Patient will be due for colonoscopy for his cecal cancer in September consequently we will attempt to coordinate with Dr. Groves to do same day. We discussed the need for immobilization and CT simulation several days after fiducial and hydrogel placement. Short and long-term side effects were reviewedin detail and his questions were answered. While I typically would consider pelvic lymph node radiation will defer, due to prior colon surgery, Mcadams syndrome, and plan for long-term ADT. I provided a general overview of radiation treatment planning and delivery. We discussed the need for immobilization and CT simulation. Short and long-term side effects were reviewed in detail and his questions were answered. He was consented to receive care Finally we again discussed Mcadams syndrome. There are no data to my knowledge showing that there is an increased risk of a secondary malignancy with Mcadams syndrome. 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 Patient understands I do not have data to support this and [place] He was counseled on the importance of a cancer prevention lifestyle. Currently (2) Carcinoma of cecum Plan: 1. Check CEA - needs FU with Med Onc and for discussion of longterm ADT. 2. We will contact surgery to coordinate annual colonoscopy at time of fiducialand hydrogel placement. 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 Oncologic history: 1. 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 He states he last saw surgery in September 2021 for colonoscopy which was negative. 2. [id number] of adenocarcinoma the prostate, Jacky 3+4 equal 7. iPSA 23 ng/mL. High risk. Pathology shows 2 areas of Jacky 3+4 disease on the right gland. mpMRI notable for right-sided seminal vesicle invasion and extracapsular extension. Most recent PSMA PET is negative for lymphadenopathy or kimi metastatic disease. Patient is planned for definitive radiation and long-term ADT for his high risk prostate cancer. As colonoscopy would be due in September 2022 We will contact surgery to coordinate annual colonoscopy at time of fiducial and hydrogel placement. (3) Mcadams syndrome Plan: Will place genetics referral to see if additional genetic testing is needed in light of the high risk prostate cancer. Follow Up Note - Narrative 57-year-old male past medical history notable for Mcadams syndrome with a history of cecal carcinoma, status post right hemicolectomy performed 05/06/2018. Invasive moderately differentiated to poorly differentiated colon adenocarcinomainvading full transmural extension past subserosa into pericolic soft tissue. Directly penetrating the serosa. He received systemic therapy under the care ofmedical oncology. In 2018 he had resection of right lower quadrant peritoneal/abdominal wall PET avid mass with biopsy consistent with recurrent adenocarcinoma. He underwent complete resection with negative margins 02/18/2019. It appears he saw medical oncology in June 2019 with recommendations for surveillance CEA every 3 months. At that time CEA was 4.6. Last CEA in our system is May 2021 which was 3.2. PSA history: March 2021 11.5 Repeat PSA 2020 12.March PSA 23 normal MAYI consistent with stage T1c disease. May 08, 2022 multi parametric MRI showed a 56 mL gland. There is a focal area of T2 hypointensity involving the posterior lateral aspect of the right peripheral zone at the level of the base measuring 2.2 cm with associated restricted diffusion and low ADC. There is extracapsular extension with right seminal vesicle and neurovascular bundle involvement also abnormal enhancement on the postcontrast series. May 23, 2022 MRI fusion transperineal biopsy was done showing 2 of 21 corespositive Pierz 3+4 equal 7. He states he last saw surgery in September 2021 for colonoscopy which was negative. He has not gone back to see Dr. Jarquin and get a CEA. AUA today is 4 with stable nocturia 1 time per night. Quality of life is delighted. Migue is 25. He has no pelvic complaints. Dictated By: Margarette Lisa MD DD/ 1258 Signed By: <Electronically signed by Margarette Lisa MD> 07/20/22 0152 [facility] Work Phone: 1(817) 824-581801-11-2023 Hospital Discharge instructions Patient Education 07/19/2022 09:12:31 Prostate Cancer Prostate Cancer The prostate is a walnut-sized gland that is involved in the production of semen. It is located below a man's bladder, in front of the rectum. Prostate cancer is the abnormal growth of cells in the prostate gland. What are the causes? The exact cause of this condition is not known. What increases the risk? This condition is more likely to develop in men who: Are older than age 65. Are -[place]. Are obese. Have a family history of prostate cancer. Have a family history of breast cancer. What are the signs or symptoms? Symptoms of this condition include: A need to urinate often. Weak or interrupted flow of urine. Trouble starting or stopping urination. Inability to urinate. Pain or burning during urination. Painful ejaculation. Blood in urine or semen. Persistent pain or discomfort in the lower back, lower abdomen, hips, or upper thighs. Trouble getting an erection. Trouble emptying the bladder all the way. How is this diagnosed? This condition can be diagnosed with: A digital rectal exam. For this exam, a health care provider inserts a gloved finger into the rectum to feel the prostate gland. A blood test called a prostate-specific antigen (PSA) test. An imaging test called transrectal ultrasonography. A procedure in which a sample of tissue is taken from the prostate and examined under a microscope (prostate biopsy). Once the condition is diagnosed, tests will be done to determine how far the cancer has spread. This is called staging the cancer. Staging may involve imaging tests, such as: A bone scan. A CT scan. A PET scan. An MRI. The stages of prostate cancer are as follows: Stage I. At this stage, the cancer is found in the prostate only. The cancer is not visible on imaging tests and it is usually found by accident, such as during a prostate surgery. Stage II. At this stage, the cancer is more advanced than it is in stage I, but the cancer has not spread outside the prostate. Stage III. At this stage, the cancer has spread beyond the outer layer of the prostate to nearby tissues. The cancer may be found in the seminal vesicles, which are near the bladder and the prostate. Stage IV. At this stage, the cancer has spread other parts of the body, such as the lymph nodes, bones, bladder, rectum, liver, or lungs. How is this treated? Treatment for this condition depends on several factors, including the stage of the cancer, your age, personal preferences, and your overall health. Talk with your health care provider about treatment options that are recommended for you. Common treatments include: Observation for early stage prostate cancer (active surveillance). This involves having exams, blood tests, and in some cases, more biopsies. For some men, this is the only treatment needed. Surgery. Types of surgeries include: ?Open surgery. In this surgery, a larger incision is made to remove the prostate. ?A laparoscopic prostatectomy. This is a surgery to remove the prostate and lymph nodes through several, small incisions. It is often referred to as a minimally invasive surgery. ?A robotic prostatectomy. This is a surgery to remove the prostate and lymph nodes with the help ofa robotic arm that is controlled by a computer. ?Orchiectomy. This is a surgery to remove the testicles. ?Cryosurgery. This is a surgery to freeze and destroy cancer cells. Radiation treatment. Types of radiation treatment include: ?External beam radiation. This type aims beams of radiation from outside the body at the prostate to destroy cancerous cells. ?Brachytherapy. This type uses radioactive needles, seeds, wires, or tubes that are implanted into the prostate gland. Like external beam radiation, brachytherapy destroys cancerous cells. An advantage is that this type of radiation limits the damage to surrounding tissue and has fewer side effects. High-intensity, focused ultrasonography. This treatment destroys cancer cells by delivering high-energy ultrasound waves to the cancerous cells. Chemotherapy medicines. This treatment kills cancer cells or stops them from multiplying. Hormone treatment. This treatment involves taking medicines that act on one of the male hormones (testosterone): ?By stopping your body from producing testosterone. ?By blocking testosterone from reaching cancer cells. Follow these instructions at home: Take [id number] and prescription medicines only as told by your health care provider. Maintain a healthy diet. Get plenty of sleep. Consider joining a support group for men who have prostate cancer. Meeting with a support group mayhelp you learn to cope with the stress of having cancer. Keep all follow-up visits as told by your health care provider. This is important. If you have to go to the hospital, notify your cancer specialist (oncologist). Treatment for prostate cancer may affect sexual function. Continue to have intimate moments with your partner. This may include touching, holding, hugging, and caressing. Contact a health care provider if: You have trouble urinating. You have blood in your urine. You have pain in your hips, back, or chest. Get help right away if: You have weakness or numbness in your legs. You cannot control urination or your bowel movements (incontinence). You have trouble breathing. You have sudden chest pain. You have chills or a fever. Summary The prostate is a walnut-sized gland that is involved in the production of semen. It is located below a man's bladder, in front of the rectum. Prostate cancer is the abnormal growth of cells in the prostate gland. Treatment for this condition depends on several factors, including the stage of the cancer, your age, personal preferences, and your overall health. Talk with your health care provider about treatment options that are recommended for you. Consider joining a support group for men who have prostate cancer. Meeting with a support group mayhelp you learn to cope with the stress of having cancer. This information is not intended to replace advice given to you by your health care provider. Make sure you discuss any questions you have with your health care provider. Document Released: 06/25/2006 Document Revised: 06/07/2018 Document Reviewed: 03/05/2017 [employer] Patient Education 2020 [employer]. Follow Up Care 06/07/2022 09:04:32 With:Brian HERRMANN, SASKIA Covarrubias, URO Address: [address] [phone] When:10/17/2022 [facility] Janna 12-14-2022 Consult note Author Margarette Lisa [facility] June 21, 2022 6:18pm Note Date/Time June 21, 2022 9:00am [facility] at [address] [address] Rad Onc Consult Note - OP Signed Patient: Isaias Gleason MR#: [id number] 321 : 1965 Acct:[id number] Age/Sex: 57 / M Type: REG RCR Copies to: MD Orestes Zarate Jr, MD Eulalia Hyman MD~ Assessment & Plan (1) Prostate cancer Plan: Decipher testing- RTC to review results. 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 Now with [id number] adenocarcinoma the prostate Pierz 3+4 equal 7. PSA has been rising over the past 2 years and most recent value in March 2022 is 23 ng/mL. Reviewed his pathology in detail which shows 2 areas of Pierz 3+4 disease on the right gland. Multi parametric it MRI is concerning for right-sided seminal vesicle invasion and extracapsular extension. Most recent PSMA PET is negative for lymphadenopathy or kimi metastatic disease. There is uptake in the lateral aspect of the right peripheral zone likely representing the patient's primary malignancy. We discussed the implications of high risk prostate cancer with the patient and his daughter who accompanies him today. His PSA of 23 and his pathology are discordant. Consequently we will send for Decipher testing to better risk stratify. Regardless I have offered him definitive IMRT to a dose of 70 Warner in28 fractions to the prostate and involved seminal vesicles. We discussed the need for fiducial and hydrogel placement as his extracapsular extension is superior and lateralized. I provided a general overview of radiation treatment planning and delivery. We discussed the need for immobilization and CT simulation. Short and long-term side effects were reviewed in detail and his questions were answered. Patient has been referred to urology for consideration of radical prostatectomy. In the setting of locally advanced disease he understands I do not recommend surgery as he will likely need postoperative radiation and ADT and would then have the side effects of both treatments. He is currently urinating well with good potency and with involvement of the right neurovascular bundle I suspect hewould be at high risk of postoperative side effects. We then discussed the role of ADT. The guidelines would dictate 2 years of ADT due to the high risk disease however only his PSA is placing him in the high risk category. Consequently I favor 6 months of ADT. Should the decipher returned high risk we would refer to medical oncology for an ongoing long course. Finally we discussed Mcadams syndrome. There are no data to my knowledge showing that there is an increased risk of a secondary malignancy with Mcadams syndrome. 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 Patient understands I do not have data to support this and that [place]. 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 Invasive moderately differentiated to poorly differentiated colon adenocarcinomainvading full transmural extension past subserosa into pericolic soft tissue. Directly penetrating the serosa. He received systemic therapy under the care ofmedical oncology. In 2018 he had resection of right lower quadrant peritoneal/abdominal wall PET avid mass with biopsy consistent with recurrent adenocarcinoma. He underwent complete resection with negative margins 02/18/2019. It appears he saw medical oncology in June 2019 with recommendations for surveillance CEA every 3 months. At that time CEA was 4.6. Last CEA in our system is May 2021 which was 3.2. PSA history: March 2021 11.5 Repeat PSA 2020 12.March PSA 23 normal MAYI consistent with stage T1c disease. May 08, 2022 multi parametric MRI showed a 56 mL gland. There is a focal area of T2 hypointensity involving the posterior lateral aspect of the right peripheral zone at the level of the base measuring 2.2 cm with associated restricted diffusion and low ADC Durvalumab. There is extracapsular extension with right seminal vesicle and neurovascular bundle involvement also abnormal enhancement on the postcontrast series. May 23, 2022 MRI fusion transperineal biopsy was done showing 2 of 21 corespositive Pierz 3+4 equal 7. Today patient is overall doing well. He states he last saw surgery in September 2021 for colonoscopy which was negative. He has not gone back to see Dr. Jarquin and get a CEA. AUA today is 4 with stable nocturia 1 time per night. Quality of life is delighted. Migue is 25. He has no pelvic complaints. [facility] - Medical History Medical History: Medical History (Last Reviewed 06/26/19 @ 17:27 by Myranda Jarquin MD) Colon cancer w/chemo Iron (Fe) deficiency anemia - Surgical History Surgical History: Surgical History (Last Reviewed 06/26/19 @ 17:27 by Myranda Jarquin MD) H/O arthroscopic knee surgery 1989 H/O knee surgery History of colon resection History of esophagogastroduodenoscopy (EGD) and colonoscopy last 2018 History of eye surgery x2 as child S/P right colectomy concerted to open -05/01/18, excision of local peritoneal reoccurrence Dr. 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 Objective Height 5 ft 11 in Weight 98.883 kg Temp 98.7 F 06/26/19 15:36 Pulse 67 06/26/19 15:36 Resp 20 06/26/19 15:36 BP 158/77 H 06/26/19 15:36 Pulse Ox 98 06/26/19 15:36 O2 Del Method Room Air 06/26/19 15:36 Pain: 0/10 Distress Screen Results: RN Distress Screening Start: 04/23/18 07:56 Freq: Status: Complete Protocol: Document 04/23/18 08:22 AA (Rec: 04/23/18 08:24 AA [id number]) Distress Screening Distress Score: 4 Comments Worried about upcoming surgery on May 01 Distress Screening Total 4 RN Distress Screening Start: 04/23/18 08:27 Freq: Q30D Status: Active Protocol: Document 09/09/18 15:03 LM (Rec: 09/09/18 15:03 LM [id number]) Distress Screening Distress Score: 2 Physical Concerns Feeling tired or a lack of energy Distress Screening Total 2 Karnofsky Performance Scale: 90%: Can perform normal activity, minor signs of disease Physical Exam: Physical Exam General: alert and oriented male in no acute distress HEENT: normocephalic, extra ocular movements intact Lungs: normal work of breathing on room air Abdomen: non acute MSK: extremities within normal limits Neuro: grossly intact Results CBC & Chem 7: 06/07/21 16:30 06/19/19 17:16 Carcinoembryonic Ag 3.2 ng/mL (0.0-3.0) H 06/07/21 16:30 Dictated By: Margarette Lisa MD DD/ [id number] Signed By: <Electronically signed by Margarette Lisa MD> 06/21/22 [address] [facility] Work Phone: [phone]) 188-709611-30-2022 Hospital Discharge instructions Patient Education 06/07/2022 08:13:42 Brachytherapy for Prostate Cancer Brachytherapy for Prostate Cancer Brachytherapy for prostate cancer is radiation treatment that is placed inside of the prostate (prostate gland). There are several types of brachytherapy: Low-dose rate (LDR) therapy. This may involve temporary implants or permanent radioactive seed or pellet implants. The radiation does not travel far from the prostate, which means that healthy, noncancerous tissues around the prostate receive only a small dose of radiation. This helps to protect those tissues from injury. This type of treatment may be followed by a course of external beam radiation. ?Temporary low-dose implants are left in the prostate for 1 7 days. The implants are needles, applicators, or thin, plastic tubes (catheters) that contain radioactive material. You will need to stay in the hospital while the implant is in place. ?Permanent low-dose implants (seeds or pellets) are injected into the prostate, and they work for up to one year after they are inserted. They are left in place and are not removed. High-dose rate (HDR) therapy. This is given through needles, applicators, or catheters that containradioactive material. The tubes are removed after treatment, and no radiation is left in the prostate. This type of treatment may be followed by a course of external beam radiation. Tell a health care provider about: Any allergies you have. All medicines you are taking, including vitamins, herbs, eye drops, creams, and uvzx-odg-rocnkns medicines. Any problems you or family members have had with anesthetic medicines. Any surgeries you have had. Any blood disorders you have. Any medical conditions you have. What are the risks? Generally, this is a safe procedure. However, problems may occur, including: Inflammation of the rectum. Problems getting or keeping an erection (erectile dysfunction). Trouble urinating. Diarrhea. Bleeding. Loss of bowel control. What happens before the procedure? Staying hydrated Follow instructions from your health care provider about hydration, which may include: Up to 2 hours before the procedure you may continue to drink clear liquids, such as water, clear fruit juice, black coffee, and plain tea. Eating and drinking Follow instructions from your health care provider about eating and drinking, which may include: 8 hours before the procedure stop eating heavy meals or foods such as meat, fried foods, or fatty foods. 6 hours before the procedure stop eating light meals or foods, such as toast or cereal. 6 hours before the procedure stop drinking milk or drinks that contain milk. 2 hours before the procedure stop drinking clear liquids. Medicines Ask your health care provider about: ?Changing or stopping your regular medicines. This is especially important if you are taking diabetes medicines or blood thinners. ?Taking medicines such as aspirin and ibuprofen. These medicines can thin your blood. Do not take these medicines before your procedure if your health care provider instructs you not to. You may be given antibiotic medicine to help prevent infection. General instructions Plan to have someone take you home from the hospital or clinic. If you will be going home right after the procedure, plan to have someone with you for 24 hours. You may have imaging tests done, including an ultrasound, CT scan, or MRI. You may have blood tests done. You may have a test to check the electrical signals in your heart (electrocardiogram). You may need to take medicine to clean out your bowel (bowel prep). What happens during the procedure? To lower your risk of infection: ?Your health care team will wash or sanitize their hands. ?Your skin will be washed with soap. ?Hair may be removed from the surgical area. An IV will be inserted into one of your veins. You will be given one or more of the following: ?A medicine to help you relax (sedative). ?A medicine to numb the area (local anesthetic). ?A medicine to make you fall asleep (general anesthetic). You may have a thin, plastic tube (catheter) inserted to drain your bladder. If you are receiving brachytherapy with implants: ?A needle, applicator, or catheter will be inserted into the prostate. It will be inserted through a body cavity, such as the rectum, or through the tissue between the testicles and the anus (perineum). ?An X-ray, ultrasound, MRI, or CT scan will be used to guide the catheter or applicator toward the prostate. ?Radioactive seeds, wires, or ribbons will be fed through the catheter or applicator. ?If the high-dose method is used: ?The radioactive wires or ribbons will be left in for a few minutes and then removed. ?Once the treatment is finished, the catheter or applicator will be removed. ?If the low-dose method is used, the implant will stay in place for 1 7 days. ?You will remain in the hospital while the implant is in place. ?Once the treatment is finished, the radioactive material and catheter will be removed. If you are receiving permanent, low-dose brachytherapy: ?Small, radioactive seeds or pellets will be injected into your prostate. This may be done through a catheter, needle, or applicator. ?The catheter or applicator will be removed, leaving the seeds in the prostate. The procedure may vary among health care providers and hospitals. What happens after the procedure? Your blood pressure, heart rate, breathing rate, and blood oxygen level will be monitored until themedicines you were given have worn off. Do not drive for 24 hours if you were given a sedative. Summary Brachytherapy for prostate cancer is radiation treatment placed inside of the prostate (prostate gland). There are several types of brachytherapy for prostate cancer, including low-dose temporary treatment, low-dose permanent treatment, and high-dose temporary treatment. Temporary low-dose implants are left in the prostate for 1 7 days. Permanent low-dose implants are injected into the prostate and left in place. They work for up to one year after they are inserted. Permanent high-dose therapy is given through tubes that contain radioactive material. The tubes areremoved after treatment, and no radiation is left in the prostate. This information is not intended to replace advice given to you by your health care provider. Make sure you discuss any questions you have with your health care provider. Document Released: 12/03/2006 Document Revised: 06/07/2018 Document Reviewed: 07/04/2017 [employer] Patient Education 2020 [employer] Follow Up Care 05/23/2022 12:40:26 With:Brian HERRMANN, SASKIA Covarrubias, U[facility] Address: When:1 month Comments:Discuss PSMA results [facility] 11-15-2022 Hospital Discharge instructions Patient Education 05/23/2022 13:34:39 Post Op Patient Instructions - FT (CUSTOM) 05/23/2022 13:28:56 EU - Transrectal Ultrasound of the Prostate with US guided biopsy Discharge Instructions (Custom) Transperineal?Biopsy of the Prostate Discharge Instructions : After your procedure You may see blood in your urine for 4 to 5 weeks. When your urine turns red, limit your activities and drink plenty of fluids. This is normal and expected. If you go home with a Cabral catheter in place, you will have it removed at your follow-up clinic appointment or by your own doctor (urologist). Your may be allowed to remove your Cabral catheter at home. If so, our nursing staff will teach you how to remove the catheter. You may have discoloration (black/blue), pain, and swelling to the?perineal?area (between your thighs) for up to 3 weeks. Ice, elevation, and supportive underwear can help ease these symptoms. Medications: Ok to begin taking aspirin or other blood thinners. Antibiotics may be prescribed by your doctor. If they are, take them until they are gone. Tylenol alternated with ibuprofen as needed for pain Activity: You may begin driving 24 hours after surgery if you are not taking prescription pain medication. No heavy lifting for 2?days (nothing greater than 10 pounds). ? Diet: Drink plenty of fluids. Continue your normal diet. When to call the doctor: If you experience a temperature of 101.5 F or greater If you experience chills with or without fever If you experience pain that gets worse If you have difficulty urinating or catheter-related problems Please call the office to arrange for your post-operative appointment in 1-2 weeks [phone] or [phone] Follow Up Care 05/10/2022 13:33:40 With:Eulalia Torres Address: [address], [place] [address]- [phone] Business (1) [address], [address] [address]- [phone] Business (1) When: Unknown Comments:Office to call for followup appointment in 2 weeks for pathology review [facility]11-15-2022 Evaluation + Plan noteExtracted from: Title:Post-anesthesia - MAC Author:Kwabena Rey Jr. Date:05/23/22 Plan Transfer/ Discharge: Condition stable. Extracted from: Title:EU - MRI Fusion transp erineal prostate biopsy Author:Eulalia Torres MD Date:05/23/22 Impression and Plan Diagnosis Elevated PSA ([id number] R97.20, Discharge, Medical). Diagnosis Elevated PSA ([id number] R97.20, Discharge, Medical). Extracted from: Title:Pre-anesthesia - Adult Author:Kwabena Yousif Jr., DO Date:05/23/22 Plan [place] [employer] (ASA) physical status classification: Class III. Anesthetic Preoperative Plan Anesthesia: General. . Anesthetic plan, risks, benefits, and alternatives discussed with the patient and/or family. Patient verbalized understanding. Adverse reactions, complications, and alternatives discujssed. Consent signed and on chart.. Future Appointments Appointment Date:06/07/2022 07:45:00 AM Scheduled Provider:Eulalia Torres MD Location:[facility] Appointment Type:URO Office Visit [facility]11-04-2022 Note [id number]:127[facility] 04-26-2022 NoteChief Complaint Referral *Elevated PSA HPI Staff Evaluation requested by Dr Teri Rice due to elevated PSA. Pt is a new pt, never before seen inour office. Current PSA done 03/23/22 is 23.01. Previous PSA done 03/28/21 was 12.59 Denies family Hx of Prostate disease. Does have Hx of colon cancer. Family Dr has told him in the past that he has an enlarged prostate. Urinary Symptoms Blood in Urine: No Frequency of Urination: only if he has increased amount of fluids Nocturia: maybe Urgency of Urination: No Urinary Incontinence: No Weak Urinary Stream: denies hesitancy, occasionally has post void dripping. Associated Signs and Symptoms: History of Present Illness Tests Reviewed: Reviewed UA, external notes, labs including PSA I have reviewed and verified the staff HPI to be accurate for this encounter. I have reviewed the previous health record information and history for this patient from Dr. Rice There have been no associated fever, chills, flank pain, or blood in the urine. Denies any urinary infections since last encounter. Review of Systems PHQ Score Initial Depression Screen Score: 0 ROS - Provider Constitutional: denies weight loss, denies hot flashes. Eyes: denies eye problems. Gastrointestinal: denies nausea, denies vomiting. Cardiovascular: denies chest pain or angina. Integumentary: no dryness Musculoskeletal: denies musculoskeletal symptoms. ENMT: denies otolaryngeal symptoms. Respiratory: no shortness of breath. Heme/Lymph: denies easy bleeding tendency, denies easy bruising tendency. Psychiatric: no confusion, no anxiety. Genitourinary: see HPI Physical Exam Vitals & Measurements RR: 16 BP: 140/82 HT: 71 in HT: 180.34 cm WT: 110.0 kg WT: 242 lb BMI: 33.82 General Appearance: alert, no distress, well nourished, well developed male. Head: normocephalic . Eyes: normal orbit and globe. ENMT: normal examination of external ears. Chest: symmetric chest rise, respirations non labored. Cardiovascular: regular rate and rhythm. Abdomen: soft, non distended, no tenderness, midline abd scar Genitourinary: normal scrotum, normal testes, normal urethra, normal epididymis, normal vas deferens/spermatic cord. Flank Pain: none. Bladder: nonpalpable. Penis: normal shaft, normal glans. Prostate: Exam limited by body habitus, severely enlarged, apex non tender, no nodules Skin: warm, dry, no bruising. Psychiatric: cooperative, affect appropriate for age, normal judgement, euthymic mood. Assessment/Plan 57 yo male with hx of Mcadams syndrome and colon cancer s/p resection/chemo [address] Groves, otherwise healthy, here for new pt evaluation of elevated PSA MIGUE 25 Denies hx of PA, stroke or DM. No prior hernia surgeries/mesh. Prior colonic resection open, midline. 1. Elevated PSA (R97.20: Elevated prostate specific antigen [PSA]) IPSS 3.5, QOL 2 PSA 03/23/2022 23.01 03/28/2021 12.59 03/10/2021 11.5 Denies family hx of Prostate Cancer. +Mcadams syndrome, elevated risk of prostate cancer I discussed the pros and cons of PSA with the patient today. The carious causes of PSA elevation were outlined, including prostate cancer, prostate enlargement, infection of the prostate, inflammation without infection, as well as prostate manipulation. The options regarding this PSA elevation, including Select MDX, prostate biopsy versus close monitoring, versus obtaining an MRI of the prostate were discussed. The patient has decided upon obtaining an MRI of the prostateand Dding a Select MDX. - Based off MRI results will call pt to schedule either MRI Fusion Transperineal Bx or standard Transperineal BX. -Will schedule Transperineal prostate biopsy (MRI fusion if lesion found). The procedural risks, benefits, details, and treatment alternatives have been discussed with the patient. These include minimal to severe bleeding, infection, blood in the semen, inability to urinate, and severe infection requiring hospitalization and IV antibiotics, among others. Full informed consent has been obtained. Will order Mac anesthesia. 2. Personal history of colon cancer (Z85.038: Personal history of other malignant neoplasm of largeintestine) 2018 s/p chemo and resection (open) by Dr Groves. Annual colonoscopy, last one this past spring/summer. Negative Hx Mcadams syndrome father and himself. 3 kids, 2 have been screened. Elevated risk of prostate cancer Follow-up With When Contact Information Brian HERRMANN, Eulaila Cox, URL, [facility] [address], [place] [address]- [phone] Additional Instructions: Patient Education Prostate Cancer Screening I, Cat Tripathi , personally scribed for Dr. Torres on 04/26/2022 09:38:51. . Documentation recorded by the scribe, Cat Tripathi, accurately reflects the services(s) I performed and decisions made by me. Authenticated by Dr. Torres on 04/26/2022 09:47:31. Problem List/Past Medical Hist (more content not included)...[facility]Result Comment: Electronically Signed By: Eulalia Torres MD\.br\Date and Time Signed: 04/26/22 09:47EDT\.br\Electronically Co- Signed By: Cat Tripathi MA\.br\Date and Time Co-Signed: 04/26/22 09:39 EDT 04-26-2022 Hospital Discharge instructions Patient Education 04/26/2022 09:12:13 Prostate Cancer Screening Prostate Cancer Screening The prostate is a walnut-sized gland that is located below the bladder and in front of the rectum in males. The function of the prostate (prostate gland) is to add fluid to semen during ejaculation. Prostate cancer is the second most common type of cancer in men. A screening test for cancer is a test that is done before cancer symptoms start. Screening can helpto identify cancer at an early stage, when the cancer can be treated more easily. The recommended prostate cancer screening test is a blood test called the prostate-specific antigen (PSA) test. PSA is a protein that is made in the prostate. As you age, your prostate naturally produces more PSA. Abnormally high PSA levels may be caused by: Prostate cancer. An enlarged prostate that is not caused by cancer (benign prostatic hyperplasia, BPH). This condition is very common in older men. A prostate gland infection (prostatitis). Medicines to assist with hair growth, such as finasteride. Depending on the PSA results, you may need more tests, such as: A physical exam to check the size of your prostate gland. Blood and imaging tests. A procedure to remove tissue samples from your prostate gland for testing (biopsy). Who should have screening? Screening recommendations vary based on age. If you are younger than age 40, screening is not recommended. If you are age 40 54 and you have no risk factors, screening is not recommended. If you are younger than age 55, ask your health care provider if you need screening if you have oneof these risk factors: ?Being of -[place] descent. ?Having a family history of prostate cancer. If you are age 55 69, talk with your health care provider about your need for screening and how often screening should be done. If you are older than age 70, screening is not recommended. This is because the risks that screening can cause are greater than the benefits that it may provide (risks outweigh the benefits). If you are at high risk for prostate cancer, your health care provider may recommend that you have screenings more often or start screening at a younger age. You may be at high risk if you: Are older than age 55. Are -[place]. Have a father, brother, or uncle who has been diagnosed with prostate cancer. The risk may be higher if your family member's cancer occurred at an early age. What are the benefits of screening? There is a small chance that screening may lower your risk of dying from prostate cancer. The chance is small because prostate cancer is typically a slow-growing cancer, and most men with prostate cancer from a different cause. What are the risks of screening? The main risk of prostate cancer screening is diagnosing and treating prostate cancer that would never have caused any symptoms or problems (overdiagnosis and overtreatment). PSA screening cannot tell you if your PSA is high due to cancer or a different cause. A prostate biopsy is the only procedure to diagnose prostate cancer. Even the results of a biopsy may not tell you if your cancer needs sammie treated. Slow-growing prostate cancer may not need any treatment other than monitoring, so diagnosing and treating it may cause unnecessary stress or other side effects. A prostate biopsy may also cause: Infection or fever. A false negative. This is a result that shows that you do not have prostate cancer when you actually do have prostate cancer. Questions to ask your health care provider When should I start prostate cancer screening? What is my risk for prostate cancer? How often do I need screening? What type of screening tests do I need? How do I get my test results? What do my results mean? Do I need treatment? Contact a health care provider if: You have difficulty urinating. You have pain when you urinate or ejaculate. You have blood in your urine or semen. You have pain in your back or in the area of your prostate. You have trouble getting or maintaining an erection (erectile dysfunction, ED). Summary Prostate cancer is a common type of cancer in men. The prostate (prostate gland) is located below the bladder and in front of the rectum. This gland adds fluid to semen during ejaculation. Prostate cancer screening may identify cancer at an early stage, when the cancer can be treated more easily. The prostate-specific antigen (PSA) test is the recommended screening test for prostate cancer. Discuss the risks and benefits of prostate cancer screening with your health care provider. If you are age 70 or older, screening is likely to lead to more risks than benefits (risks outweigh the benefits). This information is not intended to replace advice given to you by your health care provider. Make sure you discuss any questions you have with your health care provider. Document Released: 04/05/2018 Document Revised: 06/07/2018 Document Reviewed: 04/05/2018 [employer] Patient Education [employer]. Follow Up Care 04/03/2022 15:27:23 With:Brian HERRMANN, Eulalia Cox, URL, [facility] Address: [address] [place] [address] [phone] When: Unknown [facility] 12-19-2019 Progress note Author Myranda Jarquin [facility] June 26, 2019 5:45pm Note Date/Time June 26, 2019 3:42pm [facility] [facility] at [address] [address] Hem/Onc Follow Up Note - OP Signed Patient: Isaias Gleason MR#: [id number] 321 : 1965 Acct:[id number] Age/Sex: 54 / M Type: REG RCR Copies to: Orestes Fox Jr, MD Martin Hyman DO~ Subjective Date/Time of Service: Date of Service: 06/26/2019 Time of Service: 15:42 Chief Complaint: Patient is here for follow up to review CT scans and lab history of cecal cancer, patient is doing well with no concerns voiced. HPI: Isaias presented to the clinic today for his scheduled follow-up appointment toreview exam, CEA, and restaging CT Abdomen/Pelvis. The patient completed his annual EGD/Colonoscopy by Dr. 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 Noted to have erosive esophagitis, but denies reflux symptoms or dysphagia. He has 2-3 loose stools daily following his right colectomy. The patient denies abdominal pain, melena, hematochezia. The patient voices peripheral neuropathy in fingertips/toes no change. --CEA has risen to 4.6, but no new changes on exam and no evidence of recurrenceon CT Abdomen/Pelvis. He does not smoke cigarettes, but does use smokeless dip tobacco and we discussed that this may be associated with false positive CEA. He also discussed CBD oil which may also have effects on CEA. I recommended continued surveillance with exam/labs every 3 months and imaging in 6 months if continued elevation of CEA, sooner if new symptoms. DIAGNOSES: 1. Cecal carcinoma, originally presented to [facility] with iron deficiency anemia of occult source. Known family history of colon cancer in father who at age 48. --Right hemicolectomy performed 05/06/2018. 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 Directly penetrating the serosa. Clinical history of a contained perforation against the lateral peritoneum was noted. Terminal ileum and ileocecal valve involvement by colonic adenocarcinomaidentified. Negative mesenteric, true peritoneum, and colon proximal and distalmargins of resection. 36 out of 36 pericolic lymph nodes are negative for metastatic colon adenocarcinoma. Fibrous obliteration of appendix lumen. 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 MSH2 and MSH6 show intact nuclear expression. --Medical genetics eval 06/19/2018. 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 They discussed screening recommendations for family members and frequency of colonoscopy for surveillance. 2. Iron deficiency anemia, originally presented with hemoglobin 4.5 on 03/30/2018. 6 units blood transfused -- Injectafer iron therapy 750 mg IV on 04/23 and 05/01/2018 prior to surgery. 3. Resection of right lower quadrant peritoneal/abdominal wall PET avid mass with biopsy consistent with recurrent adenocarcinoma. He underwent complete resection with negative margins 02/18/2019 as noted above by Dr. Mia Coon at [facility] surgical oncology. He did not require intraoperative radiation therapy and we are re-presenting his case at GI tumor board to discusswhether pseudo-adjuvant therapy versus observation is recommended. PRELIMINARY HISTORY: This is a 54-year-old male who does not seek regular medical care who presented to the emergency department with weakness and presyncopal sensation. He noticeda gradual feeling of increased fatigability and shortness of breath with exertion with heaviness in the thighs legs and arms. He did not have any visible bright red blood per rectum but had guaiac positive stool. His hemoglobin was4.5. He underwent transfusion of a total of 6 units of blood and had not had any visible gastrointestinal bleeding during the hospital stay. An abdominal CTshowed a mass within the cecum suspicious for malignancy. He was offered colonoscopy by Dr. Maria but deferred this. After discharge from the hospital he self referred to Dr. Fox and underwent colonoscopy 04/09/2018 with cecal biopsy showing invasive to poorly differentiated adenocarcinoma, fragmentsof tubular adenoma with high- grade dysplasia. He underwent right hemicolectomy surgery 05/01/2018. Outside laboratories including peripheral smear noted marked poikilocytosis withreport of 2+ schistocytes and 2+ teardrops. He also had a remarkable low mean corpuscular volume in the low 70s with elevated RDW to 30s. This remained low despite his multiple transfusions. Pre-operatively given Injectafer 750mg IV x 2. His father was diagnosed with colon cancer at age 47 and at age 48 as he was metastatic at diagnosis. Patient does not know of any other family members with malignancy, but he has never had genetic testing. MLH1 mutation discoveredand Dr. Fox of medical genetics recommended family screening recommendations. - Summary of Therapies Summary of Therapies: 1.) Right hemicolectomy per Dr. Groves - 05/06/2018; Pathologic stage pT4a, pN0,pMX (stage IIb) 2.) Adjuvant XELOX every 3 weeks, Cycle 1, Day 1: 06/10/2018- 8 cycles planned--last cycle early November 2018. 3.) Solitary right lower quadrant peritoneal recurrence with resection by surgical oncology Dr. Coon 02/18/2019 with negative margins. Pending tumor board discussion. Did not require intraoperative radiation. ROS Details: All systems reviewed & no additional complaints except as documented Subjective/ROS - Narrative: Subjective/ROS-narrative: Constitutional: Negative: No chills, fatigue, fever, weakness, pain HEENT: Negative: epistaxis, rhinorrhea, sore throat Cardiovascular: Negative: Chest pain, edema, palpitations Respiratory: Negative: Cough, shortness of breath, hemoptysis Gastrointestinal: Negative: pain, bloating, constipation, diarrhea, nausea, vomiting. Positive: per hpi loose stools 2-3 times daily s/p right colectomy Genitourinary: Negative: Frequency, dysuria, flank pain, hematuria Genitalia: Negative: masses, hernia Musculoskeletal: Negative: Joint/bone pain Neurologic: Negative: Dizziness, headache, positive: numbness/tingling fingertips/toes bilateral unchanged Psychiatric: Negative: Anxiety, depression, sleep changes Hematologic/lymphatic: Negative: Bleeding, bruising, enlarged lymph nodes Endocrine: Negative: Excessive sweating, flushing, intolerance to cold, intolerance to heat, weight gain/loss Allergic/immunology: Negative: Pruritus, rash PMFSH - History Attestation statement: The following information was validated with the patient. - Medical History Medical History: Medical History (Last Reviewed 06/26/19 @ 17:27 by Myranda Jarquin MD) Iron (Fe) deficiency anemia Colon cancer w/chemo - Surgical History Surgical History: Surgical History (Last Reviewed 06/26/19 @ 17:27 by Myranda Jarquin MD) H/O arthroscopic knee surgery 1989 History of esophagogastroduodenoscopy (EGD) and colonoscopy last 2018 History of eye surgery x2 as child S/P right colectomy concerted to open -05/01/18, excision of local peritoneal reoccurrence Dr. 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 No Distress Screening Total 0 - ECOG Performance Status ECOG Score: 0 Physical Exam Narrative: Constitutional: No acute distress, well-nourished, alert/oriented x3, cooperative HEENT: Head: Normocephalic, atrophic Eyes: EOMI, PERRL, clear conjunctiva ENT: Moist mucous membrane, oropharynx clear, nares patent Neck: Supple, trachea midline, full range of motion, no lymphadenopathy, no tenderness Chest exam: No tenderness, no lymphadenopathy Respiratory: No accessory muscle use, anterior and posterior chest clear, no rales, no respiratory distress, no rhonchi, no wheeze, room air Cardiovascular: S1-S2, no murmur, no rubs, no gallop, trace bilateral peripheraledema Gastrointestinal: Normal active bowel sounds, soft no tenderness, surgical incision site well-healed, no bruising, no distention, no mass, no organomegaly,no bleeding. Well healed laparoscopy incisions. : No CVA tenderness. Groin: No inguinal lymphadenopathy Back/spine/pelvis exam: Full range of motion, no vertebral tenderness Skin: Intact, dry, warm, normal turgor, no rash Neurologic: Alert, oriented x3, cranial nerves II-XII intact, reflexes, moving all extremities, vision grossly intact, hearing grossly intact, normal speech, normal gait, no tremors Psychiatric: Normal affect, normal thought process, cooperative Results - Labs Labs: Diagram of Most Recent CBC and CMP 05/21/19 13:56 06/19/19 17:16 Labs - Last 7 Days 06/19/19 17:16: PHA Creatinine Clear [id number], BUN 8 L, Creatinine 1.03, Est GFR ( Amer) > 60, Est GFR (Non-Af Amer) > 60 06/19/19 17:16: Carcinoembryonic Ag 4.6 H - Impressions Date of Service: 06/19/19 CT/CT abdomen pelvis w con: restaging Copies to: MD Lizbet Zarate, IRON SETTER~ CLINICAL HISTORY: Colon cancer with metastasis to the peritoneal cavity, checkup. CT ABDOMEN AND PELVIS WITH CONTRAST: COMPARISON: CT abdomen and pelvis on 11/26/2018 and PET scan on 12/13/2018 TECHNIQUE: CT scans of the abdomen and pelvis were obtained following intravenous injection of 90 mL of Isovue-300 [without] enteric contrast. FINDINGS: The visualized lung bases show no infiltrate or pleural effusion. The liver is of normal size without focal mass or intrahepatic biliary dilatation. The gallbladder is free of wall thickening or pericholecystic inflammation. The pancreas shows no focal mass or peripancreatic inflammation. The spleen and adrenal glands are of unremarkable size. There is no free air in the abdomen or bowel obstruction. The patient is status post partial right-sided colon resection with anastomosis at the right lower abdomen. The previously demonstrated rounded, heterogeneous soft tissue density at the anterior aspect of the right upper pelvis is no longer present on this examination. There is mild pericolonic fat stranding along the descending colon where diverticula are present, mild pericolonic inflammation cannot be excluded. There is no abscess or ascites. Both kidneys show no hydronephrosis or radiopaque stone. No solid renal mass is identifiable. Both ureters are of unremarkable caliber and course without radiopaque stone. [The urinary bladder is unremarkable without perivesical inflammation.] There is moderate enlargement of the prostate. The abdominal aorta, bilateral iliac and proximal femoral arteries [are unremarkable]. There is no para-aortic lymphadenopathy. No prominent pelvic lymph node enlargement is demonstrated. Small fat-containing umbilical hernia is noted. CT/CT abdomen pelvis w con IMPRESSION: THE PREVIOUSLY NOTED, HETEROGENEOUS ROUNDED NODULAR DENSITY WITHIN THE ANTERIOR ASPECT OF THE RIGHT UPPER PELVIS IS NO LONGER PRESENT. STATUS POST PARTIAL COLON RESECTION. NO PROMINENT PARA-AORTIC OR PELVIC LYMPHADENOPATHY. The CT exam was performed using one or more of the following dose reduction techniques: Automated exposure control, adjustment of the MA and/or Kv accordingto patient size, or use of the iterative reconstruction technique. Impression dictated by: Chava Galindo M.D.06/20/2019 2:37 PM - Other Results Results/Comments: Date: 04/24/2019 Orestes Fox EGD/Colonoscopy Additional procedure: 1. EGD with cold biopsy 2. colonoscopy to anastomosis Preoperative diagnosis:: 1. one year followup for colon cancer of cecum with resection 2. anemia 3. dyspepsia 4. family history of colon cancer (father) Postoperative diagnosis:: 1. erosive esophagitis LA grade A, distal esophagus, biopsy obtained 2. anastomosis noted consistent with right hemicolectomy 3. moderate external hemorrhoids Recommendations:: 1. await pathology 2. start pantoprazole 3. colonoscopy recommended in 3 to 5 yrs Documented By: Orestes Fox Jr, DO Assessment and Plan (1) Carcinoma of cecum This is a 54-year-old male without significant past medical history but significant family history of colon carcinoma in his father age 47. He was diagnosed with a cecal carcinoma by colonoscopy on 04/09/2018 and underwent 05/01 revealingstage IIb (pT4a pN0 M0) moderate to poorly differentiated adenocarcinoma. He had a contained perforation of the cecum, but all surgical margins are negative with no residual disease. He met with medical genetics on 06/19/2018 and he wasfound to have a mutation in MLH1 mismatch repair gene. 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 Consented for adjuvant therapy with Oxaliplatin 130 mg/m? IV every 3 weeks with oral Xeloda 1000 mg/m? twice daily for 2 weeks on 1 week off; x 8 cycles. [id number] PO BID. Start date: Cycle 1, Day 1: Sunday06/10/2018--last cycle 11/07/2018. -Seen for survivorship visit and completed plan for surveillance visits and CEA (currently 2.6); No unanticipated adverse effects related to chemotherapy--no residual neuropathy, conjunctivitis, and only mild fatigue. -Laboratories are reviewed; overall very stable. Anemia is significantly improved. Mild cytopenias improved. Reviewed restaging CT scan after cycle 8 where he was noted to have a density inthe right lower quadrant near the abdominal wall --Sent for PET/CT due to thick walled fluid collection which was FDG avid and noother sites of metastases noted. Dr. Groves reevaluated the patient and sent toDr. Mia Coon for resection by surgical oncology. -- GI tumor board recommended consideration of intraoperative radiation therapy, however at the time of resection 02/18/2019 at the patient was not felt to warrant intraoperative radiation therapy and the lesion was resected with negative margins. In review of the operative report no other sites of metastatic disease were seen in the peritoneum and the patient will be followed. --I presented his case again to GI tumor board--no further recommendations for chemotherapy maintenance given his local recurrence. Continue close surveillance with CEA and exam as well as EGD/colonoscopy for Mcadams syndrome. 04/2019: EGD with erosive gastritis, Colonoscopy negative for recurrence. Continue annual f/u. 06/26/2019: Isaias presented for review of restaging CT Abd/Pelvis without recurrence but rising CEA noted--currently 4.6 (prior 2.6-->3.5). 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 Baseline loose stools 2-3 following right colectomy. --He will RTC in 3 months for CEA level and exam. He may return sooner if new symptoms arise prior to his scheduled follow-up. This is a 30-minute visit for review of restaging CEA and CT Abd/Pelvis and coordination of care. 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 He has tolerated surgery well and does not require further f/u with Dr. Coon of surgical oncology. He was released to full duty at work. Presented his case in GI tumor board--no further adjuvant therapy is recommended. Radiation is not recommended as he hadcomplete resection with negative margins. Today, the patient has healed, continues to work full-time. CEA continued mild increase, but no recurrence on CT abd/pelvis in June 2019. (3) Mcadams syndrome The patient has a family history of colon cancer in his father diagnosed at age 47. Mismatch repair genes are deficient on his specimen and is consistent with Mcadams syndrome. He has had initial evaluation with medical genetics on 05/22/18; MLH1 germline mutation discovered. Recommendations reviewed with medical genetics on 08/21/2018, and further genetic testing of the patient's family members for Mcadams syndrome has been arranged. We will continue surveillance for Mcadams associated malignancies. In April 2019 the patient completed his annual EGD/Colonoscopy with annual f/uas recommended. New CT abd/pelvis will be deferred to 6 months unless new symptoms or significant increase in CEA noted. He continues to have mild increase (06/2019 CEA 4.6, 05/2019 CEA 3.5 and 02/2019 2.6). We discussed possible effect of smokeless tobacco use on CEA. (4) History of iron deficiency anemia The patient was admitted to [facility] for severe anemia with hemoglobin down to 4.5 and no clear bleeding source. Despite 6 units of transfusion, he had microcytic indices with anemia and iron saturation 8%. To improve surgical morbidity, he was treated with parenteral iron infusion with Injectafer 750 mg x2 weekly infusions prior to his scheduled surgery. Today, His hemoglobin is now 14.9, denies fatigue, sob, and gross bleeding. Wewill continue to follow hemoglobin with f/u visits, but likely source of bleeding was his colon adenocarcinoma which has been resected. - Chemo Plan Chemo Plan (Dose, Rate, Freq): Presented patient at GI tumor board 03/05/2019 to determine if further chemotherapy is recommended after resection of solitary peritoneal metastasis. --Patient contacted with plan to continue surveillance without further adjuvant therapy. Will treat with immunotherapy at progression due to MSI high status. Goal of Treatment: Curative - Time with Patient Total Time Spent with Patient: 30 min - 30 minute f/u to review CT CAP and rise in CEA Coordination of Care & Counseling Time: Greater than 50% of time spent with patient was for coordination of care (as documented) and [id number] counseling of patient and/or family. Dictated By: Myranda Jarquin MD DD/ [id number] Signed By: <Electronically signed by MD Myranda Jarquin> 06/26/19 [id number] [facility] Work Phone: [phone] Progress note Author Myranda Jarquin [facility] June 26, 2019 5:45pm Note Date/Time June 26, 2019 3:42pm [facility] at [address] [address] Hem/Onc Follow Up Note - OP Signed Patient: Isaias Gleason MR#: [id number] 321 : 1965 Acct:[id number] Age/Sex: 54 / M Type: REG RCR Copies to: Orestes Fox Jr, MD Martin Hyman DO~ Subjective Date/Time of Service: Date of Service: 06/26/2019 Time of Service: 15:42 Chief Complaint: Patient is here for follow up to review CT scans and lab history of cecal cancer, patient is doing well with no concerns voiced. HPI: Isaias presented to the clinic today for his scheduled follow-up appointment toreview exam, CEA, and restaging CT Abdomen/Pelvis. The patient completed his annual EGD/Colonoscopy by Dr. 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 Noted to have erosive esophagitis, but denies reflux symptoms or dysphagia. He has 2-3 loose stools daily following his right colectomy. The patient denies abdominal pain, melena, hematochezia. The patient voices peripheral neuropathy in fingertips/toes no change. --CEA has risen to 4.6, but no new changes on exam and no evidence of recurrenceon CT Abdomen/Pelvis. He does not smoke cigarettes, but does use smokeless dip tobacco and we discussed that this may be associated with false positive CEA. He also discussed CBD oil which may also have effects on CEA. I recommended continued surveillance with exam/labs every 3 months and imaging in 6 months if continued elevation of CEA, sooner if new symptoms. DIAGNOSES: 1. Cecal carcinoma, originally presented to [facility] with iron deficiency anemia of occult source. Known family history of colon cancer in father who at age 48. --Right hemicolectomy performed 05/06/2018. 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 Directly penetrating the serosa. Clinical history of a contained perforation against the lateral peritoneum was noted. Terminal ileum and ileocecal valve involvement by colonic adenocarcinomaidentified. Negative mesenteric, true peritoneum, and colon proximal and distalmargins of resection. 36 out of 36 pericolic lymph nodes are negative for metastatic colon adenocarcinoma. Fibrous obliteration of appendix lumen. 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 MSH2 and MSH6 show intact nuclear expression. --Medical genetics eval 06/19/2018. 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 They discussed screening recommendations for family members and frequency of colonoscopy for surveillance. 2. Iron deficiency anemia, originally presented with hemoglobin 4.5 on 03/30/2018. 6 units blood transfused -- Injectafer iron therapy 750 mg IV on 04/23 and 05/01/2018 prior to surgery. 3. Resection of right lower quadrant peritoneal/abdominal wall PET avid mass with biopsy consistent with recurrent adenocarcinoma. He underwent complete resection with negative margins 02/18/2019 as noted above by Dr. Mia Coon at [facility] surgical oncology. He did not require intraoperative radiation therapy and we are re-presenting his case at GI tumor board to discusswhether pseudo-adjuvant therapy versus observation is recommended. PRELIMINARY HISTORY: This is a 54-year-old male who does not seek regular medical care who presented to the emergency department with weakness and presyncopal sensation. He noticeda gradual feeling of increased fatigability and shortness of breath with exertion with heaviness in the thighs legs and arms. He did not have any visible bright red blood per rectum but had guaiac positive stool. His hemoglobin was4.5. He underwent transfusion of a total of 6 units of blood and had not had any visible gastrointestinal bleeding during the hospital stay. An abdominal CTshowed a mass within the cecum suspicious for malignancy. He was offered colonoscopy by Dr. Maria but deferred this. After discharge from the hospital he self referred to Dr. Fox and underwent colonoscopy 04/09/2018 with cecal biopsy showing invasive to poorly differentiated adenocarcinoma, fragmentsof tubular adenoma with high- grade dysplasia. He underwent right hemicolectomy surgery 05/01/2018. Outside laboratories including peripheral smear noted marked poikilocytosis withreport of 2+ schistocytes and 2+ teardrops. He also had a remarkable low mean corpuscular volume in the low 70s with elevated RDW to 30s. This remained low despite his multiple transfusions. Pre-operatively given Injectafer 750mg IV x 2. His father was diagnosed with colon cancer at age 47 and at age 48 as he was metastatic at diagnosis. Patient does not know of any other family members with malignancy, but he has never had genetic testing. MLH1 mutation discoveredand Dr. Fox of medical genetics recommended family screening recommendations. - Summary of Therapies Summary of Therapies: 1.) Right hemicolectomy per Dr. Groves - 05/06/2018; Pathologic stage pT4a, pN0,pMX (stage IIb) 2.) Adjuvant XELOX every 3 weeks, Cycle 1, Day 1: 06/10/2018- 8 cycles planned--last cycle early November 2018. 3.) Solitary right lower quadrant peritoneal recurrence with resection by surgical oncology Dr. Coon 02/18/2019 with negative margins. Pending tumor board discussion. Did not require intraoperative radiation. ROS Details: All systems reviewed & no additional complaints except as documented Subjective/ROS - Narrative: Subjective/ROS-narrative: Constitutional: Negative: No chills, fatigue, fever, weakness, pain HEENT: Negative: epistaxis, rhinorrhea, sore throat Cardiovascular: Negative: Chest pain, edema, palpitations Respiratory: Negative: Cough, shortness of breath, hemoptysis Gastrointestinal: Negative: pain, bloating, constipation, diarrhea, nausea, vomiting. Positive: per hpi loose stools 2-3 times daily s/p right colectomy Genitourinary: Negative: Frequency, dysuria, flank pain, hematuria Genitalia: Negative: masses, hernia Musculoskeletal: Negative: Joint/bone pain Neurologic: Negative: Dizziness, headache, positive: numbness/tingling fingertips/toes bilateral unchanged Psychiatric: Negative: Anxiety, depression, sleep changes Hematologic/lymphatic: Negative: Bleeding, bruising, enlarged lymph nodes Endocrine: Negative: Excessive sweating, flushing, intolerance to cold, intolerance to heat, weight gain/loss Allergic/immunology: Negative: Pruritus, rash PMFSH - History Attestation statement: The following information was validated with the patient. - Medical History Medical History: Medical History (Last Reviewed 06/26/19 @ 17:27 by Myranda Jarquin MD) Iron (Fe) deficiency anemia Colon cancer w/chemo - Surgical History Surgical History: Surgical History (Last Reviewed 06/26/19 @ 17:27 by Myranda Jarquin MD) H/O arthroscopic knee surgery 1989 History of esophagogastroduodenoscopy (EGD) and colonoscopy last 2018 History of eye surgery x2 as child S/P right colectomy concerted to open -05/01/18, excision of local peritoneal reoccurrence Dr. 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 No Distress Screening Total 0 - ECOG Performance Status ECOG Score: 0 Physical Exam Narrative: Constitutional: No acute distress, well-nourished, alert/oriented x3, cooperative HEENT: Head: Normocephalic, atrophic Eyes: EOMI, PERRL, clear conjunctiva ENT: Moist mucous membrane, oropharynx clear, nares patent Neck: Supple, trachea midline, full range of motion, no lymphadenopathy, no tenderness Chest exam: No tenderness, no lymphadenopathy Respiratory: No accessory muscle use, anterior and posterior chest clear, no rales, no respiratory distress, no rhonchi, no wheeze, room air Cardiovascular: S1-S2, no murmur, no rubs, no gallop, trace bilateral peripheraledema Gastrointestinal: Normal active bowel sounds, soft no tenderness, surgical incision site well-healed, no bruising, no distention, no mass, no organomegaly,no bleeding. Well healed laparoscopy incisions. : No CVA tenderness. Groin: No inguinal lymphadenopathy Back/spine/pelvis exam: Full range of motion, no vertebral tenderness Skin: Intact, dry, warm, normal turgor, no rash Neurologic: Alert, oriented x3, cranial nerves II-XII intact, reflexes, moving all extremities, vision grossly intact, hearing grossly intact, normal speech, normal gait, no tremors Psychiatric: Normal affect, normal thought process, cooperative Results - Labs Labs: Diagram of Most Recent CBC and CMP 05/21/19 13:56 06/19/19 17:16 Labs - Last 7 Days 06/19/19 17:16: PHA Creatinine Clear [id number], BUN 8 L, Creatinine 1.03, Est GFR ( Amer) > 60, Est GFR (Non-Af Amer) > 60 06/19/19 17:16: Carcinoembryonic Ag 4.6 H - Impressions Date of Service: 06/19/19 CT/CT abdomen pelvis w con: restaging Copies to: MD Lizbet Zarate, IRON SETTER~ CLINICAL HISTORY: Colon cancer with metastasis to the peritoneal cavity, checkup. CT ABDOMEN AND PELVIS WITH CONTRAST: COMPARISON: CT abdomen and pelvis on 11/26/2018 and PET scan on 12/13/2018 TECHNIQUE: CT scans of the abdomen and pelvis were obtained following intravenous injection of 90 mL of Isovue-300 [without] enteric contrast. FINDINGS: The visualized lung bases show no infiltrate or pleural effusion. The liver is of normal size without focal mass or intrahepatic biliary dilatation. The gallbladder is free of wall thickening or pericholecystic inflammation. The pancreas shows no focal mass or peripancreatic inflammation. The spleen and adrenal glands are of unremarkable size. There is no free air in the abdomen or bowel obstruction. The patient is status post partial right-sided colon resection with anastomosis at the right lower abdomen. The previously demonstrated rounded, heterogeneous soft tissue density at the anterior aspect of the right upper pelvis is no longer present on this examination. There is mild pericolonic fat stranding along the descending colon where diverticula are present, mild pericolonic inflammation cannot be excluded. There is no abscess or ascites. Both kidneys show no hydronephrosis or radiopaque stone. No solid renal mass is identifiable. Both ureters are of unremarkable caliber and course without radiopaque stone. [The urinary bladder is unremarkable without perivesical inflammation.] There is moderate enlargement of the prostate. The abdominal aorta, bilateral iliac and proximal femoral arteries [are unremarkable]. There is no para-aortic lymphadenopathy. No prominent pelvic lymph node enlargement is demonstrated. Small fat-containing umbilical hernia is noted. CT/CT abdomen pelvis w con IMPRESSION: THE PREVIOUSLY NOTED, HETEROGENEOUS ROUNDED NODULAR DENSITY WITHIN THE ANTERIOR ASPECT OF THE RIGHT UPPER PELVIS IS NO LONGER PRESENT. STATUS POST PARTIAL COLON RESECTION. NO PROMINENT PARA-AORTIC OR PELVIC LYMPHADENOPATHY. The CT exam was performed using one or more of the following dose reduction techniques: Automated exposure control, adjustment of the MA and/or Kv accordingto patient size, or use of the iterative reconstruction technique. Impression dictated by: Chava Galindo M.D.06/20/2019 2:37 PM - Other Results Results/Comments: Date: 04/24/2019 Orestes Fox EGD/Colonoscopy Additional procedure: 1. EGD with cold biopsy 2. colonoscopy to anastomosis Preoperative diagnosis:: 1. one year followup for colon cancer of cecum with resection 2. anemia 3. dyspepsia 4. family history of colon cancer (father) Postoperative diagnosis:: 1. erosive esophagitis LA grade A, distal esophagus, biopsy obtained 2. anastomosis noted consistent with right hemicolectomy 3. moderate external hemorrhoids Recommendations:: 1. await pathology 2. start pantoprazole 3. colonoscopy recommended in 3 to 5 yrs Documented By: Orestes Fox Jr, DO Assessment and Plan (1) Carcinoma of cecum This is a 54-year-old male without significant past medical history but significant family history of colon carcinoma in his father age 47. He was diagnosed with a cecal carcinoma by colonoscopy on 04/09/2018 and underwent 05/01 revealingstage IIb (pT4a pN0 M0) moderate to poorly differentiated adenocarcinoma. He had a contained perforation of the cecum, but all surgical margins are negative with no residual disease. He met with medical genetics on 06/19/2018 and he wasfound to have a mutation in MLH1 mismatch repair gene. 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 Consented for adjuvant therapy with Oxaliplatin 130 mg/m? IV every 3 weeks with oral Xeloda 1000 mg/m? twice daily for 2 weeks on 1 week off; x 8 cycles. [id number] PO BID. Start date: Cycle 1, Day 1: Sunday06/10/2018--last cycle 11/07/2018. -Seen for survivorship visit and completed plan for surveillance visits and CEA (currently 2.6); No unanticipated adverse effects related to chemotherapy--no residual neuropathy, conjunctivitis, and only mild fatigue. -Laboratories are reviewed; overall very stable. Anemia is significantly improved. Mild cytopenias improved. Reviewed restaging CT scan after cycle 8 where he was noted to have a density inthe right lower quadrant near the abdominal wall --Sent for PET/CT due to thick walled fluid collection which was FDG avid and noother sites of metastases noted. Dr. Groves reevaluated the patient and sent toDr. Mia Coon for resection by surgical oncology. -- GI tumor board recommended consideration of intraoperative radiation therapy, however at the time of resection 02/18/2019 at the patient was not felt to warrant intraoperative radiation therapy and the lesion was resected with negative margins. In review of the operative report no other sites of metastatic disease were seen in the peritoneum and the patient will be followed. --I presented his case again to GI tumor board--no further recommendations for chemotherapy maintenance given his local recurrence. Continue close surveillance with CEA and exam as well as EGD/colonoscopy for Mcadams syndrome. 04/2019: EGD with erosive gastritis, Colonoscopy negative for recurrence. Continue annual f/u. 06/26/2019: Isaias presented for review of restaging CT Abd/Pelvis without recurrence but rising CEA noted--currently 4.6 (prior 2.6-->3.5). 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 Baseline loose stools 2-3 following right colectomy. --He will RTC in 3 months for CEA level and exam. He may return sooner if new symptoms arise prior to his scheduled follow-up. This is a 30-minute visit for review of restaging CEA and CT Abd/Pelvis and coordination of care. 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 He has tolerated surgery well and does not require further f/u with Dr. Coon of surgical oncology. He was released to full duty at work. Presented his case in GI tumor board--no further adjuvant therapy is recommended. Radiation is not recommended as he hadcomplete resection with negative margins. Today, the patient has healed, continues to work full-time. CEA continued mild increase, but no recurrence on CT abd/pelvis in June 2019. (3) Mcadams syndrome The patient has a family history of colon cancer in his father diagnosed at age 47. Mismatch repair genes are deficient on his specimen and is consistent with Mcadams syndrome. He has had initial evaluation with medical genetics on 05/22/18; MLH1 germline mutation discovered. Recommendations reviewed with medical genetics on 08/21/2018, and further genetic testing of the patient's family members for Mcadams syndrome has been arranged. We will continue surveillance for Mcadams associated malignancies. In April 2019 the patient completed his annual EGD/Colonoscopy with annual f/uas recommended. New CT abd/pelvis will be deferred to 6 months unless new symptoms or significant increase in CEA noted. He continues to have mild increase (06/2019 CEA 4.6, 05/2019 CEA 3.5 and 02/2019 2.6). We discussed possible effect of smokeless tobacco use on CEA. (4) History of iron deficiency anemia The patient was admitted to [facility] for severe anemia with hemoglobin down to 4.5 and no clear bleeding source. Despite 6 units of transfusion, he had microcytic indices with anemia and iron saturation 8%. To improve surgical morbidity, he was treated with parenteral iron infusion with Injectafer 750 mg x2 weekly infusions prior to his scheduled surgery. Today, His hemoglobin is now 14.9, denies fatigue, sob, and gross bleeding. Wewill continue to follow hemoglobin with f/u visits, but likely source of bleeding was his colon adenocarcinoma which has been resected. - Chemo Plan Chemo Plan (Dose, Rate, Freq): Presented patient at GI tumor board 03/05/2019 to determine if further chemotherapy is recommended after resection of solitary peritoneal metastasis. --Patient contacted with plan to continue surveillance without further adjuvant therapy. Will treat with immunotherapy at progression due to MSI high status. Goal of Treatment: Curative - Time with Patient Total Time Spent with Patient: 30 min - 30 minute f/u to review CT CAP and rise in CEA Coordination of Care & Counseling Time: Greater than 50% of time spent with patient was for coordination of care (as documented) and [id number] counseling of patient and/or family. Dictated By: Myranda Jarquin MD DD/ 154 Signed By: <Electronically signed by MD Myranda Jarquin> 06/26/19 [id number] [facility] Work Phone: [phone] Progress note Author Lizbet Gonzalez [facility] May 23, 2019 7:56am Note Date/Time May 22, 2019 5:20pm [facility] [place] [id number] Hem/Onc Follow Up Note - OP Signed Patient: Isaias Gleason MR#: [id number] : 1965 Acct:[id number] Age/Sex: 54 / M Type: REG RCR Copies to: MD Orestes Zarate Jr, MD Martin Hyman,~ Subjective Date/Time of Service: Date of Service: 05/22/2019 Time of Service: 15:40 Chief Complaint: Patient is here for follow up history of colon cancer with lab work for review. Patient has no concerns. Patient had recent EGD and colonoscopy. HPI: Isaias presented to the clinic today for his scheduled follow-up appointment toreview lab work. The patient reported, he had completed his annual EGD/Colonoscopy by Dr. 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 He stated, that he has 2-3 loose stools daily following his right colectomy. The patient denies, abd pain, melena, hematochezia. The patientvoices peripheral neuropathy in fingertips/toes no change. DIAGNOSES: 1. Cecal carcinoma, originally presented to [facility] with iron deficiency anemia of occult source. Known family history of colon cancer in father who at age 48. --Right hemicolectomy performed 05/06/2018. 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 Directly penetrating the serosa. Clinical history of a contained perforation against the lateral peritoneum was noted. Terminal ileum and ileocecal valve involvement by colonic adenocarcinomaidentified. Negative mesenteric, true peritoneum, and colon proximal and distalmargins of resection. 36 out of 36 pericolic lymph nodes are negative for metastatic colon adenocarcinoma. Fibrous obliteration of appendix lumen. 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 MSH2 and MSH6 show intact nuclear expression. --Medical genetics eval 06/19/2018. 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 They discussed screening recommendations for family members and frequency of colonoscopy for surveillance. 2. Iron deficiency anemia, originally presented with hemoglobin 4.5 on 03/30/2018. 6 units blood transfused -- Injectafer iron therapy 750 mg IV on 04/23 and 05/01/2018 prior to surgery. 3. Resection of right lower quadrant peritoneal/abdominal wall PET avid mass with biopsy consistent with recurrent adenocarcinoma. He underwent complete resection with negative margins 02/18/2019 as noted above by Dr. Mia Coon at [facility] surgical oncology. He did not require intraoperative radiation therapy and we are re-presenting his case at GI tumor board to discusswhether pseudo-adjuvant therapy versus observation is recommended. PRELIMINARY HISTORY: This is a 53-year-old male who does not seek regular medical care who presented to the emergency department with weakness and presyncopal sensation. He noticeda gradual feeling of increased fatigability and shortness of breath with exertion with heaviness in the thighs legs and arms. He did not have any visible bright red blood per rectum but had guaiac positive stool. His hemoglobin was 4.5. He underwent transfusion of a total of 6 units of blood andhad not had any visible gastrointestinal bleeding during the hospital stay. An abdominal CT showed a mass within the cecum suspicious for malignancy. He was offered colonoscopy by Dr. Maria but deferred this. After discharge from the hospital he self referred to Dr. Fox and underwent colonoscopy 04/09/2018 with cecal biopsy showing invasive to poorly differentiated adenocarcinoma, fragments of tubular adenoma with high- grade dysplasia. He underwent right hemicolectomy surgery 05/01/2018. Outside laboratories including peripheral smear noted marked poikilocytosis withreport of 2+ schistocytes and 2+ teardrops. He also had a remarkable low mean corpuscular volume in the low 70s with elevated RDW to 30s. This remained low despite his multiple transfusions. Pre-operatively given Injectafer 750mg IV x 2. His father was diagnosed with colon cancer at age 47 and at age 48 as he was metastatic at diagnosis. Patient does not know of any other family members with malignancy, but he has never had genetic testing. MLH1 mutation discoveredand Dr. Fox of medical genetics recommended family screening recommendations. - Summary of Therapies Summary of Therapies: 1.) Right hemicolectomy per Dr. Groves - 05/06/2018; Pathologic stage pT4a, pN0,pMX (stage IIb) 2.) Adjuvant XELOX every 3 weeks, Cycle 1, Day 1: 06/10/2018- 8 cycles planned--last cycle early November 2018. 3.) Solitary right lower quadrant peritoneal recurrence with resection by surgical oncology Dr. Coon 02/18/2019 with negative margins. Pending tumor board discussion. Did not require intraoperative radiation. ROS Details: All systems reviewed & no additional complaints except as documented Subjective/ROS - Narrative: Subjective/ROS-narrative: Constitutional: Negative: No chills, fatigue, fever, weakness, pain HEENT: Negative: epistaxis, rhinorrhea, sore throat Cardiovascular: Negative: Chest pain, edema, palpitations Respiratory: Negative: Cough, shortness of breath, hemoptysis Gastrointestinal: Negative: pain, bloating, constipation, diarrhea, nausea, vomiting positive: per hpi loose stools 2-3 times daily s/p right colectomy Genitourinary: Negative: Frequency, dysuria, flank pain, hematuria Genitalia: Negative: masses, hernia Musculoskeletal: Negative: Joint/bone pain Neurologic: Negative: Dizziness, headache, positive:numbness/tingling fingertips/toes bilateral Psychiatric: Negative: Anxiety, depression, sleep changes Hematologic/lymphatic: Negative: Bleeding, bruising, enlarged lymph nodes Endocrine: Negative: Excessive sweating, flushing, intolerance to cold, intolerance to heat, weight gain/loss Allergic/immunology: Negative: Pruritus, rash PMFSH - History Attestation statement: The following information was validated with the patient. Source: Old Records Reviewed - Medical History Medical History: Medical History (Last Updated 05/23/19 @ 07:27 by Lizbet Gonzalez APRN) Iron (Fe) deficiency anemia Colon cancer w/chemo - Surgical History Surgical History: Surgical History (Last Updated 05/23/19 @ 07:27 by Lizbet Gonzalez APRN) H/O arthroscopic knee surgery 1989 History of esophagogastroduodenoscopy (EGD) and colonoscopy last 2018 History of eye surgery x2 as child S/P right colectomy concerted to open -05/01/18, excision of local peritoneal reoccurrence Dr. 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 No Distress Screening Total 0 - ECOG Performance Status ECOG Score: 0 Physical Exam Narrative: Constitutional: No acute distress, well-nourished, alert/oriented x3, cooperative HEENT: Head: Normocephalic, atrophic Eyes: EOMI, PERRL, clear conjunctiva ENT: Moist mucous membrane, oropharynx clear, nares patent Neck: Supple, trachea midline, full range of motion, no lymphadenopathy, no tenderness Chest exam: No tenderness, no lymphadenopathy Respiratory: No accessory muscle use, anterior and posterior chest clear, no rales, no respiratory distress, no rhonchi, no wheeze, room air Cardiovascular: S1-S2, no murmur, no rubs, no gallop, trace bilateral peripheraledema Gastrointestinal: Normal active bowel sounds, soft no tenderness, surgical incision site well-healed, no bruising, no distention, no mass, no organomegaly,no bleeding : No gross hematuria Groin: No inguinal lymphadenopathy Back/spine/pelvis exam: Full range of motion, no vertebral tenderness Skin: Intact, dry, warm, normal turgor, no rash Neurologic: Alert, oriented x3, cranial nerves II-XII intact, reflexes, moving all extremities, vision grossly intact, hearing grossly intact, normal speech, normal gait, no tremors Psychiatric: Normal affect, normal thought process, cooperative Results - Labs Labs: Diagram of Most Recent CBC and CMP 05/21/19 13:56 05/21/19 13:56 Labs - Last 7 Days 05/21/19 13:56: Carcinoembryonic Ag 3.5 H 05/21/19 13:56: PHA Creatinine Clear [id number], Sodium 140, Potassium 4.1, Chloride 103, Carbon Dioxide 27.7, BUN 9, Creatinine 1.12, Est GFR ( Amer) > 60, Est GFR (Non-Af Amer) > 60, Glucose 99, Calcium 9.9, Total Bilirubin1.4 H, AST 40, ALT 36, Alkaline Phosphatase 146 H, Total Protein 7.8, Albumin 4.4, Globulin 3.4, Albumin/Globulin Ratio 1.3 05/21/19 13:56: WBC 5.5, Corrected WBC 5.5, RBC 4.76, Hgb 14.9, Hct 43.7, MCV 91.7, MCH 31.3, MCHC 34.2, RDW 13.6, Plt Count 133 L, MPV 9.0, Neut % (Auto) 74.4, Lymph % (Auto) 18.8, [place] % (Auto) 5.0, Eos % (Auto) 1.3, Baso % (Auto) 0.5, Neut # (Auto) 4.1, Lymph # (Auto) 1.0, [place] # (Auto) 0.3, Eos # (Auto) 0.1,Baso # (Auto) 0.0, Nucleated RBC % (auto) 0.0 Assessment and Plan (1) Carcinoma of cecum This is a 53-year-old male without significant past medical history but significant family history of colon carcinoma in his father age 47. He was diagnosed with a cecal carcinoma by colonoscopy on 04/09/2018 and underwent 05/01revealing stage IIb (pT4a pN0 M0) moderate to poorly differentiated adenocarcinoma. He had a contained perforation of the cecum, but all surgical margins are negative with no residual disease. 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 Consented for adjuvant therapy with Oxaliplatin 130 mg/m? IV every 3 weeks with oral Xeloda 1000 mg/m? twice daily for 2 weeks on 1 week off; x 8 cycles. [id number] PO BID. Start date: Cycle 1, Day 1: Sunday06/10/2018--last cycle 11/07/2018. -Seen for survivorship visit and completed plan for surveillance visits and CEA (currently 2.6); No unanticipated adverse effects related to chemotherapy--no residual neuropathy, conjunctivitis, and only mild fatigue. -Laboratories are reviewed; overall very stable. Anemia is significantly improved. Mild cytopenias improved. Reviewed restaging CT scan after cycle 8 where he was noted to have a density inthe right lower quadrant near the abdominal wall --Sent for PET/CT due to thick walled fluid collection which was FDG avid and noother sites of metastases noted. Dr. Groves reevaluated the patient and sent toDr. Mia Coon for resection by surgical oncology. -- GI tumor board recommended consideration of intraoperative radiation therapy, however at the time of resection 02/18/2019 at the patient was not felt to warrant intraoperative radiation therapy and the lesion was resected with negative margins. In review of the operative report no other sites of metastatic disease were seen in the peritoneum and the patient will be followed. --I have requested to present his case again to GI tumor board to determine whether there will be any further recommendations for chemotherapy maintenance given his local recurrence or simply close surveillance. He will be contacted with results. --If he is not deemed to require further chemotherapy he will RTC in 3 months for CEA level and exam. He may return sooner if any adverse effects of therapy noted prior to his scheduled follow-up. This is a 45-minute visit for review of pathology and coordination of care. 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 Baseline loose stools 2-3 following right colectomy. Completed examination and discussed CEA 3.5 increased 02/26 visit 2.6. The plan is to repeat CEA, CT abd/pelvis in 06/26 as it has been 6 months from last PET. 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 He has tolerated surgery well and will be following up with Dr. Coon on Sunday. He wishes to be released to full duty at work next week. Presenting his case in GI tumor board next weekas noted above to determine if further adjuvant therapy is recommended. Radiation is not recommended as he had complete resection with negative margins. Today, the patient has healed, continues to work full-time. CEA slight increase will order CT abd/pelvis in 06/26. (3) Mcadams syndrome The patient has a family history of colon cancer in his father diagnosed at age 47. Mismatch repair genes are deficient on his specimen and is consistent with Mcadams syndrome. He has had initial evaluation with medical genetics on 05/22/18; MLH1 germline mutation discovered. Recommendations reviewed with medical genetics on 08/21/2018, and further genetic testing of the patient's family members for Mcadams syndrome has been arranged. We will continue surveillance for Mcadams associated malignancies. Today, 05/23/19 the patient as completed his annual EGD/Colonoscopy with annual f/u as recommended. We will order CTabd/pelvis for slight increase in CEA 3.5 from 2.6 and last scans 12/2018 months . The patient was agreeable to this plan. (4) History of iron deficiency anemia The patient was admitted to [facility] for severe anemia with hemoglobin down to 4.5 and no clear bleeding source. Despite 6 units of transfusion, he had microcytic indices with anemia and iron saturation 8%. To improve surgical morbidity, he was treated with parenteral iron infusion with Injectafer 750 mg today and second infusion 1 week prior to his scheduled surgery. Today, His hemoglobin is now 14.9, denies fatigue, sob, and gross bleeding. Wewill continue to follow hemoglobin with f/u visits, but likely source of bleeding was his colon adenocarcinoma which has been resected. - Chemo Plan Goal of Treatment: Curative - Time with Patient Total Time Spent with Patient: 30 min Coordination of Care & Counseling Time: Greater than 50% of time spent with patient was for coordination of care (as documented) and [id number] counseling of patient and/or family. Dictated By: Lizbet Gonzalez APRN DD/ 19 Signed By: <Electronically signed by MEET Gonzalez> 05/23/19 0[address] [facility] Work Phone: [phone] Progress note Author Lizbet Gonzalez [facility] May 23, 2019 7:56am Note Date/Time May 22, 2019 5:20pm [facility] at [address] [address] Hem/Onc Follow Up Note - OP Signed Patient: Isaias Gleason MR#: [id number] 321 : 1965 Acct:[id number] Age/Sex: 54 / M Type: REG RCR Copies to: MD Orestes Zarate Jr, MD Martin Hyman,~ Subjective Date/Time of Service: Date of Service: 05/22/2019 Time of Service: 15:40 Chief Complaint: Patient is here for follow up history of colon cancer with lab work for review. Patient has no concerns. Patient had recent EGD and colonoscopy. HPI: Isaias presented to the clinic today for his scheduled follow-up appointment toreview lab work. The patient reported, he had completed his annual EGD/Colonoscopy by Dr. 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 He stated, that he has 2-3 loose stools daily following his right colectomy. The patient denies, abd pain, melena, hematochezia. The patientvoices peripheral neuropathy in fingertips/toes no change. DIAGNOSES: 1. Cecal carcinoma, originally presented to [facility] with iron deficiency anemia of occult source. Known family history of colon cancer in father who at age 48. --Right hemicolectomy performed 05/06/2018. 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 Directly penetrating the serosa. Clinical history of a contained perforation against the lateral peritoneum was noted. Terminal ileum and ileocecal valve involvement by colonic adenocarcinomaidentified. Negative mesenteric, true peritoneum, and colon proximal and distalmargins of resection. 36 out of 36 pericolic lymph nodes are negative for metastatic colon adenocarcinoma. Fibrous obliteration of appendix lumen. 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 MSH2 and MSH6 show intact nuclear expression. --Medical genetics eval 06/19/2018. 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 They discussed screening recommendations for family members and frequency of colonoscopy for surveillance. 2. Iron deficiency anemia, originally presented with hemoglobin 4.5 on 03/30/2018. 6 units blood transfused -- Injectafer iron therapy 750 mg IV on 04/23 and 05/01/2018 prior to surgery. 3. Resection of right lower quadrant peritoneal/abdominal wall PET avid mass with biopsy consistent with recurrent adenocarcinoma. He underwent complete resection with negative margins 02/18/2019 as noted above by Dr. Mia Coon at [facility] surgical oncology. He did not require intraoperative radiation therapy and we are re-presenting his case at GI tumor board to discusswhether pseudo-adjuvant therapy versus observation is recommended. PRELIMINARY HISTORY: This is a 53-year-old male who does not seek regular medical care who presented to the emergency department with weakness and presyncopal sensation. He noticeda gradual feeling of increased fatigability and shortness of breath with exertion with heaviness in the thighs legs and arms. He did not have any visible bright red blood per rectum but had guaiac positive stool. His hemoglobin was 4.5. He underwent transfusion of a total of 6 units of blood andhad not had any visible gastrointestinal bleeding during the hospital stay. An abdominal CT showed a mass within the cecum suspicious for malignancy. He was offered colonoscopy by Dr. Maria but deferred this. After discharge from the hospital he self referred to Dr. Fox and underwent colonoscopy 04/09/2018 with cecal biopsy showing invasive to poorly differentiated adenocarcinoma, fragments of tubular adenoma with high- grade dysplasia. He underwent right hemicolectomy surgery 05/01/2018. Outside laboratories including peripheral smear noted marked poikilocytosis withreport of 2+ schistocytes and 2+ teardrops. He also had a remarkable low mean corpuscular volume in the low 70s with elevated RDW to 30s. This remained low despite his multiple transfusions. Pre-operatively given Injectafer 750mg IV x 2. His father was diagnosed with colon cancer at age 47 and at age 48 as he was metastatic at diagnosis. Patient does not know of any other family members with malignancy, but he has never had genetic testing. MLH1 mutation discoveredand Dr. Fox of medical genetics recommended family screening recommendations. - Summary of Therapies Summary of Therapies: 1.) Right hemicolectomy per Dr. Groves - 05/06/2018; Pathologic stage pT4a, pN0,pMX (stage IIb) 2.) Adjuvant XELOX every 3 weeks, Cycle 1, Day 1: 06/10/2018- 8 cycles planned--last cycle early November 2018. 3.) Solitary right lower quadrant peritoneal recurrence with resection by surgical oncology Dr. Coon 02/18/2019 with negative margins. Pending tumor board discussion. Did not require intraoperative radiation. ROS Details: All systems reviewed & no additional complaints except as documented Subjective/ROS - Narrative: Subjective/ROS-narrative: Constitutional: Negative: No chills, fatigue, fever, weakness, pain HEENT: Negative: epistaxis, rhinorrhea, sore throat Cardiovascular: Negative: Chest pain, edema, palpitations Respiratory: Negative: Cough, shortness of breath, hemoptysis Gastrointestinal: Negative: pain, bloating, constipation, diarrhea, nausea, vomiting positive: per hpi loose stools 2-3 times daily s/p right colectomy Genitourinary: Negative: Frequency, dysuria, flank pain, hematuria Genitalia: Negative: masses, hernia Musculoskeletal: Negative: Joint/bone pain Neurologic: Negative: Dizziness, headache, positive:numbness/tingling fingertips/toes bilateral Psychiatric: Negative: Anxiety, depression, sleep changes Hematologic/lymphatic: Negative: Bleeding, bruising, enlarged lymph nodes Endocrine: Negative: Excessive sweating, flushing, intolerance to cold, intolerance to heat, weight gain/loss Allergic/immunology: Negative: Pruritus, rash PMFSH - History Attestation statement: The following information was validated with the patient. Source: Old Records Reviewed - Medical History Medical History: Medical History (Last Updated 05/23/19 @ 07:27 by Lizbet Gonzalez APRN) Iron (Fe) deficiency anemia Colon cancer w/chemo - Surgical History Surgical History: Surgical History (Last Updated 05/23/19 @ 07:27 by Lizbet Gonzalez APRN) H/O arthroscopic knee surgery 1989 History of esophagogastroduodenoscopy (EGD) and colonoscopy last 2018 History of eye surgery x2 as child S/P right colectomy concerted to open -05/01/18, excision of local peritoneal reoccurrence Dr. 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 No Distress Screening Total 0 - ECOG Performance Status ECOG Score: 0 Physical Exam Narrative: Constitutional: No acute distress, well-nourished, alert/oriented x3, cooperative HEENT: Head: Normocephalic, atrophic Eyes: EOMI, PERRL, clear conjunctiva ENT: Moist mucous membrane, oropharynx clear, nares patent Neck: Supple, trachea midline, full range of motion, no lymphadenopathy, no tenderness Chest exam: No tenderness, no lymphadenopathy Respiratory: No accessory muscle use, anterior and posterior chest clear, no rales, no respiratory distress, no rhonchi, no wheeze, room air Cardiovascular: S1-S2, no murmur, no rubs, no gallop, trace bilateral peripheraledema Gastrointestinal: Normal active bowel sounds, soft no tenderness, surgical incision site well-healed, no bruising, no distention, no mass, no organomegaly,no bleeding : No gross hematuria Groin: No inguinal lymphadenopathy Back/spine/pelvis exam: Full range of motion, no vertebral tenderness Skin: Intact, dry, warm, normal turgor, no rash Neurologic: Alert, oriented x3, cranial nerves II-XII intact, reflexes, moving all extremities, vision grossly intact, hearing grossly intact, normal speech, normal gait, no tremors Psychiatric: Normal affect, normal thought process, cooperative Results - Labs Labs: Diagram of Most Recent CBC and CMP 05/21/19 13:56 05/21/19 13:56 Labs - Last 7 Days 05/21/19 13:56: Carcinoembryonic Ag 3.5 H 05/21/19 13:56: PHA Creatinine Clear [id number], Sodium 140, Potassium 4.1, Chloride 103, Carbon Dioxide 27.7, BUN 9, Creatinine 1.12, Est GFR ( Amer) > 60, Est GFR (Non-Af Amer) > 60, Glucose 99, Calcium 9.9, Total Bilirubin1.4 H, AST 40, ALT 36, Alkaline Phosphatase 146 H, Total Protein 7.8, Albumin 4.4, Globulin 3.4, Albumin/Globulin Ratio 1.3 05/21/19 13:56: WBC 5.5, Corrected WBC 5.5, RBC 4.76, Hgb 14.9, Hct 43.7, MCV 91.7, MCH 31.3, MCHC 34.2, RDW 13.6, Plt Count 133 L, MPV 9.0, Neut % (Auto) 74.4, Lymph % (Auto) 18.8, Marion % (Auto) 5.0, Eos % (Auto) 1.3, Baso % (Auto) 0.5, Neut # (Auto) 4.1, Lymph # (Auto) 1.0, Marion # (Auto) 0.3, Eos # (Auto) 0.1,Baso # (Auto) 0.0, Nucleated RBC % (auto) 0.0 Assessment and Plan (1) Carcinoma of cecum This is a 53-year-old male without significant past medical history but significant family history of colon carcinoma in his father age 47. He was diagnosed with a cecal carcinoma by colonoscopy on 04/09/2018 and underwent 05/01revealing stage IIb (pT4a pN0 M0) moderate to poorly differentiated adenocarcinoma. He had a contained perforation of the cecum, but all surgical margins are negative with no residual disease. 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 Consented for adjuvant therapy with Oxaliplatin 130 mg/m? IV every 3 weeks with oral Xeloda 1000 mg/m? twice daily for 2 weeks on 1 week off; x 8 cycles. [id number] PO BID. Start date: Cycle 1, Day 1: Sunday06/10/2018--last cycle 11/07/2018. -Seen for survivorship visit and completed plan for surveillance visits and CEA (currently 2.6); No unanticipated adverse effects related to chemotherapy--no residual neuropathy, conjunctivitis, and only mild fatigue. -Laboratories are reviewed; overall very stable. Anemia is significantly improved. Mild cytopenias improved. Reviewed restaging CT scan after cycle 8 where he was noted to have a density inthe right lower quadrant near the abdominal wall --Sent for PET/CT due to thick walled fluid collection which was FDG avid and noother sites of metastases noted. Dr. Groves reevaluated the patient and sent toDr. Mia Coon for resection by surgical oncology. -- GI tumor board recommended consideration of intraoperative radiation therapy, however at the time of resection 02/18/2019 at the patient was not felt to warrant intraoperative radiation therapy and the lesion was resected with negative margins. In review of the operative report no other sites of metastatic disease were seen in the peritoneum and the patient will be followed. --I have requested to present his case again to GI tumor board to determine whether there will be any further recommendations for chemotherapy maintenance given his local recurrence or simply close surveillance. He will be contacted with results. --If he is not deemed to require further chemotherapy he will RTC in 3 months for CEA level and exam. He may return sooner if any adverse effects of therapy noted prior to his scheduled follow-up. This is a 45-minute visit for review of pathology and coordination of care. 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 Baseline loose stools 2-3 following right colectomy. Completed examination and discussed CEA 3.5 increased 02/26 visit 2.6. The plan is to repeat CEA, CT abd/pelvis in 06/26 as it has been 6 months from last PET. 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 He has tolerated surgery well and will be following up with Dr. Coon on Sunday. He wishes to be released to full duty at work next week. Presenting his case in GI tumor board next weekas noted above to determine if further adjuvant therapy is recommended. Radiation is not recommended as he had complete resection with negative margins. Today, the patient has healed, continues to work full-time. CEA slight increase will order CT abd/pelvis in 06/26. (3) Mcadams syndrome The patient has a family history of colon cancer in his father diagnosed at age 47. Mismatch repair genes are deficient on his specimen and is consistent with Mcadams syndrome. He has had initial evaluation with medical genetics on 05/22/18; MLH1 germline mutation discovered. Recommendations reviewed with medical genetics on 08/21/2018, and further genetic testing of the patient's family members for Mcadams syndrome has been arranged. We will continue surveillance for Mcadams associated malignancies. Today, 05/23/19 the patient as completed his annual EGD/Colonoscopy with annual f/u as recommended. We will order CTabd/pelvis for slight increase in CEA 3.5 from 2.6 and last scans 12/2018 months . The patient was agreeable to this plan. (4) History of iron deficiency anemia The patient was admitted to [facility] for severe anemia with hemoglobin down to 4.5 and no clear bleeding source. Despite 6 units of transfusion, he had microcytic indices with anemia and iron saturation 8%. To improve surgical morbidity, he was treated with parenteral iron infusion with Injectafer 750 mg today and second infusion 1 week prior to his scheduled surgery. Today, His hemoglobin is now 14.9, denies fatigue, sob, and gross bleeding. Wewill continue to follow hemoglobin with f/u visits, but likely source of bleeding was his colon adenocarcinoma which has been resected. - Chemo Plan Goal of Treatment: Curative - Time with Patient Total Time Spent with Patient: 30 min Coordination of Care & Counseling Time: Greater than 50% of time spent with patient was for coordination of care (as documented) and [id number] counseling of patient and/or family. Dictated By: Lizbet Gonzalez APRN DD/ 19 Signed By: <Electronically signed by MEET Gonzalez> 05/23/19 [id number] [facility] Work Phone: [phone] Progress note Author Myranda Jarquin [facility] March 06, 2019 12:47pm Note Date/Time February 28, 2019 9: 35am [facility] at [place] [id number] Hem/Onc Follow Up Note - OP Signed with Lucretia Patient: Isaias Gleason MR#: [id number] 321 : 1965 Acct:[id number] Age/Sex: 53 / M Type: REG RCR Copies to: Orestes Fox Jr, MD Martin Hyman,DO Rowena Coon MD~ ADDENDUM1 Dr. Myranda Jarquin [id number] 1965 ISAIAS GLEASON Presented with Surgery completed02.18.19; discuss need for further adjuvant therapy. Cytogenetics/Molecular Studies/Diagnostic Factors:pT4a N0 Mx Stage IIB. Referral to:1) Surveillance andtreat with immunotherapy if progression; 2) Colonoscopy scheduled next month (March); 3) Obtain EGD at same time as colonoscopy. GI Tumor Board recommendations from 03/05/2019. Contacting patient today to review. Addendum Dictated By: MD Myranda Jarquin Addendum Signed By: 03/06/191246 Addendum Cosigned By: DD/ TD/TT: 03/06/19 Subjective Date/Time of Service: Date of Service: 02/28/2019 Time of Service: 09:15 Chief Complaint: Patient here for three month follow up appointment to review lab work. Patient reports he had surgery with Dr. Coon last Sunday and notes thatthey did not have to use radiation during the procedure. Patient denies any complaints at this time and reports he is healing well from surgery. He has a follow up appointment with Dr. Coon Sunday. HPI: Isaias is recovering well since his hand-assisted laparoscopic abdominal wall mass resection on 02/18/2019. He is recovering well and only required pain medication for 3 days. He has a large bruise overlying the right lower quadrantwhich is likely at the site that the mass was removed from the abdominal wall. Pathology was reviewed and noted to be adenocarcinoma consistent with colorectalorigin involving fibroadipose tissue. The surgical margin which consists of skeletal muscle and fibrous tissue is uninvolved by tumor. The patient notes that he has normal bowel and bladder function and is otherwise without complaints. He would like to see her for follow-up Sunday and return to work onTday. I have asked Dr. Coon to add the patient to GI tumor board next week so that wecan discuss the potential of adjuvant therapy. He was not deemed a candidate for intraoperative radiation and unless further adjuvant therapy is recommended by the tumor board, he will likely continue every 3-month surveillance for recurrence. I will contact him with the results and recommendations of the tumor board. ----- --He previously completed 8 cycles XELOX regimen (IV oxaliplatin 130 mg/m? every3 weeks with oral Xeloda 1000 mg/m? twice daily for 2 weeks on 1 week off every 3 weeks) - 6 months of adjuvant therapy. During his last 2 cycles of therapy, he was unable to afford his Xeloda and rationed meds to receive 50% or less oftotal dose. Cycle 1, Day 1 commenced 06/10/18. Toxicities included intermittent watery sensation over his eyes without associated redness or change in visual acuity--now resolved. This occurred within a few days after oxaliplatin. No skin rashes or ulceration of the oral cavity. No recent infections. No persistent numbness from Oxaliplatin. No abdominal pain. Normal stools. his end of therapy abdominal pelvic CT scan showing a fluid filled opacity--question of seroma or necrotic LN, therefore PET/CT was ordered confirming PET avid mass with subsequent referral to Dr. Coon as noted below. DIAGNOSES: 1. Cecal carcinoma, originally presented to [facility] with iron deficiency anemia of occult source. Known family history of colon cancer in father who at age 48. --Right hemicolectomy performed 05/06/2018. 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 Directly penetrating the serosa. Clinical history of a contained perforation against the lateral peritoneum was noted. Terminal ileum and ileocecal valve involvement by colonic adenocarcinomaidentified. Negative mesenteric, true peritoneum, and colon proximal and distalmargins of resection. 36 out of 36 pericolic lymph nodes are negative for metastatic colon adenocarcinoma. Fibrous obliteration of appendix lumen. 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 MSH2 and MSH6 show intact nuclear expression. --Medical genetics eval 06/19/2018. 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 They discussed screening recommendations for family members and frequency of colonoscopy for surveillance. 2. Iron deficiency anemia, originally presented with hemoglobin 4.5 on 03/30/2018. 6 units blood transfused -- Injectafer iron therapy 750 mg IV on 04/23 and 05/01/2018 prior to surgery. 3. Resection of right lower quadrant peritoneal/abdominal wall PET avid mass with biopsy consistent with recurrent adenocarcinoma. He underwent complete resection with negative margins 02/18/2019 as noted above by Dr. Mia Coon at [facility] surgical oncology. He did not require intraoperative radiation therapy and we are re-presenting his case at GI tumor board to discusswhether pseudo-adjuvant therapy versus observation is recommended. PRELIMINARY HISTORY: This is a 53-year-old male who does not seek regular medical care who presented to the emergency department with weakness and presyncopal sensation. He noticeda gradual feeling of increased fatigability and shortness of breath with exertion with heaviness in the thighs legs and arms. He did not have any visible bright red blood per rectum but had guaiac positive stool. His hemoglobin was 4.5. He underwent transfusion of a total of 6 units of blood andhad not had any visible gastrointestinal bleeding during the hospital stay. An abdominal CT showed a mass within the cecum suspicious for malignancy. He was offered colonoscopy by Dr. Maria but deferred this. After discharge from the hospital he self referred to Dr. Fox and underwent colonoscopy 04/09/2018 with cecal biopsy showing invasive to poorly differentiated adenocarcinoma, fragments of tubular adenoma with high- grade dysplasia. He underwent right hemicolectomy surgery 05/01/2018. Outside laboratories including peripheral smear noted marked poikilocytosis withreport of 2+ schistocytes and 2+ teardrops. He also had a remarkable low mean corpuscular volume in the low 70s with elevated RDW to 30s. This remained low despite his multiple transfusions. Pre-operatively given Injectafer 750mg IV x 2. His father was diagnosed with colon cancer at age 47 and at age 48 as he was metastatic at diagnosis. Patient does not know of any other family members with malignancy, but he has never had genetic testing. MLH1 mutation discoveredand Dr. Fox of medical genetics recommended family screening recommendations. - Summary of Therapies Summary of Therapies: 1.) Right hemicolectomy per Dr. Groves - 05/06/2018; Pathologic stage pT4a, pN0,pMX (stage IIb) 2.) Adjuvant XELOX every 3 weeks, Cycle 1, Day 1: 06/10/2018- 8 cycles planned--last cycle early November 2018. 3.) Solitary right lower quadrant peritoneal recurrence with resection by surgical oncology Dr. Coon 02/18/2019 with negative margins. Pending tumor board discussion. Did not require intraoperative radiation. ROS Details: All systems reviewed & no additional complaints except as documented Subjective/ROS - Narrative: ROS Details: All systems reviewed & no additional complaints except as documented Constitutional: fair state of general health, normal activity level and exercisetolerance (no significant postop pain currently), normal sleep, no weight loss -Denies significant weight loss, no weight gain--wishes to return to normal work schedule next week after postop evaluation with Dr. Coon Sunday. Eyes: no change in vision, no double vision--no conjunctival erythema or injection, resolved watery sensation . Ears, nose, mouth, throat: no headaches, no vertigo, no lightheadedness, no headinjury, no nasal congestion, no rhinorrhea, no epistaxis, no gingival bleeding, no sore throat Cardiovascular: No dyspnea on exertion, no chest pain, no palpitations, no syncope, no orthopnea, no edema, no heart murmur Respiratory: no pain with respirations, no shortness of breath, no wheezing, no exercise intolerance, no cough, no sputum production, no hemoptysis, no TB exposure, no night sweats Gastrointestinal: no abdominal pain--extensive bruising of her right lower quadrant at surgical site, healing laparoscopic incisions and midline ventral incision from hand assist, no change in appetite, no dysphagia, no indigestion,no nausea, no vomiting, no hematemesis, no jaundice, no constipation, no diarrhea, no abnormal stools, no change in bowel habits Genitourinary: no frequency, no dysuria, no nocturia, no hematuria, no oliguria,no stones, no infections, no urinary retention Musculoskeletal: no pain, no swelling, no redness, no limited ROM, no weakness Integumentary: nails brittleness, nails ridging, no rash, no bleeding or bruising, no itching, no hand-foot symptoms. Neurological: no tremor, no incoordination, no paresthesias, no memory loss, no speech disturbance, no motor difficulty--positive for mild cold-induced neuropathy and notes this is more pronounced now than at the end of therapy. Jewell continue to follow as he does not wish additional medication at this time. Psychiatric: no anxiety, no depression Endocrine: no hormone therapy, no heat intolerance Hematologic/Lymphatic: anemia improved after iron infusions, no enlarged lymph nodes, positive for bruising right lower quadrant as noted above. Allergic/Immunologic: no reaction to drugs PMFSH - History Attestation statement: The following information was validated with the patient. Source: Old Records Reviewed - Outside records from [facility] including operative report and pathology reviewed from 02/18/2019 - Social History Tobacco Type: smokeless tobacco Substance Use Type: None Home Medications & Allergies Allergies No Known Allergies Allergy (Verified 11/13/18 12:34) Home Medications No known home meds 11/29/18 [History Confirmed 11/29/18] Objective - Resuscitation Status Resuscitation Status: Full Code - Height/Weight Height/Weight: Height 5 ft 11 in Weight 95.028 kg BSA for Today's Weight 2.18 - Vital Signs Vital Signs: 02/28/19 09:12 Temperature 98.4 F Pulse Rate [Right Brachial] 69 Respiratory Rate 20 Blood Pressure [Right Arm] 150/67 H 02 Sat by Pulse Oximetry 99 - Pain Right Abdomen Pain Intensity: 0 - Emotional Needs Assessment Emotional Needs Assessment: Emotional Needs Identified? No Distress Screening Total 0 Support System Family - ECOG Performance Status ECOG Score: 1 Physical Exam Narrative: CONSTITUTIONAL: The patient is in no acute distress. HEAD / FACE: Normocephalic. EYES: Pupils are equal and reactive to light. Conjunctivae and lids are benign in appearance. Ocular movement intact. EARS: Hearing grossly intact. NOSE / MOUTH / THROAT: Nose, mouth, tongue and oropharynx are benign in appearance. No signs of inflammation. NECK / THYROID: Neck is supple. Thyroid is symmetrical, without thyromegaly, masses or palpable nodules. LYMPHATIC: No palpable cervical, supraclavicular, axillary, or inguinal adenopathy. CHEST WALL: No breast enlargement or tenderness, no galactorrhea bilaterally. RESPIRATORY: Normal to inspection. Lungs clear to auscultation and percussion. No wheezing, rales, rhonchi or rubs. Normal effort. CARDIOVASCULAR: Regular rate and rhythm. No murmurs, gallops, or rubs. VASCULAR: Carotid, radial, femoral and pedal pulses present bilaterally. No bruits. ABDOMEN: Bowel sounds normoactive. Soft, nontender and non-distended. No hepatosplenomegaly. No masses. Healed incisions from laparoscopic hand-assistedresection of peritoneal nodule. GENITOURINARY: No CVA tenderness. No suprapubic fullness or tenderness. No groinadenopathy. No evidence of hernias. INTEGUMENTARY: The skin is unremarkable. No rashes. No suspicious lesions. Positive for bruising over right lower quadrant surgical site, healing wounds abdominal wall from laparoscopic hand-assisted surgery. BACK / SPINE: The back is nontender. No step-off deformity. MUSCULOSKELETAL: Normal musculature, no joint deformities or abnormalities, normal range of motion in all extremities. EXTREMITIES: No edema, cyanosis or clubbing. No Denisa sign. NEUROLOGICAL: Alert and oriented. Cranial nerves intact. No gross motor or sensory deficits. PSYCHIATRIC: No anxiety or evidence of depression. Results - Labs Labs: Diagram of Most Recent CBC and CMP 02/26/19 14:19 02/26/19 14:19 Labs - Last 7 Days 02/26/19 14:19: Carcinoembryonic Ag 2.6 02/26/19 14:19: PHA Creatinine Clear [id number], Sodium 136, Potassium 3.9, Chloride 103, Carbon Dioxide 23.9, BUN 10, Creatinine 0.96, Est GFR ( Amer) > 60, Est GFR (Non-Af Amer) > 60, Glucose 104 H, Calcium 9.1, Total Bilirubin 0.9, AST 47 H, ALT 40, Alkaline Phosphatase 217 H, Total Protein 7.5, Albumin 3.7, Globulin 3.8, Albumin/Globulin Ratio 1.0 02/26/19 14:19: WBC 4.7, Corrected WBC 4.7, RBC 4.21, Hgb 13.6, Hct 39.1, MCV 92.9, MCH 32.3, MCHC 34.8, RDW 12.8, Plt Count 146 L, MPV 8.5, Neut % (Auto) 67.5, Lymph % (Auto) 19.8, Marion % (Auto) 8.1, Eos % (Auto) 3.9, Baso % (Auto) 0.7, Neut # (Auto) 3.2, Lymph # (Auto) 0.9 L, Marion # (Auto) 0.4, Eos # (Auto) 0.2, Baso # (Auto) 0.0, Nucleated RBC % (auto) 0.0 - Impressions Date of Service: 12/13/18 PET/PET tumor subq tx strat sb-mt: CT w fluid collection exclude met vs necrotic LN Copies to: MD Ramesh Zarate II, MD~ PET tumor subq tx strat sb-mt 12/13/2018 8:55 AM SIGNS AND SYMPTOMS: Cancer of the cecum, abnormality within the right lower quadrant on previous CT. PROTOCOL: Axial images of the whole body from skull base to mid thigh were obtained after intravenous radiotracer administration. Low-dose chest CT was performed from skull base to mid thigh. After attenuation correction, fused PETCT images were generated reconstructed in axial, sagittal, and coronal plane. COMPARISON: CT of the abdomen and pelvis from 11/26/2018. RADIOPHARMACEUTICAL: 13.04 mCi of fluorine 18 FDG. BLOOD GLUCOSE: 100 mg/dL FINDINGS: There is an FDG avid lymph node in the left level 2A with a maximum SUV of 3.8. This has a short axis of approximately 8 mm. There is increased FDG activity within the lingual tonsils bilaterally and symmetrically which is most likely physiologic in nature. There is focal FDG activity within the left hemipelvis which appears to correspond with the distal left ureter. There is physiologic accumulation of radiotracer material within the kidneys, ureter on the left, and within the bladder. There is abnormal increased radiotracer accumulation within the previously notedpossible necrotic lymph node in the right paracolic gutter anterior to the psoasmuscle. This has a maximum SUV of 7.5 and is consistent with metastatic adenopathy. PET/PET tumor subq tx strat sb-mt IMPRESSION: Pathologic FDG avid and centrally necrotic lymph node in the right paracolic gutter adjacent to the prior partial colectomy site. This has a maximum SUV of 7.5 and is consistent with the abnormality on the previous CT. There is an FDG avid lymph node in the left level 2A with a maximum SUV of 3.8. This has a short axis of approximately 8 mm. This could potentially represent distant metastatic disease. Impression dictated by: Ramesh Zurita M.D.12/13/2018 2:01 PM - Other Results Results/Comments: Date of Procedure: 02/18/2019 Date Received: 02/18/2019 Date Reported 02/24/2019 Submitting Physician: ROWENA COON MD Location: [facility] Other External # FINAL DIAGNOSIS RIGHT ABDOMINAL WALL MASS, EXCISION: --ADENOCARCINOMA, CONSISTENT WITH COLORECTAL ORIGIN, INVOLVING FIBROADIPOSE TISSUE; SEE NOTE. Note: The surgical margin, which consists of skeletal muscle and fibrous tissue, is uninvolved by tumor. Electronically Signed Out By ZAINAB MARK MD/JULITA By the signature on this report, the individual or group listed as making the Final Interpretation/Diagnosis certifies that they have reviewed this case. Intraoperative Consultation: A: RIGHT ABDOMINAL WALL MASS Frozen Section 1: Date Ordered: 02/18/2019 09:46 Date Received: 02/18/2019 09:46 Date Called: 02/18/2019 10:00 Intraoperative Diagnosis: Gross: Tumor 0.6 cm from muscle margin, present at fat (per surgeon, peritoneal surface). Intraoperative Consult Pathologist(s): KAY CHA MD (P) rl/02/18/2019 Clinical History: Colon cancer/abdominal wall mass Specimens Submitted As: A: RIGHT ABDOMINAL WALL MASS Gross Description: A: Received fresh for intraoperative consultation for gross margins, labeled with the patient's name and hospital number and right lower abdominal wall mass is an unoriented mass with attached fibrofatty tissue measuring 7.0 x 6.3 x 5.4 cm. There is attached abdominal muscle and peritoneal surface on the specimen. The specimen is inked black and serially sectioned. Cut surface reveals a moy-white lesion measuring 6.4 x 5.9 x 4.9 cm with areas of necrosis. The tumor is at the peritoneal surface and 0.6 cm from the nearest muscle margin. Contract Technical Writer sections are submitted in 7 cassettes. RL/SXR Summary of Cassettes: Specimen Label Site A 1-2 account retention representative sections of tumor with nearest muscule margin 3 account retention representative section of tumor with nearest peritoneal surface 4-7 account retention representative sections of tumor with inked margin Assessment and Plan (1) Carcinoma of cecum This is a 53-year-old male without significant past medical history but significant family history of colon carcinoma in his father age 47. He was diagnosed with a cecal carcinoma by colonoscopy on 04/09/2018 and underwent 05/01revealing stage IIb (pT4a pN0 M0) moderate to poorly differentiated adenocarcinoma. He had a contained perforation of the cecum, but all surgical marginsare negative with no residual disease. 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 Consented for adjuvant therapy with Oxaliplatin 130 mg/m? IV every 3 weeks with oral Xeloda 1000 mg/m? twice daily for 2 weeks on 1 week off; x 8 cycles. [id number] PO BID. Start date: Cycle 1, Day 1: Sunday06/10/2018--last cycle 11/07/2018. -Seen for survivorship visit and completed plan for surveillance visits and CEA (currently 2.6); No unanticipated adverse effects related to chemotherapy--no residual neuropathy, conjunctivitis, and only mild fatigue. -Laboratories are reviewed; overall very stable. Anemia is significantly improved. Mild cytopenias improved. Reviewed restaging CT scan after cycle 8 where he was noted to have a density inthe right lower quadrant near the abdominal wall --Sent for PET/CT due to thick walled fluid collection which was FDG avid and noother sites of metastases noted. Dr. Groves reevaluated the patient and sent toDr. Mia Coon for resection by surgical oncology. -- GI tumor board recommended consideration of intraoperative radiation therapy, however at the time of resection 02/18/2019 at the patient was not felt to warrant intraoperative radiation therapy and the lesion was resected with negative margins. In review of the operative report no other sites of metastatic disease were seen in the peritoneum and the patient will be followed. --I have requested to present his case again to GI tumor board to determine whether there will be any further recommendations for chemotherapy maintenance given his local recurrence or simply close surveillance. He will be contacted with results. --If he is not deemed to require further chemotherapy he will RTC in 3 months for CEA level and exam. He may return sooner if any adverse effects of therapy noted prior to his scheduled follow-up. This is a 45-minute visit for review of pathology and coordination of care. 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 He has tolerated surgery well and will be following up with Dr. Coon on Sunday. He wishes to be released to full duty at work next week. Presenting his case in GI tumor board next weekas noted above to determine if further adjuvant therapy is recommended. Radiation is not recommended as he had complete resection with negative margins. (3) Mcadams syndrome The patient has a family history of colon cancer in his father diagnosed at age 47. Mismatch repair genes are deficient on his specimen and is consistent with Mcadams syndrome. He has had initial evaluation with medical genetics on 05/22/18; MLH1 germline mutation discovered. Recommendations reviewed with medical genetics on 08/21/2018, and further genetic testing of the patient's family members for Mcadams syndrome has been arranged. We will continue surveillance for Mcadams associated malignancies. (4) History of iron deficiency anemia The patient was admitted to [facility] for severe anemia with hemoglobin down to 4.5 and no clear bleeding source. Despite 6 units of transfusion, he had microcytic indices with anemia and iron saturation 8%. To improve surgical morbidity, he was treated with parenteral iron infusion with Injectafer 750 mg today and second infusion 1 week prior to his scheduled surgery. His hemoglobinis now normal and iron stores have returned to normal. We will continue to follow hemoglobin with f/u visits, but likely source of bleeding was his colon adenocarcinoma which has been resected. - Chemo Plan Chemo Plan (Dose, Rate, Freq): Presenting patient at GI tumor board to determine if further chemotherapy is recommended after resection of solitary peritoneal metastasis. Goal of Treatment: Curative - Time with Patient Total Time Spent with Patient: 45 min - Extended visit for review of pathology with the patient, discussion with surgeon of placing patient on GI tumor board and will contact with recommendations Coordination of Care & Counseling Time: Greater than 50% of time spent with patient was for coordination of care (as documented) and [id number] counseling of patient and/or family. Dictated By: Myranda Jarquin MD DD/ [id number] Signed By: <Electronically signed by MD Myranda Jarquin> 02/28/19 1742 [facility] Work Phone: [phone] 500-469908-29-2019 Progress note Author Myranda Jarquin [facility] March 06, 2019 12:47pm Note Date/Time February 28, 2019 9: 35am [facility] [place] [address] Hem/Onc Follow Up Note - OP Signed with Addenda Patient: Isaias Gleason MR#: [id number] : 1965 Acct:[id number] Age/Sex: 53 / M Type: REG RCR Copies to: Orestes Fox Jr, MD Martin Hyman,DO Rowena Coon MD~ ADDENDUM1 Dr. Myranda Jarquin [id number] 1965 ISAIAS GLEASON Presented with Surgery completed02.18.19; discuss need for further adjuvant therapy. Cytogenetics/Molecular Studies/Diagnostic Factors:pT4a N0 Mx Stage IIB. Referral to:1) Surveillance andtreat with immunotherapy if progression; 2) Colonoscopy scheduled next month (March); 3) Obtain EGD at same time as colonoscopy. GI Tumor Board recommendations from 03/05/2019. Contacting patient today to review. Addendum Dictated By: MD Myranda Jarquin Addendum Signed By: 03/06/19 1247 Addendum Cosigned By: DD/ TD/TT: 03/06/19 Subjective Date/Time of Service: Date of Service: 02/28/2019 Time of Service: 09:15 Chief Complaint: Patient here for three month follow up appointment to review lab work. Patient reports he had surgery with Dr. Coon last Sunday and notes thatthey did not have to use radiation during the procedure. Patient denies any complaints at this time and reports he is healing well from surgery. He has a follow up appointment with Dr. Coon Sunday. HPI: Isaias is recovering well since his hand-assisted laparoscopic abdominal wall mass resection on 02/18/2019. He is recovering well and only required pain medication for 3 days. He has a large bruise overlying the right lower quadrantwhich is likely at the site that the mass was removed from the abdominal wall. Pathology was reviewed and noted to be adenocarcinoma consistent with colorectalorigin involving fibroadipose tissue. The surgical margin which consists of skeletal muscle and fibrous tissue is uninvolved by tumor. The patient notes that he has normal bowel and bladder function and is otherwise without complaints. He would like to see her for follow-up Sunday and return to work onT. I have asked Dr. Coon to add the patient to GI tumor board next week so that wecan discuss the potential of adjuvant therapy. He was not deemed a candidate for intraoperative radiation and unless further adjuvant therapy is recommended by the tumor board, he will likely continue every 3-month surveillance for recurrence. I will contact him with the results and recommendations of the tumor board. ----- --He previously completed 8 cycles XELOX regimen (IV oxaliplatin 130 mg/m? every3 weeks with oral Xeloda 1000 mg/m? twice daily for 2 weeks on 1 week off every 3 weeks) - 6 months of adjuvant therapy. During his last 2 cycles of therapy, he was unable to afford his Xeloda and rationed meds to receive 50% or less oftotal dose. Cycle 1, Day 1 commenced 06/10/18. Toxicities included intermittent watery sensation over his eyes without associated redness or change in visual acuity--now resolved. This occurred within a few days after oxaliplatin. No skin rashes or ulceration of the oral cavity. No recent infections. No persistent numbness from Oxaliplatin. No abdominal pain. Normal stools. his end of therapy abdominal pelvic CT scan showing a fluid filled opacity--question of seroma or necrotic LN, therefore PET/CT was ordered confirming PET avid mass with subsequent referral to Dr. Coon as noted below. DIAGNOSES: 1. Cecal carcinoma, originally presented to [facility] with iron deficiency anemia of occult source. Known family history of colon cancer in father who at age 48. --Right hemicolectomy performed 05/06/2018. 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 Directly penetrating the serosa. Clinical history of a contained perforation against the lateral peritoneum was noted. Terminal ileum and ileocecal valve involvement by colonic adenocarcinomaidentified. Negative mesenteric, true peritoneum, and colon proximal and distalmargins of resection. 36 out of 36 pericolic lymph nodes are negative for metastatic colon adenocarcinoma. Fibrous obliteration of appendix lumen. 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 MSH2 and MSH6 show intact nuclear expression. --Medical genetics eval 06/19/2018. 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 They discussed screening recommendations for family members and frequency of colonoscopy for surveillance. 2. Iron deficiency anemia, originally presented with hemoglobin 4.5 on 03/30/2018. 6 units blood transfused -- Injectafer iron therapy 750 mg IV on 04/23 and 05/01/2018 prior to surgery. 3. Resection of right lower quadrant peritoneal/abdominal wall PET avid mass with biopsy consistent with recurrent adenocarcinoma. He underwent complete resection with negative margins 02/18/2019 as noted above by Dr. Mia Coon at [facility] surgical oncology. He did not require intraoperative radiation therapy and we are re-presenting his case at GI tumor board to discusswhether pseudo-adjuvant therapy versus observation is recommended. PRELIMINARY HISTORY: This is a 53-year-old male who does not seek regular medical care who presented to the emergency department with weakness and presyncopal sensation. He noticeda gradual feeling of increased fatigability and shortness of breath with exertion with heaviness in the thighs legs and arms. He did not have any visible bright red blood per rectum but had guaiac positive stool. His hemoglobin was 4.5. He underwent transfusion of a total of 6 units of blood andhad not had any visible gastrointestinal bleeding during the hospital stay. An abdominal CT showed a mass within the cecum suspicious for malignancy. He was offered colonoscopy by Dr. Maria but deferred this. After discharge from the hospital he self referred to Dr. Fox and underwent colonoscopy 04/09/2018 with cecal biopsy showing invasive to poorly differentiated adenocarcinoma, fragments of tubular adenoma with high- grade dysplasia. He underwent right hemicolectomy surgery 05/01/2018. Outside laboratories including peripheral smear noted marked poikilocytosis withreport of 2+ schistocytes and 2+ teardrops. He also had a remarkable low mean corpuscular volume in the low 70s with elevated RDW to 30s. This remained low despite his multiple transfusions. Pre-operatively given Injectafer 750mg IV x 2. His father was diagnosed with colon cancer at age 47 and at age 48 as he was metastatic at diagnosis. Patient does not know of any other family members with malignancy, but he has never had genetic testing. MLH1 mutation discoveredand Dr. Fox of medical genetics recommended family screening recommendations. - Summary of Therapies Summary of Therapies: 1.) Right hemicolectomy per Dr. Groves - 05/06/2018; Pathologic stage pT4a, pN0,pMX (stage IIb) 2.) Adjuvant XELOX every 3 weeks, Cycle 1, Day 1: 06/10/2018- 8 cycles planned--last cycle early November 2018. 3.) Solitary right lower quadrant peritoneal recurrence with resection by surgical oncology Dr. Coon 02/18/2019 with negative margins. Pending tumor board discussion. Did not require intraoperative radiation. ROS Details: All systems reviewed & no additional complaints except as documented Subjective/ROS - Narrative: ROS Details: All systems reviewed & no additional complaints except as documented Constitutional: fair state of general health, normal activity level and exercisetolerance (no significant postop pain currently), normal sleep, no weight loss -Denies significant weight loss, no weight gain--wishes to return to normal work schedule next week after postop evaluation with Dr. Coon Sunday. Eyes: no change in vision, no double vision--no conjunctival erythema or injection, resolved watery sensation . Ears, nose, mouth, throat: no headaches, no vertigo, no lightheadedness, no headinjury, no nasal congestion, no rhinorrhea, no epistaxis, no gingival bleeding, no sore throat Cardiovascular: No dyspnea on exertion, no chest pain, no palpitations, no syncope, no orthopnea, no edema, no heart murmur Respiratory: no pain with respirations, no shortness of breath, no wheezing, no exercise intolerance, no cough, no sputum production, no hemoptysis, no TB exposure, no night sweats Gastrointestinal: no abdominal pain--extensive bruising of her right lower quadrant at surgical site, healing laparoscopic incisions and midline ventral incision from hand assist, no change in appetite, no dysphagia, no indigestion,no nausea, no vomiting, no hematemesis, no jaundice, no constipation, no diarrhea, no abnormal stools, no change in bowel habits Genitourinary: no frequency, no dysuria, no nocturia, no hematuria, no oliguria,no stones, no infections, no urinary retention Musculoskeletal: no pain, no swelling, no redness, no limited ROM, no weakness Integumentary: nails brittleness, nails ridging, no rash, no bleeding or bruising, no itching, no hand-foot symptoms. Neurological: no tremor, no incoordination, no paresthesias, no memory loss, no speech disturbance, no motor difficulty--positive for mild cold-induced neuropathy and notes this is more pronounced now than at the end of therapy. Jewell continue to follow as he does not wish additional medication at this time. Psychiatric: no anxiety, no depression Endocrine: no hormone therapy, no heat intolerance Hematologic/Lymphatic: anemia improved after iron infusions, no enlarged lymph nodes, positive for bruising right lower quadrant as noted above. Allergic/Immunologic: no reaction to drugs [facility] - History Attestation statement: The following information was validated with the patient. Source: Old Records Reviewed - Outside records from [facility] including operative report and pathology reviewed from 02/18/2019 - Social History Tobacco Type: smokeless tobacco Substance Use Type: None Home Medications & Allergies Allergies No Known Allergies Allergy (Verified 11/13/18 12:34) Home Medications No known home meds 11/29/18 [History Confirmed 11/29/18] Objective - Resuscitation Status Resuscitation Status: Full Code - Height/Weight Height/Weight: Height 5 ft 11 in Weight 95.028 kg BSA for Today's Weight 2.18 - Vital Signs Vital Signs: 02/28/19 09:12 Temperature 98.4 F Pulse Rate [Right Brachial] 69 Respiratory Rate 20 Blood Pressure [Right Arm] 150/67 H 02 Sat by Pulse Oximetry 99 - Pain Right Abdomen Pain Intensity: 0 - Emotional Needs Assessment Emotional Needs Assessment: Emotional Needs Identified? No Distress Screening Total 0 Support System Family - ECOG Performance Status ECOG Score: 1 Physical Exam Narrative: CONSTITUTIONAL: The patient is in no acute distress. HEAD / FACE: Normocephalic. EYES: Pupils are equal and reactive to light. Conjunctivae and lids are benign in appearance. Ocular movement intact. EARS: Hearing grossly intact. NOSE / MOUTH / THROAT: Nose, mouth, tongue and oropharynx are benign in appearance. No signs of inflammation. NECK / THYROID: Neck is supple. Thyroid is symmetrical, without thyromegaly, masses or palpable nodules. LYMPHATIC: No palpable cervical, supraclavicular, axillary, or inguinal adenopathy. CHEST WALL: No breast enlargement or tenderness, no galactorrhea bilaterally. RESPIRATORY: Normal to inspection. Lungs clear to auscultation and percussion. No wheezing, rales, rhonchi or rubs. Normal effort. CARDIOVASCULAR: Regular rate and rhythm. No murmurs, gallops, or rubs. VASCULAR: Carotid, radial, femoral and pedal pulses present bilaterally. No bruits. ABDOMEN: Bowel sounds normoactive. Soft, nontender and non-distended. No hepatosplenomegaly. No masses. Healed incisions from laparoscopic hand-assistedresection of peritoneal nodule. GENITOURINARY: No CVA tenderness. No suprapubic fullness or tenderness. No groinadenopathy. No evidence of hernias. INTEGUMENTARY: The skin is unremarkable. No rashes. No suspicious lesions. Positive for bruising over right lower quadrant surgical site, healing wounds abdominal wall from laparoscopic hand-assisted surgery. BACK / SPINE: The back is nontender. No step-off deformity. MUSCULOSKELETAL: Normal musculature, no joint deformities or abnormalities, normal range of motion in all extremities. EXTREMITIES: No edema, cyanosis or clubbing. No Denisa sign. NEUROLOGICAL: Alert and oriented. Cranial nerves intact. No gross motor or sensory deficits. PSYCHIATRIC: No anxiety or evidence of depression. Results - Labs Labs: Diagram of Most Recent CBC and CMP 02/26/19 14:19 02/26/19 14:19 Labs - Last 7 Days 02/26/19 14:19: Carcinoembryonic Ag 2.6 02/26/19 14:19: PHA Creatinine Clear [id number], Sodium 136, Potassium 3.9, Chloride 103, Carbon Dioxide 23.9, BUN 10, Creatinine 0.96, Est GFR ( Amer) > 60, Est GFR (Non-Af Amer) > 60, Glucose 104 H, Calcium 9.1, Total Bilirubin 0.9, AST 47 H, ALT 40, Alkaline Phosphatase 217 H, Total Protein 7.5, Albumin 3.7, Globulin 3.8, Albumin/Globulin Ratio 1.0 02/26/19 14:19: WBC 4.7, Corrected WBC 4.7, RBC 4.21, Hgb 13.6, Hct 39.1, MCV 92.9, MCH 32.3, MCHC 34.8, RDW 12.8, Plt Count 146 L, MPV 8.5, Neut % (Auto) 67.5, Lymph % (Auto) 19.8, Marion % (Auto) 8.1, Eos % (Auto) 3.9, Baso % (Auto) 0.7, Neut # (Auto) 3.2, Lymph # (Auto) 0.9 L, Marion # (Auto) 0.4, Eos # (Auto) 0.2, Baso # (Auto) 0.0, Nucleated RBC % (auto) 0.0 - Impressions Date of Service: 12/13/18 PET/PET tumor subq tx strat sb-mt: CT w fluid collection exclude met vs necrotic LN Copies to: MD Ramesh Zarate II, MD~ PET tumor subq tx strat sb-mt 12/13/2018 8:55 AM SIGNS AND SYMPTOMS: Cancer of the cecum, abnormality within the right lower quadrant on previous CT. PROTOCOL: Axial images of the whole body from skull base to mid thigh were obtained after intravenous radiotracer administration. Low-dose chest CT was performed from skull base to mid thigh. After attenuation correction, fused PETCT images were generated reconstructed in axial, sagittal, and coronal plane. COMPARISON: CT of the abdomen and pelvis from 11/26/2018. RADIOPHARMACEUTICAL: 13.04 mCi of fluorine 18 FDG. BLOOD GLUCOSE: 100 mg/dL FINDINGS: There is an FDG avid lymph node in the left level 2A with a maximum SUV of 3.8. This has a short axis of approximately 8 mm. There is increased FDG activity within the lingual tonsils bilaterally and symmetrically which is most likely physiologic in nature. There is focal FDG activity within the left hemipelvis which appears to correspond with the distal left ureter. There is physiologic accumulation of radiotracer material within the kidneys, ureter on the left, and within the bladder. There is abnormal increased radiotracer accumulation within the previously notedpossible necrotic lymph node in the right paracolic gutter anterior to the psoasmuscle. This has a maximum SUV of 7.5 and is consistent with metastatic adenopathy. PET/PET tumor subq tx strat sb-mt IMPRESSION: Pathologic FDG avid and centrally necrotic lymph node in the right paracolic gutter adjacent to the prior partial colectomy site. This has a maximum SUV of 7.5 and is consistent with the abnormality on the previous CT. There is an FDG avid lymph node in the left level 2A with a maximum SUV of 3.8. This has a short axis of approximately 8 mm. This could potentially represent distant metastatic disease. Impression dictated by: Ramesh Zurita M.D.12/13/2018 2:01 PM - Other Results Results/Comments: Date of Procedure: 02/18/2019 Date Received: 02/18/2019 Date Reported 02/24/2019 Submitting Physician: ROWENA COON MD Location: [facility] Other External # FINAL DIAGNOSIS RIGHT ABDOMINAL WALL MASS, EXCISION: --ADENOCARCINOMA, CONSISTENT WITH COLORECTAL ORIGIN, INVOLVING FIBROADIPOSE TISSUE; SEE NOTE. Note: The surgical margin, which consists of skeletal muscle and fibrous tissue, is uninvolved by tumor. Electronically Signed Out By ZAINAB MARK MD/RME By the signature on this report, the individual or group listed as making the Final Interpretation/Diagnosis certifies that they have reviewed this case. Intraoperative Consultation: A: RIGHT ABDOMINAL WALL MASS Frozen Section 1: Date Ordered: 02/18/2019 09:46 Date Received: 02/18/2019 09:46 Date Called: 02/18/2019 10:00 Intraoperative Diagnosis: Gross: Tumor 0.6 cm from muscle margin, present at fat (per surgeon, peritoneal surface). Intraoperative Consult Pathologist(s): KAY CHA MD (P) rl/02/18/2019 Clinical History: Colon cancer/abdominal wall mass Specimens Submitted As: A: RIGHT ABDOMINAL WALL MASS Gross Description: A: Received fresh for intraoperative consultation for gross margins, labeled with the patient's name and hospital number and right lower abdominal wall mass is an unoriented mass with attached fibrofatty tissue measuring 7.0 x 6.3 x 5.4 cm. There is attached abdominal muscle and peritoneal surface on the specimen. The specimen is inked black and serially sectioned. Cut surface reveals a moy-white lesion measuring 6.4 x 5.9 x 4.9 cm with areas of necrosis. The tumor is at the peritoneal surface and 0.6 cm from the nearest muscle margin. Contract Technical Writer sections are submitted in 7 cassettes. RL/SXR Summary of Cassettes: Specimen Label Site A 1-2 account retention representative sections of tumor with nearest muscule margin 3 account retention representative section of tumor with nearest peritoneal surface 4-7 account retention representative sections of tumor with inked margin Assessment and Plan (1) Carcinoma of cecum This is a 53-year-old male without significant past medical history but significant family history of colon carcinoma in his father age 47. He was diagnosed with a cecal carcinoma by colonoscopy on 04/09/2018 and underwent 05/01revealing stage IIb (pT4a pN0 M0) moderate to poorly differentiated adenocarcinoma. He had a contained perforation of the cecum, but all surgical marginsare negative with no residual disease. 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 Consented for adjuvant therapy with Oxaliplatin 130 mg/m? IV every 3 weeks with oral Xeloda 1000 mg/m? twice daily for 2 weeks on 1 week off; x 8 cycles. [id number] PO BID. Start date: Cycle 1, Day 1: Sunday06/10/2018--last cycle 11/07/2018. -Seen for survivorship visit and completed plan for surveillance visits and CEA (currently 2.6); No unanticipated adverse effects related to chemotherapy--no residual neuropathy, conjunctivitis, and only mild fatigue. -Laboratories are reviewed; overall very stable. Anemia is significantly improved. Mild cytopenias improved. Reviewed restaging CT scan after cycle 8 where he was noted to have a density inthe right lower quadrant near the abdominal wall --Sent for PET/CT due to thick walled fluid collection which was FDG avid and noother sites of metastases noted. Dr. Groves reevaluated the patient and sent toDr. Mia Coon for resection by surgical oncology. -- GI tumor board recommended consideration of intraoperative radiation therapy, however at the time of resection 02/18/2019 at the patient was not felt to warrant intraoperative radiation therapy and the lesion was resected with negative margins. In review of the operative report no other sites of metastatic disease were seen in the peritoneum and the patient will be followed. --I have requested to present his case again to GI tumor board to determine whether there will be any further recommendations for chemotherapy maintenance given his local recurrence or simply close surveillance. He will be contacted with results. --If he is not deemed to require further chemotherapy he will RTC in 3 months for CEA level and exam. He may return sooner if any adverse effects of therapy noted prior to his scheduled follow-up. This is a 45-minute visit for review of pathology and coordination of care. 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 He has tolerated surgery well and will be following up with Dr. Coon on Sunday. He wishes to be released to full duty at work next week. Presenting his case in GI tumor board next weekas noted above to determine if further adjuvant therapy is recommended. Radiation is not recommended as he had complete resection with negative margins. (3) Mcadams syndrome The patient has a family history of colon cancer in his father diagnosed at age 47. Mismatch repair genes are deficient on his specimen and is consistent with Mcadams syndrome. He has had initial evaluation with medical genetics on 05/22/18; MLH1 germline mutation discovered. Recommendations reviewed with medical genetics on 08/21/2018, and further genetic testing of the patient's family members for Mcadams syndrome has been arranged. We will continue surveillance for Mcadams associated malignancies. (4) History of iron deficiency anemia The patient was admitted to [facility] for severe anemia with hemoglobin down to 4.5 and no clear bleeding source. Despite 6 units of transfusion, he had microcytic indices with anemia and iron saturation 8%. To improve surgical morbidity, he was treated with parenteral iron infusion with Injectafer 750 mg today and second infusion 1 week prior to his scheduled surgery. His hemoglobinis now normal and iron stores have returned to normal. We will continue to follow hemoglobin with f/u visits, but likely source of bleeding was his colon adenocarcinoma which has been resected. - Chemo Plan Chemo Plan (Dose, Rate, Freq): Presenting patient at GI tumor board to determine if further chemotherapy is recommended after resection of solitary peritoneal metastasis. Goal of Treatment: Curative - Time with Patient Total Time Spent with Patient: 45 min - Extended visit for review of pathology with the patient, discussion with surgeon of placing patient on GI tumor board and will contact with recommendations Coordination of Care & Counseling Time: Greater than 50% of time spent with patient was for coordination of care (as documented) and [id number] counseling of patient and/or family. Dictated By: Myranda Jarquin MD DD/ [id number] Signed By: <Electronically signed by MD Myranda Jarquin> 02/28/19 1746 [facility] Work Phone: [phone] Progress note Author Myranda Jarquin [facility] November 29, 2018 5:20pm Note Date/Time November 29, 2018 10:49 am [facility] [place] [id number] Hem/Onc Follow Up Note - OP Signed Patient: Isaias Gleason MR#: [id number] : 1965 Acct:[id number] Age/Sex: 53 / M Type: REG RCR Copies to: Orestes Fox Jr, Teri Kim MD, DO~ Subjective Date/Time of Service: Date of Service: 11/29/2018 Time of Service: 10:49 Chief Complaint: Patient is here for follow up after completion of treatment, restaging scans for review. Patient had to ration his last two cycles of Xeloda due to affordability and lack of fundage available. - Diagnosis DIAGNOSIS: 1. Cecal carcinoma, originally presented to [facility] with iron deficiency anemia of occult source. Known family history of colon cancer in father who at age 48. --Right hemicolectomy performed 05/06/2018. 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 Directly penetrating the serosa. Clinical history of a contained perforation against the lateral peritoneum was noted. Terminal ileum and ileocecal valve involvement by colonic adenocarcinomaidentified. Negative mesenteric, true peritoneum, and colon proximal and distalmargins of resection. 36 out of 36 pericolic lymph nodes are negative for metastatic colon adenocarcinoma. Fibrous obliteration of appendix lumen. 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 MSH2 and MSH6 show intact nuclear expression. --Met with medical genetics 06/19/2018. 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 They discussed screening recommendations for family members and frequency of colonoscopy for surveillance. 2. Iron deficiency anemia, originally presented with hemoglobin 4.5 on 03/30/2018. 6 units blood transfused -- Injectafer iron therapy 750 mg IV on 04/23 and 05/01/2018 prior to surgery. HPI: Isaias presents for survivorship visit after completing 8 cycles XELOX regimen (IV oxaliplatin 130 mg/m? every 3 weeks with oral Xeloda 1000 mg/m? twice daily for 2 weeks on 1 week off every 3 weeks) - 6 months of adjuvant therapy. Duringhis last 2 cycles of therapy, he was unable to afford his Xeloda and rationed meds to receive 50% or less of total dose. Cycle 1, Day 1 commenced 06/10/18. Toxicities included intermittent watery sensation over his eyes without associated redness or change in visual acuity--now resolved. This occurred within a few days after oxaliplatin. No skin rashes or ulceration of the oral cavity. No recent infections. No persistent numbness from Oxaliplatin. No abdominal pain. Normal stools. Today we reviewed his end of therapy CT scan showing a fluid filled opacity--question of seroma or necrotic LN, but cannot exclude residual malignancy. Ordering PET/CT and will contact him with results. We reviewed survivorship plan today--only residual toxicity is mild fatigue. Will f/u with exam and CEA every 3 months. If he has any new symptoms or cytopenias we will schedule him for follow-up sooner to adjust dosing. PRELIMINARY HISTORY: This is a 53-year-old male who does not seek regular medical care who presented to the emergency department with weakness and presyncopal sensation. He noticeda gradual feeling of increased fatigability and shortness of breath with exertion with heaviness in the thighs legs and arms. He did not have any visible bright red blood per rectum but had guaiac positive stool. His hemoglobin was 4.5. He underwent transfusion of a total of 6 units of blood andhad not had any visible gastrointestinal bleeding during the hospital stay. An abdominal CT showed a mass within the cecum suspicious for malignancy. He was offered colonoscopy by Dr. Maria but deferred this. After discharge from the hospital he self referred to Dr. Fox and underwent colonoscopy 04/09/2018 with cecal biopsy showing invasive to poorly differentiated adenocarcinoma, fragments of tubular adenoma with high- grade dysplasia. He underwent right hemicolectomy surgery 05/01/2018. Outside laboratories including peripheral smear noted marked poikilocytosis withreport of 2+ schistocytes and 2+ teardrops. He also had a remarkable low mean corpuscular volume in the low 70s with elevated RDW to 30s. This remained low despite his multiple transfusions. Pre-operatively given Injectafer 750mg IV x 2. His father was diagnosed with colon cancer at age 47 and at age 48 as he was metastatic at diagnosis. Patient does not know of any other family members with malignancy, but he has never had genetic testing. MLH1 mutation discoveredand Dr. Fox of medical genetics recommended family screening recommendations. - Summary of Therapies Summary of Therapies: 1.) Right hemicolectomy per Dr. Groves - 05/06/2018; Pathologic stage pT4a, pN0,pMX (stage IIb) 2.) Adjuvant XELOX every 3 weeks, Cycle 1, Day 1: 06/10/2018- 8 cycles planned--last cycle early November 2018. Subjective/ROS - Narrative: ROS Details: All systems reviewed & no additional complaints except as documented Constitutional: fair state of general health - Improved to baseline since previous transfusions fall 2017, normal activity level and exercise tolerance, normal sleep, no weight loss - Denies significant weight loss, no weight gain; he does note fatigue the week after initial infusions and has limited work schedule during that time. Eyes: no change in vision, no double vision--no conjunctival erythema or injection, resolved watery sensation . Ears, nose, mouth, throat: no headaches, no vertigo, no lightheadedness - Prior lightheadedness resolved after transfusions, no head injury, no nasal congestion, no rhinorrhea, no epistaxis, no gingival bleeding, no sore throat Cardiovascular: No dyspnea on exertion, no chest pain, no palpitations, no syncope - Patient never actually had syncope but had presyncopal sensation before transfusion, no orthopnea, no edema, no heart murmur Respiratory: no pain with respirations, no shortness of breath, no wheezing, no exercise intolerance, no cough, no sputum production, no hemoptysis, no TB exposure, no night sweats Gastrointestinal: no abdominal pain, no change in appetite, no dysphagia, no indigestion, no nausea, no vomiting, no hematemesis, no jaundice, no constipation, no diarrhea, no abnormal stools, no change in bowel habits Genitourinary: no frequency, no dysuria, no nocturia, no hematuria, no oliguria,no stones, no infections, no urinary retention Musculoskeletal: no pain, no swelling, no redness, no limited ROM, no weakness Integumentary: nails brittleness, nails ridging, no rash, no bleeding or bruising, no itching, no hand-foot symptoms. Neurological: no tremor, no incoordination, no paresthesias, no memory loss, no speech disturbance, no motor difficulty--positive for mild cold-induced neuropathy a few days after oxaliplatin--no significant change management expert the last 5 cycles. Taking precautions as advised. Psychiatric: no anxiety, no depression Endocrine: no hormone therapy, no heat intolerance Hematologic/Lymphatic: anemia improved after iron infusions, no enlarged lymph nodes Allergic/Immunologic: no reaction to drugs ROS Details: All systems reviewed & no additional complaints except as documented PMFSH - History Attestation statement: The following information was validated with the patient. - Social History Tobacco Type: smokeless tobacco Substance Use Type: None Home Medications & Allergies Allergies Allergy/AdvReac Type Severity Reaction Status Date / Time No Known Allergies Allergy Verified 11/13/18 12:34 Home Medications Medication Instructions Recorded Confirmed Type No known home meds 11/29/18 11/29/18 History Objective - Resuscitation Status Resuscitation Status: Full Code - Height/Weight Height/Weight: Height 5 ft 11 in Weight 94.5 kg BSA for Today's Weight 2.18 - Vital Signs Vital Signs: 11/29/18 10:40 Temperature 97.7 F Pulse Rate [Right Brachial] 78 Respiratory Rate 20 Blood Pressure [Right Arm] 141/88 H 02 Sat by Pulse Oximetry 97 - Pain Right Abdomen Pain Intensity: 0 - Emotional Needs Assessment Emotional Needs Assessment: Emotional Needs Identified? No Distress Screening Total 0 - ECOG Performance Status ECOG Score: 0 Physical Exam Narrative: CONSTITUTIONAL: The patient is in no acute distress. HEAD / FACE: Normocephalic. EYES: Pupils are equal and reactive to light. Conjunctivae and lids are benign in appearance. Ocular movement intact. EARS: Hearing grossly intact. NOSE / MOUTH / THROAT: Nose, mouth, tongue and oropharynx are benign in appearance. No signs of inflammation. NECK / THYROID: Neck is supple. Thyroid is symmetrical, without thyromegaly, masses or palpable nodules. LYMPHATIC: No palpable cervical, supraclavicular, axillary, or inguinal adenopathy. CHEST WALL: No breast enlargement or tenderness, no galactorrhea bilaterally. RESPIRATORY: Normal to inspection. Lungs clear to auscultation and percussion. No wheezing, rales, rhonchi or rubs. Normal effort. CARDIOVASCULAR: Regular rate and rhythm. No murmurs, gallops, or rubs. VASCULAR: Carotid, radial, femoral and pedal pulses present bilaterally. No bruits. ABDOMEN: Bowel sounds normoactive. Soft, nontender and non-distended. No hepatosplenomegaly. No masses. Healed incisions from open hemicolectomy. GENITOURINARY: No CVA tenderness. No suprapubic fullness or tenderness. No groinadenopathy. No evidence of hernias. INTEGUMENTARY: The skin is unremarkable. No rashes. No suspicious lesions. No bronzing of the skin BACK / SPINE: The back is nontender. MUSCULOSKELETAL: Normal musculature, no joint deformities or abnormalities, normal range of motion in all extremities. EXTREMITIES: No edema, cyanosis or clubbing. No Denisa sign. NEUROLOGICAL: Alert and oriented. Cranial nerves intact. No gross motor or sensory deficits. PSYCHIATRIC: No anxiety or evidence of depression. Results - Labs Labs: Diagram of Most Recent CBC and CMP 11/26/18 09:25 11/26/18 09:25 Labs - Last 7 Days 11/26/18 09:25: PHA Creatinine Clear [id number], Sodium 139, Potassium 3.9, Chloride 106, Carbon Dioxide 25.5, BUN 7 L, Creatinine 0.83, Est GFR ( Amer) > 60, Est GFR (Non-Af Amer) > 60, Glucose 122 H, Calcium 9.7, Total Bilirubin 1.2, AST 61 H, ALT 47, Alkaline Phosphatase 215 H, Total Protein 8.2 H, Albumin 3.5, Globulin 4.7, Albumin/Globulin Ratio 0.7 11/26/18 09:25: WBC 4.0 L, Corrected WBC 4.0 L, RBC 4.07, Hgb 14.2, Hct 40.8, MCV 100.3, MCH 35.0, MCHC 34.9, RDW 15.2 H, Plt Count 111 L, MPV 9.2, Neut % (Auto) 65.4, Lymph % (Auto) 21.4, Marion % (Auto) 11.5, Eos % (Auto) 1.2, Baso % (Auto) 0.5, Neut # (Auto) 2.6, Lymph # (Auto) 0.9 L, Marion # (Auto) 0.5, Eos # (Auto) 0.0, Baso # (Auto) 0.0, Nucleated RBC % (auto) 0.1 CEA 4 - Impressions Date of Service: 11/26/18 CT/CT abdomen pelvis w con: end of chemotherapy CT scan Copies to: Myranda Jarquin MD~ CT abdomen and pelvis withcontrast TECHNIQUE: Axial imaging with 2-D reconstruction. 97 cc of Isovue-[address] exam was performed using one or more the following dose reduction techniques: Automated exposure control, adjustment of the MA and/or Kvaccording to patient size, or use of the iterative reconstruction technique. COMPARISON:None History: Assessment after finishing hemotherapy for cecal cancer. Lung bases are clear. No hepatic mass or intrahepatic biliary ductal dilatation is identified. Mild hepatic steatosis identified. No gallbladder abnormalities identified. No biliary duct dilatation identified. There is no splenomegaly or splenic lesion identified. No pancreatic mass or ductal dilatation is identified. The adrenal glands are unremarkable. No nephrolithiasis or obstructive uropathy is identified. The abdominal aorta is normal. No significant retroperitoneal abnormalities identified. The small bowel loops are nondistended. Postoperative surgical changes in the cecal/pericecal region identified. There is a somewhat thick-walled fluid density in the RIGHT lower quadrant/pelvic region anteriorly and inferior to the pericecal region. This may be account retention representative of seroma. May consider necrotic node. This measures 2.7 cm. There is no colitis or diverticulitis. Urinary bladder is unremarkable. The reproductive structures are unremarkable. No free intraperitoneal air or fluid is identified. The bony structures are unremarkable. No subcutaneous soft tissue abnormality identified. CT/CT abdomen pelvis w con IMPRESSION: Cecal/pericecal postoperative changes. 2.7 cm thick-walled fluid likely collection in the anterior RIGHT lower quadrant/pelvic region and below the cecum. May represent a seroma. May represent necrotic node. May consider further imaging with PET/CT scan. Impression dictated by: Ata Alcaraz M.D.11/26/2018 4:05 PM Assessment and Plan (1) Carcinoma of cecum This is a 53-year-old male without significant past medical history but significant family history of colon carcinoma in his father age 47. He was diagnosed with a cecal carcinoma by colonoscopy on 04/09/2018 and underwent 05/01revealing stage IIb (pT4a pN0 M0) moderate to poorly differentiated adenocarcinoma. He had a contained perforation of the cecum, but all surgical margins are negative with no residual disease. 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 Consented for adjuvant therapy with Oxaliplatin 130 mg/m? IV every 3 weeks with oral Xeloda 1000 mg/m? twice daily for 2 weeks on 1 week off; x 8 cycles. [id number] PO BID. Start date: Cycle 1, Day 1: Sunday06/10/2018--last cycle 11/07/2018. -Seen for survivorship visit and completed plan for surveillance visits and CEA (currently 4); overall doing well. No unanticipated adverse effects related to chemotherapy--no residual neuropathy, conjunctivitis, and only mild fatigue. Laboratories are reviewed; overall very stable. Anemia is significantly improved. Mild cytopenias improved. Reviewed restaging CT scan after cycle 8--will send for PET/CT due to thick walled fluid collection (more likely seroma, but if FDG avid, will have Dr. Germain landeros for resection). RTC in 3 months, CEA level and exam. Will call with PET/CT results when available. He may return sooner if any adverse effects of therapy noted prior to his scheduled follow-up. (2) Abnormal abdominal CT scan Reviewed restaging CT scan after cycle 8--will send for PET/CT due to thick walled fluid collection (more likely seroma, but if FDG avid, will have Dr. Germain landeros for resection). (3) Iron deficiency anemia due to chronic blood loss The patient was admitted to [facility] for severe anemia with hemoglobin down to 4.5 and no clear bleeding source. Despite 6 units of transfusion, he had microcytic indices with anemia and iron saturation 8%. To improve surgical morbidity, he was treated with parenteral iron infusion with Injectafer 750 mg today and second infusion 1 week prior to his scheduled surgery. His hemoglobinis now normal and iron stores have returned to normal. We will continue to follow hemoglobin with f/u visits, but likely source of bleeding was his colon adenocarcinoma which has been resected. (4) Mcadams syndrome The patient has a family history of colon cancer in his father diagnosed at age 47. Mismatch repair genes are deficient on his specimen and is consistent with Mcadams syndrome. He has had initial evaluation with medical genetics on 05/22/18; MLH1 germline mutation discovered. Recommendations reviewed with medical genetics on 08/21/2018, and further genetic testing of the patient's family members for Mcadams syndrome has been arranged. We will continue surveillance for Mcadams associated malignancies. - Chemo Plan Chemo Plan (Dose, Rate, Freq): Completed 8 cycles Oxaliplatin/Xeloda 06/2018-11/2018. Goal of Treatment: Curative - Time with Patient Total Time Spent with Patient: 30 min Coordination of Care & Counseling Time: Greater than 50% of time spent with patient was for coordination of care (as documented) and [id number] counseling of patient and/or family. Dictated By: Myranda Jarquin MD DD/ [id number] Signed By: <Electronically signed by MD Myranda Jarquin> 11/29/18 5527 [facility] Work Phone: [phone] Progress note Author Myranda Jarquin [facility] November 29, 2018 5:20pm Note Date/Time November 29, 2018 10:49 am [facility] [place] [address] Hem/Onc Follow Up Note - OP Signed Patient: Isaias Gleason MR#: [id number] : 1965 Acct:[id number] Age/Sex: 53 / M Type: REG RCR Copies to: Orestes Fox Jr, Teri Kim MD, DO~ Subjective Date/Time of Service: Date of Service: 11/29/2018 Time of Service: 10:49 Chief Complaint: Patient is here for follow up after completion of treatment, restaging scans for review. Patient had to ration his last two cycles of Xeloda due to affordability and lack of fundage available. - Diagnosis DIAGNOSIS: 1. Cecal carcinoma, originally presented to [facility] with iron deficiency anemia of occult source. Known family history of colon cancer in father who at age 48. --Right hemicolectomy performed 05/06/2018. 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 Directly penetrating the serosa. Clinical history of a contained perforation against the lateral peritoneum was noted. Terminal ileum and ileocecal valve involvement by colonic adenocarcinomaidentified. Negative mesenteric, true peritoneum, and colon proximal and distalmargins of resection. 36 out of 36 pericolic lymph nodes are negative for metastatic colon adenocarcinoma. Fibrous obliteration of appendix lumen. 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 MSH2 and MSH6 show intact nuclear expression. --Met with medical genetics 06/19/2018. 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 They discussed screening recommendations for family members and frequency of colonoscopy for surveillance. 2. Iron deficiency anemia, originally presented with hemoglobin 4.5 on 03/30/2018. 6 units blood transfused -- Injectafer iron therapy 750 mg IV on 04/23 and 05/01/2018 prior to surgery. HPI: Isaias presents for survivorship visit after completing 8 cycles XELOX regimen (IV oxaliplatin 130 mg/m? every 3 weeks with oral Xeloda 1000 mg/m? twice daily for 2 weeks on 1 week off every 3 weeks) - 6 months of adjuvant therapy. Duringhis last 2 cycles of therapy, he was unable to afford his Xeloda and rationed meds to receive 50% or less of total dose. Cycle 1, Day 1 commenced 06/10/18. Toxicities included intermittent watery sensation over his eyes without associated redness or change in visual acuity--now resolved. This occurred within a few days after oxaliplatin. No skin rashes or ulceration of the oral cavity. No recent infections. No persistent numbness from Oxaliplatin. No abdominal pain. Normal stools. Today we reviewed his end of therapy CT scan showing a fluid filled opacity--question of seroma or necrotic LN, but cannot exclude residual malignancy. Ordering PET/CT and will contact him with results. We reviewed survivorship plan today--only residual toxicity is mild fatigue. Will f/u with exam and CEA every 3 months. If he has any new symptoms or cytopenias we will schedule him for follow-up sooner to adjust dosing. PRELIMINARY HISTORY: This is a 53-year-old male who does not seek regular medical care who presented to the emergency department with weakness and presyncopal sensation. He noticeda gradual feeling of increased fatigability and shortness of breath with exertion with heaviness in the thighs legs and arms. He did not have any visible bright red blood per rectum but had guaiac positive stool. His hemoglobin was 4.5. He underwent transfusion of a total of 6 units of blood andhad not had any visible gastrointestinal bleeding during the hospital stay. An abdominal CT showed a mass within the cecum suspicious for malignancy. He was offered colonoscopy by Dr. Maria but deferred this. After discharge from the hospital he self referred to Dr. Fox and underwent colonoscopy 04/09/2018 with cecal biopsy showing invasive to poorly differentiated adenocarcinoma, fragments of tubular adenoma with high- grade dysplasia. He underwent right hemicolectomy surgery 05/01/2018. Outside laboratories including peripheral smear noted marked poikilocytosis withreport of 2+ schistocytes and 2+ teardrops. He also had a remarkable low mean corpuscular volume in the low 70s with elevated RDW to 30s. This remained low despite his multiple transfusions. Pre-operatively given Injectafer 750mg IV x 2. His father was diagnosed with colon cancer at age 47 and at age 48 as he was metastatic at diagnosis. Patient does not know of any other family members with malignancy, but he has never had genetic testing. MLH1 mutation discoveredand Dr. Fox of medical genetics recommended family screening recommendations. - Summary of Therapies Summary of Therapies: 1.) Right hemicolectomy per Dr. Groves - 05/06/2018; Pathologic stage pT4a, pN0,pMX (stage IIb) 2.) Adjuvant XELOX every 3 weeks, Cycle 1, Day 1: 06/10/2018- 8 cycles planned--last cycle early November 2018. Subjective/ROS - Narrative: ROS Details: All systems reviewed & no additional complaints except as documented Constitutional: fair state of general health - Improved to baseline since previous transfusions fall 2017, normal activity level and exercise tolerance, normal sleep, no weight loss - Denies significant weight loss, no weight gain; he does note fatigue the week after initial infusions and has limited work schedule during that time. Eyes: no change in vision, no double vision--no conjunctival erythema or injection, resolved watery sensation . Ears, nose, mouth, throat: no headaches, no vertigo, no lightheadedness - Prior lightheadedness resolved after transfusions, no head injury, no nasal congestion, no rhinorrhea, no epistaxis, no gingival bleeding, no sore throat Cardiovascular: No dyspnea on exertion, no chest pain, no palpitations, no syncope - Patient never actually had syncope but had presyncopal sensation before transfusion, no orthopnea, no edema, no heart murmur Respiratory: no pain with respirations, no shortness of breath, no wheezing, no exercise intolerance, no cough, no sputum production, no hemoptysis, no TB exposure, no night sweats Gastrointestinal: no abdominal pain, no change in appetite, no dysphagia, no indigestion, no nausea, no vomiting, no hematemesis, no jaundice, no constipation, no diarrhea, no abnormal stools, no change in bowel habits Genitourinary: no frequency, no dysuria, no nocturia, no hematuria, no oliguria,no stones, no infections, no urinary retention Musculoskeletal: no pain, no swelling, no redness, no limited ROM, no weakness Integumentary: nails brittleness, nails ridging, no rash, no bleeding or bruising, no itching, no hand-foot symptoms. Neurological: no tremor, no incoordination, no paresthesias, no memory loss, no speech disturbance, no motor difficulty--positive for mild cold-induced neuropathy a few days after oxaliplatin--no significant change management expert the last 5 cycles. Taking precautions as advised. Psychiatric: no anxiety, no depression Endocrine: no hormone therapy, no heat intolerance Hematologic/Lymphatic: anemia improved after iron infusions, no enlarged lymph nodes Allergic/Immunologic: no reaction to drugs ROS Details: All systems reviewed & no additional complaints except as documented PMFSH - History Attestation statement: The following information was validated with the patient. - Social History Tobacco Type: smokeless tobacco Substance Use Type: None Home Medications & Allergies Allergies Allergy/AdvReac Type Severity Reaction Status Date / Time No Known Allergies Allergy Verified 11/13/18 12:34 Home Medications Medication Instructions Recorded Confirmed Type No known home meds 11/29/18 11/29/18 History Objective - Resuscitation Status Resuscitation Status: Full Code - Height/Weight Height/Weight: Height 5 ft 11 in Weight 94.5 kg BSA for Today's Weight 2.18 - Vital Signs Vital Signs: 11/29/18 10:40 Temperature 97.7 F Pulse Rate [Right Brachial] 78 Respiratory Rate 20 Blood Pressure [Right Arm] 141/88 H 02 Sat by Pulse Oximetry 97 - Pain Right Abdomen Pain Intensity: 0 - Emotional Needs Assessment Emotional Needs Assessment: Emotional Needs Identified? No Distress Screening Total 0 - ECOG Performance Status ECOG Score: 0 Physical Exam Narrative: CONSTITUTIONAL: The patient is in no acute distress. HEAD / FACE: Normocephalic. EYES: Pupils are equal and reactive to light. Conjunctivae and lids are benign in appearance. Ocular movement intact. EARS: Hearing grossly intact. NOSE / MOUTH / THROAT: Nose, mouth, tongue and oropharynx are benign in appearance. No signs of inflammation. NECK / THYROID: Neck is supple. Thyroid is symmetrical, without thyromegaly, masses or palpable nodules. LYMPHATIC: No palpable cervical, supraclavicular, axillary, or inguinal adenopathy. CHEST WALL: No breast enlargement or tenderness, no galactorrhea bilaterally. RESPIRATORY: Normal to inspection. Lungs clear to auscultation and percussion. No wheezing, rales, rhonchi or rubs. Normal effort. CARDIOVASCULAR: Regular rate and rhythm. No murmurs, gallops, or rubs. VASCULAR: Carotid, radial, femoral and pedal pulses present bilaterally. No bruits. ABDOMEN: Bowel sounds normoactive. Soft, nontender and non-distended. No hepatosplenomegaly. No masses. Healed incisions from open hemicolectomy. GENITOURINARY: No CVA tenderness. No suprapubic fullness or tenderness. No groinadenopathy. No evidence of hernias. INTEGUMENTARY: The skin is unremarkable. No rashes. No suspicious lesions. No bronzing of the skin BACK / SPINE: The back is nontender. MUSCULOSKELETAL: Normal musculature, no joint deformities or abnormalities, normal range of motion in all extremities. EXTREMITIES: No edema, cyanosis or clubbing. No Denisa sign. NEUROLOGICAL: Alert and oriented. Cranial nerves intact. No gross motor or sensory deficits. PSYCHIATRIC: No anxiety or evidence of depression. Results - Labs Labs: Diagram of Most Recent CBC and CMP 11/26/18 09:25 11/26/18 09:25 Labs - Last 7 Days 11/26/18 09:25: PHA Creatinine Clear [id number], Sodium 139, Potassium 3.9, Chloride 106, Carbon Dioxide 25.5, BUN 7 L, Creatinine 0.83, Est GFR ( Amer) > 60, Est GFR (Non-Af Amer) > 60, Glucose 122 H, Calcium 9.7, Total Bilirubin 1.2, AST 61 H, ALT 47, Alkaline Phosphatase 215 H, Total Protein 8.2 H, Albumin 3.5, Globulin 4.7, Albumin/Globulin Ratio 0.7 11/26/18 09:25: WBC 4.0 L, Corrected WBC 4.0 L, RBC 4.07, Hgb 14.2, Hct 40.8, MCV 100.3, MCH 35.0, MCHC 34.9, RDW 15.2 H, Plt Count 111 L, MPV 9.2, Neut % (Auto) 65.4, Lymph % (Auto) 21.4, Marion % (Auto) 11.5, Eos % (Auto) 1.2, Baso % (Auto) 0.5, Neut # (Auto) 2.6, Lymph # (Auto) 0.9 L, Marion # (Auto) 0.5, Eos # (Auto) 0.0, Baso # (Auto) 0.0, Nucleated RBC % (auto) 0.1 CEA 4 - Impressions Date of Service: 11/26/18 CT/CT abdomen pelvis w con: end of chemotherapy CT scan Copies to: Myranda Jarquin MD~ CT abdomen and pelvis withcontrast TECHNIQUE: Axial imaging with 2-D reconstruction. 97 cc of Isovue-[address] exam was performed using one or more the following dose reduction techniques: Automated exposure control, adjustment of the MA and/or Kvaccording to patient size, or use of the iterative reconstruction technique. COMPARISON:None History: Assessment after finishing hemotherapy for cecal cancer. Lung bases are clear. No hepatic mass or intrahepatic biliary ductal dilatation is identified. Mild hepatic steatosis identified. No gallbladder abnormalities identified. No biliary duct dilatation identified. There is no splenomegaly or splenic lesion identified. No pancreatic mass or ductal dilatation is identified. The adrenal glands are unremarkable. No nephrolithiasis or obstructive uropathy is identified. The abdominal aorta is normal. No significant retroperitoneal abnormalities identified. The small bowel loops are nondistended. Postoperative surgical changes in the cecal/pericecal region identified. There is a somewhat thick-walled fluid density in the RIGHT lower quadrant/pelvic region anteriorly and inferior to the pericecal region. This may be account retention representative of seroma. May consider necrotic node. This measures 2.7 cm. There is no colitis or diverticulitis. Urinary bladder is unremarkable. The reproductive structures are unremarkable. No free intraperitoneal air or fluid is identified. The bony structures are unremarkable. No subcutaneous soft tissue abnormality identified. CT/CT abdomen pelvis w con IMPRESSION: Cecal/pericecal postoperative changes. 2.7 cm thick-walled fluid likely collection in the anterior RIGHT lower quadrant/pelvic region and below the cecum. May represent a seroma. May represent necrotic node. May consider further imaging with PET/CT scan. Impression dictated by: Ata Alcaraz M.D.11/26/2018 4:05 PM Assessment and Plan (1) Carcinoma of cecum This is a 53-year-old male without significant past medical history but significant family history of colon carcinoma in his father age 47. He was diagnosed with a cecal carcinoma by colonoscopy on 04/09/2018 and underwent 05/01revealing stage IIb (pT4a pN0 M0) moderate to poorly differentiated adenocarcinoma. He had a contained perforation of the cecum, but all surgical margins are negative with no residual disease. 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 Consented for adjuvant therapy with Oxaliplatin 130 mg/m? IV every 3 weeks with oral Xeloda 1000 mg/m? twice daily for 2 weeks on 1 week off; x 8 cycles. [id number] PO BID. Start date: Cycle 1, Day 1: Sunday06/10/2018--last cycle 11/07/2018. -Seen for survivorship visit and completed plan for surveillance visits and CEA (currently 4); overall doing well. No unanticipated adverse effects related to chemotherapy--no residual neuropathy, conjunctivitis, and only mild fatigue. Laboratories are reviewed; overall very stable. Anemia is significantly improved. Mild cytopenias improved. Reviewed restaging CT scan after cycle 8--will send for PET/CT due to thick walled fluid collection (more likely seroma, but if FDG avid, will have Dr. Germian lnaderos for resection). RTC in 3 months, CEA level and exam. Will call with PET/CT results when available. He may return sooner if any adverse effects of therapy noted prior to his scheduled follow-up. (2) Abnormal abdominal CT scan Reviewed restaging CT scan after cycle 8--will send for PET/CT due to thick walled fluid collection (more likely seroma, but if FDG avid, will have Dr. Germain landeros for resection). (3) Iron deficiency anemia due to chronic blood loss The patient was admitted to [facility] for severe anemia with hemoglobin down to 4.5 and no clear bleeding source. Despite 6 units of transfusion, he had microcytic indices with anemia and iron saturation 8%. To improve surgical morbidity, he was treated with parenteral iron infusion with Injectafer 750 mg today and second infusion 1 week prior to his scheduled surgery. His hemoglobinis now normal and iron stores have returned to normal. We will continue to follow hemoglobin with f/u visits, but likely source of bleeding was his colon adenocarcinoma which has been resected. (4) Mcadams syndrome The patient has a family history of colon cancer in his father diagnosed at age 47. Mismatch repair genes are deficient on his specimen and is consistent with Mcadams syndrome. He has had initial evaluation with medical genetics on 05/22/18; MLH1 germline mutation discovered. Recommendations reviewed with medical genetics on 08/21/2018, and further genetic testing of the patient's family members for Mcadams syndrome has been arranged. We will continue surveillance for Mcadams associated malignancies. - Chemo Plan Chemo Plan (Dose, Rate, Freq): Completed 8 cycles Oxaliplatin/Xeloda 06/2018-11/2018. Goal of Treatment: Curative - Time with Patient Total Time Spent with Patient: 30 min Coordination of Care & Counseling Time: Greater than 50% of time spent with patient was for coordination of care (as documented) and [id number] counseling of patient and/or family. Dictated By: Myranda Jarquin MD DD/ [id number] Signed By: <Electronically signed by MD Myranda Jarquin> 11/29/18 [address] [facility] Work Phone: [phone] Progress note Author Myranda Jarquin [facility] September 30, 2018 9:31pm Note Date/Time September 30, 2018 10: 32am [facility] [place] [address] Hem/Onc Follow Up Note - OP Signed with Addenda Patient: Isaias Gleason MR#: [id number] : 1965 Acct:[id number] Age/Sex: 53 / M Type: REG RCR Copies to: Orestes Fox Jr, Teri Kim MD~ ADDENDUM1 Addendum: Patient requested a letter to provide to his employer for anticipatedreturn to work December 09 after completion of adjuvant chemotherapy in November 2018. This will be provided for the patient. Reevaluation of restaging CT Abdomen andPelvis in November prior to return to work. Addendum Dictated By: MD Myranda Jarquin Addendum Signed By: Addendum Cosigned By: DD/ TD/TT: 09/30/18 Subjective Date/Time of Service: Date of Service: 09/30/2018 Time of Service: 10:31 Chief Complaint: Patient is here before follow up before cylcle #6 of [facility]/, no concerns with treatment. - Diagnosis DIAGNOSIS: 1. Cecal carcinoma, originally presented to [facility] with iron deficiency anemia of occult source. Known family history of colon cancer in father who at age 48. --Right hemicolectomy performed 05/06/2018. 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 Directly penetrating the serosa. Clinical history of a contained perforation against the lateral peritoneum was noted. Terminal ileum and ileocecal valve involvement by colonic adenocarcinomaidentified. Negative mesenteric, true peritoneum, and colon proximal and distalmargins of resection. 36 out of 36 pericolic lymph nodes are negative for metastatic colon adenocarcinoma. Fibrous obliteration of appendix lumen. 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 MSH2 and MSH6 show intact nuclear expression. --Met with medical genetics 06/19/2018. 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 They discussed screening recommendations for family members and frequency of colonoscopy for surveillance. 2. Iron deficiency anemia, originally presented with hemoglobin 4.5 on 03/30/2018. 6 units blood transfused -- Injectafer iron therapy 750 mg IV on 04/23 and 05/01/2018 prior to surgery. HPI: Isaias presents for on treatment visit while on XELOX regimen (IV oxaliplatin 130 mg/m? every 3 weeks with oral Xeloda 1000 mg/m? twice daily for 2 weeks on 1week off). Plan every 3 weeks x 8 cycles - to complete 6 months of adjuvant therapy. Cycle 1, Day 1 commenced 06/10/18. Here for cycle 6 today. He notes intermittent watery sensation over his eyes without associated redness or change in visual acuity--mildly improving from previous cycles. This tends to occur within a few days after oxaliplatin and then dissipates. He has not had any skin rashes or ulceration of the oral cavity. No recent infections. Still has cold sensitivity with Oxaliplatin with cold induced numbness lasting 2-3 days and not interfering with function. No issues with fever/chills, chest pain,cough, SOB, mucositis, constipation, skin rash or lower extremity edema. No abdominal pain. At most has 3-4 stools per day but is not requiring Imodium. Specifically denies any erythema or peeling of the hands or feet due to Xeloda and has taken all doses prescribed. Laboratories are reviewed; overall stable with no significant abnormalities. Since Isaias is tolerated his first 5 cycles well without cytopenias or adverseeffects, he will proceed with cycle 6 today, cycle 7, then after cycle 8 we willproceed with his end of therapy CT scan and review results in approximately 2 months. If he has any new symptoms or cytopenias we will schedule him for follow-up sooner to adjust dosing. In addition we will send follow-up CEA with labs for cycle 7. No other new concerns today. PRELIMINARY HISTORY: This is a 53-year-old male who does not seek regular medical care who presented to the emergency department with weakness and presyncopal sensation. He noticeda gradual feeling of increased fatigability and shortness of breath with exertion with heaviness in the thighs legs and arms. He did not have any visible bright red blood per rectum but had guaiac positive stool. His hemoglobin was 4.5. He underwent transfusion of a total of 6 units of blood andhad not had any visible gastrointestinal bleeding during the hospital stay. An abdominal CT showed a mass within the cecum suspicious for malignancy. He was offered colonoscopy by Dr. Maria but deferred this. After discharge from the hospital he self referred to Dr. Fox and underwent colonoscopy 04/09/2018 with cecal biopsy showing invasive to poorly differentiated adenocarcinoma, fragments of tubular adenoma with high- grade dysplasia. He underwent right hemicolectomy surgery 05/01/2018. Outside laboratories including peripheral smear noted marked poikilocytosis withreport of 2+ schistocytes and 2+ teardrops. He also had a remarkable low mean corpuscular volume in the low 70s with elevated RDW to 30s. This remained low despite his multiple transfusions. Pre-operatively given Injectafer 750mg IV x 2. His father was diagnosed with colon cancer at age 47 and at age 48 as he was metastatic at diagnosis. Patient does not know of any other family members with malignancy, but he has never had genetic testing. MLH1 mutation discoveredand Dr. Fox of medical genetics recommended family screening recommendations. - Summary of Therapies Summary of Therapies: 1.) Right hemicolectomy per Dr. Groves - 05/06/2018; Pathologic stage pT4a, pN0,pMX (stage IIb) 2.) Adjuvant XELOX every 3 weeks, Cycle 1, Day 1: 06/10/2018- 8 cycles planned--last cycle will be scheduled early November 2018. Subjective/ROS - Narrative: ROS Details: All systems reviewed & no additional complaints except as documented Constitutional: fair state of general health - Improved to baseline since previous transfusions fall 2017, decreased activity level, decreased exercise tolerance, normal sleep, no weight loss - Denies significant weight loss, no weight gain; he does note fatigue the week after initial infusions and has limited work schedule during that time. Eyes: no change in vision, no double vision--no conjunctival erythema or injection but does note watery sensation a few days after oxaliplatin, no significant change management expert the last 5 cycles. We will follow for now. Ears, nose, mouth, throat: no headaches, no vertigo, no lightheadedness - Prior lightheadedness resolved after transfusions, no head injury, no nasal congestion, no rhinorrhea, no epistaxis, no gingival bleeding, no sore throat Cardiovascular: No dyspnea on exertion, no chest pain, no palpitations, no syncope - Patient never actually had syncope but had presyncopal sensation before transfusion, no orthopnea, no edema, no heart murmur Respiratory: no pain with respirations, no shortness of breath, no wheezing, no exercise intolerance, no cough, no sputum production, no hemoptysis, no TB exposure, no night sweats Gastrointestinal: no abdominal pain, no change in appetite, no dysphagia, no indigestion, no nausea, no vomiting, no hematemesis, no jaundice, no constipation, no diarrhea, no abnormal stools (loose about 3-4 times per day, nomeds), no change in bowel habits Genitourinary: no frequency, no dysuria, no nocturia, no hematuria, no oliguria,no stones, no infections, no urinary retention Musculoskeletal: no pain, no swelling, no redness, no limited ROM, no weakness Integumentary: nails brittleness, nails ridging, no rash, no bleeding or bruising, no itching, no hand-foot symptoms. Neurological: no tremor, no incoordination, no paresthesias, no memory loss, no speech disturbance, no motor difficulty--positive for mild cold-induced neuropathy a few days after oxaliplatin--no significant change management expert the last 5 cycles. Taking precautions as advised. Psychiatric: no anxiety, no depression Endocrine: no hormone therapy, no heat intolerance Hematologic/Lymphatic: anemia improved after iron infusions- As per HPI, no enlarged lymph nodes Allergic/Immunologic: no reaction to drugs ROS Details: All systems reviewed & no additional complaints except as documented ONC PMF - General Attestation statement: The following information was validated with the patient. Source: Old Records Reviewed - Medical History Medical history: Cancer - Diagnosis of cecal cancer by colonoscopy Past Medical History Comments: sleep apnea, recent blood transfusions - Surgical History Surgical history male: colectomy, orthopedic, other Surgical History Comment: left knee arthroscopy, eye - Cardiac History Patient on Service Establishment Attendant: No Does Patient Have Pacemaker?: No - Psych History Psychiatric history: no psych history - Family History Family History: CAD/PA, cancer - Father colon cancer age 47, hypertension - Genetics Would you like a referral to genetics?: No - Social History History of Any Tobacco Product Use?: Yes Tobacco Type: smokeless tobacco Do you ever drink alcohol (including beer or wine)?: No If yes, how many days did you drink in the past week?: 1 Did you previously drink alcohol, but have since quit?: No Hx Recreational Drug Use?: No Substance Use Type: None Home Medications & Allergies Allergies Allergy/AdvReac Type Severity Reaction Status Date / Time No Known Allergies Allergy Verified 04/04/18 13:53 Home Medications Medication Instructions Recorded Confirmed Type capecitabine 2,000 mg PO DIRECTED 06/05/18 09/30/18 History capecitabine 150 mg PO DIRECTED 06/05/18 09/30/18 History ondansetron HCl [Zofran] 8 mg PO TID PRN #30 tab 08/27/18 09/30/18 Rx Objective - Resuscitation Status Resuscitation Status: Full Code - Height/Weight Height/Weight: Height 5 ft 11 in Weight 95 kg BSA for Today's Weight 2.18 - Vital Signs Vital Signs: 09/30/18 10:23 Temperature 97.4 F L Pulse Rate [Right Brachial] 75 Respiratory Rate 18 Blood Pressure [Right Arm] 151/80 H 02 Sat by Pulse Oximetry 98 - Pain Right Abdomen Pain Intensity: 0 - Emotional Needs Assessment Emotional Needs Assessment: Emotional Needs Identified? No Distress Screening Total 0 - ECOG Performance Status ECOG Score: 1 - Due to fatigue Physical Exam - Constitutional no acute distress, average body habitus, no chronically ill appearing, cooperative - Routine HEENT Exam Head: normocephalic, atraumatic, no cushingoid faces Eye: EOMI, PERRL, no conjunctival injection - No conjunctival injection or crusting seen, no scleral icterus ENT: mucous membranes moist, oropharynx clear, dentition normal - Routine Neck Exam supple, full ROM, no lymphadenopathy, no thyromegaly, no tenderness - Routine Chest/Breast/Axilla Exam Chest wall: no tenderness, no mass Axillae: no lymphadenopathy, no mass - Routine Respiratory Exam no accessory muscle use, CTA bilaterally, no rales, no respiratory distress, no rhonchi, no wheezes - Routine Cardiovascular Exam RRR, S1, S2, no murmur, no gallop, no irregular rhythm - Routine Abdominal Exam soft, normoactive bowel sounds, no distended, no rebound, no guarding, no organomegaly, no mass - Routine Exam Groin: Absent: inguinal lymphadenopathy - Routine Extremities Exam Present: full ROM, pulses intact, normal capillary refill. Absent: cyanosis, clubbing, calf tenderness, tenderness - Routine Back/Spine/Pelvis Exam Back/Spine: Present: full ROM. Absent: CVA tenderness, paraspinal tenderness, vertebral tenderness - Routine Skin Exam Present: intact, warm, normal turgor. Absent: petechiae, lesions, jaundice, rash, ecchymosis - Routine Neurological Exam Present: alert, oriented X3, moving all extremities, vision grossly intact, hearing grossly intact, normal speech. Absent: sensory deficit, motor deficit, abnormal gait, tremors - Routine Psychiatric Exam Present: normal affect, normal thought process, cooperative. Absent: depressed,anxious Results - Labs Labs: Diagram of Most Recent CBC and CMP 09/30/18 09:43 Labs - Last 7 Days 09/30/18 09:43: WBC 2.9 L, Corrected WBC 2.9 L, RBC 4.06, Hgb 14.4, Hct 41.8, MCV 102.8 H, MCH 35.4 H, MCHC 34.4, RDW 22.0 H, Plt Count 160, MPV 8.3, Neut % (Auto) 62.3, Lymph % (Auto) 22.7, Marion % (Auto) 12.4, Eos % (Auto) 1.8, Baso % (Auto) 0.8, Neut # (Auto) 1.8, Lymph # (Auto) 0.7 L, Marion # (Auto) 0.4, Eos # (Auto) 0.1, Baso # (Auto) 0.0, Nucleated RBC % (auto) 0.1 - Impressions Any impression(s) listed above is documentation that was entered by the reading physician into a diagnostic report(s) for Isaias Rosibel. I have reviewed the report(s) and am incorporating any findings in the treatment plan of this patient where applicable. No recent imaging for review. Original CT scan was performed at [facility]. We will set up follow-up CT scan end of chemotherapy in approximately2 months unless new symptoms arise or concern for rising CEA prior to end of therapy. Assessment and Plan (1) Carcinoma of cecum This is a 53-year-old male without significant past medical history but significant family history of colon carcinoma in his father age 47. He was diagnosed with a cecal carcinoma by colonoscopy on 04/09/2018 and underwent 05/01 revealingstage IIb (pT4a pN0 M0) moderate to poorly differentiated adenocarcinoma. He had a contained perforation of the cecum, but all surgical margins are negative with no residual disease. He met with medical genetics on 06/19/2018 and he wasfound to have a mutation in MLH1 mismatch repair gene. 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 Consented for adjuvant therapy with Oxaliplatin 130 mg/m? IV every 3 weeks with oral Xeloda 1000 mg/m? twice daily for 2 weeks on 1 week off; x 8 cycles. [id number] PO BID. Start date: Cycle 1, Day 1: Sunday06/10/2018 -Seen for on treatment visit; overall doing well. No unanticipated adverse effects related to chemotherapy--mild cold-induced neuropathy, mild conjunctivitis, no hand-foot syndrome. Laboratories are reviewed; overall very stable. Anemia is significantly improved. He complains of mild fatigue; had mild nausea and diarrhea; no mucositis or evidence of HFS. RTC in 2 months following cycle 8 and review of labs, CEA level (to be drawn with cycle 7 in 3 weeks), and restaging CT scan after cycle 8. We will discuss surveillance and survivorship at that visit. He may return sooner if any adverse effects of therapy noted prior to his scheduled follow-up. (2) Iron deficiency anemia due to chronic blood loss The patient was admitted to [facility] for severe anemia with hemoglobin down to 4.5 and no clear bleeding source. Despite 6 units of transfusion, he had microcytic indices with anemia and iron saturation 8%. To improve surgical morbidity, he was treated with parenteral iron infusion with Injectafer 750 mg today and second infusion 1 week prior to his scheduled surgery. His hemoglobinis now normal and iron stores have returned to normal. We will continue to follow hemoglobin on chemotherapy, but likely source of bleeding was his colon adenocarcinoma which has been resected. (3) Mcadams syndrome The patient has a family history of colon cancer in his father diagnosed at age 47. Mismatch repair genes are deficient on his specimen and is consistent with Mcadams syndrome. He has had initial evaluation with medical genetics on 05/22/18; MLH1 germline mutation discovered. Recommendations reviewed with medical genetics on 08/21/2018, and further genetic testing of the patient's family members for Mcadams syndrome has been arranged. We will continue surveillance forLynch associated malignancies. (4) Encounter for antineoplastic chemotherapy Reviewed toxicities and discussed medication compliance as noted above. - Chemo Plan Chemo Plan (Dose, Rate, Freq): [id number] Day 1: Oxaliplatin 130mg/m2 IV Days 1-14: Capecitabine 1,000mg/m2 orally twice daily. Repeat cycle every 3 weeks. Plan total of 8 cycles over 6 months 06/2018 through 12/2018 Goal of Treatment: Curative - Time with Patient Total Time Spent with Patient: 30 min Coordination of Care & Counseling Time: Greater than 50% of time spent with patient was for coordination of care (as documented) and [id number] counseling of patient and/or family. Dictated By: Myranda Jarquin MD DD/ 1031 Signed By: <Electronically signed by MD Myranda Jarquin> 09/30/18 [address] [facility] Work Phone: [phone] Progress note Author Myranda Jarquin [facility] September 30, 2018 9:31pm Note Date/Time September 30, 2018 10: 32am [facility] [place] [address] Hem/Onc Follow Up Note - OP Signed with Addenda Patient: Isaias Gleason MR#: [id number] : 1965 Acct:[id number] Age/Sex: 53 / M Type: REG RCR Copies to: Orestes Fox Jr, Teri Kim MD~ ADDENDUM1 Addendum: Patient requested a letter to provide to his employer for anticipatedreturn to work December 09 after completion of adjuvant chemotherapy in November 2018. This will be provided for the patient. Reevaluation of restaging CT Abdomen andPelvis in November prior to return to work. Addendum Dictated By: MD Myranda Jarquin Addendum Signed By: Addendum Cosigned By: DD/ TD/TT: 09/30/18 Subjective Date/Time of Service: Date of Service: 09/30/2018 Time of Service: 10:31 Chief Complaint: Patient is here before follow up before cylcle #6 of [facility]/, no concerns with treatment. - Diagnosis DIAGNOSIS: 1. Cecal carcinoma, originally presented to [facility] with iron deficiency anemia of occult source. Known family history of colon cancer in father who at age 48. --Right hemicolectomy performed 05/06/2018. 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 Directly penetrating the serosa. Clinical history of a contained perforation against the lateral peritoneum was noted. Terminal ileum and ileocecal valve involvement by colonic adenocarcinomaidentified. Negative mesenteric, true peritoneum, and colon proximal and distalmargins of resection. 36 out of 36 pericolic lymph nodes are negative for metastatic colon adenocarcinoma. Fibrous obliteration of appendix lumen. 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 MSH2 and MSH6 show intact nuclear expression. --Met with medical genetics 06/19/2018. 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 They discussed screening recommendations for family members and frequency of colonoscopy for surveillance. 2. Iron deficiency anemia, originally presented with hemoglobin 4.5 on 03/30/2018. 6 units blood transfused -- Injectafer iron therapy 750 mg IV on 04/23 and 05/01/2018 prior to surgery. HPI: Isaias presents for on treatment visit while on XELOX regimen (IV oxaliplatin 130 mg/m? every 3 weeks with oral Xeloda 1000 mg/m? twice daily for 2 weeks on 1week off). Plan every 3 weeks x 8 cycles - to complete 6 months of adjuvant therapy. Cycle 1, Day 1 commenced 06/10/18. Here for cycle 6 today. He notes intermittent watery sensation over his eyes without associated redness or change in visual acuity--mildly improving from previous cycles. This tends to occur within a few days after oxaliplatin and then dissipates. He has not had any skin rashes or ulceration of the oral cavity. No recent infections. Still has cold sensitivity with Oxaliplatin with cold induced numbness lasting 2-3 days and not interfering with function. No issues with fever/chills, chest pain,cough, SOB, mucositis, constipation, skin rash or lower extremity edema. No abdominal pain. At most has 3-4 stools per day but is not requiring Imodium. Specifically denies any erythema or peeling of the hands or feet due to Xeloda and has taken all doses prescribed. Laboratories are reviewed; overall stable with no significant abnormalities. Since Isaias is tolerated his first 5 cycles well without cytopenias or adverseeffects, he will proceed with cycle 6 today, cycle 7, then after cycle 8 we willproceed with his end of therapy CT scan and review results in approximately 2 months. If he has any new symptoms or cytopenias we will schedule him for follow-up sooner to adjust dosing. In addition we will send follow-up CEA with labs for cycle 7. No other new concerns today. PRELIMINARY HISTORY: This is a 53-year-old male who does not seek regular medical care who presented to the emergency department with weakness and presyncopal sensation. He noticeda gradual feeling of increased fatigability and shortness of breath with exertion with heaviness in the thighs legs and arms. He did not have any visible bright red blood per rectum but had guaiac positive stool. His hemoglobin was 4.5. He underwent transfusion of a total of 6 units of blood andhad not had any visible gastrointestinal bleeding during the hospital stay. An abdominal CT showed a mass within the cecum suspicious for malignancy. He was offered colonoscopy by Dr. Maria but deferred this. After discharge from the hospital he self referred to Dr. Fox and underwent colonoscopy 04/09/2018 with cecal biopsy showing invasive to poorly differentiated adenocarcinoma, fragments of tubular adenoma with high- grade dysplasia. He underwent right hemicolectomy surgery 05/01/2018. Outside laboratories including peripheral smear noted marked poikilocytosis withreport of 2+ schistocytes and 2+ teardrops. He also had a remarkable low mean corpuscular volume in the low 70s with elevated RDW to 30s. This remained low despite his multiple transfusions. Pre-operatively given Injectafer 750mg IV x 2. His father was diagnosed with colon cancer at age 47 and at age 48 as he was metastatic at diagnosis. Patient does not know of any other family members with malignancy, but he has never had genetic testing. MLH1 mutation discoveredand Dr. Fox of medical genetics recommended family screening recommendations. - Summary of Therapies Summary of Therapies: 1.) Right hemicolectomy per Dr. Groves - 05/06/2018; Pathologic stage pT4a, pN0,pMX (stage IIb) 2.) Adjuvant XELOX every 3 weeks, Cycle 1, Day 1: 06/10/2018- 8 cycles planned--last cycle will be scheduled early November 2018. Subjective/ROS - Narrative: ROS Details: All systems reviewed & no additional complaints except as documented Constitutional: fair state of general health - Improved to baseline since previous transfusions fall 2018, decreased activity level, decreased exercise tolerance, normal sleep, no weight loss - Denies significant weight loss, no weight gain; he does note fatigue the week after initial infusions and has limited work schedule during that time. Eyes: no change in vision, no double vision--no conjunctival erythema or injection but does note watery sensation a few days after oxaliplatin, no significant change management expert the last 5 cycles. We will follow for now. Ears, nose, mouth, throat: no headaches, no vertigo, no lightheadedness - Prior lightheadedness resolved after transfusions, no head injury, no nasal congestion, no rhinorrhea, no epistaxis, no gingival bleeding, no sore throat Cardiovascular: No dyspnea on exertion, no chest pain, no palpitations, no syncope - Patient never actually had syncope but had presyncopal sensation before transfusion, no orthopnea, no edema, no heart murmur Respiratory: no pain with respirations, no shortness of breath, no wheezing, no exercise intolerance, no cough, no sputum production, no hemoptysis, no TB exposure, no night sweats Gastrointestinal: no abdominal pain, no change in appetite, no dysphagia, no indigestion, no nausea, no vomiting, no hematemesis, no jaundice, no constipation, no diarrhea, no abnormal stools (loose about 3-4 times per day, nomeds), no change in bowel habits Genitourinary: no frequency, no dysuria, no nocturia, no hematuria, no oliguria,no stones, no infections, no urinary retention Musculoskeletal: no pain, no swelling, no redness, no limited ROM, no weakness Integumentary: nails brittleness, nails ridging, no rash, no bleeding or bruising, no itching, no hand-foot symptoms. Neurological: no tremor, no incoordination, no paresthesias, no memory loss, no speech disturbance, no motor difficulty--positive for mild cold-induced neuropathy a few days after oxaliplatin--no significant change management expert the last 5 cycles. Taking precautions as advised. Psychiatric: no anxiety, no depression Endocrine: no hormone therapy, no heat intolerance Hematologic/Lymphatic: anemia improved after iron infusions- As per HPI, no enlarged lymph nodes Allergic/Immunologic: no reaction to drugs ROS Details: All systems reviewed & no additional complaints except as documented ONC [facility] - General Attestation statement: The following information was validated with the patient. Source: Old Records Reviewed - Medical History Medical history: Cancer - Diagnosis of cecal cancer by colonoscopy Past Medical History Comments: sleep apnea, recent blood transfusions - Surgical History Surgical history male: colectomy, orthopedic, other Surgical History Comment: left knee arthroscopy, eye - Cardiac History Patient on Service Establishment Attendant: No Does Patient Have Pacemaker?: No - Psych History Psychiatric history: no psych history - Family History Family History: CAD/PA, cancer - Father colon cancer age 47, hypertension - Genetics Would you like a referral to genetics?: No - Social History History of Any Tobacco Product Use?: Yes Tobacco Type: smokeless tobacco Do you ever drink alcohol (including beer or wine)?: No If yes, how many days did you drink in the past week?: 1 Did you previously drink alcohol, but have since quit?: No Hx Recreational Drug Use?: No Substance Use Type: None Home Medications & Allergies Allergies Allergy/AdvReac Type Severity Reaction Status Date / Time No Known Allergies Allergy Verified 04/04/18 13:53 Home Medications Medication Instructions Recorded Confirmed Type capecitabine 2,000 mg PO DIRECTED 06/05/18 09/30/18 History capecitabine 150 mg PO DIRECTED 06/05/18 09/30/18 History ondansetron HCl [Zofran] 8 mg PO TID PRN #30 tab 08/27/18 09/30/18 Rx Objective - Resuscitation Status Resuscitation Status: Full Code - Height/Weight Height/Weight: Height 5 ft 11 in Weight 95 kg BSA for Today's Weight 2.18 - Vital Signs Vital Signs: 09/30/18 10:23 Temperature 97.4 F L Pulse Rate [Right Brachial] 75 Respiratory Rate 18 Blood Pressure [Right Arm] 151/80 H 02 Sat by Pulse Oximetry 98 - Pain Right Abdomen Pain Intensity: 0 - Emotional Needs Assessment Emotional Needs Assessment: Emotional Needs Identified? No Distress Screening Total 0 - ECOG Performance Status ECOG Score: 1 - Due to fatigue Physical Exam - Constitutional no acute distress, average body habitus, no chronically ill appearing, cooperative - Routine HEENT Exam Head: normocephalic, atraumatic, no cushingoid faces Eye: EOMI, PERRL, no conjunctival injection - No conjunctival injection or crusting seen, no scleral icterus ENT: mucous membranes moist, oropharynx clear, dentition normal - Routine Neck Exam supple, full ROM, no lymphadenopathy, no thyromegaly, no tenderness - Routine Chest/Breast/Axilla Exam Chest wall: no tenderness, no mass Axillae: no lymphadenopathy, no mass - Routine Respiratory Exam no accessory muscle use, CTA bilaterally, no rales, no respiratory distress, no rhonchi, no wheezes - Routine Cardiovascular Exam RRR, S1, S2, no murmur, no gallop, no irregular rhythm - Routine Abdominal Exam soft, normoactive bowel sounds, no distended, no rebound, no guarding, no organomegaly, no mass - Routine Exam Groin: Absent: inguinal lymphadenopathy - Routine Extremities Exam Present: full ROM, pulses intact, normal capillary refill. Absent: cyanosis, clubbing, calf tenderness, tenderness - Routine Back/Spine/Pelvis Exam Back/Spine: Present: full ROM. Absent: CVA tenderness, paraspinal tenderness, vertebral tenderness - Routine Skin Exam Present: intact, warm, normal turgor. Absent: petechiae, lesions, jaundice, rash, ecchymosis - Routine Neurological Exam Present: alert, oriented X3, moving all extremities, vision grossly intact, hearing grossly intact, normal speech. Absent: sensory deficit, motor deficit, abnormal gait, tremors - Routine Psychiatric Exam Present: normal affect, normal thought process, cooperative. Absent: depressed,anxious Results - Labs Labs: Diagram of Most Recent CBC and CMP 09/30/18 09:43 Labs - Last 7 Days 09/30/18 09:43: WBC 2.9 L, Corrected WBC 2.9 L, RBC 4.06, Hgb 14.4, Hct 41.8, MCV 102.8 H, MCH 35.4 H, MCHC 34.4, RDW 22.0 H, Plt Count 160, MPV 8.3, Neut % (Auto) 62.3, Lymph % (Auto) 22.7, Marion % (Auto) 12.4, Eos % (Auto) 1.8, Baso % (Auto) 0.8, Neut # (Auto) 1.8, Lymph # (Auto) 0.7 L, Marion # (Auto) 0.4, Eos # (Auto) 0.1, Baso # (Auto) 0.0, Nucleated RBC % (auto) 0.1 - Impressions Any impression(s) listed above is documentation that was entered by the reading physician into a diagnostic report(s) for Isaiaselmer Gleason. I have reviewed the report(s) and am incorporating any findings in the treatment plan of this patient where applicable. No recent imaging for review. Original CT scan was performed at [facility]. We will set up follow-up CT scan end of chemotherapy in approximately2 months unless new symptoms arise or concern for rising CEA prior to end of therapy. Assessment and Plan (1) Carcinoma of cecum This is a 53-year-old male without significant past medical history but significant family history of colon carcinoma in his father age 47. He was diagnosed with a cecal carcinoma by colonoscopy on 04/09/2018 and underwent 05/01 revealingstage IIb (pT4a pN0 M0) moderate to poorly differentiated adenocarcinoma. He had a contained perforation of the cecum, but all surgical margins are negative with no residual disease. He met with medical genetics on 06/19/2018 and he wasfound to have a mutation in MLH1 mismatch repair gene. 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 Consented for adjuvant therapy with Oxaliplatin 130 mg/m? IV every 3 weeks with oral Xeloda 1000 mg/m? twice daily for 2 weeks on 1 week off; x 8 cycles. [id number] PO BID. Start date: Cycle 1, Day 1: Sunday06/10/2018 -Seen for on treatment visit; overall doing well. No unanticipated adverse effects related to chemotherapy--mild cold-induced neuropathy, mild conjunctivitis, no hand-foot syndrome. Laboratories are reviewed; overall very stable. Anemia is significantly improved. He complains of mild fatigue; had mild nausea and diarrhea; no mucositis or evidence of HFS. RTC in 2 months following cycle 8 and review of labs, CEA level (to be drawn with cycle 7 in 3 weeks), and restaging CT scan after cycle 8. We will discuss surveillance and survivorship at that visit. He may return sooner if any adverse effects of therapy noted prior to his scheduled follow-up. (2) Iron deficiency anemia due to chronic blood loss The patient was admitted to [facility] for severe anemia with hemoglobin down to 4.5 and no clear bleeding source. Despite 6 units of transfusion, he had microcytic indices with anemia and iron saturation 8%. To improve surgical morbidity, he was treated with parenteral iron infusion with Injectafer 750 mg today and second infusion 1 week prior to his scheduled surgery. His hemoglobinis now normal and iron stores have returned to normal. We will continue to follow hemoglobin on chemotherapy, but likely source of bleeding was his colon adenocarcinoma which has been resected. (3) Mcadams syndrome The patient has a family history of colon cancer in his father diagnosed at age 47. Mismatch repair genes are deficient on his specimen and is consistent with Mcadams syndrome. He has had initial evaluation with medical genetics on 05/22/18; MLH1 germline mutation discovered. Recommendations reviewed with medical genetics on 08/21/2018, and further genetic testing of the patient's family members for Mcadams syndrome has been arranged. We will continue surveillance forLynch associated malignancies. (4) Encounter for antineoplastic chemotherapy Reviewed toxicities and discussed medication compliance as noted above. - Chemo Plan Chemo Plan (Dose, Rate, Freq): [id number] Day 1: Oxaliplatin 130mg/m2 IV Days 1-14: Capecitabine 1,000mg/m2 orally twice daily. Repeat cycle every 3 weeks. Plan total of 8 cycles over 6 months 06/2018 through 12/2018 Goal of Treatment: Curative - Time with Patient Total Time Spent with Patient: 30 min Coordination of Care & Counseling Time: Greater than 50% of time spent with patient was for coordination of care (as documented) and [id number] counseling of patient and/or family. Dictated By: Myranda Jarquin MD DD/ [id number] Signed By: <Electronically signed by MD Myranda Jarquin> 09/30/18 [id number] [facility] Work Phone: [phone] 353-861303-04-2019 Progress note Author Myranda Jarquin [facility] September 09, 2018 6:16pm Note Date/Time September 09, 2018 10:3 9am [facility] [place] [id number] Hem/Onc Follow Up Note - OP Signed Patient: Isaias Gleason MR#: [id number] : 1965 Acct:[id number] Age/Sex: 53 / M Type: REG RCR Copies to: Orestes Fox Jr, Teri Kim MD~ Subjective Date/Time of Service: Date of Service: 09/09/2018 Time of Service: 10:38 Chief Complaint: Patient is here for follow up before cycle #5 of Cap/Ox. Patients main complaint is fatigue. - Diagnosis DIAGNOSIS: 1. Cecal carcinoma, originally presented to [facility] with iron deficiency anemia of occult source. Known family history of colon cancer in father who at age 48. --Right hemicolectomy performed 05/06/2018. 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 Directly penetrating the serosa. Clinical history of a contained perforation against the lateral peritoneum was noted. Terminal ileum and ileocecal valve involvement by colonic adenocarcinomaidentified. Negative mesenteric, true peritoneum, and colon proximal and distalmargins of resection. 36 out of 36 pericolic lymph nodes are negative for metastatic colon adenocarcinoma. Fibrous obliteration of appendix lumen. 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 MSH2 and MSH6 show intact nuclear expression. --Met with medical genetics 06/19/2018 and will have follow-up to review results. Meets [place] 1 criteria for clinical diagnosis of Mcadams syndrome with 3 relatives over 3 generations with colon cancer. 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 They discussed screening recommendations for family members and frequency of colonoscopy for surveillance. 2. Iron deficiency anemia, originally presented with hemoglobin 4.5 on 03/30/2018. 6 units blood transfused -- Injectafer iron therapy 750 mg IV on 04/23 and 05/01/2018 prior to surgery. HPI: Isaias presents for on treatment visit while on XELOX regimen (IV oxaliplatin 130 mg/m? every 3 weeks with oral Xeloda 1000 mg/m? twice daily for 2 weeks on 1week off). Plan every 3 weeks x 8 cycles - to complete 6 months of adjuvant therapy. Cycle 1, Day 1 commenced 06/10/18. Here for cycle 5 today. He continues to notea watery sensation over his eyes without associated redness or change in visual acuity--unchanged from last cycle. This tends to occur within a few daysafter oxaliplatin and then dissipates. He has not had any skin rashes or ulceration of the oral cavity. No recent infections. Still has cold sensitivity with Oxaliplatin with cold induced numbness lasting 2-3 days and not interferingwith function. No issues with fever/chills, chest pain, cough, SOB, mucositis, constipation, skin rash or lower extremity edema. No abdominal pain. At most has 3-4 stools per day but is not requiring Imodium. Specifically denies any erythema or peeling of the hands or feet due to Xeloda and has taken all doses prescribed. Laboratories are reviewed; overall stable with no significant abnormalities. PRELIMINARY HISTORY: This is a 53-year-old male who does not seek regular medical care who presented to the emergency department with weakness and presyncopal sensation. He noticeda gradual feeling of increased fatigability and shortness of breath with exertion with heaviness in the thighs legs and arms. He did not have any visible bright red blood per rectum but had guaiac positive stool. His hemoglobin was4.5. He underwent transfusion of a total of 6 units of blood and had not had any visible gastrointestinal bleeding during the hospital stay. An abdominal CTshowed a mass within the cecum suspicious for malignancy. He was offered colonoscopy by Dr. Maria but deferred this. After discharge from the hospital he self referred to Dr. Fox and underwent colonoscopy 04/09/2018 with cecal biopsy showing invasive to poorly differentiated adenocarcinoma, fragmentsof tubular adenoma with high- grade dysplasia. He underwent right hemicolectomy surgery 05/01/2018. Outside laboratories including peripheral smear noted marked poikilocytosis withreport of 2+ schistocytes and 2+ teardrops. He also had a remarkable low mean corpuscular volume in the low 70s with elevated RDW to 30s. This remained low despite his multiple transfusions. Pre-operatively given Injectafer 750mg IV x 2. His father was diagnosed with colon cancer at age 47 and at age 48 as he was metastatic at diagnosis. Patient does not know of any other family members with malignancy, but he has never had genetic testing. MLH1 mutation discoveredand Dr. Fox of medical genetics recommended family screening recommendations. - Summary of Therapies Summary of Therapies: 1.) Right hemicolectomy per Dr. Groves - 05/06/2018; Pathologic stage pT4a, pN0,pMX (stage IIb) 2.) Adjuvant XELOX every 3 weeks, Cycle 1, Day 1: 06/10/2018- 8 cycles planned Subjective/ROS - Narrative: ROS Details: All systems reviewed & no additional complaints except as documented Constitutional: fair state of general health - Improved to baseline since previous transfusions fall 2018, decreased activity level, decreased exercise tolerance, normal sleep, no weight loss - Denies significant weight loss, no weight gain; he does note fatigue the week after initial infusions and has limited work schedule during that time. Eyes: no change in vision, no double vision--no conjunctival erythema or injection but does note watery sensation a few days after oxaliplatin. We will follow for now. Ears, nose, mouth, throat: no headaches, no vertigo, no lightheadedness - Prior lightheadedness resolved after transfusions, no head injury, no nasal congestion, no rhinorrhea, no epistaxis, no gingival bleeding, no sore throat Cardiovascular: No dyspnea on exertion, no chest pain, no palpitations, no syncope - Patient never actually had syncope but had presyncopal sensation before transfusion, no orthopnea, no edema, no heart murmur Respiratory: no pain with respirations, no shortness of breath, no wheezing, no exercise intolerance, no cough, no sputum production, no hemoptysis, no TB exposure, no night sweats Gastrointestinal: no abdominal pain, no change in appetite, no dysphagia, no indigestion, no nausea, no vomiting, no hematemesis, no jaundice, no constipation, no diarrhea, no abnormal stools (loose about 3-4 times per day, nomeds), no change in bowel habits Genitourinary: no frequency, no dysuria, no nocturia, no hematuria, no oliguria,no stones, no infections, no urinary retention Musculoskeletal: no pain, no swelling, no redness, no limited ROM, no weakness Integumentary: nails brittleness, nails ridging, no rash, no bleeding or bruising, no itching, no hand-foot symptoms. 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 Taking precautions as advised. Psychiatric: no anxiety, no depression Endocrine: no hormone therapy, no heat intolerance Hematologic/Lymphatic: anemia improved after iron infusions- As per HPI, no enlarged lymph nodes Allergic/Immunologic: no reaction to drugs ROS Details: All systems reviewed & no additional complaints except as documented ONC [facility] - General Attestation statement: The following information was validated with the patient. Source: Old Records Reviewed - Medical History Medical history: Cancer - Diagnosis of cecal cancer by colonoscopy Past Medical History Comments: sleep apnea, recent blood transfusions - Surgical History Surgical history male: colectomy, orthopedic, other Surgical History Comment: left knee arthroscopy, eye - Cardiac History Patient on Service Establishment Attendant: No Does Patient Have Pacemaker?: No - Psych History Psychiatric history: no psych history - Family History Family History: CAD/PA, cancer - Father colon cancer age 47, hypertension - Genetics Would you like a referral to genetics?: No - Social History History of Any Tobacco Product Use?: Yes Tobacco Type: smokeless tobacco Do you ever drink alcohol (including beer or wine)?: No If yes, how many days did you drink in the past week?: 1 Did you previously drink alcohol, but have since quit?: No Hx Recreational Drug Use?: No Substance Use Type: None Home Medications & Allergies Allergies Allergy/AdvReac Type Severity Reaction Status Date / Time No Known Allergies Allergy Verified 04/04/18 13:53 Home Medications Medication Instructions Recorded Confirmed Type capecitabine 2,000 mg PO DIRECTED 06/05/18 09/09/18 History capecitabine 150 mg PO DIRECTED 06/05/18 09/09/18 History ondansetron HCl [Zofran] 8 mg PO TID PRN #30 tab 08/27/18 09/09/18 Rx Objective - Resuscitation Status Resuscitation Status: Full Code - Height/Weight Height/Weight: Height 5 ft 11 in Weight 95 kg BSA for Today's Weight 2.18 - Vital Signs Vital Signs: 09/09/18 10:31 Temperature 97.7 F Pulse Rate [Right Brachial] 71 Respiratory Rate 18 Blood Pressure [Right Arm] 145/87 H 02 Sat by Pulse Oximetry 97 - Pain Right Abdomen Pain Intensity: 0 - Emotional Needs Assessment Emotional Needs Assessment: Emotional Needs Identified? No Distress Screening Total 0 - ECOG Performance Status ECOG Score: 1 - Due to fatigue Physical Exam - Constitutional no acute distress, average body habitus, no chronically ill appearing, cooperative - Routine HEENT Exam Head: normocephalic, atraumatic, no cushingoid faces Eye: EOMI, PERRL, no conjunctival injection - No conjunctival injection or crusting seen, no scleral icterus ENT: mucous membranes moist, oropharynx clear, dentition normal - Routine Neck Exam supple, full ROM, no lymphadenopathy, no thyromegaly, no tenderness - Routine Chest/Breast/Axilla Exam Chest wall: no tenderness, no mass Axillae: no lymphadenopathy, no mass - Routine Respiratory Exam no accessory muscle use, CTA bilaterally, no rales, no respiratory distress, no rhonchi, no wheezes - Routine Cardiovascular Exam RRR, S1, S2, no murmur, no gallop, no irregular rhythm - Routine Abdominal Exam soft, normoactive bowel sounds, no distended, no rebound, no guarding, no organomegaly, no mass - Routine Exam Groin: Absent: inguinal lymphadenopathy - Routine Extremities Exam Present: full ROM, pulses intact, normal capillary refill. Absent: cyanosis, clubbing, calf tenderness, tenderness - Routine Back/Spine/Pelvis Exam Back/Spine: Present: full ROM. Absent: CVA tenderness, paraspinal tenderness, vertebral tenderness - Routine Skin Exam Present: intact, warm, normal turgor. Absent: petechiae, lesions, jaundice, rash, ecchymosis - Routine Neurological Exam Present: alert, oriented X3, moving all extremities, vision grossly intact, hearing grossly intact, normal speech. Absent: sensory deficit, motor deficit, abnormal gait, tremors - Routine Psychiatric Exam Present: normal affect, normal thought process, cooperative. Absent: depressed,anxious Results - Labs Labs: Diagram of Most Recent CBC and CMP 08/19/18 09:26 08/19/18 09:26 - Impressions Any impression(s) listed above is documentation that was entered by the reading physician into a diagnostic report(s) for Isaias Rosibel. I have reviewed the report(s) and am incorporating any findings in the treatment plan of this patient where applicable. No imaging for review--will follow with CEA and repeat Abdominal/Pelvic CT at the end of adjuvant therapy. Assessment and Plan (1) Carcinoma of cecum This is a 53-year-old male without significant past medical history but significant family history of colon carcinoma in his father age 47. He is now diagnosed with a cecal carcinoma by colonoscopy on 04/09/2018 and underwent 05/01revealing stage IIb (pT4a pN0 M0) moderate to poorly differentiated adenocarcinoma. He had a contained perforation of the cecum, but all surgical margins are negative with no residual disease. He met with medical genetics on 06/19 and testing is pending for mismatch repair genes. 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 IV every 3 weeks with oral Xeloda 1000 mg/m? twice daily for 2 weeks on 1 week off; x 8 cycles. [id number] PO BID. Start date: Cycle 1, Day 1: Sunday06/10/2018 -Seen for on treatment visit; overall doing well. No unanticipated adverse effects related to chemotherapy--mild cold-induced neuropathy, mild conjunctivitis, no hand-foot syndrome. Laboratories are reviewed; overall very stable. Anemia is significantly improved. He complains of mild fatigue; had mild nausea and diarrhea; no mucositis or evidence of HFS. RTC in 3 weeks prior to cycle 6-day 1 and review of labs and CEA level. (2) Iron deficiency anemia due to chronic blood loss The patient was admitted to [facility] for severe anemia with hemoglobin down to 4.5 and no clear bleeding source. Despite 6 units of transfusion, he had microcytic indices with anemia and iron saturation 8%. To improve surgical morbidity, he was treated with parenteral iron infusion with Injectafer 750 mg today and second infusion 1 week prior to his scheduled surgery. His hemoglobinis now normal and iron stores have returned to normal. We will continue to follow hemoglobin on chemotherapy, but likely source of bleeding was his colon adenocarcinoma which has been resected. (3) Mcadams syndrome The patient has a family history of colon cancer in his father diagnosed at age 47. Mismatch repair genes are deficient on his specimen and is consistent with Mcadams syndrome. He has had initial evaluation with medical genetics on 05/22/18; MLH1 germline mutation discovered. Recommendations reviewed with medical genetics on 08/21/2018, and further genetic testing of the patient's family members for Mcadams syndrome has been arranged. We will continue surveillance for Mcadams associated malignancies. (4) Encounter for antineoplastic chemotherapy Reviewed toxicities and discussed medication compliance as noted above. - Chemo Plan Chemo Plan (Dose, Rate, Freq): CapeOX6 Day 1: Oxaliplatin 130mg/m2 IV Days 1-14: Capecitabine 1,000mg/m2 orally twice daily. Repeat cycle every 3 weeks. Plan total of 8 cycles over 6 months 06/2018 through 12/2018 Goal of Treatment: Curative - Time with Patient Total Time Spent with Patient: 30 min Coordination of Care & Counseling Time: Greater than 50% of time spent with patient was for coordination of care (as documented) and [id number] counseling of patient and/or family. Dictated By: Myranda Jarquin MD DD/ [id number] Signed By: <Electronically signed by MD Myranda Jarquin> 09/09/18 [address] [facility] Work Phone: [phone] Progress note Author Myranda Jarquin [facility] September 09, 2018 6:16pm Note Date/Time September 09, 2018 10:3 9am [facility] [place] [address] Hem/Onc Follow Up Note - OP Signed Patient: Isaias Gleason MR#: [id number] 321 : 1965 Acct:[id number] Age/Sex: 53 / M Type: REG RCR Copies to: Orestes Fox Jr, Teri Kim MD~ Subjective Date/Time of Service: Date of Service: 09/09/2018 Time of Service: 10:38 Chief Complaint: Patient is here for follow up before cycle #5 of Cap/Ox. Patients main complaint is fatigue. - Diagnosis DIAGNOSIS: 1. Cecal carcinoma, originally presented to [facility] with iron deficiency anemia of occult source. Known family history of colon cancer in father who at age 48. --Right hemicolectomy performed 05/06/2018. 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 Directly penetrating the serosa. Clinical history of a contained perforation against the lateral peritoneum was noted. Terminal ileum and ileocecal valve involvement by colonic adenocarcinomaidentified. Negative mesenteric, true peritoneum, and colon proximal and distalmargins of resection. 36 out of 36 pericolic lymph nodes are negative for metastatic colon adenocarcinoma. Fibrous obliteration of appendix lumen. 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 MSH2 and MSH6 show intact nuclear expression. --Met with medical genetics 06/19/2018 and will have follow-up to review results. Meets [place] 1 criteria for clinical diagnosis of Mcadams syndrome with 3 relatives over 3 generations with colon cancer. 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 They discussed screening recommendations for family members and frequency of colonoscopy for surveillance. 2. Iron deficiency anemia, originally presented with hemoglobin 4.5 on 03/30/2018. 6 units blood transfused -- Injectafer iron therapy 750 mg IV on 04/23 and 05/01/2018 prior to surgery. HPI: Isaias presents for on treatment visit while on XELOX regimen (IV oxaliplatin 130 mg/m? every 3 weeks with oral Xeloda 1000 mg/m? twice daily for 2 weeks on 1week off). Plan every 3 weeks x 8 cycles - to complete 6 months of adjuvant therapy. Cycle 1, Day 1 commenced 06/10/18. Here for cycle 5 today. He continues to notea watery sensation over his eyes without associated redness or change in visual acuity--unchanged from last cycle. This tends to occur within a few daysafter oxaliplatin and then dissipates. He has not had any skin rashes or ulceration of the oral cavity. No recent infections. Still has cold sensitivity with Oxaliplatin with cold induced numbness lasting 2-3 days and not interferingwith function. No issues with fever/chills, chest pain, cough, SOB, mucositis, constipation, skin rash or lower extremity edema. No abdominal pain. At most has 3-4 stools per day but is not requiring Imodium. Specifically denies any erythema or peeling of the hands or feet due to Xeloda and has taken all doses prescribed. Laboratories are reviewed; overall stable with no significant abnormalities. PRELIMINARY HISTORY: This is a 53-year-old male who does not seek regular medical care who presented to the emergency department with weakness and presyncopal sensation. He noticeda gradual feeling of increased fatigability and shortness of breath with exertion with heaviness in the thighs legs and arms. He did not have any visible bright red blood per rectum but had guaiac positive stool. His hemoglobin was4.5. He underwent transfusion of a total of 6 units of blood and had not had any visible gastrointestinal bleeding during the hospital stay. An abdominal CTshowed a mass within the cecum suspicious for malignancy. He was offered colonoscopy by Dr. Maria but deferred this. After discharge from the hospital he self referred to Dr. Fox and underwent colonoscopy 04/09/2018 with cecal biopsy showing invasive to poorly differentiated adenocarcinoma, fragmentsof tubular adenoma with high- grade dysplasia. He underwent right hemicolectomy surgery 05/01/2018. Outside laboratories including peripheral smear noted marked poikilocytosis withreport of 2+ schistocytes and 2+ teardrops. He also had a remarkable low mean corpuscular volume in the low 70s with elevated RDW to 30s. This remained low despite his multiple transfusions. Pre-operatively given Injectafer 750mg IV x 2. His father was diagnosed with colon cancer at age 47 and at age 48 as he was metastatic at diagnosis. Patient does not know of any other family members with malignancy, but he has never had genetic testing. MLH1 mutation discoveredand Dr. Fox of medical genetics recommended family screening recommendations. - Summary of Therapies Summary of Therapies: 1.) Right hemicolectomy per Dr. Groves - 05/06/2018; Pathologic stage pT4a, pN0,pMX (stage IIb) 2.) Adjuvant XELOX every 3 weeks, Cycle 1, Day 1: 06/10/2018- 8 cycles planned Subjective/ROS - Narrative: ROS Details: All systems reviewed & no additional complaints except as documented Constitutional: fair state of general health - Improved to baseline since previous transfusions fall 2017, decreased activity level, decreased exercise tolerance, normal sleep, no weight loss - Denies significant weight loss, no weight gain; he does note fatigue the week after initial infusions and has limited work schedule during that time. Eyes: no change in vision, no double vision--no conjunctival erythema or injection but does note watery sensation a few days after oxaliplatin. We will follow for now. Ears, nose, mouth, throat: no headaches, no vertigo, no lightheadedness - Prior lightheadedness resolved after transfusions, no head injury, no nasal congestion, no rhinorrhea, no epistaxis, no gingival bleeding, no sore throat Cardiovascular: No dyspnea on exertion, no chest pain, no palpitations, no syncope - Patient never actually had syncope but had presyncopal sensation before transfusion, no orthopnea, no edema, no heart murmur Respiratory: no pain with respirations, no shortness of breath, no wheezing, no exercise intolerance, no cough, no sputum production, no hemoptysis, no TB exposure, no night sweats Gastrointestinal: no abdominal pain, no change in appetite, no dysphagia, no indigestion, no nausea, no vomiting, no hematemesis, no jaundice, no constipation, no diarrhea, no abnormal stools (loose about 3-4 times per day, nomeds), no change in bowel habits Genitourinary: no frequency, no dysuria, no nocturia, no hematuria, no oliguria,no stones, no infections, no urinary retention Musculoskeletal: no pain, no swelling, no redness, no limited ROM, no weakness Integumentary: nails brittleness, nails ridging, no rash, no bleeding or bruising, no itching, no hand-foot symptoms. 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 Taking precautions as advised. Psychiatric: no anxiety, no depression Endocrine: no hormone therapy, no heat intolerance Hematologic/Lymphatic: anemia improved after iron infusions- As per HPI, no enlarged lymph nodes Allergic/Immunologic: no reaction to drugs ROS Details: All systems reviewed & no additional complaints except as documented ONC PMFSH - General Attestation statement: The following information was validated with the patient. Source: Old Records Reviewed - Medical History Medical history: Cancer - Diagnosis of cecal cancer by colonoscopy Past Medical History Comments: sleep apnea, recent blood transfusions - Surgical History Surgical history male: colectomy, orthopedic, other Surgical History Comment: left knee arthroscopy, eye - Cardiac History Patient on Service Establishment Attendant: No Does Patient Have Pacemaker?: No - Psych History Psychiatric history: no psych history - Family History Family History: CAD/PA, cancer - Father colon cancer age 47, hypertension - Genetics Would you like a referral to genetics?: No - Social History History of Any Tobacco Product Use?: Yes Tobacco Type: smokeless tobacco Do you ever drink alcohol (including beer or wine)?: No If yes, how many days did you drink in the past week?: 1 Did you previously drink alcohol, but have since quit?: No Hx Recreational Drug Use?: No Substance Use Type: None Home Medications & Allergies Allergies Allergy/AdvReac Type Severity Reaction Status Date / Time No Known Allergies Allergy Verified 04/04/18 13:53 Home Medications Medication Instructions Recorded Confirmed Type capecitabine 2,000 mg PO DIRECTED 06/05/18 09/09/18 History capecitabine 150 mg PO DIRECTED 06/05/18 09/09/18 History ondansetron HCl [Zofran] 8 mg PO TID PRN #30 tab 08/27/18 09/09/18 Rx Objective - Resuscitation Status Resuscitation Status: Full Code - Height/Weight Height/Weight: Height 5 ft 11 in Weight 95 kg BSA for Today's Weight 2.18 - Vital Signs Vital Signs: 09/09/18 10:31 Temperature 97.7 F Pulse Rate [Right Brachial] 71 Respiratory Rate 18 Blood Pressure [Right Arm] 145/87 H 02 Sat by Pulse Oximetry 97 - Pain Right Abdomen Pain Intensity: 0 - Emotional Needs Assessment Emotional Needs Assessment: Emotional Needs Identified? No Distress Screening Total 0 - ECOG Performance Status ECOG Score: 1 - Due to fatigue Physical Exam - Constitutional no acute distress, average body habitus, no chronically ill appearing, cooperative - Routine HEENT Exam Head: normocephalic, atraumatic, no cushingoid faces Eye: EOMI, PERRL, no conjunctival injection - No conjunctival injection or crusting seen, no scleral icterus ENT: mucous membranes moist, oropharynx clear, dentition normal - Routine Neck Exam supple, full ROM, no lymphadenopathy, no thyromegaly, no tenderness - Routine Chest/Breast/Axilla Exam Chest wall: no tenderness, no mass Axillae: no lymphadenopathy, no mass - Routine Respiratory Exam no accessory muscle use, CTA bilaterally, no rales, no respiratory distress, no rhonchi, no wheezes - Routine Cardiovascular Exam RRR, S1, S2, no murmur, no gallop, no irregular rhythm - Routine Abdominal Exam soft, normoactive bowel sounds, no distended, no rebound, no guarding, no organomegaly, no mass - Routine Exam Groin: Absent: inguinal lymphadenopathy - Routine Extremities Exam Present: full ROM, pulses intact, normal capillary refill. Absent: cyanosis, clubbing, calf tenderness, tenderness - Routine Back/Spine/Pelvis Exam Back/Spine: Present: full ROM. Absent: CVA tenderness, paraspinal tenderness, vertebral tenderness - Routine Skin Exam Present: intact, warm, normal turgor. Absent: petechiae, lesions, jaundice, rash, ecchymosis - Routine Neurological Exam Present: alert, oriented X3, moving all extremities, vision grossly intact, hearing grossly intact, normal speech. Absent: sensory deficit, motor deficit, abnormal gait, tremors - Routine Psychiatric Exam Present: normal affect, normal thought process, cooperative. Absent: depressed,anxious Results - Labs Labs: Diagram of Most Recent CBC and CMP 08/19/18 09:26 08/19/18 09:26 - Impressions Any impression(s) listed above is documentation that was entered by the reading physician into a diagnostic report(s) for Isaias Rosibel. I have reviewed the report(s) and am incorporating any findings in the treatment plan of this patient where applicable. No imaging for review--will follow with CEA and repeat Abdominal/Pelvic CT at the end of adjuvant therapy. Assessment and Plan (1) Carcinoma of cecum This is a 53-year-old male without significant past medical history but significant family history of colon carcinoma in his father age 47. He is now diagnosed with a cecal carcinoma by colonoscopy on 04/09/2018 and underwent 05/01revealing stage IIb (pT4a pN0 M0) moderate to poorly differentiated adenocarcinoma. He had a contained perforation of the cecum, but all surgical margins are negative with no residual disease. He met with [facility] on 06/19 and testing is pending for mismatch repair genes. 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 IV every 3 weeks with oral Xeloda 1000 mg/m? twice daily for 2 weeks on 1 week off; x 8 cycles. [id number] PO BID. Start date: Cycle 1, Day 1: Sunday06/10/2018 -Seen for on treatment visit; overall doing well. No unanticipated adverse effects related to chemotherapy--mild cold-induced neuropathy, mild conjunctivitis, no hand-foot syndrome. Laboratories are reviewed; overall very stable. Anemia is significantly improved. He complains of mild fatigue; had mild nausea and diarrhea; no mucositis or evidence of HFS. RTC in 3 weeks prior to cycle 6-day 1 and review of labs and CEA level. (2) Iron deficiency anemia due to chronic blood loss The patient was admitted to [facility] for severe anemia with hemoglobin down to 4.5 and no clear bleeding source. Despite 6 units of transfusion, he had microcytic indices with anemia and iron saturation 8%. To improve surgical morbidity, he was treated with parenteral iron infusion with Injectafer 750 mg today and second infusion 1 week prior to his scheduled surgery. His hemoglobinis now normal and iron stores have returned to normal. We will continue to follow hemoglobin on chemotherapy, but likely source of bleeding was his colon adenocarcinoma which has been resected. (3) Mcadams syndrome The patient has a family history of colon cancer in his father diagnosed at age 47. Mismatch repair genes are deficient on his specimen and is consistent with Mcadams syndrome. He has had initial evaluation with medical genetics on 05/22/18; MLH1 germline mutation discovered. Recommendations reviewed with medical genetics on 08/21/2018, and further genetic testing of the patient's family members for Mcadams syndrome has been arranged. We will continue surveillance for Mcadams associated malignancies. (4) Encounter for antineoplastic chemotherapy Reviewed toxicities and discussed medication compliance as noted above. - Chemo Plan Chemo Plan (Dose, Rate, Freq): CapeOX6 Day 1: Oxaliplatin 130mg/m2 IV Days 1-14: Capecitabine 1,000mg/m2 orally twice daily. Repeat cycle every 3 weeks. Plan total of 8 cycles over 6 months 06/2018 through 12/2018 Goal of Treatment: Curative - Time with Patient Total Time Spent with Patient: 30 min Coordination of Care & Counseling Time: Greater than 50% of time spent with patient was for coordination of care (as documented) and [id number] counseling of patient and/or family. Dictated By: Myranda Jarquin MD DD/ [id number] Signed By: <Electronically signed by MD Myranda Jarquin> 09/09/18 [id number] [facility] Work Phone: [phone] Progress note Author Luz Fox [facility] August 23, 2018 11:24am Note Date/Time August 21, 2018 2:30pm [facility] [place] [address] Genetics Follow Up Note Signed Patient: Isaias Gleason MR#: [id number] 321 : 1965 Acct:[id number] Age/Sex: 53 / M Type: REG RCR Copies to: MD Orestes Zarate Jr, Teri Kim MD,DO~ Genetics Follow Up Note Narrative: PRESENTING PROBLEM: Mr. Isaias Gleason is a 53-year old male with a personal and family history of colon cancer. He was referred to the Cancer Genetics Clinic at [facility] by his physician, Dr. Myranda Jarquin. Mr. Gleason was seen initially on 05/22/2018 and we recommended IHC staining of the colon tumor ordered for Cmadams syndrome screening. The IHC showed loss of PMS2 and MLH1 and he was last seen in cancer genetics clinic on 06/19/18. At that time, we suggested testing his blood and tumor for mutations in the genes associated with Mcadams syndrome. Mr. Gleason returns to the Cancer Genetics Clinic today, 08/21/18, with his daughter to discuss his results. This letter will summarize our conversation, and our recommendations for his future health care. RESULT: [facility] Mcadams with [facility]: Paired Germline and Tumor Analyses Germline MLH1 c.1858delG Pathogenic Mutation Germline Genes Analyzed: APC, BMPR1A, CDH1, CHEK2, MLH1, MSH2, MSH6, MUTYH, PMS2, PTEN, SMAD4, STK11, TP53, POLD1, POLE (sequencing and deletion/duplication); EPCAM, GREM1 (deletion/duplication only). SOMATIC ORIGIN PMS2 c.1239delA Pathogenic Mutation COMMENT: This assay is unable to determine if c.1239delA is present in the actual PMS2 gene or the PMS2CL pseudogene. Somatic Genes Analyzed: MLH1, MSH2, MSH6, PMS2 (sequencing and deletion/duplication); EPCAM (deletion/duplication only). 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 This means that his result is POSITIVE. 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 Future management for Mr. Gleason and his relativesshould now be based on the results of the genetic test. Results were provided to the patient. Of immediate concern are the future health risks that the gene mutation raises for him, his offspring and other family members. Errors in MLH1, as with other mismatch repair gene mutation, are associated with a high risk for colon, and non-colonic cancers. The major risks for individuals with MLH1 mutations includecolon cancer (52-82% risk to age 70) or a non-colonic cancer such endometrial (up to 60% to age 70), ovarian (up to 12% to age 70) and other cancers, including urinary tract/renal pelvis cancer (7%), pancreatic (6%), and gastric cancer (13%). Individuals with MLH1 gene mutations also have an increased risk for small bowel cancer (6%), brain cancer (3%), and sebaceous neoplasms (9%). The National Comprehensive Cancer Network (NCCN) recommends that Mr. Gleason and anyrelatives found to have the high risk MLH1 mutation be followed for additional colon polyps and other cancers. This includes colonoscopy every 1-2 years (starting at age 20-25 years), consideration of upper endoscopy every 3-5 years beginning at 30-35 years of age, consideration of prophylactic hysterectomy and oophorectomy in women with [id number], annual urinalysis at age 30-35, and annual physical examination starting at 25-30 years of age. There is no proven screening modality for pancreatic cancers associated with Mcadams syndrome. Finally, because of the increased risk for sebaceous neoplasms with MLH1 gene mutations, annual dermatology examinations are recommended. Ms. Gusman?s positive result also indicates that his first-degree relatives each have a one in two (50%) chance of having the same mutation. This includes his son, daughters, sisters, brother and nieces are also at risk. Fortunately, genetic testing of the specific mutation can be easily accomplished, and family members can learn if their risk for cancer is elevated. This test is less costly then the comprehensive whole gene test, very efficient and highly reliable. If testing is not possible, we then suggest that the relative be managed at the highest level of risk as discussed above. It is likely that themutation was inherited from his father with early onset colon cancer, but testing Mr. Gleason's mother and if she is negative, would provide further support for this. If both parents are carriers for MLH1 mutations, they are at risk to have a child with a constitutional mismatch repair deficiency syndrome characterized bycaf? au lait macules, and increased risk for hematologic malignancies. This riskis lower with MLH1 mutations. The results were provided to Mr. Gleason as well as family letter. We recommend that Mr. Gleason follow-up in genetics in 3 years as our knowledge of MLH1 mutations may change management expert time. Luz Fox MD Clinical [facility] [employer] Departments of Genetics and Genome Sciences and Pediatrics [facility] Total counseling time 40 min. Dictated By: Luz Fox MD DD/ [id number] Signed By: <Electronically signed by Luz Fox MD> 08/23/18 [address] [facility] Work Phone: [phone] Progress note Author Luz Fox [facility] August 23, 2018 11:24am Note Date/Time August 21, 2018 2:30pm [facility] [place] [address] Genetics Follow Up Note Signed Patient: Isaias Gleason MR#: [id number] 321 : 1965 Acct:[id number] Age/Sex: 53 / M Type: REG RCR Copies to: MD Orestes Zarate Jr, Teri Kim MD,DO~ Genetics Follow Up Note Narrative: PRESENTING PROBLEM: Mr. Isaias Gleason is a 53-year old male with a personal and family history of colon cancer. He was referred to the Cancer Genetics Clinic at [facility] by his physician, Dr. Myranda Jarquin. Mr. Gleason was seen initially on 05/22/2018 and we recommended IHC staining of the colon tumor ordered for Mcadams syndrome screening. The IHC showed loss of PMS2 and MLH1 and he was last seen in cancer genetics clinic on 06/19/18. At that time, we suggested testing his blood and tumor for mutations in the genes associated with Mcadams syndrome. Mr. Gleason returns to the Cancer Genetics Clinic today, 08/21/18, with his daughter to discuss his results. This letter will summarize our conversation, and our recommendations for his future health care. RESULT: [facility] Tumor[facility] Mcadams with [facility]: Paired Germline and Tumor Analyses Germline MLH1 c.1858delG Pathogenic Mutation Germline Genes Analyzed: APC, BMPR1A, CDH1, CHEK2, MLH1, MSH2, MSH6, MUTYH, PMS2, PTEN, SMAD4, STK11, TP53, POLD1, POLE (sequencing and deletion/duplication); EPCAM, GREM1 (deletion/duplication only). SOMATIC ORIGIN PMS2 c.1239delA Pathogenic Mutation COMMENT: This assay is unable to determine if c.1239delA is present in the actual PMS2 gene or the PMS2CL pseudogene. Somatic Genes Analyzed: MLH1, MSH2, MSH6, PMS2 (sequencing and deletion/duplication); EPCAM (deletion/duplication only). 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 This means that his result is POSITIVE. 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 Future management for Mr. Gleason and his relativesshould now be based on the results of the genetic test. Results were provided to the patient. Of immediate concern are the future health risks that the gene mutation raises for him, his offspring and other family members. Errors in MLH1, as with other mismatch repair gene mutation, are associated with a high risk for colon, and non-colonic cancers. The major risks for individuals with MLH1 mutations includecolon cancer (52-82% risk to age 70) or a non-colonic cancer such endometrial (up to 60% to age 70), ovarian (up to 12% to age 70) and other cancers, including urinary tract/renal pelvis cancer (7%), pancreatic (6%), and gastric cancer (13%). Individuals with MLH1 gene mutations also have an increased risk for small bowel cancer (6%), brain cancer (3%), and sebaceous neoplasms (9%). The National Comprehensive Cancer Network (NCCN) recommends that Mr. Gleason and anyrelatives found to have the high risk MLH1 mutation be followed for additional colon polyps and other cancers. This includes colonoscopy every 1-2 years (starting at age 20-25 years), consideration of upper endoscopy every 3-5 years beginning at 30-35 years of age, consideration of prophylactic hysterectomy and oophorectomy in women with [id number], annual urinalysis at age 30-35, and annual physical examination starting at 25-30 years of age. There is no proven screening modality for pancreatic cancers associated with Mcadams syndrome. Finally, because of the increased risk for sebaceous neoplasms with MLH1 gene mutations, annual dermatology examinations are recommended. Ms. Gusman?s positive result also indicates that his first-degree relatives each have a one in two (50%) chance of having the same mutation. This includes his son, daughters, sisters, brother and nieces are also at risk. Fortunately, genetic testing of the specific mutation can be easily accomplished, and family members can learn if their risk for cancer is elevated. This test is less costly then the comprehensive whole gene test, very efficient and highly reliable. If testing is not possible, we then suggest that the relative be managed at the highest level of risk as discussed above. It is likely that themkulwinder was inherited from his father with early onset colon cancer, but testing Mr. Gleason's mother and if she is negative, would provide further support for this. If both parents are carriers for MLH1 mutations, they are at risk to have a child with a constitutional mismatch repair deficiency syndrome characterized bycaf? au lait macules, and increased risk for hematologic malignancies. This riskis lower with MLH1 mutations. The results were provided to Mr. Gleason as well as family letter. We recommend that Mr. Gleason follow-up in genetics in 3 years as our knowledge of MLH1 mutations may change management expert time. Luz Fox MD Clinical [facility] [employer] Departments of Genetics and Genome Sciences and Pediatrics [facility] Total counseling time 40 min. Dictated By: Luz Fox MD DD/ [id number] Signed By: <Electronically signed by Luz Fox MD> 08/23/18 [facility] Work Phone: [phone] Progress note Author [facility] August 19, 2018 12:52pm Note Date/Time August 19, 2018 12:42pm [facility] [place] [id number] Hem/Onc Follow Up Note - OP Signed Patient: Isaias Gleason MR#: [id number] : 1965 Acct:[id number] Age/Sex: 53 / M Type: REG RCR Copies to: Orestes Fox Jr, Teri Kim MD~ Subjective Date/Time of Service: Date of Service: 08/19/2018 Time of Service: 12:40 Chief Complaint: Patient is here to follow up before cycle 4 of Xeloda/Oxaliplatin. No concerns noted at this time. Patient reports that he follow up with genetics this Sunday to get the final determination on a diagnosis of Mcadams syndrome. - Diagnosis DIAGNOSIS: 1. Cecal carcinoma, originally presented to [facility] with iron deficiency anemia of occult source. Known family history of colon cancer in father who at age 48. --Right hemicolectomy performed 05/06/2018. 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 Directly penetrating the serosa. Clinical history of a contained perforation against the lateral peritoneum was noted. Terminal ileum and ileocecal valve involvement by colonic adenocarcinomaidentified. Negative mesenteric, true peritoneum, and colon proximal and distalmargins of resection. 36 out of 36 pericolic lymph nodes are negative for metastatic colon adenocarcinoma. Fibrous obliteration of appendix lumen. 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 MSH2 and MSH6 show intact nuclear expression. --Met with medical genetics 06/19/2018 and will have follow-up to review results. Meets [place] 1 criteria for clinical diagnosis of Mcadams syndrome with 3 relatives over 3 generations with colon cancer. 2. Iron deficiency anemia, originally presented with hemoglobin 4.5 on 03/30/2018. 6 units blood transfused -- Injectafer iron therapy 750 mg IV on 04/23 and 05/01/2018 prior to surgery. HPI: Isaias presents for on treatment visit while on XELOX regimen (IV oxaliplatin 130 mg/m? every 3 weeks with oral Xeloda 1000 mg/m? twice daily for 2 weeks on 1week off). Plan every 3 weeks x 8 cycles - to complete 6 months of adjuvant therapy. Cycle 1, Day 1 commenced 06/10/18. Here for cycle 4 today. He continues to notea watery sensation over his eyes without associated redness or change in visual acuity. This tends to occur within a few days after oxaliplatin and thendissipates. He has not had any skin rashes or ulceration of the oral cavity. No recent infections. Still has cold sensitivity with Oxaliplatin. No issues with fever/chills, chest pain, cough, SOB, mucositis, constipation, skin rash orlower extremity edema. No abdominal pain. At most has 3-4 stools per day but isnot requiring Imodium. Specifically denies any erythema or peeling of the handsor feet due to Xeloda and has taken all doses prescribed. Laboratories are reviewed; overall stable with no significant abnormalities. PRELIMINARY HISTORY: This is a 53-year-old male who does not seek regular medical care who presented to the emergency department with weakness and presyncopal sensation. He noticeda gradual feeling of increased fatigability and shortness of breath with exertion with heaviness in the thighs legs and arms. He did not have any visible bright red blood per rectum but had guaiac positive stool. His hemoglobin was 4.5. He underwent transfusion of a total of 6 units of blood andhad not had any visible gastrointestinal bleeding during the hospital stay. An abdominal CT showed a mass within the cecum suspicious for malignancy. He was offered colonoscopy by Dr. Maria but deferred this. After discharge from the hospital he self referred to Dr. Fox and underwent colonoscopy 04/09/2018 with cecal biopsy showing invasive to poorly differentiated adenocarcinoma, fragments of tubular adenoma with high- grade dysplasia. He underwent right hemicolectomy surgery 05/01/2018. Outside laboratories including peripheral smear noted marked poikilocytosis withreport of 2+ schistocytes and 2+ teardrops. He also had a remarkable low mean corpuscular volume in the low 70s with elevated RDW to 30s. This remained low despite his multiple transfusions. Pre-operatively given Injectafer 750mg IV x 2. His father was diagnosed with colon cancer at age 47 and at age 48 as he was metastatic at diagnosis. Patient does not know of any other family members with malignancy, but he has never had genetic testing. - Summary of Therapies Summary of Therapies: 1.) Right hemicolectomy per Dr. Groves - 05/06/2018; Pathologic stage pT4a, pN0,pMX (stage IIb) 2.) Adjuvant XELOX every 3 weeks, Cycle 1, Day 1: 06/10/2018- 8 cycles planned Subjective/ROS - Narrative: ROS Details: All systems reviewed & no additional complaints except as documented Constitutional: fair state of general health - Improved to baseline since previous transfusions fall 2017, decreased activity level, decreased exercise tolerance, normal sleep, no weight loss - Denies significant weight loss, no weight gain; he does note fatigue the week after initial infusions and has limited work schedule during that time. Eyes: no change in vision, no double vision--no conjunctival erythema or injection but does note watery sensation a few days after oxaliplatin. We will follow for now. Ears, nose, mouth, throat: no headaches, no vertigo, no lightheadedness - Prior lightheadedness resolved after transfusions, no head injury, no nasal congestion, no rhinorrhea, no epistaxis, no gingival bleeding, no sore throat Cardiovascular: No dyspnea on exertion, no chest pain, no palpitations, no syncope - Patient never actually had syncope but had presyncopal sensation before transfusion, no orthopnea, no edema, no heart murmur Respiratory: no pain with respirations, no shortness of breath, no wheezing, no exercise intolerance, no cough, no sputum production, no hemoptysis, no TB exposure, no night sweats Gastrointestinal: no abdominal pain, no change in appetite, no dysphagia, no indigestion, no nausea, no vomiting, no hematemesis, no jaundice, no constipation, no diarrhea, no abnormal stools (loose about 3-4 times per day, nomeds), no change in bowel habits Genitourinary: no frequency, no dysuria, no nocturia, no hematuria, no oliguria,no stones, no infections, no urinary retention Musculoskeletal: no pain, no swelling, no redness, no limited ROM, no weakness Integumentary: nails brittleness, nails ridging, no rash, no bleeding or bruising, no itching, no hand-foot symptoms. 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 Taking precautions as advised. Psychiatric: no anxiety, no depression Endocrine: no hormone therapy, no heat intolerance Hematologic/Lymphatic: anemia improved after iron infusions- As per HPI, no enlarged lymph nodes Allergic/Immunologic: no reaction to drugs ONC PMF - General Attestation statement: The following information was validated with the patient. Source: Old Records Reviewed - Medical History Medical history: Cancer - Recent diagnosis of cecal cancer by colonoscopy Past Medical History Comments: sleep apnea, recent blood transfusions - Surgical History Surgical history male: colectomy, orthopedic, other Surgical History Comment: left knee arthroscopy, eye - Cardiac History Patient on Service Establishment Attendant: No Does Patient Have Pacemaker?: No - Psych History Psychiatric history: no psych history - Family History Family History: CAD/PA, cancer - Father colon cancer age 47, hypertension - Genetics Would you like a referral to genetics?: No - Social History History of Any Tobacco Product Use?: Yes Tobacco Type: smokeless tobacco Do you ever drink alcohol (including beer or wine)?: No If yes, how many days did you drink in the past week?: 1 Did you previously drink alcohol, but have since quit?: No Hx Recreational Drug Use?: No Substance Use Type: None Home Medications & Allergies Allergies Allergy/AdvReac Type Severity Reaction Status Date / Time No Known Allergies Allergy Verified 04/04/18 13:53 Home Medications Medication Instructions Recorded Confirmed Type tramadol [Ultram] 50 mg PO Q6H PRN 7 Days #45 tab 05/06/18 08/19/18 Rx capecitabine 2,000 mg PO DIRECTED 06/05/18 08/19/18 History capecitabine 150 mg PO DIRECTED 06/05/18 08/19/18 History ondansetron [Zofran ODT] 8 mg PO Q8H PRN #30 tab 06/05/18 08/19/18 Rx Objective - Resuscitation Status Resuscitation Status: Full Code - Height/Weight Height/Weight: Height 5 ft 11 in Weight 94.9 kg BSA for Today's Weight 2.18 - Vital Signs Vital Signs: 08/19/18 10:18 Temperature 98.7 F Pulse Rate [Right Brachial] 78 Respiratory Rate 14 Blood Pressure [Right Arm] 150/90 H 02 Sat by Pulse Oximetry 97 - Pain Right Abdomen Pain Intensity: 0 - Emotional Needs Assessment Emotional Needs Assessment: Emotional Needs Identified? No Emotional Needs Identified? Yes Distress Screening Total 0 Distress Screening Total 0 Support System Friend - ECOG Performance Status ECOG Score: 1 - Due to fatigue Physical Exam - Constitutional no acute distress, average body habitus, no chronically ill appearing, cooperative - Routine HEENT Exam Head: normocephalic, atraumatic, no cushingoid faces Eye: EOMI, PERRL, no conjunctival injection - No conjunctival injection or crusting seen, no scleral icterus ENT: mucous membranes moist, oropharynx clear, dentition normal - Routine Neck Exam supple, full ROM, no lymphadenopathy, no thyromegaly, no tenderness - Routine Respiratory Exam no accessory muscle use, CTA bilaterally, no rales, no respiratory distress, no rhonchi, no wheezes - Routine Cardiovascular Exam RRR, S1, S2, no murmur, no gallop, no irregular rhythm - Routine Abdominal Exam soft, normoactive bowel sounds, no distended, no rebound, no guarding, no organomegaly, no mass - Routine Extremities Exam Present: full ROM, pulses intact, normal capillary refill. Absent: cyanosis, clubbing, calf tenderness, tenderness - Routine Back/Spine/Pelvis Exam Back/Spine: Present: full ROM. Absent: CVA tenderness, paraspinal tenderness, vertebral tenderness - Routine Skin Exam Present: intact, warm, normal turgor. Absent: petechiae, lesions, jaundice, rash, ecchymosis - Routine Neurological Exam Present: alert, oriented X3, moving all extremities, vision grossly intact, hearing grossly intact, normal speech. Absent: sensory deficit, motor deficit, abnormal gait, tremors - Routine Psychiatric Exam Present: normal affect, normal thought process, cooperative. Absent: depressed,anxious Results - Labs Labs: Diagram of Most Recent CBC and CMP 08/19/18 09:26 08/19/18 09:26 Labs - Last 7 Days 08/19/18 09:26: PHA Creatinine Clear [id number], Sodium 139, Potassium 4.1, Chloride 106, Carbon Dioxide 23.9, BUN 7 L, Creatinine 0.89, Est GFR ( Amer) > 60, Est GFR (Non-Af Amer) > 60, Glucose 78, Calcium 9.0, Total Bilirubin0.4, AST 40, ALT 32, Alkaline Phosphatase 138 H, Total Protein 7.1, Albumin 3.6,Globulin 3.5, Albumin/Globulin Ratio 1.0 08/19/18 09:26: WBC 3.8 L, Corrected WBC 3.8 L, RBC 4.42, Hgb 14.2, Hct 41.7, MCV 94.3, MCH 32.1, MCHC 34.1, RDW 21.5 H, Plt Count 144 L, MPV 8.1, Neut % (Auto) 61.0, Lymph % (Auto) 22.1, Marion % (Auto) 13.8, Eos % (Auto) 2.2, Baso % (Auto) 0.9, Neut # (Auto) 2.3, Lymph # (Auto) 0.8 L, Marion # (Auto) 0.5, Eos # (Auto) 0.1, Baso # (Auto) 0.0, Nucleated RBC % (auto) 0.1 H - Impressions Any impression(s) listed above is documentation that was entered by the reading physician into a diagnostic report(s) for Isaias Gleason. I have reviewed the report(s) and am incorporating any findings in the treatment plan of this patient where applicable. Assessment and Plan (1) Carcinoma of cecum Status: Chronic This is a 53-year-old male without significant past medical history but significant family history of colon carcinoma in his father age 47. He is now diagnosed with a cecal carcinoma by colonoscopy on 04/09/2018 and underwent 05/01revealing stage IIb (pT4a pN0 M0) moderate to poorly differentiated adenocarcinoma. He had a contained perforation of the cecum, but all surgical margins are negative with no residual disease. He met with medical genetics on 06/19 and testing is pending for mismatch repair genes. 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 IV every 3 weeks with oral Xeloda 1000 mg/m? twice daily for 2 weeks on 1 week off; x 8 cycles. [id number] PO BID. Start date: Cycle 1, Day 1: Sunday06/10/2018 -Seen for on treatment visit; overall doing well. No unanticipated adverse effects related to chemotherapy--mild cold-induced neuropathy, mild conjunctivitis, no hand-foot syndrome. Laboratories are reviewed; overall very stable. Anemia is significantly improved. He complains of mild fatigue; had mild nausea and diarrhea; no mucositis or evidence of HFS. RTC in 3 weeks on September 09, 2018 prior to cycle 5-day 1 and review of labs and CEA level. (2) Iron deficiency anemia due to chronic blood loss Status: Chronic The patient was admitted to [facility] for severe anemia with hemoglobin down to 4.5 and no clear bleeding source. Despite 6 units of transfusion, he had microcytic indices with anemia and iron saturation 8%. To improve surgical morbidity, he was treated with parenteral iron infusion with Injectafer 750 mg today and second infusion 1 week prior to his scheduled surgery. His hemoglobinis now normal and iron stores have returned to normal. We will continue to follow hemoglobin on chemotherapy, but likely source of bleeding was his colon adenocarcinoma which has been resected. (3) Mcadams syndrome Status: Chronic The patient has a family history of colon cancer in his father diagnosed at age 47. Mismatch repair genes are deficient on his specimen and is consistent with Mcadams syndrome. He has had initial evaluation with medical genetics on 05/22/18; but did not have mismatch repair genes available at the time of this visit. He will follow-up with medical genetics on 08/21/2018, and we will follow-up withhim to arrange further genetic testing of the patient's family members for Lynchsyndrome and continue surveillance for Mcadams associated malignancies. (4) Encounter for antineoplastic chemotherapy Status: Chronic Reviewed toxicities and discussed medication compliance as noted above. - Chemo Plan Chemo Plan (Dose, Rate, Freq): [id number] Day 1: Oxaliplatin 130mg/m2 IV Days 1-14: Capecitabine 1,000mg/m2 orally twice daily. Repeat cycle every 3 weeks. Plan total of 8 cycles over 6 months 06/2018 through 12/2018 Goal of Treatment: Curative - Time with Patient Total Time Spent with Patient: 30 min Coordination of Care & Counseling Time: Greater than 50% of time spent with patient was for coordination of care (as documented) and [id number] counseling of patient and/or family. Dictated By: Landy Christian DD/ 1240 Signed By: <Electronically signed by Landy Christian> 08/19/18 [address] [facility] Work Phone: [phone] Progress note Author Landy Christian [facility] August 19, 2018 12:52pm Note Date/Time August 19, 2018 12:42pm [facility] [place] [address] Hem/Onc Follow Up Note - OP Signed Patient: Isaias Gleason MR#: [id number] : 1965 Acct:[id number] Age/Sex: 53 / M Type: REG RCR Copies to: Orestes Fox Jr, Teri Kim MD~ Subjective Date/Time of Service: Date of Service: 08/19/2018 Time of Service: 12:40 Chief Complaint: Patient is here to follow up before cycle 4 of Xeloda/Oxaliplatin. No concerns noted at this time. Patient reports that he follow up with genetics this Sunday to get the final determination on a diagnosis of Mcadams syndrome. - Diagnosis DIAGNOSIS: 1. Cecal carcinoma, originally presented to [facility] with iron deficiency anemia of occult source. Known family history of colon cancer in father who at age 48. --Right hemicolectomy performed 05/06/2018. 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 Directly penetrating the serosa. Clinical history of a contained perforation against the lateral peritoneum was noted. Terminal ileum and ileocecal valve involvement by colonic adenocarcinomaidentified. Negative mesenteric, true peritoneum, and colon proximal and distalmargins of resection. 36 out of 36 pericolic lymph nodes are negative for metastatic colon adenocarcinoma. Fibrous obliteration of appendix lumen. 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 MSH2 and MSH6 show intact nuclear expression. --Met with medical genetics 06/19/2018 and will have follow-up to review results. Meets [place] 1 criteria for clinical diagnosis of Mcadams syndrome with 3 relatives over 3 generations with colon cancer. 2. Iron deficiency anemia, originally presented with hemoglobin 4.5 on 03/30/2018. 6 units blood transfused -- Injectafer iron therapy 750 mg IV on 04/23 and 05/01/2018 prior to surgery. HPI: Isaias presents for on treatment visit while on XELOX regimen (IV oxaliplatin 130 mg/m? every 3 weeks with oral Xeloda 1000 mg/m? twice daily for 2 weeks on 1week off). Plan every 3 weeks x 8 cycles - to complete 6 months of adjuvant therapy. Cycle 1, Day 1 commenced 06/10/18. Here for cycle 4 today. He continues to notea watery sensation over his eyes without associated redness or change in visual acuity. This tends to occur within a few days after oxaliplatin and thendissipates. He has not had any skin rashes or ulceration of the oral cavity. No recent infections. Still has cold sensitivity with Oxaliplatin. No issues with fever/chills, chest pain, cough, SOB, mucositis, constipation, skin rash orlower extremity edema. No abdominal pain. At most has 3-4 stools per day but isnot requiring Imodium. Specifically denies any erythema or peeling of the handsor feet due to Xeloda and has taken all doses prescribed. Laboratories are reviewed; overall stable with no significant abnormalities. PRELIMINARY HISTORY: This is a 53-year-old male who does not seek regular medical care who presented to the emergency department with weakness and presyncopal sensation. He noticeda gradual feeling of increased fatigability and shortness of breath with exertion with heaviness in the thighs legs and arms. He did not have any visible bright red blood per rectum but had guaiac positive stool. His hemoglobin was 4.5. He underwent transfusion of a total of 6 units of blood andhad not had any visible gastrointestinal bleeding during the hospital stay. An abdominal CT showed a mass within the cecum suspicious for malignancy. He was offered colonoscopy by Dr. Maria but deferred this. After discharge from the hospital he self referred to Dr. Fox and underwent colonoscopy 04/09/2018 with cecal biopsy showing invasive to poorly differentiated adenocarcinoma, fragments of tubular adenoma with high- grade dysplasia. He underwent right hemicolectomy surgery 05/01/2018. Outside laboratories including peripheral smear noted marked poikilocytosis withreport of 2+ schistocytes and 2+ teardrops. He also had a remarkable low mean corpuscular volume in the low 70s with elevated RDW to 30s. This remained low despite his multiple transfusions. Pre-operatively given Injectafer 750mg IV x 2. His father was diagnosed with colon cancer at age 47 and at age 48 as he was metastatic at diagnosis. Patient does not know of any other family members with malignancy, but he has never had genetic testing. - Summary of Therapies Summary of Therapies: 1.) Right hemicolectomy per Dr. Groves - 05/06/2018; Pathologic stage pT4a, pN0,pMX (stage IIb) 2.) Adjuvant XELOX every 3 weeks, Cycle 1, Day 1: 06/10/2018- 8 cycles planned Subjective/ROS - Narrative: ROS Details: All systems reviewed & no additional complaints except as documented Constitutional: fair state of general health - Improved to baseline since previous transfusions fall 2017, decreased activity level, decreased exercise tolerance, normal sleep, no weight loss - Denies significant weight loss, no weight gain; he does note fatigue the week after initial infusions and has limited work schedule during that time. Eyes: no change in vision, no double vision--no conjunctival erythema or injection but does note watery sensation a few days after oxaliplatin. We will follow for now. Ears, nose, mouth, throat: no headaches, no vertigo, no lightheadedness - Prior lightheadedness resolved after transfusions, no head injury, no nasal congestion, no rhinorrhea, no epistaxis, no gingival bleeding, no sore throat Cardiovascular: No dyspnea on exertion, no chest pain, no palpitations, no syncope - Patient never actually had syncope but had presyncopal sensation before transfusion, no orthopnea, no edema, no heart murmur Respiratory: no pain with respirations, no shortness of breath, no wheezing, no exercise intolerance, no cough, no sputum production, no hemoptysis, no TB exposure, no night sweats Gastrointestinal: no abdominal pain, no change in appetite, no dysphagia, no indigestion, no nausea, no vomiting, no hematemesis, no jaundice, no constipation, no diarrhea, no abnormal stools (loose about 3-4 times per day, nomeds), no change in bowel habits Genitourinary: no frequency, no dysuria, no nocturia, no hematuria, no oliguria,no stones, no infections, no urinary retention Musculoskeletal: no pain, no swelling, no redness, no limited ROM, no weakness Integumentary: nails brittleness, nails ridging, no rash, no bleeding or bruising, no itching, no hand-foot symptoms. 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 Taking precautions as advised. Psychiatric: no anxiety, no depression Endocrine: no hormone therapy, no heat intolerance Hematologic/Lymphatic: anemia improved after iron infusions- As per HPI, no enlarged lymph nodes Allergic/Immunologic: no reaction to drugs ONC PMFSH - General Attestation statement: The following information was validated with the patient. Source: Old Records Reviewed - Medical History Medical history: Cancer - Recent diagnosis of cecal cancer by colonoscopy Past Medical History Comments: sleep apnea, recent blood transfusions - Surgical History Surgical history male: colectomy, orthopedic, other Surgical History Comment: left knee arthroscopy, eye - Cardiac History Patient on Service Establishment Attendant: No Does Patient Have Pacemaker?: No - Psych History Psychiatric history: no psych history - Family History Family History: CAD/PA, cancer - Father colon cancer age 47, hypertension - Genetics Would you like a referral to genetics?: No - Social History History of Any Tobacco Product Use?: Yes Tobacco Type: smokeless tobacco Do you ever drink alcohol (including beer or wine)?: No If yes, how many days did you drink in the past week?: 1 Did you previously drink alcohol, but have since quit?: No Hx Recreational Drug Use?: No Substance Use Type: None Home Medications & Allergies Allergies Allergy/AdvReac Type Severity Reaction Status Date / Time No Known Allergies Allergy Verified 04/04/18 13:53 Home Medications Medication Instructions Recorded Confirmed Type tramadol [Ultram] 50 mg PO Q6H PRN 7 Days #45 tab 05/06/18 08/19/18 Rx capecitabine 2,000 mg PO DIRECTED 06/05/18 08/19/18 History capecitabine 150 mg PO DIRECTED 06/05/18 08/19/18 History ondansetron [Zofran ODT] 8 mg PO Q8H PRN #30 tab 06/05/18 08/19/18 Rx Objective - Resuscitation Status Resuscitation Status: Full Code - Height/Weight Height/Weight: Height 5 ft 11 in Weight 94.9 kg BSA for Today's Weight 2.18 - Vital Signs Vital Signs: 08/19/18 10:18 Temperature 98.7 F Pulse Rate [Right Brachial] 78 Respiratory Rate 14 Blood Pressure [Right Arm] 150/90 H 02 Sat by Pulse Oximetry 97 - Pain Right Abdomen Pain Intensity: 0 - Emotional Needs Assessment Emotional Needs Assessment: Emotional Needs Identified? No Emotional Needs Identified? Yes Distress Screening Total 0 Distress Screening Total 0 Support System Friend - ECOG Performance Status ECOG Score: 1 - Due to fatigue Physical Exam - Constitutional no acute distress, average body habitus, no chronically ill appearing, cooperative - Routine HEENT Exam Head: normocephalic, atraumatic, no cushingoid faces Eye: EOMI, PERRL, no conjunctival injection - No conjunctival injection or crusting seen, no scleral icterus ENT: mucous membranes moist, oropharynx clear, dentition normal - Routine Neck Exam supple, full ROM, no lymphadenopathy, no thyromegaly, no tenderness - Routine Respiratory Exam no accessory muscle use, CTA bilaterally, no rales, no respiratory distress, no rhonchi, no wheezes - Routine Cardiovascular Exam RRR, S1, S2, no murmur, no gallop, no irregular rhythm - Routine Abdominal Exam soft, normoactive bowel sounds, no distended, no rebound, no guarding, no organomegaly, no mass - Routine Extremities Exam Present: full ROM, pulses intact, normal capillary refill. Absent: cyanosis, clubbing, calf tenderness, tenderness - Routine Back/Spine/Pelvis Exam Back/Spine: Present: full ROM. Absent: CVA tenderness, paraspinal tenderness, vertebral tenderness - Routine Skin Exam Present: intact, warm, normal turgor. Absent: petechiae, lesions, jaundice, rash, ecchymosis - Routine Neurological Exam Present: alert, oriented X3, moving all extremities, vision grossly intact, hearing grossly intact, normal speech. Absent: sensory deficit, motor deficit, abnormal gait, tremors - Routine Psychiatric Exam Present: normal affect, normal thought process, cooperative. Absent: depressed,anxious Results - Labs Labs: Diagram of Most Recent CBC and CMP 08/19/18 09:26 08/19/18 09:26 Labs - Last 7 Days 08/19/18 09:26: PHA Creatinine Clear [id number], Sodium 139, Potassium 4.1, Chloride 106, Carbon Dioxide 23.9, BUN 7 L, Creatinine 0.89, Est GFR ( Amer) > 60, Est GFR (Non-Af Amer) > 60, Glucose 78, Calcium 9.0, Total Bilirubin0.4, AST 40, ALT 32, Alkaline Phosphatase 138 H, Total Protein 7.1, Albumin 3.6,Globulin 3.5, Albumin/Globulin Ratio 1.0 08/19/18 09:26: WBC 3.8 L, Corrected WBC 3.8 L, RBC 4.42, Hgb 14.2, Hct 41.7, MCV 94.3, MCH 32.1, MCHC 34.1, RDW 21.5 H, Plt Count 144 L, MPV 8.1, Neut % (Auto) 61.0, Lymph % (Auto) 22.1, Marion % (Auto) 13.8, Eos % (Auto) 2.2, Baso % (Auto) 0.9, Neut # (Auto) 2.3, Lymph # (Auto) 0.8 L, Marion # (Auto) 0.5, Eos # (Auto) 0.1, Baso # (Auto) 0.0, Nucleated RBC % (auto) 0.1 H - Impressions Any impression(s) listed above is documentation that was entered by the reading physician into a diagnostic report(s) for Isaias Gleason. I have reviewed the report(s) and am incorporating any findings in the treatment plan of this patient where applicable. Assessment and Plan (1) Carcinoma of cecum Status: Chronic This is a 53-year-old male without significant past medical history but significant family history of colon carcinoma in his father age 47. He is now diagnosed with a cecal carcinoma by colonoscopy on 04/09/2018 and underwent 05/01revealing stage IIb (pT4a pN0 M0) moderate to poorly differentiated adenocarcinoma. He had a contained perforation of the cecum, but all surgical margins are negative with no residual disease. He met with medical genetics on 06/19 and testing is pending for mismatch repair genes. 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 IV every 3 weeks with oral Xeloda 1000 mg/m? twice daily for 2 weeks on 1 week off; x 8 cycles. [id number] PO BID. Start date: Cycle 1, Day 1: Sunday06/10/2018 -Seen for on treatment visit; overall doing well. No unanticipated adverse effects related to chemotherapy--mild cold-induced neuropathy, mild conjunctivitis, no hand-foot syndrome. Laboratories are reviewed; overall very stable. Anemia is significantly improved. He complains of mild fatigue; had mild nausea and diarrhea; no mucositis or evidence of HFS. RTC in 3 weeks on September 09, 2018 prior to cycle 5-day 1 and review of labs and CEA level. (2) Iron deficiency anemia due to chronic blood loss Status: Chronic The patient was admitted to [facility] for severe anemia with hemoglobin down to 4.5 and no clear bleeding source. Despite 6 units of transfusion, he had microcytic indices with anemia and iron saturation 8%. To improve surgical morbidity, he was treated with parenteral iron infusion with Injectafer 750 mg today and second infusion 1 week prior to his scheduled surgery. His hemoglobinis now normal and iron stores have returned to normal. We will continue to follow hemoglobin on chemotherapy, but likely source of bleeding was his colon adenocarcinoma which has been resected. (3) Mcadams syndrome Status: Chronic The patient has a family history of colon cancer in his father diagnosed at age 47. Mismatch repair genes are deficient on his specimen and is consistent with Mcadams syndrome. He has had initial evaluation with medical genetics on 05/22/18; but did not have mismatch repair genes available at the time of this visit. He will follow-up with medical genetics on 08/21/2018, and we will follow-up withhim to arrange further genetic testing of the patient's family members for Lynchsyndrome and continue surveillance for Mcadams associated malignancies. (4) Encounter for antineoplastic chemotherapy Status: Chronic Reviewed toxicities and discussed medication compliance as noted above. - Chemo Plan Chemo Plan (Dose, Rate, Freq): [id number] Day 1: Oxaliplatin 130mg/m2 IV Days 1-14: Capecitabine 1,000mg/m2 orally twice daily. Repeat cycle every 3 weeks. Plan total of 8 cycles over 6 months 06/2018 through 12/2018 Goal of Treatment: Curative - Time with Patient Total Time Spent with Patient: 30 min Coordination of Care & Counseling Time: Greater than 50% of time spent with patient was for coordination of care (as documented) and [id number] counseling of patient and/or family. Dictated By: Landy Christian DD/ [id number] Signed By: <Electronically signed by Landy Christian> 08/19/18 1252 [facility] Work Phone: [phone] Progress note Author Myranda Jarquin [facility] July 22, 2018 12:23pm Note Date/Time July 22, 2018 9 :42am [facility] [place] [address] Hem/Onc Follow Up Note - OP Signed Patient: Isaias Gleason MR#: [id number] : 1965 Acct:[id number] Age/Sex: 53 / M Type: REG RCR Copies to: Orestes Fox Jr, Teri Kim MD, DO~ Subjective Date/Time of Service: Date of Service: 07/22/2018 Time of Service: 09:41 Chief Complaint: Patient is here for follow up before cycle #3 of Xeloda/Oxaliplatin. Patient had eye sensations with last treatment as far felt heavy and watering but they actually were not. Patient is questioning CBD oil usage. - Diagnosis DIAGNOSIS: 1. Cecal carcinoma, originally presented to [facility] with iron deficiency anemia of occult source. Known family history of colon cancer in father who at age 48. --Right hemicolectomy performed 05/06/2018. 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 Directly penetrating the serosa. Clinical history of a contained perforation against the lateral peritoneum was noted. Terminal ileum and ileocecal valve involvement by colonic adenocarcinomaidentified. Negative mesenteric, true peritoneum, and colon proximal and distalmargins of resection. 36 out of 36 pericolic lymph nodes are negative for metastatic colon adenocarcinoma. Fibrous obliteration of appendix lumen. 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 MSH2 and MSH6 show intact nuclear expression. --Met with medical genetics 06/19/2018 and will have follow-up to review results. Meets [place] 1 criteria for clinical diagnosis of Mcadams syndrome with 3 relatives over 3 generations with colon cancer. 2. Iron deficiency anemia, originally presented with hemoglobin 4.5 on 03/30/2018. 6 units blood transfused -- Injectafer iron therapy 750 mg IV on 04/23 and 05/01/2018 prior to surgery. HPI: Isaias presents for toxicity visit following initiation of XELOX regimen (IV oxaliplatin 130 mg/m? every 3 weeks with oral Xeloda 1000 mg/m? twice daily for 2 weeks on 1 week off). Plan every 3 weeks x 8 cycles - to complete 6 months of adjuvant therapy. Cycle 1, Day 1 commenced 06/10/18. Here for cycle 3 today. He has noted a watery sensation over his eyes without associated redness or change in visual acuity. This tends to occur within a few days after oxaliplatin and then dissipates. He has not had any skin rashes or ulceration of the oral cavity. No recent infections. Still has cold sensitivity with Oxaliplatin. No issues with fever/chills, chest pain, cough, SOB, mucositis, constipation, skin rash orlower extremity edema. Occasional left upper quadrant sharp discomfort which resolves on its own. At most has 3-4 stools per day but is not requiring Imodium. Specifically denies any erythema or peeling of the hands or feet due to Xeloda and has taken all doses prescribed. Laboratories are reviewed; no significant abnormalities. PRELIMINARY HISTORY: This is a 53-year-old male who does not seek regular medical care who presented to the emergency department with weakness and presyncopal sensation. He noticeda gradual feeling of increased fatigability and shortness of breath with exertion with heaviness in the thighs legs and arms. He did not have any visible bright red blood per rectum but had guaiac positive stool. His hemoglobin was 4.5. He underwent transfusion of a total of 6 units of blood andhad not had any visible gastrointestinal bleeding during the hospital stay. An abdominal CT showed a mass within the cecum suspicious for malignancy. He was offered colonoscopy by Dr. Maria but deferred this. After discharge from the hospital he self referred to Dr. Fox and underwent colonoscopy 04/09/2018 with cecal biopsy showing invasive to poorly differentiated adenocarcinoma, fragments of tubular adenoma with high- grade dysplasia. He underwent right hemicolectomy surgery 05/01/2018. Outside laboratories including peripheral smear noted marked poikilocytosis withreport of 2+ schistocytes and 2+ teardrops. He also had a remarkable low mean corpuscular volume in the low 70s with elevated RDW to 30s. This remained low despite his multiple transfusions. Pre-operatively given Injectafer 750mg IV x 2. His father was diagnosed with colon cancer at age 47 and at age 48 as he was metastatic at diagnosis. Patient does not know of any other family members with malignancy, but he has never had genetic testing. - Summary of Therapies Summary of Therapies: 1.) Right hemicolectomy per Dr. Groves - 05/06/2018; Pathologic stage pT4a, pN0,pMX (stage IIb) 2.) Adjuvant XELOX every 3 weeks, Cycle 1, Day 1: 06/10/2018-12/2018. Should have 8 cycles overall. Subjective/ROS - Narrative: ROS Details: All systems reviewed & no additional complaints except as documented Constitutional: fair state of general health - Improved to baseline since previous transfusions fall 2017, decreased activity level, decreased exercise tolerance, normal sleep, no weight loss - Denies significant weight loss, no weight gain; he does note fatigue the week after initial infusions and has limited work schedule during that time. Eyes: no change in vision, no double vision--no conjunctival erythema or injection but does note watery sensation a few days after oxaliplatin. We will follow for now. Ears, nose, mouth, throat: no headaches, no vertigo, no lightheadedness - Prior lightheadedness resolved after transfusions, no head injury, no nasal congestion, no rhinorrhea, no epistaxis, no gingival bleeding, no sore throat Cardiovascular: Improvement of prior dyspnea on exertion, no chest pain, no palpitations, no syncope - Patient never actually had syncope but had presyncopal sensation before transfusion, no orthopnea, no edema, no heart murmur Respiratory: no pain with respirations, no shortness of breath, no wheezing, no exercise intolerance, no cough, no sputum production, no hemoptysis, no TB exposure, no night sweats Gastrointestinal: abdominal pain -now intermittent sharp discomfort left upper quadrant lasting a few seconds then resolving, no change in appetite, no dysphagia, no indigestion, no nausea, no vomiting, no hematemesis, no jaundice, no constipation, no diarrhea, no abnormal stools (loose about 3-4 times per day,no meds), no change in bowel habits Genitourinary: no frequency, no dysuria, no nocturia, no hematuria, no oliguria,no stones, no infections, no urinary retention Musculoskeletal: no pain, no swelling, no redness, no limited ROM, no weakness Integumentary: nails brittleness, nails ridging, no rash, no bleeding or bruising, no itching, no hand-foot symptoms. 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 Taking precautions as advised. Psychiatric: no anxiety, no depression Endocrine: no hormone therapy, no heat intolerance Hematologic/Lymphatic: anemia improved after iron infusions- As per HPI, no enlarged lymph nodes Allergic/Immunologic: no reaction to drugs ROS Details: All systems reviewed & no additional complaints except as documented ONC PMFSH - General Attestation statement: The following information was validated with the patient. Source: Old Records Reviewed - Medical History Medical history: Cancer - Recent diagnosis of cecal cancer by colonoscopy Past Medical History Comments: sleep apnea, recent blood transfusions - Surgical History Surgical history male: colectomy, orthopedic, other Surgical History Comment: left knee arthroscopy, eye - Cardiac History Patient on Service Establishment Attendant: No Does Patient Have Pacemaker?: No - Psych History Psychiatric history: no psych history - Family History Family History: CAD/PA, cancer - Father colon cancer age 47, hypertension - Genetics Would you like a referral to genetics?: No - Social History History of Any Tobacco Product Use?: Yes Tobacco Type: smokeless tobacco Do you ever drink alcohol (including beer or wine)?: No If yes, how many days did you drink in the past week?: 1 Did you previously drink alcohol, but have since quit?: No Hx Recreational Drug Use?: No Substance Use Type: None Home Medications & Allergies Allergies Allergy/AdvReac Type Severity Reaction Status Date / Time No Known Allergies Allergy Verified 04/04/18 13:53 Home Medications Medication Instructions Recorded Confirmed Type tramadol [Ultram] 50 mg PO Q6H PRN 7 Days #45 tab 05/06/18 07/22/18 Rx capecitabine 2,000 mg PO DIRECTED 06/05/18 07/22/18 History capecitabine 150 mg PO DIRECTED 06/05/18 07/22/18 History ondansetron [Zofran ODT] 8 mg PO Q8H PRN #30 tab 06/05/18 07/22/18 Rx Objective - Resuscitation Status Resuscitation Status: Full Code - Height/Weight Height/Weight: Height 5 ft 11 in Weight 93.894 kg BSA for Today's Weight 2.19 - Vital Signs Vital Signs: Temp 97.8 F 07/22/18 09:35 Pulse 75 07/22/18 09:35 Resp 20 07/22/18 09:35 BP 141/90 H 07/22/18 09:35 Pulse Ox 97 07/22/18 09:35 - Pain Right Abdomen Pain Intensity: 0 - Emotional Needs Assessment Emotional Needs Assessment: Emotional Needs Identified? No Distress Screening Total 0 Support System Spouse,Family - ECOG Performance Status ECOG Score: 1 - Due to fatigue Physical Exam - Constitutional no acute distress, average body habitus, no chronically ill appearing, cooperative - Routine HEENT Exam Head: normocephalic, atraumatic, no cushingoid faces Eye: EOMI, PERRL, no conjunctival injection - No conjunctival injection or crusting seen, no scleral icterus ENT: mucous membranes moist, oropharynx clear, dentition normal - Routine Neck Exam supple, full ROM, no lymphadenopathy, no thyromegaly, no tenderness - Routine Chest/Breast/Axilla Exam Chest wall: no tenderness, no mass Axillae: no lymphadenopathy, no mass - Routine Respiratory Exam no accessory muscle use, CTA bilaterally, no rales, no respiratory distress, no rhonchi, no wheezes - Routine Cardiovascular Exam RRR, S1, S2, no murmur, no gallop, no irregular rhythm - Routine Abdominal Exam soft, normoactive bowel sounds, no distended, no rebound, no guarding, no organomegaly, no mass, wound - Well healed - Routine Exam Groin: Absent: inguinal lymphadenopathy - Routine Extremities Exam Present: full ROM, pulses intact, normal capillary refill. Absent: cyanosis, clubbing, calf tenderness, tenderness - Routine Back/Spine/Pelvis Exam Back/Spine: Present: full ROM. Absent: CVA tenderness, paraspinal tenderness, vertebral tenderness - Routine Skin Exam Present: intact, warm, normal turgor. Absent: petechiae, lesions, jaundice, rash, ecchymosis - Routine Neurological Exam Present: alert, oriented X3, moving all extremities, vision grossly intact, hearing grossly intact, normal speech. Absent: sensory deficit, motor deficit, abnormal gait, tremors - Routine Psychiatric Exam Present: normal affect, normal thought process, cooperative. Absent: depressed,anxious Results - Labs Labs: Diagram of Most Recent CBC and CMP 07/22/18 08:58 07/22/18 08:58 Labs - Last 7 Days 07/22/18 08:58: PHA Creatinine Clear [id number], Sodium 140, Potassium 3.8, Chloride 105, Carbon Dioxide 24.4, BUN 10, Creatinine 0.95, Est GFR ( Amer) > 60, Est GFR (Non-Af Amer) > 60, Glucose 126 H, Calcium 9.4, Total Bilirubin 0.8, AST 71 H, ALT 66 H, Alkaline Phosphatase 178 H, Total Protein 7.4, Albumin 3.9, Globulin 3.5, Albumin/Globulin Ratio 1.1 07/22/18 08:58: WBC 3.2 L, Corrected WBC 3.2 L, RBC 4.87, Hgb 14.6, Hct 43.9, MCV 90.1, MCH 30.0, MCHC 33.3, RDW 18.4 H, Plt Count 180, MPV 7.8, Neut % (Auto)68.1, Lymph % (Auto) 19.2, Marion % (Auto) 11.3, Eos % (Auto) 1.0, Baso % (Auto) 0.4, Neut # (Auto) 2.2, Lymph # (Auto) 0.6 L, Marion # (Auto) 0.4, Eos # (Auto) 0.0, Baso # (Auto) 0.0 - Impressions Any impression(s) listed above is documentation that was entered by the reading physician into a diagnostic report(s) for Isaias Gleason. I have reviewed the report(s) and am incorporating any findings in the treatment plan of this patient where applicable. No recent imaging for review. Assessment and Plan (1) Carcinoma of cecum Status: Chronic This is a 53-year-old male without significant past medical history but significant family history of colon carcinoma in his father age 47. He is now diagnosed with a cecal carcinoma by colonoscopy on 04/09/2018 and underwent 05/01revealing stage IIb (pT4a pN0 M0) moderate to poorly differentiated adenocarcinoma. He had a contained perforation of the cecum, but all surgical margins are negative with no residual disease. He met with medical genetics on 06/19 and testing is pending for mismatch repair genes. 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 Consented for adjuvant therapy with Oxaliplatin 130 mg/m? IV every 3 weeks with oral Xeloda 1000 mg/m? twice daily for 2 weeks on 1 week off; x 8 cycles. [id number] PO BID. Start date: Cycle 1, Day 1: Sunday06/10/2018 - Presents for toxicity check; overall doing well. No unanticipated adverse effects related to chemotherapy--mild cold-induced neuropathy, mild conjunctivitis, mild intermittent abdominal pain, no hand-foot syndrome. Laboratories are reviewed; overall very stable. Anemia is significantly improved. He complains of mild fatigue; had mild nausea and diarrhea; no mucositis or evidence of HFS. RTC in 3 weeks prior to cycle 4-day 1 for toxicity check. Will order CEA prior to cycle 5. May return sooner as needed new symptoms. This is a moderate complexity visit over 30 minutes. (2) Iron deficiency anemia due to chronic blood loss Status: Chronic The patient was admitted to [facility] for severe anemia with hemoglobin down to 4.5 and no clear bleeding source. Despite 6 units of transfusion, he had microcytic indices with anemia and iron saturation 8%. To improve surgical morbidity, he was treated with parenteral iron infusion with Injectafer 750 mg today and second infusion 1 week prior to his scheduled surgery. His hemoglobinis now normal and iron stores have returned to normal. We will continue to follow hemoglobin on chemotherapy, but likely source of bleeding was his colon adenocarcinoma which has been resected. (3) Mcadams syndrome Status: Chronic The patient has a family history of colon cancer in his father diagnosed at age 47. Mismatch repair genes are deficient on his specimen and is consistent with Mcadams syndrome. He has had initial evaluation with medical genetics on 05/22/18; but did not have mismatch repair genes available at the time of this visit. He will follow-up within the next month with medical genetics, and we will follow-up with him to arrange further genetic testing of the patient's family members for Mcadams syndrome and continue surveillance for Mcadams associatedmalignancies. (4) Encounter for antineoplastic chemotherapy Status: Chronic Reviewed toxicities and discussed medication compliance as noted above. - Chemo Plan Chemo Plan (Dose, Rate, Freq): CapeOX6 Day 1: Oxaliplatin 130mg/m2 IV Days 1-14: Capecitabine 1,000mg/m2 orally twice daily. Repeat cycle every 3 weeks. Plan total of 8 cycles over 6 months 06/2018 through 12/2018 Goal of Treatment: Curative - Time with Patient Coordination of Care & Counseling Time: Greater than 50% of time spent with patient was for coordination of care (as documented) and [id number] counseling of patient and/or family. Dictated By: Myranda Jarquin MD DD/ [id number] Signed By: <Electronically signed by MD Myranda Jarquin> 07/22/18 [id number] [facility] Work Phone: [phone] 500-805101-14-2019 Progress note Author Myranda Jarquin [facility] July 22, 2018 12:23pm Note Date/Time July 22, 2018 9 :42am [facility] [place] [address] Hem/Onc Follow Up Note - OP Signed Patient: Isaias Gleason MR#: [id number] 321 : 1965 Acct:[id number] Age/Sex: 53 / M Type: REG RCR Copies to: Orestes Fox Jr, Teri Kim MD, DO~ Subjective Date/Time of Service: Date of Service: 07/22/2018 Time of Service: 09:41 Chief Complaint: Patient is here for follow up before cycle #3 of Xeloda/Oxaliplatin. Patient had eye sensations with last treatment as far felt heavy and watering but they actually were not. Patient is questioning CBD oil usage. - Diagnosis DIAGNOSIS: 1. Cecal carcinoma, originally presented to [facility] with iron deficiency anemia of occult source. Known family history of colon cancer in father who at age 48. --Right hemicolectomy performed 05/06/2018. 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 Directly penetrating the serosa. Clinical history of a contained perforation against the lateral peritoneum was noted. Terminal ileum and ileocecal valve involvement by colonic adenocarcinomaidentified. Negative mesenteric, true peritoneum, and colon proximal and distalmargins of resection. 36 out of 36 pericolic lymph nodes are negative for metastatic colon adenocarcinoma. Fibrous obliteration of appendix lumen. 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 MSH2 and MSH6 show intact nuclear expression. --Met with medical genetics 06/19/2018 and will have follow-up to review results. Meets Newport 1 criteria for clinical diagnosis of Mcadams syndrome with 3 relatives over 3 generations with colon cancer. 2. Iron deficiency anemia, originally presented with hemoglobin 4.5 on 03/30/2018. 6 units blood transfused -- Injectafer iron therapy 750 mg IV on 04/23 and 05/01/2018 prior to surgery. HPI: Isaias presents for toxicity visit following initiation of XELOX regimen (IV oxaliplatin 130 mg/m? every 3 weeks with oral Xeloda 1000 mg/m? twice daily for 2 weeks on 1 week off). Plan every 3 weeks x 8 cycles - to complete 6 months of adjuvant therapy. Cycle 1, Day 1 commenced 06/10/18. Here for cycle 3 today. He has noted a watery sensation over his eyes without associated redness or change in visual acuity. This tends to occur within a few days after oxaliplatin and then dissipates. He has not had any skin rashes or ulceration of the oral cavity. No recent infections. Still has cold sensitivity with Oxaliplatin. No issues with fever/chills, chest pain, cough, SOB, mucositis, constipation, skin rash orlower extremity edema. Occasional left upper quadrant sharp discomfort which resolves on its own. At most has 3-4 stools per day but is not requiring Imodium. Specifically denies any erythema or peeling of the hands or feet due to Xeloda and has taken all doses prescribed. Laboratories are reviewed; no significant abnormalities. PRELIMINARY HISTORY: This is a 53-year-old male who does not seek regular medical care who presented to the emergency department with weakness and presyncopal sensation. He noticeda gradual feeling of increased fatigability and shortness of breath with exertion with heaviness in the thighs legs and arms. He did not have any visible bright red blood per rectum but had guaiac positive stool. His hemoglobin was 4.5. He underwent transfusion of a total of 6 units of blood andhad not had any visible gastrointestinal bleeding during the hospital stay. An abdominal CT showed a mass within the cecum suspicious for malignancy. He was offered colonoscopy by Dr. Maria but deferred this. After discharge from the hospital he self referred to Dr. Fox and underwent colonoscopy 04/09/2018 with cecal biopsy showing invasive to poorly differentiated adenocarcinoma, fragments of tubular adenoma with high- grade dysplasia. He underwent right hemicolectomy surgery 05/01/2018. Outside laboratories including peripheral smear noted marked poikilocytosis withreport of 2+ schistocytes and 2+ teardrops. He also had a remarkable low mean corpuscular volume in the low 70s with elevated RDW to 30s. This remained low despite his multiple transfusions. Pre-operatively given Injectafer 750mg IV x 2. His father was diagnosed with colon cancer at age 47 and at age 48 as he was metastatic at diagnosis. Patient does not know of any other family members with malignancy, but he has never had genetic testing. - Summary of Therapies Summary of Therapies: 1.) Right hemicolectomy per Dr. Groves - 05/06/2018; Pathologic stage pT4a, pN0,pMX (stage IIb) 2.) Adjuvant XELOX every 3 weeks, Cycle 1, Day 1: 06/10/2018-12/2018. Should have 8 cycles overall. Subjective/ROS - Narrative: ROS Details: All systems reviewed & no additional complaints except as documented Constitutional: fair state of general health - Improved to baseline since previous transfusions fall 2017, decreased activity level, decreased exercise tolerance, normal sleep, no weight loss - Denies significant weight loss, no weight gain; he does note fatigue the week after initial infusions and has limited work schedule during that time. Eyes: no change in vision, no double vision--no conjunctival erythema or injection but does note watery sensation a few days after oxaliplatin. We will follow for now. Ears, nose, mouth, throat: no headaches, no vertigo, no lightheadedness - Prior lightheadedness resolved after transfusions, no head injury, no nasal congestion, no rhinorrhea, no epistaxis, no gingival bleeding, no sore throat Cardiovascular: Improvement of prior dyspnea on exertion, no chest pain, no palpitations, no syncope - Patient never actually had syncope but had presyncopal sensation before transfusion, no orthopnea, no edema, no heart murmur Respiratory: no pain with respirations, no shortness of breath, no wheezing, no exercise intolerance, no cough, no sputum production, no hemoptysis, no TB exposure, no night sweats Gastrointestinal: abdominal pain -now intermittent sharp discomfort left upper quadrant lasting a few seconds then resolving, no change in appetite, no dysphagia, no indigestion, no nausea, no vomiting, no hematemesis, no jaundice, no constipation, no diarrhea, no abnormal stools (loose about 3-4 times per day,no meds), no change in bowel habits Genitourinary: no frequency, no dysuria, no nocturia, no hematuria, no oliguria,no stones, no infections, no urinary retention Musculoskeletal: no pain, no swelling, no redness, no limited ROM, no weakness Integumentary: nails brittleness, nails ridging, no rash, no bleeding or bruising, no itching, no hand-foot symptoms. 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 Taking precautions as advised. Psychiatric: no anxiety, no depression Endocrine: no hormone therapy, no heat intolerance Hematologic/Lymphatic: anemia improved after iron infusions- As per HPI, no enlarged lymph nodes Allergic/Immunologic: no reaction to drugs ROS Details: All systems reviewed & no additional complaints except as documented ONC PMFSH - General Attestation statement: The following information was validated with the patient. Source: Old Records Reviewed - Medical History Medical history: Cancer - Recent diagnosis of cecal cancer by colonoscopy Past Medical History Comments: sleep apnea, recent blood transfusions - Surgical History Surgical history male: colectomy, orthopedic, other Surgical History Comment: left knee arthroscopy, eye - Cardiac History Patient on Service Establishment Attendant: No Does Patient Have Pacemaker?: No - Psych History Psychiatric history: no psych history - Family History Family History: CAD/PA, cancer - Father colon cancer age 47, hypertension - Genetics Would you like a referral to genetics?: No - Social History History of Any Tobacco Product Use?: Yes Tobacco Type: smokeless tobacco Do you ever drink alcohol (including beer or wine)?: No If yes, how many days did you drink in the past week?: 1 Did you previously drink alcohol, but have since quit?: No Hx Recreational Drug Use?: No Substance Use Type: None Home Medications & Allergies Allergies Allergy/AdvReac Type Severity Reaction Status Date / Time No Known Allergies Allergy Verified 04/04/18 13:53 Home Medications Medication Instructions Recorded Confirmed Type tramadol [Ultram] 50 mg PO Q6H PRN 7 Days #45 tab 05/06/18 07/22/18 Rx capecitabine 2,000 mg PO DIRECTED 06/05/18 07/22/18 History capecitabine 150 mg PO DIRECTED 06/05/18 07/22/18 History ondansetron [Zofran ODT] 8 mg PO Q8H PRN #30 tab 06/05/18 07/22/18 Rx Objective - Resuscitation Status Resuscitation Status: Full Code - Height/Weight Height/Weight: Height 5 ft 11 in Weight 93.894 kg BSA for Today's Weight 2.19 - Vital Signs Vital Signs: Temp 97.8 F 07/22/18 09:35 Pulse 75 07/22/18 09:35 Resp 20 07/22/18 09:35 BP 141/90 H 07/22/18 09:35 Pulse Ox 97 07/22/18 09:35 - Pain Right Abdomen Pain Intensity: 0 - Emotional Needs Assessment Emotional Needs Assessment: Emotional Needs Identified? No Distress Screening Total 0 Support System Spouse,Family - ECOG Performance Status ECOG Score: 1 - Due to fatigue Physical Exam - Constitutional no acute distress, average body habitus, no chronically ill appearing, cooperative - Routine HEENT Exam Head: normocephalic, atraumatic, no cushingoid faces Eye: EOMI, PERRL, no conjunctival injection - No conjunctival injection or crusting seen, no scleral icterus ENT: mucous membranes moist, oropharynx clear, dentition normal - Routine Neck Exam supple, full ROM, no lymphadenopathy, no thyromegaly, no tenderness - Routine Chest/Breast/Axilla Exam Chest wall: no tenderness, no mass Axillae: no lymphadenopathy, no mass - Routine Respiratory Exam no accessory muscle use, CTA bilaterally, no rales, no respiratory distress, no rhonchi, no wheezes - Routine Cardiovascular Exam RRR, S1, S2, no murmur, no gallop, no irregular rhythm - Routine Abdominal Exam soft, normoactive bowel sounds, no distended, no rebound, no guarding, no organomegaly, no mass, wound - Well healed - Routine Exam Groin: Absent: inguinal lymphadenopathy - Routine Extremities Exam Present: full ROM, pulses intact, normal capillary refill. Absent: cyanosis, clubbing, calf tenderness, tenderness - Routine Back/Spine/Pelvis Exam Back/Spine: Present: full ROM. Absent: CVA tenderness, paraspinal tenderness, vertebral tenderness - Routine Skin Exam Present: intact, warm, normal turgor. Absent: petechiae, lesions, jaundice, rash, ecchymosis - Routine Neurological Exam Present: alert, oriented X3, moving all extremities, vision grossly intact, hearing grossly intact, normal speech. Absent: sensory deficit, motor deficit, abnormal gait, tremors - Routine Psychiatric Exam Present: normal affect, normal thought process, cooperative. Absent: depressed,anxious Results - Labs Labs: Diagram of Most Recent CBC and CMP 07/22/18 08:58 07/22/18 08:58 Labs - Last 7 Days 07/22/18 08:58: PHA Creatinine Clear [id number], Sodium 140, Potassium 3.8, Chloride 105, Carbon Dioxide 24.4, BUN 10, Creatinine 0.95, Est GFR ( Amer) > 60, Est GFR (Non-Af Amer) > 60, Glucose 126 H, Calcium 9.4, Total Bilirubin 0.8, AST 71 H, ALT 66 H, Alkaline Phosphatase 178 H, Total Protein 7.4, Albumin 3.9, Globulin 3.5, Albumin/Globulin Ratio 1.1 07/22/18 08:58: WBC 3.2 L, Corrected WBC 3.2 L, RBC 4.87, Hgb 14.6, Hct 43.9, MCV 90.1, MCH 30.0, MCHC 33.3, RDW 18.4 H, Plt Count 180, MPV 7.8, Neut % (Auto)68.1, Lymph % (Auto) 19.2, Marion % (Auto) 11.3, Eos % (Auto) 1.0, Baso % (Auto) 0.4, Neut # (Auto) 2.2, Lymph # (Auto) 0.6 L, Marion # (Auto) 0.4, Eos # (Auto) 0.0, Baso # (Auto) 0.0 - Impressions Any impression(s) listed above is documentation that was entered by the reading physician into a diagnostic report(s) for Isaias Gleason. I have reviewed the report(s) and am incorporating any findings in the treatment plan of this patient where applicable. No recent imaging for review. Assessment and Plan (1) Carcinoma of cecum Status: Chronic This is a 53-year-old male without significant past medical history but significant family history of colon carcinoma in his father age 47. He is now diagnosed with a cecal carcinoma by colonoscopy on 04/09/2018 and underwent 05/01revealing stage IIb (pT4a pN0 M0) moderate to poorly differentiated adenocarcinoma. He had a contained perforation of the cecum, but all surgical margins are negative with no residual disease. He met with medical genetics on 06/19 and testing is pending for mismatch repair genes. 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 Consented for adjuvant therapy with Oxaliplatin 130 mg/m? IV every 3 weeks with oral Xeloda 1000 mg/m? twice daily for 2 weeks on 1 week off; x 8 cycles. [id number] PO BID. Start date: Cycle 1, Day 1: Sunday06/10/2018 - Presents for toxicity check; overall doing well. No unanticipated adverse effects related to chemotherapy--mild cold-induced neuropathy, mild conjunctivitis, mild intermittent abdominal pain, no hand-foot syndrome. Laboratories are reviewed; overall very stable. Anemia is significantly improved. He complains of mild fatigue; had mild nausea and diarrhea; no mucositis or evidence of HFS. RTC in 3 weeks prior to cycle 4-day 1 for toxicity check. Will order CEA prior to cycle 5. May return sooner as needed new symptoms. This is a moderate complexity visit over 30 minutes. (2) Iron deficiency anemia due to chronic blood loss Status: Chronic The patient was admitted to [facility] for severe anemia with hemoglobin down to 4.5 and no clear bleeding source. Despite 6 units of transfusion, he had microcytic indices with anemia and iron saturation 8%. To improve surgical morbidity, he was treated with parenteral iron infusion with Injectafer 750 mg today and second infusion 1 week prior to his scheduled surgery. His hemoglobinis now normal and iron stores have returned to normal. We will continue to follow hemoglobin on chemotherapy, but likely source of bleeding was his colon adenocarcinoma which has been resected. (3) Mcadams syndrome Status: Chronic The patient has a family history of colon cancer in his father diagnosed at age 47. Mismatch repair genes are deficient on his specimen and is consistent with Mcadams syndrome. He has had initial evaluation with medical genetics on 05/22/18; but did not have mismatch repair genes available at the time of this visit. He will follow-up within the next month with medical genetics, and we will follow-up with him to arrange further genetic testing of the patient's family members for Mcadams syndrome and continue surveillance for Mcadams associatedmalignancies. (4) Encounter for antineoplastic chemotherapy Status: Chronic Reviewed toxicities and discussed medication compliance as noted above. - Chemo Plan Chemo Plan (Dose, Rate, Freq): CapeOX6 Day 1: Oxaliplatin 130mg/m2 IV Days 1-14: Capecitabine 1,000mg/m2 orally twice daily. Repeat cycle every 3 weeks. Plan total of 8 cycles over 6 months 06/2018 through 12/2018 Goal of Treatment: Curative - Time with Patient Coordination of Care & Counseling Time: Greater than 50% of time spent with patient was for coordination of care (as documented) and [id number] counseling of patient and/or family. Dictated By: Myranda Jarquin MD DD/ [id number] Signed By: <Electronically signed by MD Myranda Jarquin> 07/22/18 [id number] [facility] Work Phone: [phone] 870-808512-12-2018 Progress note Author Luz Fox [facility] June 19, 2018 12:58pm Note Date/Time June 19, 2018 11:20am [facility] [place] [address] Genetics Follow Up Note Signed Patient: Isaias Gleason MR#: [id number] 321 : 1965 Acct:[id number] Age/Sex: 53 / M Type: REG RCR Copies to: Orestes Fox Jr, Teri Kim MD,Myranda Hernadez MD~ Genetics Follow Up Note Narrative: HISTORY OF PRESENT ILLNESS: Mr. Isaias Gleason is a 53-year old male with a personal and family history of colon cancer. He was referred to the Cancer Genetics Clinic at [facility] by his physician, Dr. Myranda Jarquin. Mr. Gleason was seen initially on 05/22/2018 and we recommended IHC staining of the colon tumor ordered for Mcadams syndrome screening. The IHC showed loss of PMS2 and MLH1 and he returns today, 06/19/18 for further genetic counseling. GENETIC COUNSELING: We reviewed again basic cancer genetic counseling. This included discussion of genes, chromosomes, inherited forms of colon cancer, and the genes known to cause Mcadams syndrome, the most common inherited form of colon cancer. We discussed that most cancers are not due to an inherited genetic susceptibility. However, in about 5- 10% of families, there is an inherited genetic mutation thatcan make a person more susceptible to developing certain forms of cancer. Within these families, we often see many family members with cancer, occurring in multiple generations. In addition, an earlier age at diagnosis is suggestiveof an inherited form of cancer. Finally, there is a clustering of certain typesof cancers in these families, such as colon and uterine cancer. In Mr. Gleason?s family, his father was diagnosed at an early age. There are three individuals in three generations with colon cancer. The family meets Newport I criteria for a clinical diagnosis of Mcadams syndrome. We discussed Mcadams syndrome, an autosomal dominant condition caused by germline mutations in one of five genes - MLH1, MSH2, MSH6, PMS2, and EPCAM. Mutation carriers have an increased risk to develop colon cancer over their lifetime (80%), and an increased risk for a second colon primary. At least two-thirds ofthe colon cancers occur on the right side of the colon. Female mutation carriers have an increased risk for endometrial cancer (60-70%) and ovarian cancer (12%). Other cancers associated with Mcadams syndrome include gastric cancer, hepatobiliary, small bowel, urinary tract, and rarely pancreatic cancer. We discussed that Mcadams syndrome is typically screened for by immunohistochemistry (IHC) staining of the colon tumor. IHC is a screening testthat assesses the presence or absence of the protein products produced by the mismatch repair genes. As there is loss of two mismatch repair protein(s) on IHC, it can be due to either an inherited mutation in one of these genes, or dueto a somatic gene mutation confined to the tumor tissue. Therefore, IHC is not diagnostic for Mcadams syndrome. We recommend paired tumor and germline testing. We also reviewed that Mcadams syndrome is the most common inherited predispositionto colon cancer; however, there are other rarer colon cancer susceptibility syndromes. These include the polyposis syndromes (APC and MYH genes), the oligopolyposis syndromes (GREM1, POLD1, POLE, and NTHL1) as well as the hamartomatous polyposis syndromes (STK11, PTEN, SMAD4, and BMPR1A). None of these additional syndromes are particularly likely, given the family history andthe lack of known colon polyps in Mr. Gleason or his relatives. PLAN: 1. We recommend paired tumor and germline testing ([facility] TumorNext-Mcadams plus ColonNext) 2. Mr. Gleason will return in 8 weeks to review results. 3. Mr. Gleason can contact us with questions or concerns by calling [phone]. PHYSICIAN STATEMENT OF TIME: I spent 15 minutes with this patient and >50% was spent on counseling and coordination of care. Luz Fox MD Clinical Balance [employer] Departments of Genetics and Genome Sciences and Pediatrics [facility] Additional CC's: Myranda Groves Dictated By: Luz Fox MD DD/ [id number] Signed By: <Electronically signed by Luz Fox MD> 06/19/18 3099 [facility] Work Phone: [phone] 156-492012-12-2018 Progress note Author Luz Ruddy [facility] June 19, 2018 12:58pm Note Date/Time June 19, 2018 11:20[facility] [place] [id number] Genetics Follow Up Note Signed Patient: Isaias Gleason MR#: [id number] 321 : 1965 Acct:[id number] Age/Sex: 53 / M Type: REG RCR Copies to: Orestes Fox Jr, Teri Kim MD,Myranda Hernadez MD~ Genetics Follow Up Note Narrative: HISTORY OF PRESENT ILLNESS: Mr. Isaias Gleason is a 53-year old male with a personal and family history of colon cancer. He was referred to the Cancer Genetics Clinic at [facility] by his physician, Dr. Myranda Jarquin. Mr. Gleason was seen initially on 05/22/2018 and we recommended IHC staining of the colon tumor ordered for Mcadams syndrome screening. The IHC showed loss of PMS2 and MLH1 and he returns today, 06/19/18 for further genetic counseling. GENETIC COUNSELING: We reviewed again basic cancer genetic counseling. This included discussion of genes, chromosomes, inherited forms of colon cancer, and the genes known to cause Mcadams syndrome, the most common inherited form of colon cancer. We discussed that most cancers are not due to an inherited genetic susceptibility. However, in about 5- 10% of families, there is an inherited genetic mutation thatcan make a person more susceptible to developing certain forms of cancer. Within these families, we often see many family members with cancer, occurring in multiple generations. In addition, an earlier age at diagnosis is suggestiveof an inherited form of cancer. Finally, there is a clustering of certain typesof cancers in these families, such as colon and uterine cancer. In Mr. Gleason?s family, his father was diagnosed at an early age. There are three individuals in three generations with colon cancer. The family meets [place] I criteria for a clinical diagnosis of Mcadams syndrome. We discussed Mcadams syndrome, an autosomal dominant condition caused by germline mutations in one of five genes - MLH1, MSH2, MSH6, PMS2, and EPCAM. Mutation carriers have an increased risk to develop colon cancer over their lifetime (80%), and an increased risk for a second colon primary. At least two-thirds ofthe colon cancers occur on the right side of the colon. Female mutation carriers have an increased risk for endometrial cancer (60-70%) and ovarian cancer (12%). Other cancers associated with Mcadams syndrome include gastric cancer, hepatobiliary, small bowel, urinary tract, and rarely pancreatic cancer. We discussed that Mcadams syndrome is typically screened for by immunohistochemistry (IHC) staining of the colon tumor. IHC is a screening testthat assesses the presence or absence of the protein products produced by the mismatch repair genes. As there is loss of two mismatch repair protein(s) on IHC, it can be due to either an inherited mutation in one of these genes, or dueto a somatic gene mutation confined to the tumor tissue. Therefore, IHC is not diagnostic for Mcadams syndrome. We recommend paired tumor and germline testing. We also reviewed that Mcadams syndrome is the most common inherited predispositionto colon cancer; however, there are other rarer colon cancer susceptibility syndromes. These include the polyposis syndromes (APC and MYH genes), the oligopolyposis syndromes (GREM1, POLD1, POLE, and NTHL1) as well as the hamartomatous polyposis syndromes (STK11, PTEN, SMAD4, and BMPR1A). None of these additional syndromes are particularly likely, given the family history andthe lack of known colon polyps in Mr. Gleason or his relatives. PLAN: 1. We recommend paired tumor and germline testing ([facility] TumorNext-Mcadams plus ColonNext) 2. Mr. Gleason will return in 8 weeks to review results. 3. Mr. Gleason can contact us with questions or concerns by calling [phone]. PHYSICIAN STATEMENT OF TIME: I spent 15 minutes with this patient and >50% was spent on counseling and coordination of care. Luz Fox MD Clinical [employer] Departments of Genetics and Genome Sciences and Pediatrics [facility] Additional CC's: Myranda Groves Dictated By: Luz Fox MD DD/ [id number] Signed By: <Electronically signed by Luz Fox MD> 06/19/18 2739 [facility] Work Phone: [phone]) [phone] Progress note Author Landy Christian [facility] June 17, 2018 2:23pm Note Date/Time June 17, 2018 1:35pm [facility] at [address] [address] Hem/Onc Follow Up Note - OP Signed Patient: Isaias Gleason MR#: [id number] 321 : 1965 Acct:[id number] Age/Sex: 53 / M Type: REG RCR Copies to: Orestes Fox Jr, Teri Kim MD~ Subjective Date/Time of Service: Date of Service: 06/17/2018 Time of Service: 13:21 Chief Complaint: Patient is here for follow up tox check since starting Xeloda and Oxaliplatin on 06/10/18. Patient did have three days of loose stools roughlythree per day and had neuropathy sensation in his finger tips with cold exposure. - Diagnosis DIAGNOSIS: 1. Cecal carcinoma, originally presented to [facility] with iron deficiency anemia of occult source. Known family history of colon cancer in father who at age 48. --Right hemicolectomy performed 05/06/2018. 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 Directly penetrating the serosa. Clinical history of a contained perforation against the lateral peritoneum was noted. Terminal ileum and ileocecal valve involvement by colonic adenocarcinomaidentified. Negative mesenteric, true peritoneum, and colon proximal and distalmargins of resection. 36 out of 36 pericolic lymph nodes are negative for metastatic colon adenocarcinoma. Fibrous obliteration of appendix lumen. 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 MSH2 and MSH6 show intact nuclear expression. 2. Iron deficiency anemia, originally presented with hemoglobin 4.5 on 03/30/2018. 6 units blood transfused -- Injectafer iron therapy 750 mg IV on 04/23 and 05/01/2018 prior to surgery. HPI: Isaias presents for toxicity visit following initiation of XELOX regimen (IV oxaliplatin 130 mg/m? every 3 weeks with oral Xeloda 1000 mg/m? twice daily for 2 weeks on 1 week off). Plan every 3 weeks x 8 cycles - to complete 6 months of adjuvant therapy. Cycle 1, Day 1 commenced 06/10/18. The patient has done well; has noticed cold sensitivity with Oxaliplatin. No issues with fever/chills, chest pain, cough, SOB, mucositis, constipation, abdominal pain, skin rash or lower extremity edema. He had 2 mild episodes of nausea without emesis; controlled with Zofran; had a few loose stools on Day 3-5, with some fatigue, but otherwise tolerated well. Laboratories are reviewed; no significant abnormalities. PRELIMINARY HISTORY: This is a 53-year-old male who does not seek regular medical care who presented to the emergency department with weakness and presyncopal sensation. He noticeda gradual feeling of increased fatigability and shortness of breath with exertion with heaviness in the thighs legs and arms. He did not have any visible bright red blood per rectum but had guaiac positive stool. His hemoglobin was 4.5. He underwent transfusion of a total of 6 units of blood andhad not had any visible gastrointestinal bleeding during the hospital stay. An abdominal CT showed a mass within the cecum suspicious for malignancy. He was offered colonoscopy by Dr. Maria but deferred this. After discharge from the hospital he self referred to Dr. Fox and underwent colonoscopy 04/09/2018 with cecal biopsy showing invasive to poorly differentiated adenocarcinoma, fragments of tubular adenoma with high- grade dysplasia. He underwent right hemicolectomy surgery 05/01/2018. Outside laboratories including peripheral smear noted marked poikilocytosis withreport of 2+ schistocytes and 2+ teardrops. He also had a remarkable low mean corpuscular volume in the low 70s with elevated RDW to 30s. This remained low despite his multiple transfusions. Pre-operatively given Injectafer 750mg IV x 2. His father was diagnosed with colon cancer at age 47 and at age 48 as he was metastatic at diagnosis. Patient does not know of any other family members with malignancy, but he has never had genetic testing. - Summary of Therapies Summary of Therapies: 1.) Right hemicolectomy per Dr. Groves - 05/06/2018; Pathologic stage pT4a, pN0,pMX (stage IIb) 2.) Adjuvant XELOX every 3 weeks, Cycle 1, Day 1: 06/10/2018- Subjective/ROS - Narrative: As per the HPI. otherwise 10 point review of systems is negative. ONC PMFSH - General Attestation statement: The following information was validated with the patient. Source: Old Records Reviewed - Medical History Medical history: Cancer - Recent diagnosis of cecal cancer by colonoscopy Past Medical History Comments: sleep apnea, recent blood transfusions - Surgical History Surgical history male: colectomy, orthopedic, other Surgical History Comment: left knee arthroscopy, eye - Cardiac History Patient on Service Establishment Attendant: No Does Patient Have Pacemaker?: No - Psych History Psychiatric history: no psych history - Family History Family History: CAD/PA, cancer - Father colon cancer age 47, hypertension - Genetics Would you like a referral to genetics?: No - Social History History of Any Tobacco Product Use?: Yes Tobacco Type: smokeless tobacco Do you ever drink alcohol (including beer or wine)?: No If yes, how many days did you drink in the past week?: 1 Did you previously drink alcohol, but have since quit?: No Hx Recreational Drug Use?: No Substance Use Type: None Home Medications & Allergies Allergies Allergy/AdvReac Type Severity Reaction Status Date / Time No Known Allergies Allergy Verified 04/04/18 13:53 Home Medications Medication Instructions Recorded Confirmed Type tramadol [Ultram] 50 mg PO Q6H PRN 7 Days #45 tab 05/06/18 06/17/18 Rx capecitabine 2,000 mg PO DIRECTED 06/05/18 06/17/18 History capecitabine 150 mg PO DIRECTED 06/05/18 06/17/18 History ondansetron [Zofran ODT] 8 mg PO Q8H PRN #30 tab 06/05/18 06/17/18 Rx Objective - Resuscitation Status Resuscitation Status: Full Code - Height/Weight Height/Weight: Height 5 ft 11 in Weight 91.23 kg BSA for Today's Weight 2.15 - Vital Signs Vital Signs: Temp 97.7 F 06/17/18 11:15 Pulse 73 06/17/18 11:15 Resp 20 06/17/18 11:15 BP 133/91 06/17/18 11:15 Pulse Ox 98 06/17/18 11:15 - Pain Right Abdomen Pain Intensity: 0 - Emotional Needs Assessment Emotional Needs Assessment: Emotional Needs Identified? No Distress Screening Total 0 Support System Spouse,Family - ECOG Performance Status ECOG Score: 1 - Due to fatigue, postop recovery Physical Exam - Constitutional no acute distress, average body habitus, no chronically ill appearing, cooperative - Routine HEENT Exam Head: normocephalic, atraumatic, no cushingoid faces Eye: EOMI, PERRL, no conjunctival injection, no scleral icterus ENT: mucous membranes moist, oropharynx clear, dentition normal - Routine Neck Exam supple, full ROM, no lymphadenopathy, no thyromegaly, no tenderness - Routine Chest/Breast/Axilla Exam Chest wall: no tenderness, no mass Axillae: no lymphadenopathy, no mass - Routine Respiratory Exam no accessory muscle use, CTA bilaterally, no rales, no respiratory distress, no rhonchi, no wheezes - Routine Cardiovascular Exam RRR, S1, S2, no murmur, no gallop, no irregular rhythm - Routine Abdominal Exam soft, normoactive bowel sounds, no distended, no rebound, no guarding, no organomegaly, no mass, wound - Well approximated, no erythema or drainage, healing well - Routine Extremities Exam Present: full ROM, pulses intact, normal capillary refill. Absent: cyanosis, clubbing, calf tenderness, tenderness - Routine Back/Spine/Pelvis Exam Back/Spine: Present: full ROM. Absent: CVA tenderness, paraspinal tenderness, vertebral tenderness - Routine Skin Exam Present: intact, warm, normal turgor. Absent: petechiae, lesions, jaundice, rash, ecchymosis - Routine Neurological Exam Present: alert, oriented X3, moving all extremities, vision grossly intact, hearing grossly intact, normal speech. Absent: sensory deficit, motor deficit, abnormal gait, tremors - Routine Psychiatric Exam Present: normal affect, normal thought process, cooperative. Absent: depressed,anxious Results - Labs CBC & Chem 7: 06/17/18 10:44 06/17/18 10:44 Labs: Diagram of Most Recent CBC and CMP 06/17/18 10:44 06/17/18 10:44 Labs - Last 7 Days 06/17/18 10:44: PHA Creatinine Clear [id number], Sodium 139, Potassium 3.9, Chloride 103, Carbon Dioxide 27.8, BUN 10, Creatinine 0.98, Est GFR ( Amer) > 60, Est GFR (Non-Af Amer) > 60, Glucose 90, Calcium 9.4, Total Bilirubin0.6, AST 70 H, ALT 134 H, Alkaline Phosphatase 157 H, Total Protein 7.2, Albumin3.7, Globulin 3.5, Albumin/Globulin Ratio 1.1 06/17/18 10:44: WBC 6.4, Corrected WBC 6.4, RBC 4.94, Hgb 14.4, Hct 42.0, MCV 85.0, MCH 29.0, MCHC 34.2, RDW 16.9 H, Plt Count 209, MPV 8.9, Neut % (Auto) 74.9, Lymph % (Auto) 16.5, Marion % (Auto) 6.7, Eos % (Auto) 1.4, Baso % (Auto) 0.5, Neut # (Auto) 4.8, Lymph # (Auto) 1.1, Marion # (Auto) 0.4, Eos # (Auto) 0.1,Baso # (Auto) 0.0, Platelet Estimate Normal, Large Platelets Slight, Plt Morphology Comment N/A, RBC Morphology N/A, Poikilocytosis Slight, Anisocytosis Slight, Ovalocytes Slight - Impressions Any impression(s) listed above is documentation that was entered by the reading physician into a diagnostic report(s) for Isaias Gleason. I have reviewed the report(s) and am incorporating any findings in the treatment plan of this patient where applicable. Assessment and Plan (1) Carcinoma of cecum Status: Acute This is a 53-year-old male without significant past medical history but significant family history of colon carcinoma in his father age 47. He is now diagnosedwith a cecal carcinoma by colonoscopy on 04/09/2018 and underwent 05/01 revealingstage IIb (pT4a pN0 M0) moderate to poorly differentiated adenocarcinoma. He had a contained perforation of the cecum, but all surgical margins are negative with no residual disease. He met with medical genetics on 05/22 and testing wasstill pending at that time for mismatch repair genes. 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 Consented for adjuvant therapy with Oxaliplatin 130 mg/m? IV every 3 weeks with oral Xeloda 1000 mg/m? twice daily for 2 weeks on 1 week off; x 8 cycles. [id number] PO BID. Start date: Cycle 1, Day 1: Sunday06/10/2018 - Presents for toxicity check; overall doing well. No adverse effects related tochemotherapy. Laboratories are reviewed; overall very stable. Anemia is significantly improved. He complains of mild fatigue; had mild nausea and diarrhea; which have since resolved. Expected cold sensitivity to Oxaliplatin; but otherwise no mucositis or evidence of HFS. RTC on 07/01/2018 for Cycle 2, Day 1. RTC on 07/22/[address] Jarquin prior to Cycle 3, Day 1. (2) Iron deficiency anemia due to chronic blood loss Status: Chronic The patient was admitted to [facility] for severe anemia with hemoglobin down to 4.5 and no clear bleeding source. Despite 6 units of transfusion, he had microcytic indices with anemia and iron saturation 8%. To improve surgical morbidity, he was treated with parenteral iron infusion with Injectafer 750 mg today and second infusion 1 week prior to his scheduled surgery. His hemoglobinis now normal and iron stores have returned to normal. We will continue to follow hemoglobin on chemotherapy, but likely source of bleeding was his colon adenocarcinoma which has been resected. (3) Mcadams syndrome Status: Acute The patient has a family history of colon cancer in his father diagnosed at age 47. Mismatch repair genes are deficient on his specimen and is consistent with Mcadams syndrome. He has had initial evaluation with medical genetics on 05/22/18; but did not have mismatch repair genes available at the time of this visit. He has follow up scheduled with them coming up and we will follow-up with him to arrange further genetic testing of the patient's family members for Mcadams syndrome and continue surveillance for Mcadams associated malignancies. - Chemo Plan Chemo Plan (Dose, Rate, Freq): [id number] Day 1: Oxaliplatin 130mg/m2 IV Days 1-14: Capecitabine 1,000mg/m2 orally twice daily. Repeat cycle every 3 weeks. Goal of Treatment: Curative - Time with Patient Total Time Spent with Patient: 30 min Coordination of Care & Counseling Time: Greater than 50% of time spent with patient was for coordination of care (as documented) and [id number] counseling of patient and/or family. Dictated By: Landy Christian DD/ [id number] Signed By: <Electronically signed by Landy Christian> 06/17/18 1422 [facility] Work Phone: [phone] Progress note Author Landy Christian [facility] June 17, 2018 2:23pm Note Date/Time June 17, 2018 1:35pm [facility] at [address] [address] Hem/Onc Follow Up Note - OP Signed Patient: Isaias Gleason MR#: [id number] 321 : 1965 Acct:[id number] Age/Sex: 53 / M Type: REG RCR Copies to: Orestes Fox Jr, Teri Kim MD~ Subjective Date/Time of Service: Date of Service: 06/17/2018 Time of Service: 13:21 Chief Complaint: Patient is here for follow up tox check since starting Xeloda and Oxaliplatin on 06/10/18. Patient did have three days of loose stools roughlythree per day and had neuropathy sensation in his finger tips with cold exposure. - Diagnosis DIAGNOSIS: 1. Cecal carcinoma, originally presented to [facility] with iron deficiency anemia of occult source. Known family history of colon cancer in father who at age 48. --Right hemicolectomy performed 05/06/2018. 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 Directly penetrating the serosa. Clinical history of a contained perforation against the lateral peritoneum was noted. Terminal ileum and ileocecal valve involvement by colonic adenocarcinomaidentified. Negative mesenteric, true peritoneum, and colon proximal and distalmargins of resection. 36 out of 36 pericolic lymph nodes are negative for metastatic colon adenocarcinoma. Fibrous obliteration of appendix lumen. 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 MSH2 and MSH6 show intact nuclear expression. 2. Iron deficiency anemia, originally presented with hemoglobin 4.5 on 03/30/2018. 6 units blood transfused -- Injectafer iron therapy 750 mg IV on 04/23 and 05/01/2018 prior to surgery. HPI: Isaias presents for toxicity visit following initiation of XELOX regimen (IV oxaliplatin 130 mg/m? every 3 weeks with oral Xeloda 1000 mg/m? twice daily for 2 weeks on 1 week off). Plan every 3 weeks x 8 cycles - to complete 6 months of adjuvant therapy. Cycle 1, Day 1 commenced 06/10/18. The patient has done well; has noticed cold sensitivity with Oxaliplatin. No issues with fever/chills, chest pain, cough, SOB, mucositis, constipation, abdominal pain, skin rash or lower extremity edema. He had 2 mild episodes of nausea without emesis; controlled with Zofran; had a few loose stools on Day 3-5, with some fatigue, but otherwise tolerated well. Laboratories are reviewed; no significant abnormalities. PRELIMINARY HISTORY: This is a 53-year-old male who does not seek regular medical care who presented to the emergency department with weakness and presyncopal sensation. He noticeda gradual feeling of increased fatigability and shortness of breath with exertion with heaviness in the thighs legs and arms. He did not have any visible bright red blood per rectum but had guaiac positive stool. His hemoglobin was 4.5. He underwent transfusion of a total of 6 units of blood andhad not had any visible gastrointestinal bleeding during the hospital stay. An abdominal CT showed a mass within the cecum suspicious for malignancy. He was offered colonoscopy by Dr. Maria but deferred this. After discharge from the hospital he self referred to Dr. Fox and underwent colonoscopy 04/09/2018 with cecal biopsy showing invasive to poorly differentiated adenocarcinoma, fragments of tubular adenoma with high- grade dysplasia. He underwent right hemicolectomy surgery 05/01/2018. Outside laboratories including peripheral smear noted marked poikilocytosis withreport of 2+ schistocytes and 2+ teardrops. He also had a remarkable low mean corpuscular volume in the low 70s with elevated RDW to 30s. This remained low despite his multiple transfusions. Pre-operatively given Injectafer 750mg IV x 2. His father was diagnosed with colon cancer at age 47 and at age 48 as he was metastatic at diagnosis. Patient does not know of any other family members with malignancy, but he has never had genetic testing. - Summary of Therapies Summary of Therapies: 1.) Right hemicolectomy per Dr. Groves - 05/06/2018; Pathologic stage pT4a, pN0,pMX (stage IIb) 2.) Adjuvant XELOX every 3 weeks, Cycle 1, Day 1: 06/10/2018- Subjective/ROS - Narrative: As per the HPI. otherwise 10 point review of systems is negative. ONC PMFSH - General Attestation statement: The following information was validated with the patient. Source: Old Records Reviewed - Medical History Medical history: Cancer - Recent diagnosis of cecal cancer by colonoscopy Past Medical History Comments: sleep apnea, recent blood transfusions - Surgical History Surgical history male: colectomy, orthopedic, other Surgical History Comment: left knee arthroscopy, eye - Cardiac History Patient on Service Establishment Attendant: No Does Patient Have Pacemaker?: No - Psych History Psychiatric history: no psych history - Family History Family History: CAD/PA, cancer - Father colon cancer age 47, hypertension - Genetics Would you like a referral to genetics?: No - Social History History of Any Tobacco Product Use?: Yes Tobacco Type: smokeless tobacco Do you ever drink alcohol (including beer or wine)?: No If yes, how many days did you drink in the past week?: 1 Did you previously drink alcohol, but have since quit?: No Hx Recreational Drug Use?: No Substance Use Type: None Home Medications & Allergies Allergies Allergy/AdvReac Type Severity Reaction Status Date / Time No Known Allergies Allergy Verified 04/04/18 13:53 Home Medications Medication Instructions Recorded Confirmed Type tramadol [Ultram] 50 mg PO Q6H PRN 7 Days #45 tab 05/06/18 06/17/18 Rx capecitabine 2,000 mg PO DIRECTED 06/05/18 06/17/18 History capecitabine 150 mg PO DIRECTED 06/05/18 06/17/18 History ondansetron [Zofran ODT] 8 mg PO Q8H PRN #30 tab 06/05/18 06/17/18 Rx Objective - Resuscitation Status Resuscitation Status: Full Code - Height/Weight Height/Weight: Height 5 ft 11 in Weight 91.23 kg BSA for Today's Weight 2.15 - Vital Signs Vital Signs: Temp 97.7 F 06/17/18 11:15 Pulse 73 06/17/18 11:15 Resp 20 06/17/18 11:15 BP 133/91 06/17/18 11:15 Pulse Ox 98 06/17/18 11:15 - Pain Right Abdomen Pain Intensity: 0 - Emotional Needs Assessment Emotional Needs Assessment: Emotional Needs Identified? No Distress Screening Total 0 Support System Spouse,Family - ECOG Performance Status ECOG Score: 1 - Due to fatigue, postop recovery Physical Exam - Constitutional no acute distress, average body habitus, no chronically ill appearing, cooperative - Routine HEENT Exam Head: normocephalic, atraumatic, no cushingoid faces Eye: EOMI, PERRL, no conjunctival injection, no scleral icterus ENT: mucous membranes moist, oropharynx clear, dentition normal - Routine Neck Exam supple, full ROM, no lymphadenopathy, no thyromegaly, no tenderness - Routine Chest/Breast/Axilla Exam Chest wall: no tenderness, no mass Axillae: no lymphadenopathy, no mass - Routine Respiratory Exam no accessory muscle use, CTA bilaterally, no rales, no respiratory distress, no rhonchi, no wheezes - Routine Cardiovascular Exam RRR, S1, S2, no murmur, no gallop, no irregular rhythm - Routine Abdominal Exam soft, normoactive bowel sounds, no distended, no rebound, no guarding, no organomegaly, no mass, wound - Well approximated, no erythema or drainage, healing well - Routine Extremities Exam Present: full ROM, pulses intact, normal capillary refill. Absent: cyanosis, clubbing, calf tenderness, tenderness - Routine Back/Spine/Pelvis Exam Back/Spine: Present: full ROM. Absent: CVA tenderness, paraspinal tenderness, vertebral tenderness - Routine Skin Exam Present: intact, warm, normal turgor. Absent: petechiae, lesions, jaundice, rash, ecchymosis - Routine Neurological Exam Present: alert, oriented X3, moving all extremities, vision grossly intact, hearing grossly intact, normal speech. Absent: sensory deficit, motor deficit, abnormal gait, tremors - Routine Psychiatric Exam Present: normal affect, normal thought process, cooperative. Absent: depressed,anxious Results - Labs CBC & Chem 7: 06/17/18 10:44 06/17/18 10:44 Labs: Diagram of Most Recent CBC and CMP 06/17/18 10:44 06/17/18 10:44 Labs - Last 7 Days 06/17/18 10:44: PHA Creatinine Clear [id number], Sodium 139, Potassium 3.9, Chloride 103, Carbon Dioxide 27.8, BUN 10, Creatinine 0.98, Est GFR ( Amer) > 60, Est GFR (Non-Af Amer) > 60, Glucose 90, Calcium 9.4, Total Bilirubin0.6, AST 70 H, ALT 134 H, Alkaline Phosphatase 157 H, Total Protein 7.2, Albumin3.7, Globulin 3.5, Albumin/Globulin Ratio 1.1 06/17/18 10:44: WBC 6.4, Corrected WBC 6.4, RBC 4.94, Hgb 14.4, Hct 42.0, MCV 85.0, MCH 29.0, MCHC 34.2, RDW 16.9 H, Plt Count 209, MPV 8.9, Neut % (Auto) 74.9, Lymph % (Auto) 16.5, Marion % (Auto) 6.7, Eos % (Auto) 1.4, Baso % (Auto) 0.5, Neut # (Auto) 4.8, Lymph # (Auto) 1.1, Marion # (Auto) 0.4, Eos # (Auto) 0.1,Baso # (Auto) 0.0, Platelet Estimate Normal, Large Platelets Slight, Plt Morphology Comment N/A, RBC Morphology N/A, Poikilocytosis Slight, Anisocytosis Slight, Ovalocytes Slight - Impressions Any impression(s) listed above is documentation that was entered by the reading physician into a diagnostic report(s) for Isaias Gleason. I have reviewed the report(s) and am incorporating any findings in the treatment plan of this patient where applicable. Assessment and Plan (1) Carcinoma of cecum Status: Acute This is a 53-year-old male without significant past medical history but significant family history of colon carcinoma in his father age 47. He is now diagnosedwith a cecal carcinoma by colonoscopy on 04/09/2018 and underwent 05/01 revealingstage IIb (pT4a pN0 M0) moderate to poorly differentiated adenocarcinoma. He had a contained perforation of the cecum, but all surgical margins are negative with no residual disease. He met with medical genetics on 05/22 and testing wasstill pending at that time for mismatch repair genes. 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 Consented for adjuvant therapy with Oxaliplatin 130 mg/m? IV every 3 weeks with oral Xeloda 1000 mg/m? twice daily for 2 weeks on 1 week off; x 8 cycles. [id number] PO BID. Start date: Cycle 1, Day 1: Sunday06/10/2018 - Presents for toxicity check; overall doing well. No adverse effects related tochemotherapy. Laboratories are reviewed; overall very stable. Anemia is significantly improved. He complains of mild fatigue; had mild nausea and diarrhea; which have since resolved. Expected cold sensitivity to Oxaliplatin; but otherwise no mucositis or evidence of HFS. RTC on 07/01/2018 for Cycle 2, Day 1. RTC on 07/22/[address] Jarquin prior to Cycle 3, Day 1. (2) Iron deficiency anemia due to chronic blood loss Status: Chronic The patient was admitted to [facility] for severe anemia with hemoglobin down to 4.5 and no clear bleeding source. Despite 6 units of transfusion, he had microcytic indices with anemia and iron saturation 8%. To improve surgical morbidity, he was treated with parenteral iron infusion with Injectafer 750 mg today and second infusion 1 week prior to his scheduled surgery. His hemoglobinis now normal and iron stores have returned to normal. We will continue to follow hemoglobin on chemotherapy, but likely source of bleeding was his colon adenocarcinoma which has been resected. (3) Mcadams syndrome Status: Acute The patient has a family history of colon cancer in his father diagnosed at age 47. Mismatch repair genes are deficient on his specimen and is consistent with Mcadams syndrome. He has had initial evaluation with medical genetics on 05/22/18; but did not have mismatch repair genes available at the time of this visit. He has follow up scheduled with them coming up and we will follow-up with him to arrange further genetic testing of the patient's family members for Mcadams syndrome and continue surveillance for Mcadams associated malignancies. - Chemo Plan Chemo Plan (Dose, Rate, Freq): CapeOX6 Day 1: Oxaliplatin 130mg/m2 IV Days 1-14: Capecitabine 1,000mg/m2 orally twice daily. Repeat cycle every 3 weeks. Goal of Treatment: Curative - Time with Patient Total Time Spent with Patient: 30 min Coordination of Care & Counseling Time: Greater than 50% of time spent with patient was for coordination of care (as documented) and [id number] counseling of patient and/or family. Dictated By: Landy Christian DD/ [id number] Signed By: <Electronically signed by Landy Christian> 06/17/18 1425 [facility] Work Phone: [phone] Progress note Author Landy Christian [facility] June 05, 2018 12:07pm Note Date/Time June 05, 2018 11:17am [facility] [place] [address] Hem/Onc Follow Up Note - OP Signed Patient: Isaias Gleason MR#: [id number] : 1965 Acct:[id number] Age/Sex: 53 / M Type: REG RCR Copies to: Orestes Fox Jr, Teri Kim MD~ Subjective Date/Time of Service: Date of Service: 06/05/2018 Time of Service: 11:14 Chief Complaint: Patient here for oral chemotherapy consultation before startingCAPOX. - Diagnosis DIAGNOSIS: 1. Cecal carcinoma, originally presented to [facility] with iron deficiency anemia of occult source. Known family history of colon cancer in father who at age 48. --Right hemicolectomy performed 05/06/2018. 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 Directly penetrating the serosa. Clinical history of a contained perforation against the lateral peritoneum was noted. Terminal ileum and ileocecal valve involvement by colonic adenocarcinomaidentified. Negative mesenteric, true peritoneum, and colon proximal and distalmargins of resection. 36 out of 36 pericolic lymph nodes are negative for metastatic colon adenocarcinoma. Fibrous obliteration of appendix lumen. 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 MSH2 and MSH6 show intact nuclear expression. 2. Iron deficiency anemia, originally presented with hemoglobin 4.5 on 03/30/2018. 6 units blood transfused --Coordinated Injectafer iron therapy 750 mg IV on 04/23 and 05/01/2018 prior tosurgery. HPI: Isaias presents for oral chemotherapy education. Patient consented for XELOX regimen consisting of IV oxaliplatin 130 mg/m? every 3 weeks with oral Xeloda 1000 mg/m? twice daily for 2 weeks on 1 week off. This would be repeated once every 3 weeks for 8 cycles to complete 6 months of adjuvant therapy. (oral Xeloda) in conjunction with with his to review pathology and further plans for therapy after right hemicolectomy. He notes that he is recovering from surgery well and is ambulatory and eating a normal diet. He was able to have re-anastomosis after surgery and wound is healing well. He is having improved fatigue since transfusions and iron repletion therapy. No other interval history. He met with medical genetics and at the time they did not have results of his mismatch repair testing of his specimen. 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 Today we discussed adjuvant chemotherapy options due to T4 N0 disease. There is no indication for radiation therapy with negative margins. His options were FOLFOX which would require placement of an infusion pump, oxaliplatin with oral Xeloda, or oral Xeloda alone. Disease free survival and overall survival is improved with addition of oxaliplatin based therapy, although higher dose of oxaliplatin every3 weeks is given with oral Xeloda and may contribute to more neuropathy symptoms. The patient would like to proceed with oxaliplatin Xeloda at about 4-6 weeks postoperatively. We completed chemotherapy consent today. Today we reviewed chemotherapy counseling for Goal of therapy is for cure. Common toxicities were reviewed to include myelosuppression, fatigue, nausea, vomiting, constipation, diarrhea, mouth sores, palmar plantar dysesthesia, otherskin rashes, and cold-induced and cumulative neuropathy. Other toxicities may include rare coronary vasospasm, and/or hepatic and renal toxicities. The patient signed informed consent and will follow-up as directed to commence therapy in the next 2 weeks. He will also meet with nurse practitioner Anahi for oral chemotherapy visit when oral Xeloda arrives. I will see him for toxicity visit the following week. PRELIMINARY HISTORY: This is a 53-year-old male who does not seek regular medical care who presented to the emergency department with weakness and presyncopal sensation. He noticeda gradual feeling of increased fatigability and shortness of breath with exertion with heaviness in the thighs legs and arms. He did not have any visible bright red blood per rectum but had guaiac positive stool. His hemoglobin was 4.5. He underwent transfusion of a total of 6 units of blood andhad not had any visible gastrointestinal bleeding during the hospital stay. An abdominal CT showed a mass within the cecum suspicious for malignancy. He was offered colonoscopy by Dr. Maria but deferred this. After discharge from the hospital he self referred to Dr. Fox and underwent colonoscopy 04/09/2018 with cecal biopsy showing invasive to poorly differentiated adenocarcinoma, fragments of tubular adenoma with high- grade dysplasia. He underwent right hemicolectomy surgery 05/01/2018. I have reviewed his outside laboratories including peripheral smear is noting marked poikilocytosis with report of 2+ schistocytes and 2+ teardrops. He also had a remarkable low mean corpuscular volume in the low 70s with elevated RDW to30s. This remained low despite his multiple transfusions. Upon triage today before his appointment I ordered a CBC which shows his hemoglobin is improved tothe 10-1/2 range but he has persistent iron deficiency of 6%. I offered parenteral iron therapy today to prepare him for surgery next week with Injectafer 750 mg IV today and repeat in 1 week before his planned surgery next Sunday. Patient reports his remarkable fatigue has improved. He does have some right lower quadrant pain mainly with activity and palpation. No abdominaldistention, no constipation or diarrhea, no visible change in stools. He deniesany known cardiac or respiratory issues [place] He is accompanied by his daughter today. His father was diagnosed with colon cancer at age 47 and at age 48 as he was metastatic at diagnosis. Patient does not know of any other family members with malignancy, but he has never had genetic testing. - Summary of Therapies Summary of Therapies: Isaias presents for oral chemotherapy education (Xeloda). He is without complaints; no significant pain. Healing well from surgery; has follow up appt with Dr. Groves today. Denies headaches, chest pain, cough, SOB, nausea/vomiting, abdominal pain, diarrhea/constipation. Subjective/ROS - Narrative: As per the HPI. otherwise 10 point review of systems is negative. ONC PMFSH - General Attestation statement: The following information was validated with the patient. Source: Old Records Reviewed - Medical History Medical history: Cancer - Recent diagnosis of cecal cancer by colonoscopy Past Medical History Comments: sleep apnea, recent blood transfusions - Surgical History Surgical history male: colectomy, orthopedic, other Surgical History Comment: left knee arthroscopy, eye - Cardiac History Patient on Service Establishment Attendant: No Does Patient Have Pacemaker?: No - Psych History Psychiatric history: no psych history - Family History Family History: CAD/PA, cancer - Father colon cancer age 47, hypertension - Genetics Would you like a referral to genetics?: No - Social History History of Any Tobacco Product Use?: Yes Tobacco Type: smokeless tobacco Do you ever drink alcohol (including beer or wine)?: No If yes, how many days did you drink in the past week?: 1 Did you previously drink alcohol, but have since quit?: No Hx Recreational Drug Use?: No Substance Use Type: None Home Medications & Allergies Allergies Allergy/AdvReac Type Severity Reaction Status Date / Time No Known Allergies Allergy Verified 04/04/18 13:53 Home Medications Medication Instructions Recorded Confirmed Type tramadol [Ultram] 50 mg PO Q6H PRN 7 Days #45 tab 05/06/18 05/23/18 Rx capecitabine 2,000 mg PO DIRECTED 06/05/18 06/05/18 History capecitabine 150 mg PO DIRECTED 06/05/18 06/05/18 History ondansetron [Zofran ODT] 8 mg PO Q8H PRN #30 tab 06/05/18 Rx Objective - Resuscitation Status Resuscitation Status: Full Code - Height/Weight Height/Weight: Height 5 ft 11 in Weight 97.9 kg BSA for Today's Weight 2.19 - Vital Signs Vital Signs: Temp 97.9 F 06/05/18 10:35 Pulse 80 06/05/18 10:35 Resp 14 06/05/18 10:35 BP 131/88 06/05/18 10:35 Pulse Ox 98 06/05/18 10:35 - Pain Right Abdomen Pain Intensity: 2 - Emotional Needs Assessment Emotional Needs Assessment: Emotional Needs Identified? No Distress Screening Total 0 Support System Child/Children - ECOG Performance Status ECOG Score: 1 - Due to fatigue, postop recovery Physical Exam - Constitutional no acute distress, average body habitus, no chronically ill appearing, cooperative - Routine HEENT Exam Head: normocephalic, atraumatic, no cushingoid faces Eye: EOMI, PERRL, no conjunctival injection, no scleral icterus ENT: mucous membranes moist, oropharynx clear, dentition normal - Routine Neck Exam supple, full ROM, no lymphadenopathy, no thyromegaly, no tenderness - Routine Respiratory Exam no accessory muscle use, CTA bilaterally, no rales, no respiratory distress, no rhonchi, no wheezes - Routine Cardiovascular Exam RRR, no murmur, no gallop, no irregular rhythm - Routine Abdominal Exam soft, normoactive bowel sounds, no distended, no rebound, no guarding, no organomegaly, no mass, wound - Well approximated, no erythema or drainage, healing well - Routine Extremities Exam Present: full ROM, pulses intact, normal capillary refill. Absent: cyanosis, clubbing, calf tenderness, tenderness - Routine Back/Spine/Pelvis Exam Back/Spine: Present: full ROM. Absent: CVA tenderness, paraspinal tenderness, vertebral tenderness - Routine Skin Exam Present: intact, warm, normal turgor. Absent: petechiae, lesions, jaundice, rash, ecchymosis - Routine Neurological Exam Present: alert, oriented X3, moving all extremities, vision grossly intact, hearing grossly intact, normal speech. Absent: sensory deficit, motor deficit, abnormal gait, tremors - Routine Psychiatric Exam Present: normal affect, normal thought process, cooperative. Absent: depressed,anxious Results - Labs CBC & Chem 7: 05/22/18 13:52 06/05/18 11:53 Labs: Diagram of Most Recent CBC and CMP 05/22/18 13:52 - Impressions Any impression(s) listed above is documentation that was entered by the reading physician into a diagnostic report(s) for Isaias Rosibel. I have reviewed the report(s) and am incorporating any findings in the treatment plan of this patient where applicable. Assessment and Plan (1) Carcinoma of cecum Status: Acute This is a 53-year-old male without significant past medical history but significant family history of colon carcinoma in his father age 47. He is now diagnosed with a cecal carcinoma by colonoscopy on 04/09 and underwent 05/01 revealing stage IIb (pT4a pN0 M0) moderate to poorly differentiated adenocarcinoma. He had a contained perforation of the cecum, but all surgical margins are negative with no residual disease. He met with medical genetics on 05/22 and testing was still pending at that time for mismatch repair genes. 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 Consented for adjuvant therapy with Oxaliplatin 130 mg/m? IV every 3 weeks with oral Xeloda 1000 mg/m? twice daily for 2 weeks on 3 weeks off for 8 cycles. Patient presents for clinic visit today for oral chemotherapy education (Xeloda) Start date: Cycle 1, Day 1: Sunday06/10/2018 Oral chemotherapy education: XELODA- 2150mg PO BID (14 days on; 7 days off) - discussed appropriate dose as 4 x 500mg tablet and 1 x150mg tablet by mouth twice daily = 2150 mg twice daily; total of 5 pills in the AM and 5 pills in the PM. - discussed storage/safe handling- store at room temperature, in a dry place. May be stored in original container. - discussed administration: Take with a full glass of water, after a meal (approximately 30 mins-1 hour after meals); avoid grapefruit products; swallow pills whole, do not crush - patient will be administered medication at home; self administered. Wash handsthoroughly after administration; do not mix with other medications. - discussed/reinforced most common side effects of medication to include: fatigue, myelosuppression, nausea/vomiting, mouth sores, diarrhea, hand-foot syndrome, skin rash, alopecia - discussed when to call clinic/neutropenic precautions (fever >100.4, any signs/symptoms that are not well controlled) - patient provided with oral chemotherapy education booklet, red sheet, and written drug information - medication reconciliation performed; no significant interactions noted. RX given for PRN Zofran today. Monitoring: CBC with diff/CMP - 1-2 week after starting therapy to monitor myelosuppression,renal, and hepatic function; will see Dr. Jarquin 1 week after initiation of Cycle 1 XELOX on 06/17/18. Cycle 1, Day 1 Capecitabine to commence: 06/10/18 (per patient preference). Baseline labs (CBC, CMP) were obtained. Okay to proceed. Patient knows to call us sooner with any questions/concerns. (2) Iron deficiency anemia due to chronic blood loss Status: Chronic The patient was admitted to [facility] for severe anemia with hemoglobin down to 4.5 and no clear bleeding source. Despite 6 units of transfusion, he had microcytic indices with anemia and iron saturation 8%. To improve surgical morbidity, he was treated with parenteral iron infusion with Injectafer 750 mg today and second infusion 1 week prior to his scheduled surgery. His hemoglobinis now normal and iron stores have returned to normal. We will continue to follow hemoglobin on chemotherapy, but likely source of bleeding was his colon adenocarcinoma which has been resected. (3) Mcadams syndrome Status: Acute The patient has a family history of colon cancer in his father diagnosed at age 47. Mismatch repair genes are deficient on his specimen and is consistent with Mcadams syndrome. He has had initial evaluation with medical genetics on 05/22/18; but did not have mismatch repair genes available at the time of this visit. He has follow up scheduled with them coming up and we will follow-up with him to arrange further genetic testing of the patient's family members for Mcadams syndrome and continue surveillance for Mcadams associated malignancies. - Chemo Plan Chemo Plan (Dose, Rate, Freq): CapeOX6 Day 1: Oxaliplatin 130mg/m2 IV Days 1-14: Capecitabine 1,000mg/m2 orally twice daily. Repeat cycle every 3 weeks. Goal of Treatment: Curative - Time with Patient Total Time Spent with Patient: 30 min Coordination of Care & Counseling Time: Greater than 50% of time spent with patient was for coordination of care (as documented) and [id number] counseling of patient and/or family. Dictated By: Landy Christian DD/ [id number] Signed By: <Electronically signed by Landy Christian> 06/05/18 1208 [facility] Work Phone: [phone] Progress note Author Landy Christian [facility] June 05, 2018 12:07pm Note Date/Time June 05, 2018 11:17am [facility] [place] [address] Hem/Onc Follow Up Note - OP Signed Patient: Isaias Gleason MR#: [id number] : 1965 Acct:[id number] Age/Sex: 53 / M Type: REG RCR Copies to: Orestes Fox Jr, Teri Kim MD~ Subjective Date/Time of Service: Date of Service: 06/05/2018 Time of Service: 11:14 Chief Complaint: Patient here for oral chemotherapy consultation before startingCAPOX. - Diagnosis DIAGNOSIS: 1. Cecal carcinoma, originally presented to [facility] with iron deficiency anemia of occult source. Known family history of colon cancer in father who at age 48. --Right hemicolectomy performed 05/06/2018. 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 Directly penetrating the serosa. Clinical history of a contained perforation against the lateral peritoneum was noted. Terminal ileum and ileocecal valve involvement by colonic adenocarcinomaidentified. Negative mesenteric, true peritoneum, and colon proximal and distalmargins of resection. 36 out of 36 pericolic lymph nodes are negative for metastatic colon adenocarcinoma. Fibrous obliteration of appendix lumen. 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 MSH2 and MSH6 show intact nuclear expression. 2. Iron deficiency anemia, originally presented with hemoglobin 4.5 on 03/30/2018. 6 units blood transfused --Coordinated Injectafer iron therapy 750 mg IV on 04/23 and 05/01/2018 prior tosurgery. HPI: Isaias presents for oral chemotherapy education. Patient consented for XELOX regimen consisting of IV oxaliplatin 130 mg/m? every 3 weeks with oral Xeloda 1000 mg/m? twice daily for 2 weeks on 1 week off. This would be repeated once every 3 weeks for 8 cycles to complete 6 months of adjuvant therapy. (oral Xeloda) in conjunction with with his to review pathology and further plans for therapy after right hemicolectomy. He notes that he is recovering from surgery well and is ambulatory and eating a normal diet. He was able to have re-anastomosis after surgery and wound is healing well. He is having improved fatigue since transfusions and iron repletion therapy. No other interval history. He met with medical genetics and at the time they did not have results of his mismatch repair testing of his specimen. 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 Today we discussed adjuvant chemotherapy options due to T4 N0 disease. There is no indication for radiation therapy with negative margins. His options were FOLFOX which would require placement of an infusion pump, oxaliplatin with oral Xeloda, or oral Xeloda alone. Disease free survival and overall survival is improved with addition of oxaliplatin based therapy, although higher dose of oxaliplatin every3 weeks is given with oral Xeloda and may contribute to more neuropathy symptoms. The patient would like to proceed with oxaliplatin Xeloda at about 4-6 weeks postoperatively. We completed chemotherapy consent today. Today we reviewed chemotherapy counseling for Goal of therapy is for cure. Common toxicities were reviewed to include myelosuppression, fatigue, nausea, vomiting, constipation, diarrhea, mouth sores, palmar plantar dysesthesia, otherskin rashes, and cold-induced and cumulative neuropathy. Other toxicities may include rare coronary vasospasm, and/or hepatic and renal toxicities. The patient signed informed consent and will follow-up as directed to commence therapy in the next 2 weeks. He will also meet with nurse practitioner Anahi for oral chemotherapy visit when oral Xeloda arrives. I will see him for toxicity visit the following week. PRELIMINARY HISTORY: This is a 53-year-old male who does not seek regular medical care who presented to the emergency department with weakness and presyncopal sensation. He noticeda gradual feeling of increased fatigability and shortness of breath with exertion with heaviness in the thighs legs and arms. He did not have any visible bright red blood per rectum but had guaiac positive stool. His hemoglobin was 4.5. He underwent transfusion of a total of 6 units of blood andhad not had any visible gastrointestinal bleeding during the hospital stay. An abdominal CT showed a mass within the cecum suspicious for malignancy. He was offered colonoscopy by Dr. Maria but deferred this. After discharge from the hospital he self referred to Dr. Fox and underwent colonoscopy 04/09/2018 with cecal biopsy showing invasive to poorly differentiated adenocarcinoma, fragments of tubular adenoma with high- grade dysplasia. He underwent right hemicolectomy surgery 05/01/2018. I have reviewed his outside laboratories including peripheral smear is noting marked poikilocytosis with report of 2+ schistocytes and 2+ teardrops. He also had a remarkable low mean corpuscular volume in the low 70s with elevated RDW to30s. This remained low despite his multiple transfusions. Upon triage today before his appointment I ordered a CBC which shows his hemoglobin is improved tothe 10-/ range but he has persistent iron deficiency of 6%. I offered parenteral iron therapy today to prepare him for surgery next week with Injectafer 750 mg IV today and repeat in 1 week before his planned surgery next Sunday. Patient reports his remarkable fatigue has improved. He does have some right lower quadrant pain mainly with activity and palpation. No abdominaldistention, no constipation or diarrhea, no visible change in stools. He deniesany known cardiac or respiratory issues [place] He is accompanied by his daughter today. His father was diagnosed with colon cancer at age 47 and at age 48 as he was metastatic at diagnosis. Patient does not know of any other family members with malignancy, but he has never had genetic testing. - Summary of Therapies Summary of Therapies: Isaias presents for oral chemotherapy education (Xeloda). He is without complaints; no significant pain. Healing well from surgery; has follow up appt with Dr. Laffay today. Denies headaches, chest pain, cough, SOB, nausea/vomiting, abdominal pain, diarrhea/constipation. Subjective/ROS - Narrative: As per the HPI. otherwise 10 point review of systems is negative. ONC PMFSH - General Attestation statement: The following information was validated with the patient. Source: Old Records Reviewed - Medical History Medical history: Cancer - Recent diagnosis of cecal cancer by colonoscopy Past Medical History Comments: sleep apnea, recent blood transfusions - Surgical History Surgical history male: colectomy, orthopedic, other Surgical History Comment: left knee arthroscopy, eye - Cardiac History Patient on Service Establishment Attendant: No Does Patient Have Pacemaker?: No - Psych History Psychiatric history: no psych history - Family History Family History: CAD/PA, cancer - Father colon cancer age 47, hypertension - Genetics Would you like a referral to genetics?: No - Social History History of Any Tobacco Product Use?: Yes Tobacco Type: smokeless tobacco Do you ever drink alcohol (including beer or wine)?: No If yes, how many days did you drink in the past week?: 1 Did you previously drink alcohol, but have since quit?: No Hx Recreational Drug Use?: No Substance Use Type: None Home Medications & Allergies Allergies Allergy/AdvReac Type Severity Reaction Status Date / Time No Known Allergies Allergy Verified 04/04/18 13:53 Home Medications Medication Instructions Recorded Confirmed Type tramadol [Ultram] 50 mg PO Q6H PRN 7 Days #45 tab 05/06/18 05/23/18 Rx capecitabine 2,000 mg PO DIRECTED 06/05/18 06/05/18 History capecitabine 150 mg PO DIRECTED 06/05/18 06/05/18 History ondansetron [Zofran ODT] 8 mg PO Q8H PRN #30 tab 06/05/18 Rx Objective - Resuscitation Status Resuscitation Status: Full Code - Height/Weight Height/Weight: Height 5 ft 11 in Weight 97.9 kg BSA for Today's Weight 2.19 - Vital Signs Vital Signs: Temp 97.9 F 06/05/18 10:35 Pulse 80 06/05/18 10:35 Resp 14 06/05/18 10:35 BP 131/88 06/05/18 10:35 Pulse Ox 98 06/05/18 10:35 - Pain Right Abdomen Pain Intensity: 2 - Emotional Needs Assessment Emotional Needs Assessment: Emotional Needs Identified? No Distress Screening Total 0 Support System Child/Children - ECOG Performance Status ECOG Score: 1 - Due to fatigue, postop recovery Physical Exam - Constitutional no acute distress, average body habitus, no chronically ill appearing, cooperative - Routine HEENT Exam Head: normocephalic, atraumatic, no cushingoid faces Eye: EOMI, PERRL, no conjunctival injection, no scleral icterus ENT: mucous membranes moist, oropharynx clear, dentition normal - Routine Neck Exam supple, full ROM, no lymphadenopathy, no thyromegaly, no tenderness - Routine Respiratory Exam no accessory muscle use, CTA bilaterally, no rales, no respiratory distress, no rhonchi, no wheezes - Routine Cardiovascular Exam RRR, no murmur, no gallop, no irregular rhythm - Routine Abdominal Exam soft, normoactive bowel sounds, no distended, no rebound, no guarding, no organomegaly, no mass, wound - Well approximated, no erythema or drainage, healing well - Routine Extremities Exam Present: full ROM, pulses intact, normal capillary refill. Absent: cyanosis, clubbing, calf tenderness, tenderness - Routine Back/Spine/Pelvis Exam Back/Spine: Present: full ROM. Absent: CVA tenderness, paraspinal tenderness, vertebral tenderness - Routine Skin Exam Present: intact, warm, normal turgor. Absent: petechiae, lesions, jaundice, rash, ecchymosis - Routine Neurological Exam Present: alert, oriented X3, moving all extremities, vision grossly intact, hearing grossly intact, normal speech. Absent: sensory deficit, motor deficit, abnormal gait, tremors - Routine Psychiatric Exam Present: normal affect, normal thought process, cooperative. Absent: depressed,anxious Results - Labs CBC & Chem 7: 05/22/18 13:52 06/05/18 11:53 Labs: Diagram of Most Recent CBC and CMP 05/22/18 13:52 - Impressions Any impression(s) listed above is documentation that was entered by the reading physician into a diagnostic report(s) for Isaias Rosibel. I have reviewed the report(s) and am incorporating any findings in the treatment plan of this patient where applicable. Assessment and Plan (1) Carcinoma of cecum Status: Acute This is a 53-year-old male without significant past medical history but significant family history of colon carcinoma in his father age 47. He is now diagnosed with a cecal carcinoma by colonoscopy on 04/09 and underwent 05/01 revealing stage IIb (pT4a pN0 M0) moderate to poorly differentiated adenocarcinoma. He had a contained perforation of the cecum, but all surgical margins are negative with no residual disease. He met with medical genetics on 05/22 and testing was still pending at that time for mismatch repair genes. 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 Consented for adjuvant therapy with Oxaliplatin 130 mg/m? IV every 3 weeks with oral Xeloda 1000 mg/m? twice daily for 2 weeks on 3 weeks off for 8 cycles. Patient presents for clinic visit today for oral chemotherapy education (Xeloda) Start date: Cycle 1, Day 1: Sunday06/10/2018 Oral chemotherapy education: XELODA- 2150mg PO BID (14 days on; 7 days off) - discussed appropriate dose as 4 x 500mg tablet and 1 x150mg tablet by mouth twice daily = 2150 mg twice daily; total of 5 pills in the AM and 5 pills in the PM. - discussed storage/safe handling- store at room temperature, in a dry place. May be stored in original container. - discussed administration: Take with a full glass of water, after a meal (approximately 30 mins-1 hour after meals); avoid grapefruit products; swallow pills whole, do not crush - patient will be administered medication at home; self administered. Wash handsthoroughly after administration; do not mix with other medications. - discussed/reinforced most common side effects of medication to include: fatigue, myelosuppression, nausea/vomiting, mouth sores, diarrhea, hand-foot syndrome, skin rash, alopecia - discussed when to call clinic/neutropenic precautions (fever >100.4, any signs/symptoms that are not well controlled) - patient provided with oral chemotherapy education booklet, red sheet, and written drug information - medication reconciliation performed; no significant interactions noted. RX given for PRN Zofran today. Monitoring: CBC with diff/CMP - 1-2 week after starting therapy to monitor myelosuppression,renal, and hepatic function; will see Dr. Jarquin 1 week after initiation of Cycle 1 XELOX on 06/17/18. Cycle 1, Day 1 Capecitabine to commence: 06/10/18 (per patient preference). Baseline labs (CBC, CMP) were obtained. Okay to proceed. Patient knows to call us sooner with any questions/concerns. (2) Iron deficiency anemia due to chronic blood loss Status: Chronic The patient was admitted to [facility] for severe anemia with hemoglobin down to 4.5 and no clear bleeding source. Despite 6 units of transfusion, he had microcytic indices with anemia and iron saturation 8%. To improve surgical morbidity, he was treated with parenteral iron infusion with Injectafer 750 mg today and second infusion 1 week prior to his scheduled surgery. His hemoglobinis now normal and iron stores have returned to normal. We will continue to follow hemoglobin on chemotherapy, but likely source of bleeding was his colon adenocarcinoma which has been resected. (3) Mcadams syndrome Status: Acute The patient has a family history of colon cancer in his father diagnosed at age 47. Mismatch repair genes are deficient on his specimen and is consistent with Mcadams syndrome. He has had initial evaluation with medical genetics on 05/22/18; but did not have mismatch repair genes available at the time of this visit. He has follow up scheduled with them coming up and we will follow-up with him to arrange further genetic testing of the patient's family members for Mcadams syndrome and continue surveillance for Mcadams associated malignancies. - Chemo Plan Chemo Plan (Dose, Rate, Freq): [id number] Day 1: Oxaliplatin 130mg/m2 IV Days 1-14: Capecitabine 1,000mg/m2 orally twice daily. Repeat cycle every 3 weeks. Goal of Treatment: Curative - Time with Patient Total Time Spent with Patient: 30 min Coordination of Care & Counseling Time: Greater than 50% of time spent with patient was for coordination of care (as documented) and [id number] counseling of patient and/or family. Dictated By: Landy Christian DD/ [id number] Signed By: <Electronically signed by Landy Christian> 06/05/18 1208 [facility] Work Phone: [phone] Progress note Author Myranda Jarquin [facility] May 24, 2018 3:47pm Note Date/Time May 23, 2018 10:43am [facility] at [address] [address] Hem/Onc Follow Up Note - OP Signed Patient: Isaias Gleason MR#: [id number] : 1965 Acct:[id number] Age/Sex: 53 / M Type: REG RCR Copies to: Teri Rice MD, Aditi MD Paul C Laffay,~ Subjective Date/Time of Service: Date of Service: 05/23/2018 Time of Service: 10:43 Chief Complaint: Patient is here for follow up after colectomy 05/01 and genetics visit 05/22. - Diagnosis DIAGNOSIS: 1. Cecal carcinoma, originally presented to [facility] with iron deficiency anemia of occult source. Known family history of colon cancer in father who at age 48. --Right hemicolectomy performed 05/06/2018. 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 Directly penetrating the serosa. Clinical history of a contained perforation against the lateral peritoneum was noted. Terminal ileum and ileocecal valve involvement by colonic adenocarcinomaidentified. Negative mesenteric, true peritoneum, and colon proximal and distalmargins of resection. 36 out of 36 pericolic lymph nodes are negative for metastatic colon adenocarcinoma. Fibrous obliteration of appendix lumen. 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 MSH2 and MSH6 show intact nuclear expression. 2. Iron deficiency anemia, originally presented with hemoglobin 4.5 on 03/30/2018. 6 units blood transfused --Coordinated Injectafer iron therapy 750 mg IV on 04/23 and 05/01/2018 prior tosurgery. HPI: Isaias presents with his to review pathology and further plans for therapyafter right hemicolectomy. He notes that he is recovering from surgery well andis ambulatory and eating a normal diet. He was able to have re-anastomosis after surgery and wound is healing well. He is having improved fatigue since transfusions and iron repletion therapy. No other interval history. He met with medical genetics and at the time they did not have results of his mismatch repair testing of his specimen. 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 Today we discussed adjuvant chemotherapy options due to T4 N0 disease. There is no indication for radiationtherapy with negative margins. His options were FOLFOX which would require placement of an infusion pump, oxaliplatin with oral Xeloda, or oral Xeloda alone. Disease free survival and overall survival is improved with addition of oxaliplatin based therapy, although higher dose of oxaliplatin every 3 weeks is given with oral Xeloda and may contribute to more neuropathy symptoms. The patient would like to proceed with oxaliplatin Xeloda at about 4-6 weeks postoperatively. We completed chemotherapy consent today. Today we reviewed chemotherapy counseling for IV oxaliplatin 130 mg/m? every 3 weeks with oral Xeloda 1000 mg/m? twice daily for 2 weeks on 1 week off. This would be repeated once every 3 weeks for 8 cycles to complete 6 months of adjuvant therapy. Goal of therapy is for cure. Common toxicities were reviewedto include myelosuppression, fatigue, nausea, vomiting, constipation, diarrhea, mouth sores, palmar plantar dysesthesia, other skin rashes, and cold-induced andcumulative neuropathy. Other toxicities may include rare coronary vasospasm, and/or hepatic and renal toxicities. The patient signed informed consent and will follow-up as directed to commence therapy in the next 2 weeks. He will also meet with nurse practitioner Anahi for oral chemotherapy visit when oral Xeloda arrives. I will see him for toxicity visit the following week. PRELIMINARY HISTORY: This is a 53-year-old male who does not seek regular medical care who presented to the emergency department with weakness and presyncopal sensation. He noticeda gradual feeling of increased fatigability and shortness of breath with exertion with heaviness in the thighs legs and arms. He did not have any visible bright red blood per rectum but had guaiac positive stool. His hemoglobin was 4.5. He underwent transfusion of a total of 6 units of blood andhad not had any visible gastrointestinal bleeding during the hospital stay. An abdominal CT showed a mass within the cecum suspicious for malignancy. He was offered colonoscopy by Dr. Maria but deferred this. After discharge from the hospital he self referred to Dr. Fox and underwent colonoscopy 04/09/2018 with cecal biopsy showing invasive to poorly differentiated adenocarcinoma, fragments of tubular adenoma with high- grade dysplasia. He has since been referred to Dr. Groves and is scheduled for surgery 05/01/2018. I have reviewed his outside laboratories including peripheral smear is noting marked poikilocytosis with report of 2+ schistocytes and 2+ teardrops. He also had a remarkable low mean corpuscular volume in the low 70s with elevated RDW to30s. This remained low despite his multiple transfusions. Upon triage today before his appointment I ordered a CBC which shows his hemoglobin is improved tothe 10-1/2 range but he has persistent iron deficiency of 6%. I offered parenteral iron therapy today to prepare him for surgery next week with Injectafer 750 mg IV today and repeat in 1 week before his planned surgery next Sunday. Patient reports his remarkable fatigue has improved. He does have some right lower quadrant pain mainly with activity and palpation. No abdominaldistention, no constipation or diarrhea, no visible change in stools. He deniesany known cardiac or respiratory issues ([place] He is accompanied by his daughter today. His father was diagnosed with colon cancer at age 47 and at age 48 as he was metastatic at diagnosis. Patient does not know of any other family members with malignancy, but he has never had genetic testing. - Summary of Therapies Summary of Therapies: 1. Right hemicolectomy with reanastomosis 05/03/2018 2. Likely to commence chemotherapy with oxaliplatin 130 mg IV every 3 weeks with oral Xeloda 1000 mg/m? twice daily for 2 weeks on 1 week off in early June 2018. Adjuvant therapy will continue for 6 cycles. Subjective/ROS - Narrative: ROS Details: All systems reviewed & no additional complaints except as documented Constitutional: fair state of general health - Improved to baseline since recenttransfusions, decreased activity level, decreased exercise tolerance, normal sleep, no weight loss - Denies significant weight loss, no weight gain Eyes: no change in vision, no double vision Ears, nose, mouth, throat: no headaches, no vertigo, no lightheadedness - Prior lightheadedness resolved since transfusions, no head injury, no nasal congestion, no rhinorrhea, no epistaxis, no gingival bleeding, no sore throat Cardiovascular: dyspnea on exertion, no chest pain, no palpitations, no syncope - Patient never actually had syncope but had presyncopal sensation before transfusion, no orthopnea, no edema, no heart murmur Respiratory: no pain with respirations, no shortness of breath, no wheezing, no exercise intolerance, no cough, no sputum production, no hemoptysis, no TB exposure, no night sweats Gastrointestinal: abdominal pain - Right lower quadrant improved surgical site pain, no change in appetite, no dysphagia, no indigestion, no nausea, no vomiting, no hematemesis, no jaundice, no constipation, no diarrhea, no abnormalstools, no change in bowel habits Genitourinary: no frequency, no dysuria, no nocturia, no hematuria, no oliguria,no stones, no infections, no urinary retention Musculoskeletal: no pain, no swelling, no redness, no limited ROM, no weakness Integumentary: nails brittleness, nails ridging, no rash, no bleeding or bruising, no itching Neurological: no tremor, no incoordination, no paresthesias, no memory loss, no speech disturbance, no motor difficulty Psychiatric: no anxiety, no depression Endocrine: no hormone therapy, no heat intolerance Hematologic/Lymphatic: anemia - As per HPI, no enlarged lymph nodes Allergic/Immunologic: no reaction to drugs ROS Details: All systems reviewed & no additional complaints except as documented ONC PMFSH - General Attestation statement: The following information was validated with the patient. Source: Old Records Reviewed - Medical History Medical history: Cancer - Recent diagnosis of cecal cancer by colonoscopy Past Medical History Comments: sleep apnea, recent blood transfusions - Surgical History Surgical history male: colectomy, orthopedic, other Surgical History Comment: left knee arthroscopy, eye - Cardiac History Patient on Service Establishment Attendant: No Does Patient Have Pacemaker?: No - Psych History Psychiatric history: no psych history - Family History Family History: CAD/PA, cancer - Father colon cancer age 47, hypertension - Genetics Would you like a referral to genetics?: No - Social History History of Any Tobacco Product Use?: Yes Tobacco Type: smokeless tobacco Do you ever drink alcohol (including beer or wine)?: No If yes, how many days did you drink in the past week?: 1 Did you previously drink alcohol, but have since quit?: No Hx Recreational Drug Use?: No Substance Use Type: None Home Medications & Allergies Allergies Allergy/AdvReac Type Severity Reaction Status Date / Time No Known Allergies Allergy Verified 04/04/18 13:53 Home Medications Medication Instructions Recorded Confirmed Type tramadol [Ultram] 50 mg PO Q6H PRN 7 Days #45 tab 05/06/18 05/23/18 Rx capecitabine 1,000 mg/m2 PO Q12H #28 tab 05/23/18 Rx Objective - Resuscitation Status Resuscitation Status: Full Code - Height/Weight Height/Weight: Height 5 ft 11 in Weight 91.5 kg BSA for Today's Weight 2.19 - Vital Signs Vital Signs: Temp 97.7 F 05/23/18 10:31 Pulse 74 05/23/18 10:31 Resp 20 05/23/18 10:31 BP 133/82 05/23/18 10:31 Pulse Ox 97 05/23/18 10:31 - Pain Right Abdomen Pain Intensity: 2 - Emotional Needs Assessment Emotional Needs Assessment: Emotional Needs Identified? No Distress Screening Total 0 Support System Child/Children - ECOG Performance Status ECOG Score: 1 - Due to fatigue, postop recovery Physical Exam - Constitutional no acute distress, average body habitus, no chronically ill appearing, cooperative - Routine HEENT Exam Head: normocephalic, atraumatic, no cushingoid faces Eye: EOMI, PERRL, no conjunctival injection, no scleral icterus ENT: mucous membranes moist, oropharynx clear, dentition normal - Routine Neck Exam supple, full ROM, no lymphadenopathy, no thyromegaly, no tenderness - Routine Chest/Breast/Axilla Exam Chest wall: no tenderness, no mass Axillae: no lymphadenopathy, no mass - Routine Respiratory Exam no accessory muscle use, CTA bilaterally, no rales, no respiratory distress, no rhonchi, no wheezes - Routine Cardiovascular Exam RRR, no murmur, no gallop, no irregular rhythm - Routine Abdominal Exam soft, normoactive bowel sounds, tenderness - Healing midline incision abdomen, no distended, no rebound, no guarding, no organomegaly, no mass, wound - Well approximated, no erythema or drainage, healing well - Routine Exam Groin: Absent: inguinal lymphadenopathy - Routine Extremities Exam Present: full ROM, pulses intact, normal capillary refill. Absent: cyanosis, clubbing, calf tenderness, tenderness - Routine Back/Spine/Pelvis Exam Back/Spine: Present: full ROM. Absent: CVA tenderness, paraspinal tenderness, vertebral tenderness - Routine Skin Exam Present: intact, warm, normal turgor. Absent: petechiae, lesions, jaundice, rash, ecchymosis - Routine Neurological Exam Present: alert, oriented X3, CN II-XII intact, normal reflexes, moving all extremities, vision grossly intact, hearing grossly intact, normal speech. Absent: sensory deficit, motor deficit, abnormal gait, tremors - Routine Psychiatric Exam Present: normal affect, normal thought process, cooperative. Absent: depressed, anxious Results - Labs CBC & Chem 7: 05/22/18 13:52 Labs: Diagram of Most Recent CBC and CMP 05/22/18 13:52 Labs - Last 7 Days 05/22/18 13:52: Iron 74, TIBC 367, Iron Saturation 20.0, Transferrin 262, Ferritin 164.0 05/22/18 13:52: WBC 5.5, Corrected WBC 5.5, RBC 4.76, Hgb 12.7 L, Hct 40.2, MCV 84.4, MCH 26.7 L, MCHC 31.6 L, RDW 26.9 H, Plt Count 342, MPV 8.7, Neut % (Auto) 72.5, Lymph % (Auto) 20.2, Marion % (Auto) 6.1, Eos % (Auto) 0.2, Baso % (Auto) 1.0, Neut # (Auto) 4.0, Lymph # (Auto) 1.1, Marion # (Auto) 0.3, Eos # (Auto) 0.0, Baso # (Auto) 0.1, Platelet Estimate Normal, Plt Morphology Comment Normal, RBC Morphology N/A, Hypochromasia Slight, Anisocytosis Marked - Impressions Any impression(s) listed above is documentation that was entered by the reading physician into a diagnostic report(s) for Isaiaselmer Gleason. I have reviewed the report(s) and am incorporating any findings in the treatment plan of this patient where applicable. Assessment and Plan (1) Carcinoma of cecum Status: Acute This is a 53-year-old male without significant past medical history but significant family history of colon carcinoma in his father age 47. He is now diagnosed with a cecal carcinoma by colonoscopy on 04/09 and underwent 05/01 revealing stage IIb (pT4a pN0 M0) moderate to poorly differentiated adenocarcinoma. He had a contained perforation of the cecum, but all surgical margins are negative with no residual disease. He met with medical genetics on 05/22 and testing was still pending at that time for mismatch repair genes. 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 We will arrange follow-up with medical genetics for testing of the patient's family members and follow-up for other malignancies associated with the Mcadams syndrome. Today we discussed options for chemotherapy in the adjuvant setting due to T4N0 disease with invasion through the bowel wall. He did not wish to have infusion port placement and pump for 5-FU due to his occupational responsibilities and he is highly motivated to return to work. We discussed all options for adjuvant therapy and he decided on oxaliplatin 130 mg/m? IV every 3 weeks with oral Xeloda 1000 mg/m? twice daily for 2 weeks on 3 weeks off for 8 cycles. Informed consent for chemotherapy was performed today and he will likely return in about 2 weeks for oral chemotherapy counseling and to commence first cycle. I will see him the following week for toxicity check. All questions were answered the patient and his over this 45-minute extended follow-up visit to discuss pathology, genetics testing, and chemotherapy consent. I would like to thank you very much for the courtesy of this referral. I will keep you up-to-date with this patient's progress. Should you have any questions regarding the management of this patient, please do not hesitate to contact me. Sincerely, Myranda Jarquin MD, FACP Medical Oncology (2) Iron deficiency anemia due to chronic blood loss Status: Chronic The patient was admitted to [facility] for severe anemia with hemoglobin down to 4.5 and no clear bleeding source. Despite 6 units of transfusion, he had microcytic indices with anemia and iron saturation 8%. To improve surgical morbidity, I treated him with parenteral iron infusion with Injectafer 750 mg today and second infusion 1 week prior to his scheduled surgery. His hemoglobin is now normal and iron stores have returned to normal. We will continue to follow hemoglobin on chemotherapy, but likely source of bleeding was his colon adenocarcinoma which has been resected. The patient is in agreement with this plan. (3) Mcadams syndrome Status: Acute The patient has a family history of colon cancer in his father diagnosed at age 47. Mismatch repair genes are deficient on his specimen and is consistent with Mcadams syndrome. He has had initial evaluation with medical genetics but did not have mismatch repair genes available at the time of this visit. We will follow-up with him to arrange further genetic testing of the patient's family members for Mcadams syndrome and continue surveillance for Mcadams associated malignancies. - Chemo Plan Chemo Plan (Dose, Rate, Freq): CapeOX6 Day 1: Oxaliplatin 130mg/m2 IV Days 1-14: Capecitabine 1,000mg/m2 orally twice daily. Repeat cycle every 3 weeks. Goal of Treatment: Curative - Time with Patient Coordination of Care & Counseling Time: Greater than 50% of time spent with patient was for coordination of care (as documented) and [id number] counseling of patient and/or family. Dictated By: Myranda Jarquin MD DD/ [id number] Signed By: <Electronically signed by Myranda Jarquin MD> 05/24/18 [id number] [facility] Work Phone: [phone] Progress note Author Myranda Jarquin [facility] May 24, 2018 3:47pm Note Date/Time May 23, 2018 10:43am [facility] [place] [address] Hem/Onc Follow Up Note - OP Signed Patient: Isaias Gleason MR#: [id number] : 1965 Acct:[id number] Age/Sex: 53 / M Type: REG RCR Copies to: Teri Rice MD, Aditi MD Paul C Laffay,~ Subjective Date/Time of Service: Date of Service: 05/23/2018 Time of Service: 10:43 Chief Complaint: Patient is here for follow up after colectomy 05/01 and genetics visit 05/22. - Diagnosis DIAGNOSIS: 1. Cecal carcinoma, originally presented to [facility] with iron deficiency anemia of occult source. Known family history of colon cancer in father who at age 48. --Right hemicolectomy performed 05/06/2018. 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 Directly penetrating the serosa. Clinical history of a contained perforation against the lateral peritoneum was noted. Terminal ileum and ileocecal valve involvement by colonic adenocarcinomaidentified. Negative mesenteric, true peritoneum, and colon proximal and distalmargins of resection. 36 out of 36 pericolic lymph nodes are negative for metastatic colon adenocarcinoma. Fibrous obliteration of appendix lumen. 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 MSH2 and MSH6 show intact nuclear expression. 2. Iron deficiency anemia, originally presented with hemoglobin 4.5 on 03/30/2018. 6 units blood transfused --Coordinated Injectafer iron therapy 750 mg IV on 04/23 and 05/01/2018 prior tosurgery. HPI: Isaias presents with his to review pathology and further plans for therapyafter right hemicolectomy. He notes that he is recovering from surgery well andis ambulatory and eating a normal diet. He was able to have re-anastomosis after surgery and wound is healing well. He is having improved fatigue since transfusions and iron repletion therapy. No other interval history. He met with medical genetics and at the time they did not have results of his mismatch repair testing of his specimen. 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 Today we discussed adjuvant chemotherapy options due to T4 N0 disease. There is no indication for radiationtherapy with negative margins. His options were FOLFOX which would require placement of an infusion pump, oxaliplatin with oral Xeloda, or oral Xeloda alone. Disease free survival and overall survival is improved with addition of oxaliplatin based therapy, although higher dose of oxaliplatin every 3 weeks is given with oral Xeloda and may contribute to more neuropathy symptoms. The patient would like to proceed with oxaliplatin Xeloda at about 4-6 weeks postoperatively. We completed chemotherapy consent today. Today we reviewed chemotherapy counseling for IV oxaliplatin 130 mg/m? every 3 weeks with oral Xeloda 1000 mg/m? twice daily for 2 weeks on 1 week off. This would be repeated once every 3 weeks for 8 cycles to complete 6 months of adjuvant therapy. Goal of therapy is for cure. Common toxicities were reviewedto include myelosuppression, fatigue, nausea, vomiting, constipation, diarrhea, mouth sores, palmar plantar dysesthesia, other skin rashes, and cold-induced andcumulative neuropathy. Other toxicities may include rare coronary vasospasm, and/or hepatic and renal toxicities. The patient signed informed consent and will follow-up as directed to commence therapy in the next 2 weeks. He will also meet with nurse practitioner Anahi for oral chemotherapy visit when oral Xeloda arrives. I will see him for toxicity visit the following week. PRELIMINARY HISTORY: This is a 53-year-old male who does not seek regular medical care who presented to the emergency department with weakness and presyncopal sensation. He noticeda gradual feeling of increased fatigability and shortness of breath with exertion with heaviness in the thighs legs and arms. He did not have any visible bright red blood per rectum but had guaiac positive stool. His hemoglobin was 4.5. He underwent transfusion of a total of 6 units of blood andhad not had any visible gastrointestinal bleeding during the hospital stay. An abdominal CT showed a mass within the cecum suspicious for malignancy. He was offered colonoscopy by Dr. Maria but deferred this. After discharge from the hospital he self referred to Dr. Fox and underwent colonoscopy 04/09/2018 with cecal biopsy showing invasive to poorly differentiated adenocarcinoma, fragments of tubular adenoma with high- grade dysplasia. He has since been referred to Dr. Groves and is scheduled for surgery 05/01/2018. I have reviewed his outside laboratories including peripheral smear is noting marked poikilocytosis with report of 2+ schistocytes and 2+ teardrops. He also had a remarkable low mean corpuscular volume in the low 70s with elevated RDW to30s. This remained low despite his multiple transfusions. Upon triage today before his appointment I ordered a CBC which shows his hemoglobin is improved tothe 10-07/10 range but he has persistent iron deficiency of 6%. I offered parenteral iron therapy today to prepare him for surgery next week with Injectafer 750 mg IV today and repeat in 1 week before his planned surgery next Sunday. Patient reports his remarkable fatigue has improved. He does have some right lower quadrant pain mainly with activity and palpation. No abdominaldistention, no constipation or diarrhea, no visible change in stools. He deniesany known cardiac or respiratory issues [place] He is accompanied by his daughter today. His father was diagnosed with colon cancer at age 47 and at age 48 as he was metastatic at diagnosis. Patient does not know of any other family members with malignancy, but he has never had genetic testing. - Summary of Therapies Summary of Therapies: 1. Right hemicolectomy with reanastomosis 05/03/2018 2. Likely to commence chemotherapy with oxaliplatin 130 mg IV every 3 weeks with oral Xeloda 1000 mg/m? twice daily for 2 weeks on 1 week off in early June 2018. Adjuvant therapy will continue for 6 cycles. Subjective/ROS - Narrative: ROS Details: All systems reviewed & no additional complaints except as documented Constitutional: fair state of general health - Improved to baseline since recenttransfusions, decreased activity level, decreased exercise tolerance, normal sleep, no weight loss - Denies significant weight loss, no weight gain Eyes: no change in vision, no double vision Ears, nose, mouth, throat: no headaches, no vertigo, no lightheadedness - Prior lightheadedness resolved since transfusions, no head injury, no nasal congestion, no rhinorrhea, no epistaxis, no gingival bleeding, no sore throat Cardiovascular: dyspnea on exertion, no chest pain, no palpitations, no syncope - Patient never actually had syncope but had presyncopal sensation before transfusion, no orthopnea, no edema, no heart murmur Respiratory: no pain with respirations, no shortness of breath, no wheezing, no exercise intolerance, no cough, no sputum production, no hemoptysis, no TB exposure, no night sweats Gastrointestinal: abdominal pain - Right lower quadrant improved surgical site pain, no change in appetite, no dysphagia, no indigestion, no nausea, no vomiting, no hematemesis, no jaundice, no constipation, no diarrhea, no abnormalstools, no change in bowel habits Genitourinary: no frequency, no dysuria, no nocturia, no hematuria, no oliguria,no stones, no infections, no urinary retention Musculoskeletal: no pain, no swelling, no redness, no limited ROM, no weakness Integumentary: nails brittleness, nails ridging, no rash, no bleeding or bruising, no itching Neurological: no tremor, no incoordination, no paresthesias, no memory loss, no speech disturbance, no motor difficulty Psychiatric: no anxiety, no depression Endocrine: no hormone therapy, no heat intolerance Hematologic/Lymphatic: anemia - As per HPI, no enlarged lymph nodes Allergic/Immunologic: no reaction to drugs ROS Details: All systems reviewed & no additional complaints except as documented ONC PMFSH - General Attestation statement: The following information was validated with the patient. Source: Old Records Reviewed - Medical History Medical history: Cancer - Recent diagnosis of cecal cancer by colonoscopy Past Medical History Comments: sleep apnea, recent blood transfusions - Surgical History Surgical history male: colectomy, orthopedic, other Surgical History Comment: left knee arthroscopy, eye - Cardiac History Patient on Service Establishment Attendant: No Does Patient Have Pacemaker?: No - Psych History Psychiatric history: no psych history - Family History Family History: CAD/PA, cancer - Father colon cancer age 47, hypertension - Genetics Would you like a referral to genetics?: No - Social History History of Any Tobacco Product Use?: Yes Tobacco Type: smokeless tobacco Do you ever drink alcohol (including beer or wine)?: No If yes, how many days did you drink in the past week?: 1 Did you previously drink alcohol, but have since quit?: No Hx Recreational Drug Use?: No Substance Use Type: None Home Medications & Allergies Allergies Allergy/AdvReac Type Severity Reaction Status Date / Time No Known Allergies Allergy Verified 04/04/18 13:53 Home Medications Medication Instructions Recorded Confirmed Type tramadol [Ultram] 50 mg PO Q6H PRN 7 Days #45 tab 05/06/18 05/23/18 Rx capecitabine 1,000 mg/m2 PO Q12H #28 tab 05/23/18 Rx Objective - Resuscitation Status Resuscitation Status: Full Code - Height/Weight Height/Weight: Height 5 ft 11 in Weight 91.5 kg BSA for Today's Weight 2.19 - Vital Signs Vital Signs: Temp 97.7 F 05/23/18 10:31 Pulse 74 05/23/18 10:31 Resp 20 05/23/18 10:31 BP 133/82 05/23/18 10:31 Pulse Ox 97 05/23/18 10:31 - Pain Right Abdomen Pain Intensity: 2 - Emotional Needs Assessment Emotional Needs Assessment: Emotional Needs Identified? No Distress Screening Total 0 Support System Child/Children - ECOG Performance Status ECOG Score: 1 - Due to fatigue, postop recovery Physical Exam - Constitutional no acute distress, average body habitus, no chronically ill appearing, cooperative - Routine HEENT Exam Head: normocephalic, atraumatic, no cushingoid faces Eye: EOMI, PERRL, no conjunctival injection, no scleral icterus ENT: mucous membranes moist, oropharynx clear, dentition normal - Routine Neck Exam supple, full ROM, no lymphadenopathy, no thyromegaly, no tenderness - Routine Chest/Breast/Axilla Exam Chest wall: no tenderness, no mass Axillae: no lymphadenopathy, no mass - Routine Respiratory Exam no accessory muscle use, CTA bilaterally, no rales, no respiratory distress, no rhonchi, no wheezes - Routine Cardiovascular Exam RRR, no murmur, no gallop, no irregular rhythm - Routine Abdominal Exam soft, normoactive bowel sounds, tenderness - Healing midline incision abdomen, no distended, no rebound, no guarding, no organomegaly, no mass, wound - Well approximated, no erythema or drainage, healing well - Routine Exam Groin: Absent: inguinal lymphadenopathy - Routine Extremities Exam Present: full ROM, pulses intact, normal capillary refill. Absent: cyanosis, clubbing, calf tenderness, tenderness - Routine Back/Spine/Pelvis Exam Back/Spine: Present: full ROM. Absent: CVA tenderness, paraspinal tenderness, vertebral tenderness - Routine Skin Exam Present: intact, warm, normal turgor. Absent: petechiae, lesions, jaundice, rash, ecchymosis - Routine Neurological Exam Present: alert, oriented X3, CN II-XII intact, normal reflexes, moving all extremities, vision grossly intact, hearing grossly intact, normal speech. Absent: sensory deficit, motor deficit, abnormal gait, tremors - Routine Psychiatric Exam Present: normal affect, normal thought process, cooperative. Absent: depressed, anxious Results - Labs CBC & Chem 7: 05/22/18 13:52 Labs: Diagram of Most Recent CBC and CMP 05/22/18 13:52 Labs - Last 7 Days 05/22/18 13:52: Iron 74, TIBC 367, Iron Saturation 20.0, Transferrin 262, Ferritin 164.0 05/22/18 13:52: WBC 5.5, Corrected WBC 5.5, RBC 4.76, Hgb 12.7 L, Hct 40.2, MCV 84.4, MCH 26.7 L, MCHC 31.6 L, RDW 26.9 H, Plt Count 342, MPV 8.7, Neut % (Auto) 72.5, Lymph % (Auto) 20.2, Marion % (Auto) 6.1, Eos % (Auto) 0.2, Baso % (Auto) 1.0, Neut # (Auto) 4.0, Lymph # (Auto) 1.1, Marion # (Auto) 0.3, Eos # (Auto) 0.0, Baso # (Auto) 0.1, Platelet Estimate Normal, Plt Morphology Comment Normal, RBC Morphology N/A, Hypochromasia Slight, Anisocytosis Marked - Impressions Any impression(s) listed above is documentation that was entered by the reading physician into a diagnostic report(s) for Isaias Gleason. I have reviewed the report(s) and am incorporating any findings in the treatment plan of this patient where applicable. Assessment and Plan (1) Carcinoma of cecum Status: Acute This is a 53-year-old male without significant past medical history but significant family history of colon carcinoma in his father age 47. He is now diagnosed with a cecal carcinoma by colonoscopy on 04/09 and underwent 05/01 revealing stage IIb (pT4a pN0 M0) moderate to poorly differentiated adenocarcinoma. He had a contained perforation of the cecum, but all surgical margins are negative with no residual disease. He met with medical genetics on 05/22 and testing was still pending at that time for mismatch repair genes. 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 We will arrange follow-up with medical genetics for testing of the patient's family members and follow-up for other malignancies associated with the Mcadams syndrome. Today we discussed options for chemotherapy in the adjuvant setting due to T4N0 disease with invasion through the bowel wall. He did not wish to have infusion port placement and pump for 5-FU due to his occupational responsibilities and he is highly motivated to return to work. We discussed all options for adjuvant therapy and he decided on oxaliplatin 130 mg/m? IV every 3 weeks with oral Xeloda 1000 mg/m? twice daily for 2 weeks on 3 weeks off for 8 cycles. Informed consent for chemotherapy was performed today and he will likely return in about 2 weeks for oral chemotherapy counseling and to commence first cycle. I will see him the following week for toxicity check. All questions were answered the patient and his over this 45-minute extended follow-up visit to discuss pathology, genetics testing, and chemotherapy consent. I would like to thank you very much for the courtesy of this referral. I will keep you up-to-date with this patient's progress. Should you have any questions regarding the management of this patient, please do not hesitate to contact me. Sincerely, Myranda Jarquin MD, FACP Medical Oncology (2) Iron deficiency anemia due to chronic blood loss Status: Chronic The patient was admitted to [facility] for severe anemia with hemoglobin down to 4.5 and no clear bleeding source. Despite 6 units of transfusion, he had microcytic indices with anemia and iron saturation 8%. To improve surgical morbidity, I treated him with parenteral iron infusion with Injectafer 750 mg today and second infusion 1 week prior to his scheduled surgery. His hemoglobin is now normal and iron stores have returned to normal. We will continue to follow hemoglobin on chemotherapy, but likely source of bleeding was his colon adenocarcinoma which has been resected. The patient is in agreement with this plan. (3) Mcadams syndrome Status: Acute The patient has a family history of colon cancer in his father diagnosed at age 47. Mismatch repair genes are deficient on his specimen and is consistent with Mcadams syndrome. He has had initial evaluation with medical genetics but did not have mismatch repair genes available at the time of this visit. We will follow-up with him to arrange further genetic testing of the patient's family members for Mcadams syndrome and continue surveillance for Mcadams associated malignancies. - Chemo Plan Chemo Plan (Dose, Rate, Freq): CapeOX6 Day 1: Oxaliplatin 130mg/m2 IV Days 1-14: Capecitabine 1,000mg/m2 orally twice daily. Repeat cycle every 3 weeks. Goal of Treatment: Curative - Time with Patient Coordination of Care & Counseling Time: Greater than 50% of time spent with patient was for coordination of care (as documented) and [id number] counseling of patient and/or family. Dictated By: Myranda Jarquin MD DD/ [id number] Signed By: <Electronically signed by Myranda Jarquin MD> 05/24/18 [id number] [facility] Work Phone: [phone] Consult note Author Luz Fox [facility] May 23, 2018 8:23am Note Date/Time May 22, 2018 2:50pm [facility] [place] [address] Genetics Consult Note Signed Patient: Isaias Gleason MR#: [id number] : 1965 Acct:[id number] Age/Sex: 53 / M Type: REG RCR Copies to: Teri Rice MD, DO Reese, Amy MD~ Genetics Consultation Note - Consult Note Narrative: HISTORY OF PRESENT ILLNESS: Mr. Isaias Gleason is a 53-year old male with a personal and family history of colon cancer. He was referred to the Cancer Genetics Clinic at [facility] by his physician, Dr. Myranda Jarquin. Mr. Gleason is interested in genetic testing to clarify his personal risks for cancer, as well as the risks to his family members. Mr. Gleason was seen in clinic on 05/22/2018. CANCER MEDICAL HISTORY: PERSONAL HISTORY OF CANCER? Yes TYPE: colon AGE OF DIAGNOSIS: 53 DIAGNOSIS AND TREATMENT: Presented to the ER with weakness and syncope, and was found to have a hemoglobin of 4.5. He then had a colonoscopy on 04/09/18, and a mass was found in the cecum. Pathology showed moderately/poorly differentiated adenocarcinoma. He had a right hemicolectomy on 05/01/18. He is seeing Dr. Jarquin tomorrow for a discussion of adjuvant chemotherapy. HISTORY of OTHER CANCERS? No CANCER SCREENING HISTORY: Colonoscopy? None prior to his diagnosis EGD? No Dermatology? No Other cancer screening? No FAMILY HISTORY: A four-generation pedigree was obtained and was significant for the following: - Patient, colon cancer, diagnosed at 53 - Father, colon cancer, diagnosed at 46; - Paternal grandmother, colon cancer, in her 60s Mr. Gleason is of Mixed descent. There is no known Ashkenazi Yazidi ancestry. Consanguinity was denied. GENETIC COUNSELING: Basic cancer genetic counseling was provided to Mr. Gleason. This included discussion of genes, chromosomes, inherited forms of colon cancer, and the genesknown to cause Mcadams syndrome, the most common inherited form of colon cancer. We discussed that most cancers are not due to an inherited genetic susceptibility. However, in about 5-10% of families, there is an inherited genetic mutation that can make a person more susceptible to developing certain forms of cancer. Within these families, we often see many family members with cancer, occurring in multiple generations. In addition, an earlier age at diagnosis is suggestive of an inherited form of cancer. Finally, there is a clustering of certain types of cancers in these families, such as colon and uterine cancer. In Mr. Gleason?s family, his father was diagnosed at an early age. There are three individuals in three generations with colon cancer. The family meets [place] I criteria for a clinical diagnosis of Mcadams syndrome. We discussed Mcadams syndrome, an autosomal dominant condition caused by germline mutations in one of five genes - MLH1, MSH2, MSH6, PMS2, and EPCAM. Mutation carriers have an increased risk to develop colon cancer over their lifetime (80%), and an increased risk for a second colon primary. At least two-thirds ofthe colon cancers occur on the right side of the colon. Female mutation carriers have an increased risk for endometrial cancer (60-70%) and ovarian cancer (12%). Other cancers associated with Mcadams syndrome include gastric cancer, hepatobiliary, small bowel, urinary tract, and rarely pancreatic cancer. We discussed that Mcadams syndrome is typically screened for by immunohistochemistry (IHC) staining of the colon tumor. IHC is a screening testthat assesses the presence or absence of the protein products produced by the mismatch repair genes. Loss of one or more mismatch repair protein(s) on IHC canbe due to either an inherited mutation in one of these genes, or due to a somatic gene mutation confined to the tumor tissue. Therefore, IHC is not diagnostic for Mcadams syndrome. DNA based testing would be recommended if the IHCis abnormal. Thus, we discussed that typically the first step in determining ifgenetic testing would be recommended is to perform IHC on his colon tumor. Thiswas ordered today. We also reviewed that Mcadams syndrome is the most common inherited predispositionto colon cancer; however, there are other rarer colon cancer susceptibility syndromes. These include the polyposis syndromes (APC and MYH genes), the oligopolyposis syndromes (GREM1, POLD1, POLE, and NTHL1) as well as the hamartomatous polyposis syndromes (STK11, PTEN, SMAD4, and BMPR1A). None of these additional syndromes are particularly likely, given the family history andthe lack of known colon polyps in Mr. Gleason or his relatives. We will request insurance authorization for genetic testing for inherited colon susceptibility while waiting for the IHC results. PLAN: 1. IHC staining of the colon tumor ordered for Mcadams syndrome screening. If abnormal, this will guide DNA based testing. 2. Mr. Gleason will be notified by telephone once the IHC results are available. 3. Mr. Gleason can contact us with questions or concerns by calling [phone]. PHYSICIAN STATEMENT OF TIME: I spent 10 minutes with this patient and >50% was spent on counseling and coordination of care. Stephanie Harrison MS Licensed Genetic Counselor [facility] Luz Fox MD Clinical Balance Screwhead Polisher Departments of Genetics and Genome Sciences and Pediatrics [facility] Dictated By: Stephanie Harrison DD/ [id number] Signed By: <Electronically signed by Stephanie Harrison> 05/22/18 1451 <Electronically signed by Luz Fox MD> 05/23/18 0823 [facility] Work Phone: [phone] Consult note Author Myranda Jarquin [facility] April 23, 2018 10:01am Note Date/Time April 23, 2018 8 :59am [facility] [place] [id number] Hem/Onc Consult Note - OP Signed Patient: Isaias Gleason MR#: [id number] : 1965 Acct:[id number] Age/Sex: 53 / M Type: REG RCR Copies to: Orestes Fox Jr, Teri Kim MD,~ HPI Date/Time of Service: Date of Service: 04/23/2018 Time of Service: 08:15 Referring Provider/PCP: Referring Provider: PCP: Teri Rice MD - History of Present Illness Reason for Consultation: Patient presented to [facility] with severe anemia in mid March 2018. Required 6 units blood transfusion for initial hemoglobin 4.5. Abdominal CT showed possible cecal mass suspicious for malignancy. Underwent colonoscopy by Dr. 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 Surgery scheduled next week. Asked to evaluate for colon cancer and iron deficiency anemia. Chief Complaint: New patient visit for abnormal colonoscopy, Patient has surgeryscheduled for May 01. HPI: Dear Dr. Fox and Dr. Groves, I had the great pleasure of seeing your patient in consultation. Thank you verymuch for your referral. As you know this is a 53-year-old male who does not seek regular medical care who presented to the emergency department with weakness and presyncopal sensation. He noticed a gradual feeling of increased fatigability and shortness of breath with exertion with heaviness in the thighs legs and arms. He did not have any visible bright red blood per rectum but had guaiac positive stool. His hemoglobin was 4.5. He underwent transfusion of a total of 6 units of blood and had not had any visible gastrointestinal bleeding during the hospital stay. An abdominal CT showed a mass within the cecum suspicious for malignancy. He was offered colonoscopy by Dr. Maria but deferred this. After discharge from the hospital he self referred to Dr. Fox and underwent colonoscopy 04/09/2018 with cecal biopsy showing invasive to poorlydifferentiated adenocarcinoma, fragments of tubular adenoma with high- grade dysplasia. He has since been referred to Dr. Groves and is scheduled for surgery 05/01/2018. I have reviewed his outside laboratories including peripheral smear is noting marked poikilocytosis with report of 2+ schistocytes and 2+ teardrops. He also had a remarkable low mean corpuscular volume in the low 70s with elevated RDW to30s. This remained low despite his multiple transfusions. Upon triage today before his appointment I ordered a CBC which shows his hemoglobin is improved tothe 10-07/10 range but he has persistent iron deficiency of 6%. I offered parenteral iron therapy today to prepare him for surgery next week with Injectafer 750 mg IV today and repeat in 1 week before his planned surgery next Sunday. Patient reports his remarkable fatigue has improved. He does have some right lower quadrant pain mainly with activity and palpation. No abdominaldistention, no constipation or diarrhea, no visible change in stools. He deniesany known cardiac or respiratory issues [place] He is accompanied by his daughter today. His father was diagnosed with colon cancer at age 47 and at age 48 as he was metastatic at diagnosis. Patient does not know of any other family members with malignancy, but he has never had genetic testing. ONC [facility] - General Attestation statement: The following information was validated with the patient. Source: Old Records Reviewed - Medical History Medical history: Cancer - Recent diagnosis of colon cancer by colonoscopy Past Medical History Comments: sleep apnea, recent blood transfusions - Surgical History Surgical history male: orthopedic, other Surgical History Comment: left knee arthroscopy, eye - Psych History Psychiatric history: no psych history - Family History Family History: CAD/PA, cancer - Father colon cancer age 47, hypertension - Genetics Would you like a referral to genetics?: No - Social History History of Any Tobacco Product Use?: Yes Tobacco Type: smokeless tobacco Do you ever drink alcohol (including beer or wine)?: No If yes, how many days did you drink in the past week?: 1 Did you previously drink alcohol, but have since quit?: No Hx Recreational Drug Use?: No Substance Use Type: None Home Medications & Allergies Allergies Allergy/AdvReac Type Severity Reaction Status Date / Time No Known Allergies Allergy Verified 04/04/18 13:53 Home Medications Medication Instructions Recorded Confirmed Type No known home meds 04/04/18 04/23/18 History Subjective Data - Diagnosis DIAGNOSIS: 1. Cecal carcinoma, planned surgery 05/01/[address] Groves 2. Iron deficiency anemia, originally presented with hemoglobin 4.5 on 03/30/2018. 6 units blood transfused --Coordinating Injectafer iron therapy 750 mg IV on 04/23 and 05/01/2018 prior to surgery. ROS Details: All systems reviewed & no additional complaints except as documented Constitutional: fair state of general health - Improved to baseline since recenttransfusions, decreased activity level, decreased exercise tolerance, normal sleep, no weight loss - Denies significant weight loss, no weight gain Eyes: no change in vision, no double vision Ears, nose, mouth, throat: no headaches, no vertigo, no lightheadedness - Prior lightheadedness resolved since transfusions, no head injury, no nasal congestion, no rhinorrhea, no epistaxis, no gingival bleeding, no sore throat Cardiovascular: dyspnea on exertion, no chest pain, no palpitations, no syncope - Patient never actually had syncope but had presyncopal sensation before transfusion, no orthopnea, no edema, no heart murmur Respiratory: no pain with respirations, no shortness of breath, no wheezing, no exercise intolerance, no cough, no sputum production, no hemoptysis, no TB exposure, no night sweats Gastrointestinal: abdominal pain - Right lower quadrant as per HPI, no change inappetite, no dysphagia, no indigestion, no nausea, no vomiting, no hematemesis, no jaundice, no constipation, no diarrhea, no abnormal stools, no change in bowel habits Genitourinary: no frequency, no dysuria, no nocturia, no hematuria, no oliguria,no stones, no infections, no urinary retention Musculoskeletal: no pain, no swelling, no redness, no limited ROM, no weakness Integumentary: nails brittleness, nails ridging, no rash, no bleeding or bruising, no itching Neurological: no tremor, no incoordination, no paresthesias, no memory loss, no speech disturbance, no motor difficulty Psychiatric: no anxiety, no depression Endocrine: no hormone therapy, no heat intolerance Hematologic/Lymphatic: anemia - As per HPI, no enlarged lymph nodes Allergic/Immunologic: no reaction to drugs Objective - Resuscitation Status Resuscitation Status: Full Code - Height/Weight Height/Weight: Height 5 ft 11 in Weight 95.9 kg - Vital Signs Vital Signs: Temp 98.2 F 04/23/18 08:24 Pulse 76 04/23/18 08:24 Resp 20 04/23/18 08:24 BP 135/90 04/23/18 08:24 Pulse Ox 98 04/23/18 08:24 - Pain Right Abdomen Pain Intensity: 2 - Emotional Needs Assessment Emotional Needs Assessment: Emotional Needs Identified? Yes Distress Screening Total 4 Support System Family - ECOG Performance Status ECOG Score: 1 - Due to fatigue Physical Exam - Constitutional no acute distress, average body habitus, no chronically ill appearing, cooperative - Routine HEENT Exam Head: normocephalic, atraumatic, no cushingoid faces Eye: EOMI, PERRL, no conjunctival icterus, no scleral injection ENT: mucous membranes moist, oropharynx clear - Mild mucosal pallor, dentition normal - Routine Neck Exam supple, full ROM, no lymphadenopathy, no thyromegaly, no tenderness - Routine Chest/Breast/Axilla Exam Chest wall: no tenderness, no mass Axillae: no lymphadenopathy, no mass - Routine Respiratory Exam no accessory muscle use, CTA bilaterally, no rales, no respiratory distress, no rhonchi, no wheezes - Routine Cardiovascular Exam RRR, no murmur, no gallop, no irregular rhythm - Routine Abdominal Exam soft, normoactive bowel sounds, tenderness - Right lower quadrant only, no distended, no rebound, no guarding, no organomegaly, no mass - Routine Exam Groin: Absent: inguinal lymphadenopathy - Routine Extremities Exam Present: full ROM, pulses intact, normal capillary refill. Absent: cyanosis, clubbing, calf tenderness, tenderness - Routine Back/Spine/Pelvis Exam Back/Spine: Present: full ROM. Absent: CVA tenderness, paraspinal tenderness, vertebral tenderness - Routine Skin Exam Present: intact, warm, normal turgor. Absent: petechiae, lesions, jaundice, rash, ecchymosis - Routine Neurological Exam Present: alert, oriented X3, CN II-XII intact, normal reflexes, moving all extremities, vision grossly intact, hearing grossly intact, normal speech. Absent: sensory deficit, motor deficit, abnormal gait, tremors - Routine Psychiatric Exam Present: normal affect, normal thought process, cooperative. Absent: depressed,anxious Results - Labs CBC & Chem 7: 04/23/18 08:10 Labs: Laboratory Last Values WBC 8.1 x10E3/uL (4.5-11.0) 04/23/18 08:10 Corrected WBC 8.1 X10E3/uL (4.1-10.5) 04/23/18 08:10 RBC 4.54 x10E6/uL (3.90-5.60) 04/23/18 08:10 Hgb 10.3 g/dL (13.0-17.0) L 04/23/18 08:10 Hct 32.7 % (38.8-50.0) L 04/23/18 08:10 MCV 72.2 fl (83.5-101) L 04/23/18 08:10 MCH 22.7 pg (27.5-35.2) L 04/23/18 08:10 MCHC 31.5 g/dL (32.5-35.6) L 04/23/18 08:10 RDW 30.6 % (12.0-14.8) H 04/23/18 08:10 Plt Count 354 x10E3/uL (150-450) 04/23/18 08:10 MPV 8.7 fl (6.6-10.1) 04/23/18 08:10 Iron 28 ug/dL (40-160) L 04/23/18 08:10 TIBC 412 ug/dL (255-450) 04/23/18 08:10 Iron Saturation 6.0 % (20-50) L 04/23/18 08:10 Transferrin 294 mg/dL (180-380) 04/23/18 08:10 - Impressions Any impression(s) listed above is documentation that was entered by the reading physician into a diagnostic report(s) for Isaiaslemer Gleason. I have reviewed the report(s) and am incorporating any findings in the treatment plan of this patient where applicable. Outside imaging reviewed from [facility] 03/30/2018: CT abdomen and pelvis with contrast: Lung bases no visible pulmonary or pleural disease, liver no enlargement, atrophy, abnormal density, or significant focal lesion Pancreas spleen adrenals and kidneys unremarkable. Bowel/mesentery: Irregular enhancing soft tissue thickening of the wall of the cecum involving an area of 8.5 x 5.6 x 5.3 cm. No obstruction or bowel wall thickening. Aorta vascular structures are unremarkable, retroperitoneum with no mass or adenopathy, no mesenteric adenopathy Urinary bladder without focal wall thickening lesion or calcification, abdominalwall with tiny fat containing umbilical hernia and bilateral inguinal hernias without strangulation, no bony lesions or fracture. Echocardiogram 04/01/2018: Normal left ventricular ejection fraction greater than55%, no diastolic dysfunction, no significant valvular abnormality other than mild tricuspid regurgitation with no pulmonary hypertension, mild biatrial enlargement. 03/29/2018 ultrasound liver Normal size and echotexture, duplex Doppler with normal hepatic pedal flow pattern, no abnormal biliary dilatation, visible gallstones, wall thickening, orpericholecystic fluid. Normal hepatopedal flow pattern in portal vein. Assessment and Plan (1) Carcinoma of cecum Status: Acute This is a 53-year-old male without significant past medical history but significant family history of colon carcinoma in his father age 47. He is now diagnosed with a cecal carcinoma by colonoscopy on 04/09 and is scheduled for surgery on 05/01 of next week. We discussed that he may require chemotherapy inthe adjuvant setting if he has positive renata disease or invasion through the bowel wall. This will be determined at the time of pathology review after his surgery. We will also arrange medical genetics testing of the patient and determine if other family members are at risk. His FMLA will be managed by his surgeon Dr. Groves but if he requires adjuvant chemo we will also address this at that time. All questions were answered the patient and his daughter over this 1 hour initial visit. He will return for reevaluation of his pathology report in approximately 4 weeks (2-3 weeks postop). I would like to thank you very much for the courtesy of this referral. I will keep you up-to-date with this patient's progress. Should you have any questionsregarding the management of this patient, please do not hesitate to contact me. Sincerely, Myranda Jarquin MD, FACP Medical Oncology (2) Iron deficiency anemia due to chronic blood loss Status: Chronic The patient was admitted for severe anemia with hemoglobin down to 4.5 and no clear bleeding source. Despite 6 units of transfusion, he still has microcytic indices with anemia and iron saturation 8%. To improve surgical morbidity, I offered parenteral iron infusion with Injectafer 750 mg today and second infusion 1 week prior to his scheduled surgery. We will re-evaluate his iron studies in 1 month at the time of his follow-up. The patient is in agreement with this plan. (3) Family history of colon cancer in father Status: Chronic Medical genetics evaluation in approximately 1 month. Consultation sent today. - Chemo Plan Chemo Plan (Dose, Rate, Freq): Surgery and then possible adjuvant chemotherapy based on pathology review. Goal of Treatment: Curative - Time Spent with Patient Greater than 50% of time spent with patient was for coordination of care (as documented) and [id number] counseling of patient and/or family. Greater than 35 minutes Dictated By: Myranda Jarquin MD DD/ [id number] Signed By: <Electronically signed by Myranda Jarquin MD> 04/23/18 1001 [facility] Work Phone: Evaluation + Plan note No data available for this section [facility] evaluation + Plan note Future Appointments Appointment Date:05/23/2022 11:30:00 AM Scheduled Provider: Location[facility] Future Appointments Appointment Date:07/19/2022 08:30:00 AM Scheduled Provider:Eulalia Torres MD Location:[facility] Appointment Type:URO Office Visit [facility] evaluation + Plan note Future Appointments Appointment Date:10/18/2022 08:00:00 AM Scheduled Provider:Eulalia Torres MD Location:[facility] Appointment Type:URO Office Visit [facility] evaluation + Plan note Future Appointments Appointment Date:04/25/2023 08:00:00 AM Scheduled Provider:Eulalia Torres MD Location:[facility] Appointment Type:URO Office Visit [facility] evaluation noteNo assessment information available [facility] Work Phone: Evaluation note* Diagnosis Onset Date Resolution Status Abnormal abdominal CT scan a cute Mcadams syndrome chronic Prostate cancer acute Carcinoma of cecum chronic Encounter for antineoplastic chemotherapy chronic History of iron deficiency anemia chronic Iron deficiency anemia due to chronic blood loss resolved 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 [facility] Work Phone: Evaluation note* Diagnosis Onset Date Resolution Status Abnormal abdominal CT scan a cute Mcadams syndrome chronic Prostate cancer acute Carcinoma of cecum chronic Encounter for antineoplastic chemotherapy chronic Encounter for monitoring androgen deprivation therapy chronic History of iron deficiency anemia chronic Iron deficiency anemia due to chronic blood loss resolved 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 [facility] Work Phone: Evaluation note* Diagnosis Onset Date Resolution Status Abnormal abdominal CT scan a cute Mcadams syndrome chronic Adjustment disorder with mix ed anxiety and depressed mood chronic Carcinoma of cecum chronic Encounter for antineoplastic chemotherapy chronic Encounter for monitoring androgen deprivation therapy chronic History of iron deficiency anemia chronic Prostate cancer chronic Vasomotor flushing chronic Iron deficiency anemia due to chronic blood loss resolved 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 [facility] Work Phone: Hishebp general Narrative - Reported* Type Description Date Surgical History arthroscopic knee surgery Surgical History colon resection [facility] Other Hospital Discharge instructions No data available for this section [facility] No data available for this section [facility] Summary Purpose Family History No Family History Records Found Relationship Condition Age at Onset Recorded Date/T amy Not Specified Malignant neoplasm of colon Unknown Hereditary nonpolypo sis colorectal cancer (HNPCC) syndrome Unknown Relationship Condition Age at Onset Recorded Date/T amy father Malignant neoplasm of colon Unknown daughter Hereditary nonpolypo sis colorectal cancer (HNPCC) syndrome Unknown Advance Directives No Advanced Directives Records Found Advance Directive Response Recorded Date/ Time Advance Directives No March 1:44pm Advance Directive Response Recorded Date/ Time Advance Directives No March 12:44pm Procedure Findings Note Post Operative Note: PreOp D iagnosis: Abdominal wall mass Post-Procedure Diagnosis: Same Procedure: 1. Hand-assisted laparoscopic abdominal wall mass resection Surgeon: MD Manav Resident/Fellow/Other Embedded Systems Developer: MD Melina Anesthesia: GE Estimated Blood Loss (mL): none Specimen: yes Complications: None Findings: Tumor invading the right lower quadrant anterior abdominal wall at the site of previously placed clips Urine Output: See anesthesia record Drains and/or Catheters: None Implants: None Additional Details: Abdominal wall mass in the right lower quadrant likely represent colon cancer recurrence given the patient past history Operative Report Dictated: Dictation: yes Dictated by: MD Evaristo Rubi Date of Dictation: 18-Feb-2019 Signature/Cosignature/Attestation: Note Completion: Attending AttestationI was present for the entire procedure Electronic Signatures: Snehal Summers ( (Fellow)) (Signed 18-Feb-2019 10:41) Authored: Post Operative Note, Signature/Cosignature/Attest (more content not included)... Note Operative Note Name: Marie Gleason : 1965 MR#: [id number] Attending Physician: Dr. Coon Patient Type: Inpatient. Operative Date:February 18, 2019 Surgeon: Rowena Coon MD Embedded Systems Developer: MD Melina Fellow Pre-Operative Diagnosis: Abdominal wall mass Post-Operative Diagnosis: Same Anesthesia Type: General Endotracheal. Operative Procedure: Hand-assisted laparoscopic abdominal wall mass resection Operative Details: The patient was brought to the operating room, then positioned supine on the operating room table, monitors and SCDs were placed. After satisfactory induction of general anesthesia, the patient was endotracheally intubated without difficulty. Cabral catheter was placed by OR staff. We assured the patient received a dose of pre-operative IV antibiotics and 5000 units of subcutaneus heparin. The abdomen was clipped, prepped and draped in the usual sterile fashion, universal timeout was performed identifying the patient, the consent, all the necessary equipment and every one (more content not included)... 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 Chief Complaint c61 Cecal Ca Prostate Cancer Reason for Visit Abnormal abdominal C T scan Mcadams syndrome Prostate cancer Carcinoma of cecum Encounter for antineoplastic chemotherapy History of iron deficiency anemia Iron deficiency anemia due to chronic blood loss 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 Chief Complaint c61 Cecal Ca Prostate Cancer Prostate Cancer Reason for Visit Abnormal abdominal C T scan Mcadams syndrome Prostate cancer Carcinoma of cecum Encounter for antineoplastic chemotherapy History of iron deficiency anemia Iron deficiency anemia due to chronic blood loss 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 Chief Complaint c61 Prostate Cancer Prostate Cancer Cecal Ca Reason for Visit Abnormal abdominal C T scan Mcadams syndrome Prostate cancer Carcinoma of cecum Encounter for antineoplastic chemotherapy History of iron deficiency anemia Iron deficiency anemia due to chronic blood loss 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 Chief Complaint Prostate Cancer Prostate Cancer Cecal Ca Z15.09 Reason for Visit Abnormal abdominal C T scan Mcadams syndrome Prostate cancer Carcinoma of cecum Encounter for antineoplastic chemotherapy History of iron deficiency anemia Iron deficiency anemia due to chronic blood loss 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 Chief Complaint Prostate Cancer Prostate Cancer Z15.09 Cecal Ca Reason for Visit Abnormal abdominal C T scan Mcadams syndrome Prostate cancer Carcinoma of cecum Encounter for antineoplastic chemotherapy History of iron deficiency anemia Iron deficiency anemia due to chronic blood loss 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 Chief Complaint Z15.09 Cecal Ca Reason for Visit Abnormal abdominal C T scan Mcadams syndrome Prostate cancer Carcinoma of cecum Encounter for antineoplastic chemotherapy History of iron deficiency anemia Iron deficiency anemia due to chronic blood loss 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 Chief Complaint Cecal Ca Reason for Visit Abnormal abdominal C T scan Mcadams syndrome Prostate cancer Carcinoma of cecum Encounter for antineoplastic chemotherapy Encounter for monitoring androgen deprivation therapy History of iron deficiency anemia Iron deficiency anemia due to chronic blood loss 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 Chief Complaint Cecal Ca Reason for Visit Abnormal abdominal C T scan Mcadams syndrome Adjustment disorder with mixed anxiety and depressed mood Carcinoma of cecum Encounter for antineoplastic chemotherapy Encounter for monitoring androgen deprivation therapy History of iron deficiency anemia Prostate cancer Vasomotor flushing Iron deficiency anemia due to chronic blood loss 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 Reason for Referral Referred by: Brian HERRMANN, Eulalia Cox Additional Source Comments (unrecognized sect ion and content) No Status Records FoundNo Status Records FoundNo Status Records FoundNo Status Records FoundNo Status Records FoundNo Status Records FoundNo Status Records FoundNo Status Records Found INFORMATION SOURCE (unrecogn ized section and content) DATE CREATED AUTHOR 04/30/2018 [facility] DATE CREATED AUTHOR AUTHOR'S ORGANIZ ATION 12/30/2018 [employer] DATE CREATED AUTHOR AUTHOR'S ORGANIZ ATION 01/17/2019 [facility] DATE CREATED AUTHOR AUTHOR'S ORGANIZ ATION 03/07/2019 [employer] DATE CREATED AUTHOR AUTHOR'S ORGANIZ ATION 07/03/2019 [facility] DATE CREATED AUTHOR AUTHOR'S ORGANIZ ATION 05/22/2022 [facility] DATE CREATED AUTHOR AUTHOR'S ORGANIZ ATION 01/15/2023 [facility] DATE CREATED AUTHOR AUTHOR'S ORGANIZ ATION 08/05/2023 [facility] Patient Care team informatio n (unrecognized section and content) Team Status: Active Member Role Status Dates NON STAFF Primary Care Provider Active Team Status: Inactive Member Role Status Dates NON STAFF Primary Care Provider Active Start: August 02, 2023 End: August 02, 2023 Myranda Jarquin MD Attending Provider Active Start: August 02, 2023 End: August 02, 2023 Team Status: Active Member Role Status Dates Myranda Jarquin MD Attending Provider Active Start: August 02, 2023 Orestes Fox DO Referring Provider Active Sta rt: August 02, 2023 NON STAFF Primary Care Provider Active Start: August 02, 2023 Team Status: Active Member Role Status Dates Teri Rice MD Primary Care Provider Active Team Status: Active Member Role Status Dates Teri Rice MD Primary Care Provider Active Myranda Jarquin MD Attending Provider Active Orestes Fox DO Referring Provider Active Team Status: Inactive Member Role Status Dates Teri Rice MD Primary Care Provider Active Martin Groves DO Attending Provider Active Team Status: Inactive Member Role Status Dates Teri Rice MD Primary Care Provider Active Margarette Lisa MD Attending Provider Active Team Status: Inactive Member Role Status Dates Teri Rice MD Primary Care Provider Active Eulalia Torres MD Attending Provider Active Team Status: Active Member Role Status Dates Myranda Jarquin MD Attending Provider Active Orestes Fox DO Referring Provider Active NON STAFF Primary Care Provider Active Goals (unrecognized section and content) Goals may be documented in a n alternate section REASON FOR VISIT (unrecogniz ed section and content) Pt here at request of Dr. Ludivina lu to establish with palliative care, will need opioid consent if prescribed today, ACP, He denies pain at this time, main complaint is depressionPt there for 2 week follow up via telephone check in. He was started on Sertraline 25 mg tablet at last office visitPt here for symptom reassessment via tele check in. He was to increase Sertraline to 50 mg daily at last office visit FOR RECORDS PERTAINING TO PATIENTS WHO ARE OR HAVE BEEN ENROLLED IN A CHEMICAL DEPENDENCY/SUBSTANCEABUSE PROGRAM, SOME INFORMATION MAY BE OMITTED. This clinical summary was aggregated from multiple sources. Caution should be exercised in using it in the provision of clinical care. This summary normalizes information from multiple sources, and as a consequence, information in this document may materially change the coding, format and clinical context of patient data. In addition, data may be omitted in some cases. CLINICAL DECISIONS SHOULD BE BASED ON THE PRIMARY CLINICAL RECORDS. [employer] provides no warranty or guarantee of the accuracy or completeness of information in this document.
[2023-10-01] MEDS: LACTATED RINGER'S SOLUTION 1,000 ML 125 ML IV (18:32)
[2023-10-01 21:07] LABS: Glucometer 462 mg/dL (74-106)
[2023-10-01] MEDS: TAMSULOSIN HCL 0.4 MG CAPSULE 0.400000000000000022 MG PO (21:58)
[2023-10-01] MEDS: ENOXAPARIN SODIUM 40 MG/0.4 ML SYRINGE SUBQ (21:58)
[2023-10-01] MEDS: INSULIN ASPART 300 UNIT/3 ML PEN SUBQ (22:00)
[2023-10-02] VITALS (10 sets, daily range): BP systolic 103–143; BP diastolic 57–84; PULSE 56–104; RESP 16–18; TEMP 36.6–36.9; O2SAT 91–95; BMI 32.4
[2023-10-02] MEDS: LACTATED RINGER'S SOLUTION 1,000 ML 125 ML IV (02:17)
[2023-10-02 05:22] LABS: Basophils Percent Auto 0.5 % (0.2-2.0); Hematocrit 35.3 % (42.0-54.0); Hemoglobin 11.7 g/dL (14.0-18.0); Immature Granulocytes Abs Auto 0.02 10^3/uL (0.00-0.03); Immature Granulocytes Pct Auto 0.5 % (0.0-0.5); Lymphocytes Absolute Auto 1.3 10^3/uL (1.2-3.8); Lymphocytes Percent Auto 31.3 % (20.5-60.0); Mean Corpuscular HGB Conc 33.1 g/dL (29.9-35.2); Mean Corpuscular Hemoglobin 29.9 pg (25.9-34.0); Mean Corpuscular Volume 90.3 fL (80.0-94.0); Mean Platelet Volume 11.6 fL (9.5-13.5); Monocytes Absolute Auto 0.3 10^3/uL (0.3-0.8); Monocytes Percent Auto 6.8 % (1.7-12.0); Neutrophils Absolute Auto 2.4 10^3/uL (1.4-6.5); Neutrophils Percent Auto 59.9 % (43.0-75.0); Platelet Count 129 10^3/uL (150-450); Red Blood Count 3.91 10^6/uL (4.70-6.10)
[2023-10-02 06:14] LABS: Estimated Average Glucose 280 mg/dL; Glycohemoglobin A1C 11.4 % (4.5-6.2)
[2023-10-02 06:21] LABS: Alanine Aminotransferase 73 U/L (16-63); Albumin Globulin Ratio 0.9; Alkaline Phosphatase 167 U/L (46-116); Anion Gap 11.6; Aspartate Amino Transferase 42 U/L (15-37); Bilirubin Total 0.3 mg/dL (0.2-1.0); Calcium 8.6 mg/dL (8.5-10.1); Carbon Dioxide 25.2 mmol/L (21.0-32.0); Chloride 102 mmol/L (98-107); Chol HDL Ratio 5.7; Cholesterol 181 mg/dL (<=200); Creatine Kinase 171 U/L (39-308); Estimated GFR (African America >60 (>=60); Estimated GFR (Non-African Ame >60 (>=60); Globulin 3.3 g/dL; Glucose 299 mg/dL (74-106); HDL Cholesterol 32 mg/dL (40-60); Potassium 3.8 mmol/L (3.5-5.1); Sodium 135 mmol/L (136-145); Thyroid Stimulating Hormone 9.648 uIU/mL (0.358-3.740); Total Protein 6.3 g/dL (6.4-8.2); Triglycerides 509 mg/dL (<=150); VLDL CHOLESTEROL 101.8 mg/dL
[2023-10-02 07:04] LABS: LDL Cholesterol Direct 81 mg/dL
[2023-10-02 07:34] LABS: Glucometer 324 mg/dL (74-106)
--- NOTE | 2023-10-02 08:41 | P.DS_ITS ---
DS: Providers Provider Date of admission: 10/01/23 17:24 Primary care physician: JOHN RICE Admitting clinician: Tere Bhatti Consults: 10/01/23 16:42 Consult to Activity Therapy Teacher Routine Reason for consultation: new onset diabetes Has provider been notified: No Occupational Therapy Eval and Treat Routine Reason for consultation: right lower ext weakness Has provider been notified: No Physical Therapy Eval and Treat Routine Reason for consultation: right lower ext weakness Has provider been notified: No Discharging clinician: Tere Bhatti DS: Diagnosis Discharge Diagnosis (1) Diabetes mellitus, new onset: (2) Ataxia: (3) Prostate cancer: (4) Primary hypertension: (5) Depression: Qualifiers: Depression Type: unspecified Qualified Code(s): F32.A - Depression, unspecified (6) Hypothyroidism (acquired): (7) Hypertriglyceridemia: (8) Fatty liver: (9) Lumbar spinal stenosis: Qualifiers: Neurogenic claudication status: unspecified Qualified Code(s): M48.061 - Spinal stenosis, lumbar region without neurogenic claudication DS: Summary Hospital Course Hospital Course: patient is a 58-year-old with past medical history of hypertension, depression, prostate cancer and colon cancer who presented to the Emergency Room today with increased urinary frequency and urgency. Also noted was some right lower extremity weakness to the point where he sometimes is getting a spasm in foot, calf and the leg draw and his neck goes to the right. He denies any trauma to his back or leg. This has been progressive over the last 2 weeks where it's occurring 5-10 times a day lasting seconds. He denies any history of strokes or heart attacks. He denies any family history of any muscle wasting disease. He feels that these symptoms come and go. He denies any bowel or bladder incontinence. He denies any recent illness or fevers chills. He is currently undergoing Lupron for prostate cancer. CTA of the head and neck from the emergency department were negative. All other lab work was within normal limits with exception of an elevated glucose level in the 500s with a urine present with ketones. Patient was given regular insulin six units which brought insulin levels down. He does not have a history of diabetes but does have a family history. Patient was admitted to hospital service for further plan of care. He was placed on Telemetry with no overnight events. MRI of the brain was negative and MRI of the lumbar spine was consistent with L5/S1 spinal stenosis. CT of the abdomen and pelvis showed fatty liver and some fatty pancreas otherwise no acute process. Vitamin B12 normal, cbc otherwise normal, slight elevation of liver enzymes and alk phos but normal lipase and amylase consistent with most likely fatty liver. Discussed with the patient lots of things have been ruled out in regards to his right lower ext hypertonia/spasms. TSH was also elevated signifying hypothyroidism. Lots of things contributing, possibly radiculopathy from lumbar spine, neuropathy from elevated glucose, hypothyroidism, chemo. I have started him on Neurontin 100mg BID to see if this helps. I also discussed findings with daughter and patient. I feel he needs outpatient work up with Neurologist and possible EMG study. I have started him on levothyroxine and TFT's should be rechecked in 1 month. Ha1c was significantly elevated at 11.4. He was started on Lantus SoloStar 10 units at night time and metformin 1000mg BID. He was given prescriptions for glucometer with testing strips, pen needles and alcohol pads. Our environmental educator also came and spent time with patient. He will have close follow up with his pcp and most likely will need adjustment to his insulin. He is to resume other home medications, he is already taking keyonna inhibitor. He also had elevated triglycerides and addition of statin or Zetia may be of benefit in the future but he can discuss this with his pcp. He Will continue outpatient work up and will be discharged home today. He is to return to the ER with any worsening issues. Status at Discharge Functional status at discharge: independent ambulation Overall status at discharge: patient is progressing back to baseline Time Spent with Patient Time attestation: Total time spent providing and/or coordinating discharge services: Time spent: greater than 30 minutes Exam Narrative Exam Narrative: General: Patient is alert, and oriented to person, place and time with normal affect, proper hygiene Skin: no visible rashes, or ulcers Head: atraumatic, acephalic Eyes: PERRLA, no nystagmus present, conjunctiva clear, no scleral icterus Ears: normal Tympanic Membrane, normal gross auditory acuity Nose: symmetric, no discharge, no maxillary or frontal sinus tenderness Mouth/Throat: no erythema, exudate, or tonsillar enlargement, normal dentition Neck: no masses palpated, normal thyroid, no JVD or audible carotid bruits Heart: Normal rate and rhythm, no murmurs/rubs/gallops Lungs: no audible wheezes, crackles and normal breath sounds all lung portillo Abdomen: Normal audible bowel sounds, no distension, No palpable masses, no organomegaly, no rebound/guarding/ or rigidity Musculoskeletal: no swelling bilateral lower extremities Vascular: Normal carotid, radial, femoral, posterior tibial, and dorsalis pedis pulses Lymph: no supraclavicular, axillary, or anterior/posterior cervical adenopathy Neuro: CN II-X grossly intact, normal sensation upper and lower extremities some weakness noted in right lower ext with pushing, patient had episode while i was in the room and right knee abducted and pulled back/ gastroc activated and head pulled to the right, right arm was unaffected, no LOC, no pain, lasted about 10 seconds and was able to relax again Constitutional Vital Signs, click to edit/add: Last Vital Signs Temp 97.9 F 10/02/23 07:36 Pulse 86 10/02/23 08:00 Resp 18 10/02/23 07:36 BP 142/83 H 10/02/23 07:36 Pulse Ox 93 L 10/02/23 07:36 O2 Del Method Room Air 10/02/23 07:36 DS: Data Data Completed and Pending Labs on day of discharge: Labs from last 24 hours 10/02/23 10/02/23 10/01/23 07:33 04:48 21:01 WBC 4.0 RBC 3.91 L Hgb 11.7 L Hct 35.3 L MCV 90.3 MCH 29.9 MCHC 33.1 RDW 12.0 Plt Count 129 L MPV 11.6 Neut % (Auto) 59.9 Lymph % (Auto) 31.3 [place] % (Auto) 6.8 Eos % (Auto) 1.0 Baso % (Auto) 0.5 Neut # (Auto) 2.4 Lymph # (Auto) 1.3 [place] # (Auto) 0.3 Eos # (Auto) 0.0 Baso # (Auto) 0.0 Abs Immat Gran (auto) 0.02 Imm/Tot Granulo (auto) 0.5 VBG pH VBG pCO2 Sodium 135 L Potassium 3.8 Chloride 102 Carbon Dioxide 25.2 Anion Gap 11.6 BUN 16.0 Creatinine 0.89 Est GFR ( Amer) >60 Est GFR (Non-Af Amer) >60 BUN/Creatinine Ratio 18.0 Glucose 299 H Estimat Average Glucose 280 Hemoglobin A1c 11.4 H Calcium 8.6 Total Bilirubin 0.3 AST 42 H ALT 73 H Alkaline Phosphatase 167 H Total Creatine Kinase 171 Total Protein 6.3 L Albumin 3.0 L Globulin 3.3 Albumin/Globulin Ratio 0.9 Triglycerides 509 H Cholesterol 181 LDL Cholesterol Direct 81 VLDL Cholesterol 101.8 HDL Cholesterol 32 L Cholesterol/HDL Ratio 5.7 Vitamin B12 365.0 TSH 9.648 H Urine Color Urine Clarity Urine pH Ur Specific [place] Urine Protein Urine Glucose (UA) Urine Ketones Urine Occult Blood Urine Nitrite Urine Bilirubin Urine Urobilinogen Ur Leukocyte Esterase Urine RBC Urine WBC Ur Squamous Epith Cells Urine Bacteria Urine Mucus Acetone, Qual POC Glucose 324 H 462 H 10/01/23 10/01/23 10/01/23 14:15 12:54 12:35 WBC RBC Hgb Hct MCV MCH MCHC RDW Plt Count MPV Neut % (Auto) Lymph % (Auto) [place] % (Auto) Eos % (Auto) Baso % (Auto) Neut # (Auto) Lymph # (Auto) [place] # (Auto) Eos # (Auto) Baso # (Auto) Abs Immat Gran (auto) Imm/Tot Granulo (auto) VBG pH 7.401 VBG pCO2 43.7 Sodium Potassium Chloride Carbon Dioxide Anion Gap BUN Creatinine Est GFR ( Amer) Est GFR (Non-Af Amer) BUN/Creatinine Ratio Glucose Estimat Average Glucose Hemoglobin A1c Calcium Total Bilirubin AST ALT Alkaline Phosphatase Total Creatine Kinase Total Protein Albumin Globulin Albumin/Globulin Ratio Triglycerides Cholesterol LDL Cholesterol Direct VLDL Cholesterol HDL Cholesterol Cholesterol/HDL Ratio Vitamin B12 TSH Urine Color Lt. yellow Urine Clarity Clear Urine pH 5.5 Ur Specific [place] 1.010 Urine Protein Negative Urine Glucose (UA) >=1000 A Urine Ketones 15 A Urine Occult Blood Negative Urine Nitrite Negative Urine Bilirubin Negative Urine Urobilinogen 0.2 Ur Leukocyte Esterase Negative Urine RBC None seen Urine WBC None seen Ur Squamous Epith Cells Few A Urine Bacteria None seen Urine Mucus None seen Acetone, Qual POC Glucose 164 H 10/01/23 10/01/23 11:49 11:44 WBC 4.3 RBC 4.40 L Hgb 13.1 L Hct 38.7 L MCV 88.0 MCH 29.8 MCHC 33.9 RDW 12.0 Plt Count 154 MPV 12.1 Neut % (Auto) 76.0 H Lymph % (Auto) 16.3 L [place] % (Auto) 5.8 Eos % (Auto) 0.9 Baso % (Auto) 0.5 Neut # (Auto) 3.3 Lymph # (Auto) 0.7 L [place] # (Auto) 0.3 Eos # (Auto) 0.0 Baso # (Auto) 0.0 Abs Immat Gran (auto) 0.02 Imm/Tot Granulo (auto) 0.5 VBG pH VBG pCO2 Sodium 130 L Potassium 5.0 Chloride 93 L Carbon Dioxide 23.9 Anion Gap 18.1 BUN 15.0 Creatinine 1.16 Est GFR ( Amer) >60 Est GFR (Non-Af Amer) >60 BUN/Creatinine Ratio 12.9 Glucose 501 H* Estimat Average Glucose Hemoglobin A1c Calcium 9.2 Total Bilirubin AST ALT Alkaline Phosphatase Total Creatine Kinase Total Protein Albumin Globulin Albumin/Globulin Ratio Triglycerides Cholesterol LDL Cholesterol Direct VLDL Cholesterol HDL Cholesterol Cholesterol/HDL Ratio Vitamin B12 TSH Urine Color Urine Clarity Urine pH Ur Specific [place] Urine Protein Urine Glucose (UA) Urine Ketones Urine Occult Blood Urine Nitrite Urine Bilirubin Urine Urobilinogen Ur Leukocyte Esterase Urine RBC Urine WBC Ur Squamous Epith Cells Urine Bacteria Urine Mucus Acetone, Qual Negative POC Glucose 511 H* Discharge Plan Discharge Disposition: Home, Self-Care Condition: Good Discharge Medications: New metformin 500 mg Tablet 1,000 mg PO BIDWM 30 Days Qty: 60 0RF levothyroxine 25 mcg Tablet 50 mcg PO ACB 30 Days Qty: 30 0RF gabapentin 100 mg Capsule 100 mg PO BID 10 Days Qty: 20 0RF insulin glargine [Lantus Solostar U-100 Insulin] 100 unit/mL (3 mL) insulin pen 10 unit subcut QPM 30 Days Qty: 3 0RF Rx Instructions: Patient will bring in Rx for pen needles. Continued tamsulosin 0.4 mg capsule 0.4 mg PO Q24H Lupron Depot (6 Month) 45 mg syringe kit 45 mg IM .q 6 months lisinopril 20 mg tablet 20 mg PO .QD venlafaxine 75 mg capsule,extended release 24hr 75 mg PO DAILY Activity: increase activity as tolerated Diet: advance to your usual diet Print Language: Zimbabwean Patient Instructions: Levothyroxine (By mouth), Gabapentin (By mouth), Metformin (By mouth), Insulin Glargine (By injection) (Lantus, Lantus SoloStar, Toujeo, Semglee), What is Insulin (DC), Diabetes and Your Skin (DC), Type 2 Diabetes in the Older Adult (DC), Diabetes and Nutrition (DC), Diabetes and Exercise (DC) Forms: Portal Instructions Follow Up Appointments: October 03 @ 3:30pm with Dr. Jarquin [phone] Sun. October 04 @ 10am with Dr. Rice [phone]
[2023-10-02] MEDS: LEVOTHYROXINE SODIUM 25 MCG TABLET 50 MCG PO (09:41)
[2023-10-02] MEDS: METFORMIN HCL 500 MG TABLET 1000 MG PO (09:41)
[2023-10-02] MEDS: LISINOPRIL 20 MG TABLET PO (09:41)
[2023-10-02] MEDS: INSULIN DETEMIR 300 UNIT/3 ML INSULN.PEN 10 UNIT SQ (09:42)
[2023-10-02] MEDS: GABAPENTIN 100 MG CAPSULE PO (09:42)
[2023-10-02] MEDS: INSULIN ASPART 300 UNIT/3 ML PEN SUBQ ×2 (09:43→11:44)
--- NOTE | 2023-10-02 10:05 | CM.NOTE ---
Discussed with Dr. Bhatti and PT already consulted for pt, no discharge recommendations noted with PT. Dr. Bhatti discussed with pt results of testing.
--- NOTE | 2023-10-02 10:34 | CT_ITS ---
[address] [address] Patient Name: ISAIAS LEMON MRN: [id number] date: 1965 Sex: M Assigned Patient Location: [place] Current Patient Location: [place] Accession/Order Number: [id number] Exam Date: 10/02/2023 10:58 Report Date: 10/02/2023 11:40 At the request of: JAMEE VICKERS Procedure: CT abdomen pelvis wo con EXAMINATION: CT abdomen pelvis wo con HISTORY: history of prostate and colon cancer hyperglycemia COMPARISON: 03/30/2018 TECHNIQUE: Axial, Coronal, and Sagittal images were created without IV contrast. Dose reduction techniques were achieved by using automated exposure control and/or adjustment of mA and/or kV according to patient size and/or use of iterative reconstruction technique. FINDINGS: LUNG BASES: No visible pulmonary or pleural disease. LIVER: Diffuse hypoattenuation consistent with hepatic steatosis. Some focal sparing at the gallbladder fossa BILIARY: Contracted gallbladder without evidence of acute cholecystitis PANCREAS: Moderate fatty atrophy SPLEEN: No enlargement or focal lesion. ADRENALS: No mass or enlargement. KIDNEYS: Normal right. Nonobstructing left nephrolithiasis BOWEL/MESENTERY: Nonobstructive bowel gas pattern. Suture line along the cecum AORTA/VASCULAR: No aortic aneurysm. Mild atherosclerosis RETROPERITONEUM: No mass or adenopathy. LYMPH NODES: No adenopathy. URINARY BLADDER: No visible focal wall thickening, lesion, or calculus. PELVIC ORGANS: Lobular heterogeneous prostate gland with calcifications and implants ABDOMINAL WALL: No mass or hernia. BONES: No bony lesion or fracture. OTHER: Negative. CT/CT abdomen pelvis wo con IMPRESSION: Mildly lobular heterogeneous prostate gland No acute intraperitoneal abnormality Electronically authenticated by: ROCÍO PARKINSON Date: 10/02/2023 11:40
[2023-10-02 11:12] LABS: Glucometer 489 mg/dL (74-106)
--- NOTE | 2023-10-02 11:43 | CM.NOTE ---
Rounds made with Dr. Bhatti, discussed testing results with pt and daughter. Pt will have CT abd/pelvis today and also awaiting teleneuro consult. Pt will f/u with PCP and oncology at discharge. Awaiting further recommendations from teleneurologist.
[2023-10-02 12:47] LABS: Amylase 47 U/L (25-115)
--- NOTE | 2023-10-03 16:23 | CM.DCFOLLOWU ---
Person spoke with: patient How are you feeling? better How is your pain? none Did you understand your discharge instructions? yes Do you have any questions about your discharge instructions? no Were you given any prescriptions at discharge? yes Were you able to get your prescriptions filled? yes all filled today Do you understand how to take your medications as ordered?yes Do you have any questions about your follow up appointment and do you plan to keep your follow up appointment? no questions, had follow up with oncologist today and PCP follow up is scheduled Is there anything else that you would like to discuss? no Questions/Comments/Concerns/Other: N/A
== END 2023-10-02 15:30 | disposition home or self-care (01) ==
LOC: ER 16:39 → MS 17:28
PROVIDERS: Admitting Provider Family Medicine; Emergency Provider Emergency Medicine; PCP Family Medicine; Visit Provider Family Medicine
DX: E11.9 Type 2 diabetes mellitus without complications (principal); R27.0 Ataxia, unspecified; C61 Malignant neoplasm of prostate; I10 Essential (primary) hypertension; F32.A Depression, unspecified; M48.061 Spinal stenosis, lumbar region without neurogenic claudication; K76.0 Fatty (change of) liver, not elsewhere classified; E78.1 Pure hyperglyceridemia; E03.9 Hypothyroidism, unspecified; Z79.899 Other long term (current) drug therapy; Z85.038 Personal history of other malignant neoplasm of large intestine
CPT/HCPCS: 36415; 70450; 70496; 70498; 70551; 71045; 72148; 74176; 80048; 80053; 80061; 81001; 82009; 82150; 82550; 82607; 82800; 82948; 83036; 83690; 83721; 84443; 85025; 93005; 96372; 97165; 99285; G0108; G0378; Q9967